=== PATIENT | male | born 1950 | race Caucasian/White ===

== ENCOUNTER 2016-04-29 15:52 | Inpatient (IN) | payer BC, OTHER ==
[~2016-04-29] VITALS: Ht 165.1 cm; Wt 96.1 kg
[~2016-04-29 15:52] MED LIST: /PANT40TA; /WARF2TA; ALDA25TA2; ALLO100T; ALLO100T PO; ASPI81CH PO; ASPI81TA83; Aspirin; BABY81CH; BREO1INH INH; CALC500C8 PO; COLA100C PO; COUM1TAB19 PO; COUM6TAB PO; CRES40TA PO; DARV100T; FARX1TAB2 PO; FERR325T PO; FISH5CAP PO; FURO40TA2 PO; GLUC500T; INSULANT SC; KLOR10TA; LASI40TA; LISI2.5T3 PO; MECL25CH PO; METF1000 PO; NITR0.4S; OMEGA-3 FISH OIL; PANT40TA2 PO; POTA20TA PO; PRIN5TAB; PROA1AER INH; SIMVPOW2; SPIR25TA2 PO; SPIR50TA2; TENO25TA; TRIC145T19; VITMTA PO; ZYLO100T
[2016-04-29 16:58] LABS: BASO % 0.5 % (0.0-1.0); EOS # 0.1 K/mm3 (0.0-0.50); EOS % 0.7 % (0.0-3.0); LARGE UNSTAINED CELL # 0.2 K/mm3 (0.0-0.4); LARGE UNSTAINED CELL % 1.8 % (0.0-4.0); LYMPH # 1.6 K/mm3 (1.5-4.5); LYMPH % 16.2 % (24.0-44.0); MEAN CORPUSCULAR HEMOGLOBIN 27.6 pg (27.0-33.0); MEAN CORPUSCULAR HGB CONC 34.3 g/dl (32.0-36.5); MEAN CORPUSCULAR VOLUME 80.6 fl (80.0-96.0); MONO # 0.6 K/mm3 (0.0-0.8); MONO % 6.1 % (0.0-5.0); NEUTROPHILS # 7.3 K/mm3 (1.8-7.7); NEUTROPHILS % 74.8 % (36.0-66.0); PLATELET COUNT, AUTOMATED 298 k/mm3 (150-450); RED CELL DISTRIBUTION WIDTH 14.7 % (11.5-14.5); WHITE BLOOD COUNT 9.8 K/mm3 (4.0-10.0)
[2016-04-29 17:15] LABS: INR 2.75
[2016-04-29 17:32] LABS: CALCIUM LEVEL 8.6 MG/DL (8.8-10.2); CREATININE FOR GFR 1.67 MG/DL (0.70-1.30); FREE T4 1.02 NG/DL (0.76-1.46); GLOMERULAR FILTRATION RATE 44.5 (>49); MAGNESIUM LEVEL 2.3 MG/DL (1.8-2.4); POTASSIUM SERUM 2.7 MEQ/L (3.5-5.1)
[2016-04-29] MEDS ORDERED: POTASSIUM CHLORIDE 10 MEQ SR TABLET As Ordered ONE (18:21)
[2016-04-29] MEDS ORDERED: KCL 10MEQ IN STERILE WATER 100ML As Ordered ONE (18:21)
[2016-04-29] MEDS ORDERED: DEXTROSE 50% 50 ML SYRINGE IV PRN (18:45)
[2016-04-29] MEDS ORDERED: ACETAMINOPHEN TAB 650MG DOSE (2X325MG) PO PRN (18:45)
[2016-04-29] MEDS ORDERED: GLUCOSE 4 GM CHEW TABLET PO PRN (18:45)
[2016-04-29] MEDS ORDERED: GLUCAGON FOR INJ 1 MG VIAL (J1610) SC PRN (18:45)
[2016-04-29] MEDS ORDERED: IPRATROPIUM 0.5MG/ALBUTEROL 2.5MG INH SOL UD 3ML (DUONEB)(J7620) NEB PRN (18:45)
--- NOTE | 2016-04-29 18:52 | REP ---
AP PORTABLE CHEST: 04/29/2016 at 06:21 P.M.: Comparison: 02/14/2016, 03/31/2011. Clinical history: Hypotension. Findings: A somewhat lordotic projection limits evaluation of the posterior lower lung zones. Epicardial fat pad adjacent to left heart border again seen. There is no gross cardiomegaly, edema or gross effusion. No dense consolidation. Some fibrotic changes are seen in the mid and lower lung zones. Evidence for COPD. Bones demineralized. No other findings. Signed by Naldo Del Rio MD 04/29/2016 07:57 P
[2016-04-29] MEDS ORDERED: LASI20TA PO ×2 (19:09)
[2016-04-29] MEDS ORDERED: FISH1000 PO (19:09)
[2016-04-29] MEDS ORDERED: SPIR25TA2 PO (19:16)
[2016-04-29] MEDS ORDERED: POTA20TA PO (19:16)
[2016-04-29] MEDS ORDERED: LISI2.5T3 PO (19:16)
[2016-04-29 20:00] VITALS: BP 124/74
[2016-04-29] MEDS ORDERED: NS 500 ML IV SCH (20:00)
[2016-04-29] MEDS ORDERED: ALBUTEROL 90 MCG/ACT 8GM HFA INHALER INH PRN (20:15)
--- NOTE | 2016-04-29 20:24 | HPEPDOC ---
General Date of Admission Apr 29, 2016 at 18:42 Chief Complaint The patient is a 65-year-old male Presented to the ER from Nephrology because of dizziness and abnormal lab values. 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 Patient was admitted to the hospital 02/13 to 02/15 for orthostatic hypotension and received IV fluid hydration that caused him to go into fluid overload. From that point his Lasix medications were adjusted to 40 AM and 20 PM daily. During that hospital course he had several electrolyte abnormalities that were corrected. He followed up with Nephrology in February and had no problems. His electrolytes and volume status were adequate. Since that point he has continued the same regimen. 2 weeks ago patient began to experience dizziness with walking and standing. He denies falling or losing consciousness. He did not seek any medication attention at that time and waited for his appointment with nephrology. Upon evaluation by nephrology, they had noted that he had hypokalemia, hyponatremia and had had a 13 lbs weight loss over 2 months. Patient was advised to go to the ER where they found he had positive orthostatic vital signs. Hospitalist team was called for evaluation. Currently he denies any chest pain, shortness of breath, cough, fever, chills, nausea, vomiting, abdominal pain, constipation or diarrhea. He denies any dysuria. Home Medications Scheduled (Aspirin) 81 Mg Chw 81 MG PO DAILY (Reported) Allopurinol (Allopurinol) 100 Mg Tab 100 MG PO DAILY (Reported) Calcium Carbonate (Calcium) 500 Mg Chw 500 MG PO BID (Reported) Docusate Sodium (Colace) 100 Mg Cap 100 MG PO BID (Reported) Ferrous Sulfate (Ferrous Sulfate) 325 Mg Tab 325 MG PO BID (Reported) Fish Oil (Fish Oil) 1,000 Mg Cap 1,000 MG PO BID (Reported) Fluticasone/Vilanterol (Breo Ellipta 100-25 Mcg/INH) 1 Inh Inh 1 PUFF INH DAILY (Reported) Furosemide (Lasix) 20 Mg Tab 40 MG PO QAM (Reported) Furosemide (Lasix) 20 Mg Tab 20 MG PO DAILY (Reported) TAKES IN THE AFTERNOON Insulin Glargine (Lantus) 1 Units/0.01 Ml Susp 20 UNITS SC QAM (Reported) Lisinopril (Lisinopril) 2.5 Mg Tab 2.5 MG PO DAILY (Reported) Metformin Hydrochloride (Metformin HCl) 1,000 Mg Tab 1,000 MG PO BID (Reported ) Multivitamins *[facility] STOCK[facility]* (Thera M Plus *[facility]OCK[facility]*) 1 Tab Tab 1 TAB PO DAILY (Reported) Pantoprazole Sodium (Pantoprazole Sodium) 40 Mg Tab 40 MG PO DAILY (Reported) Potassium Chloride (Klor-Con M20) 20 Meq Tabcr 20 MEQ PO BID (Reported) Rosuvastatin Calcium (Crestor) 40 Mg Tab 40 MG PO DAILY (Reported) Spironolactone (Spironolactone) 25 Mg Tab 25 MG PO BID (Reported) Warfarin Sod (Coumadin) 6 Mg Tab 6 MG PO 3XW (Reported) QPM: Mon, Wed, Fri - ON HOLD UNTIL 05/01/16 Warfarin Sod (Coumadin) 3 Mg Tab 9 MG PO 4XWK (Reported) QPM: Tue, Th, Sat, Sun - ON HOLD UNTIL 05/01/16 Scheduled PRN Albuterol Sulfate (Proair Hfa) 108 Mcg/Act Aer 2 PUFF INH QID PRN PRN SHORTNESS OF BREATH (Reported) Allergies Coded Allergies: No Known Allergies (Verified Allergy, Mild, 09/07/05) Past Medical History Medical History COPD, HTN, DLP, IDDM2, MORTEZA on CPAP, Hx of fluid overload (ECHO 01/2016: No systolic or diastolic dysfunction), 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 Review of Symptoms Other systems Constitutional: Positive weight loss, no change in appetite, or recent trauma Eyes: No visual changes or eye pain Ears, Nose, Throat: Denies nose bleeds, or difficulty swallowing Cardiovascular: Denies chest pain, sweating, or orthopnea Respiratory: Denies cough, wheezing, or shortness of breath GI: Rich nausea, vomiting, abdominal pain, diarrhea or constipation : Denies pain with urination or frequency Musculoskeletal: Denies joint pain or swelling Neuro / Psych: Denies muscle weakness or sensory loss, Positive dizziness Skin: No skin rashes noted All other review of systems negative; otherwise stated in history of present illness Vital Signs - Vitals: BP 119/72, HR 84, RR 18, Sat 96%RA, Temp 98.6 - General: Lying in bed, No acute distress, Speaking in full sentences, AAOx3 - HEENT: NC, AT, PERRLA, EOMI - CVS: RRR, +S1S2, - Lungs: Fair air entry bilaterally, Clear to auscultation, No wheezing / rales / rhonchi - Abdomen: Soft, Non-distended, Non-tender, + Bowel sounds x 4 - Extremities: + PPx4, No lower extremity edema, No calf tenderness - Neuro: No focal motor or sensory deficit - Skin: No visible rashes Laboratory Data Labs 24H Laboratory Tests 2 04/29/16 16:45: Urine Random Creatinine 13.1, Urine Random Osmolality 277L, Urine Random Sodium 64 04/29/16 16:49: Anion Gap 15, White Blood Count 9.8, Red Blood Count 5.08, Hemoglobin 14.0, Hematocrit 40.9L, Mean Corpuscular Volume 80.6, Mean Corpuscular Hemoglobin 27.6 , Mean Corpuscular Hemoglobin Concent 34.3, Red Cell Distribution Width 14.7H, Platelet Count 298, Neutrophils (%) (Auto) 74.8H, Lymphocytes (%) (Auto) 16.2L, Monocytes (%) (Auto) 6.1H, Eosinophils (%) (Auto) 0.7, Basophils (%) (Auto) 0.5 , Neutrophils # (Auto) 7.3, Lymphocytes # (Auto) 1.6, Monocytes # (Auto) 0.6, Eosinophils # (Auto) 0.1, Basophils # (Auto) 0.0, Blood Urea Nitrogen 30H, Creatinine 1.67H, Sodium Level 134L, Potassium Level 2.7*L, Chloride Level 93L, Carbon Dioxide Level 26, Calcium Level 8.6L, Free Thyroxine 1.02, Glomerular Filtration Rate 44.5L, Large Unclassified Cells # 0.2, Large Unclassified Cells % 1.8, Magnesium Level 2.3, Osmolality 299, Prothromb Time International Ratio 2.75, Prothrombin Time 29.1H, Thyroid Stimulating Hormone (TSH) 1.680 04/29/16 20:07: Bedside Glucose (Misc Panel) 385H CBC/BMP Laboratory Tests 04/29/16 16:49 Calcium Level 8.6 L, Red Blood Count 5.08, Mean Corpuscular Volume 80.6, Mean Corpuscular Hemoglobin 27.6, Mean Corpuscular Hemoglobin Concent 34.3, Red Cell Distribution Width 14.7 H, Neutrophils (%) (Auto) 74.8 H, Lymphocytes (%) (Auto ) 16.2 L, Monocytes (%) (Auto) 6.1 H, Eosinophils (%) (Auto) 0.7, Basophils (%) (Auto) 0.5, Neutrophils # (Auto) 7.3, Lymphocytes # (Auto) 1.6, Monocytes # ( Auto) 0.6, Eosinophils # (Auto) 0.1, Basophils # (Auto) 0.0 Plan / VTE VTE Prophylaxis Ordered?: Yes Plan Plan Positive orthostatic vital signs likely 2/2 over diuresis - Reports dizziness upon standing and walking, no LOC or head trauma - Physical reveals positive orthostatic in ER - Has been given 500 cc NS bolus in ER - Will hold Furosemide and Spirinolactone at this - Will complete 500cc of additional Normal saline (total of 1 Liter) - History of fluid overload in past because of excessive hydration - Case discussed with Nephrology (Dr. Chaudhary) on consult, appreciate their input Hypokalemia - Potassium of 2.7 - In ER has received KCl 10 mEq IV and 40 meEq PO - Magnesium level adequate - Will keep on telemetry - Will repeat Potassium level in AM BASSAM - likely pre-renal 2/2 hypovolemia and orthostatic positive - Cr baseline of 0.8, currently at 1.64 - Will hold Lasix and Diuretics - Will give IV fluid hydration (maximum of 1 liter) - Dr. Chaudhary (Nephrology) following Hyponatremia likely 2/2 hypovolemia - Will c/w Normal saline for a total of 1 liter only COPD - no evidence of exacerbation at this time - c/w Albuterol PRN HTN - Will hold lisinopril, spironolactone and Lasix given orthostatic hypotension DLP - c/w rosuvastatin IDDM2 - c/w Lantus 20 units per day - will start Insulin sliding scale MORTEZA on CPAP - allow home CPAP use Hx of fluid overload - ECHO 01/2016: No systolic or diastolic dysfunction DVT/PE - 10 years prior - INR of 2.75 - Currently on Coumadin, Take 9mg for 4 days, then 6mg for next 3 days - Will start at 7.5 mg daily for now Gout - will hold allopurinol Iron deficiency - c/w ferrous sulfate GERD - c/w protonix DVT prophylaxis - On full anticoagulation with Warfarin Will be signed out to AKASH Sin MD Apr 29, 2016 20:24
[2016-04-29] MEDS ORDERED: HEPARIN SOD (PORCINE) 5000 UNITS/ML VIAL As Ordered ONE (20:29)
[2016-04-29] MEDS ORDERED: HumuLIN R (REGULAR) INSULIN (NovoLIN R) **100U/ML** PER UNIT As Ordered ONE ×2 (20:30→20:34)
[2016-04-29] MEDS ORDERED: DOCUSATE SODIUM 100 MG CAP As Ordered ONE ×2 (20:34→20:48)
[2016-04-29] MEDS: FERROUS SULFATE 325MG TAB PO SCH (20:37)
[2016-04-29] MEDS: HEPARIN SOD (PORCINE) 5000 UNITS/ML VIAL SC SCH (20:38)
[2016-04-29] MEDS: DOCUSATE SODIUM 100 MG CAP PO SCH (20:38)
[2016-04-29] MEDS ORDERED: HumaLOG INSULIN (NovoLOG) PER UNIT As Ordered ONE (20:45)
[2016-04-29] MEDS: HumaLOG INSULIN (NovoLOG) PER UNIT SC SCH (20:50)
[2016-04-29] MEDS ORDERED: KCL 40MEQ IN 0.9%NACL 1000ML As Ordered ONE (21:43)
[2016-04-29] MEDS ORDERED: KCL 40MEQ in NS 1000ML 1,000 ML IV SCH (21:45)
[2016-04-30] VITALS (8 sets, daily range): BP systolic 102–130; BP diastolic 56–81
[2016-04-30] MEDS ORDERED: UNRESOLVED CLARIFICATION ENTRY XX SCH (00:01)
[2016-04-30] MEDS ORDERED: IPRATROPIUM 0.5MG/ALBUTEROL 2.5MG INH SOL UD 3ML (DUONEB)(J7620) NEB SCH (02:00)
[2016-04-30] MEDS ORDERED: HEPARIN SOD (PORCINE) 5000 UNITS/ML VIAL As Ordered ONE (05:07)
[2016-04-30] MEDS: HEPARIN SOD (PORCINE) 5000 UNITS/ML VIAL SC SCH ×3 (05:11→21:48)
[2016-04-30 06:55] LABS: BASO % 0.5 % (0.0-1.0); EOS # 0.1 K/mm3 (0.0-0.50); EOS % 1.7 % (0.0-3.0); LARGE UNSTAINED CELL # 0.1 K/mm3 (0.0-0.4); LARGE UNSTAINED CELL % 2.3 % (0.0-4.0); LYMPH # 1.7 K/mm3 (1.5-4.5); LYMPH % 28.8 % (24.0-44.0); MEAN CORPUSCULAR HEMOGLOBIN 28.2 pg (27.0-33.0); MEAN CORPUSCULAR HGB CONC 34.5 g/dl (32.0-36.5); MEAN CORPUSCULAR VOLUME 81.7 fl (80.0-96.0); MONO # 0.4 K/mm3 (0.0-0.8); MONO % 7.6 % (0.0-5.0); NEUTROPHILS # 3.4 K/mm3 (1.8-7.7); NEUTROPHILS % 59.1 % (36.0-66.0); PLATELET COUNT, AUTOMATED 245 k/mm3 (150-450); RED CELL DISTRIBUTION WIDTH 14.9 % (11.5-14.5); WHITE BLOOD COUNT 5.8 K/mm3 (4.0-10.0)
[2016-04-30 07:02] LABS: INR 2.37
[2016-04-30 07:19] LABS: ALBUMIN 3.2 GM/DL (3.2-5.2); ALBUMIN/GLOBULIN RATIO 1.1 (1.00-1.93); BILIRUBIN,TOTAL 0.3 MG/DL (0.2-1.0); CALCIUM LEVEL 8.4 MG/DL (8.8-10.2); CREATININE FOR GFR 1.38 MG/DL (0.70-1.30); GLOMERULAR FILTRATION RATE 55.4 (>49); MAGNESIUM LEVEL 2.3 MG/DL (1.8-2.4); TOTAL PROTEIN 6.1 GM/DL (6.4-8.2)
[2016-04-30] MEDS ORDERED: LEVEMIR (INSULIN DETEMIR) 1 UNITS/0.01ML As Ordered ONE (08:18)
[2016-04-30] MEDS ORDERED: HumaLOG INSULIN (NovoLOG) PER UNIT As Ordered ONE (08:19)
[2016-04-30] MEDS: FERROUS SULFATE 325MG TAB PO SCH ×2 (08:38→21:48)
[2016-04-30] MEDS: MULTIVITAMINS/MINERALS THERAP 1 TAB PO SCH (08:38)
[2016-04-30] MEDS: DOCUSATE SODIUM 100 MG CAP PO SCH ×2 (08:38→21:48)
[2016-04-30] MEDS: ASPIRIN 81 MG CHEW TABLET PO SCH (08:38)
[2016-04-30] MEDS: LEVEMIR (INSULIN DETEMIR) 1 UNITS/0.01ML SC SCH (08:38)
[2016-04-30] MEDS: HumaLOG INSULIN (NovoLOG) PER UNIT SC SCH ×4 (08:38→21:47)
[2016-04-30] MEDS: ROSUVASTATIN 10 MG TAB (CRESTOR) PO SCH (08:38)
[2016-04-30] MEDS: PANTOPRAZOLE 40MG TAB (PROTONIX) PO SCH (08:38)
[2016-04-30] MEDS ORDERED: KCL 40MEQ IN 0.9%NACL 1000ML As Ordered ONE (10:13)
--- NOTE | 2016-04-30 10:49 | ECGEPIP ---
Stationary ECG Study [facility] - ED Test Date: 2016-04-29 Pat Name: DREA TORIBIO Department: Room: - Gender: M Sole Seamer: lion : 1950 Requested By: Maverick Alston Order Number: [id number] Reading MD: Marybel Loya Measurements Intervals [place] Rate: 87 P: 32 [place]: 166 QRS: 58 QRSD: 120 T: 54 QT: 419 QTc: 506 Interpretive Statements SINUS RHYTHM MODERATE INTRAVENTRICULAR CONDUCTION DELAY PROLONGED QT INTERVAL CLINICAL CORRELATION Electronically Signed On 04-30-2016 10:49:25 EST by Marybel Loya
[2016-04-30] MEDS ORDERED: POTASSIUM CHLORIDE 10 MEQ SR TABLET PO ONE ×3 (11:30→20:00)
[2016-04-30] MEDS ORDERED: POTASSIUM CHLORIDE 10 MEQ SR TABLET As Ordered ONE (11:46)
[2016-04-30] MEDS ORDERED: KCL 40MEQ in NS 1000ML 1,000 ML IV SCH (12:00)
--- NOTE | 2016-04-30 12:47 | EDDOCDS ---
Physician Documentation [facility] Name: Lg Espinal Age: 65 yrs Sex: Male : 1950 Arrival Date: 04/29/2016 Time: 15:52 Bed Admit Hold Private MD: John Mccormack Disposition: 04/29 18:01 Critical Care:. pc Disposition: 04/29/16 18:20 Hospitalization ordered by Selene Maldonado for Inpatient Admission. Preliminary diagnosis are Orthostatic hypotension, Hypokalemia, Type 2 diabetes mellitus with hyperglycemia - A1C over 9 for past 2 years, Hyperlipidemia, unspecified, Polydipsia, Chronic kidney disease, stage 3 (moderate). - Bed requested for PCU. - Status is Inpatient Admission. hs1 - Condition is Stable. - Problem is new. - Symptoms have improved. HPI: 16:50 This 65 yrs old Male presents to ER via Walkin/Carried/Asstd with complaints pc of Abnormal Lab Results. 16:50 The history is obtained from the patient, Dr. Hodge. He was referred to Nephrology pc due to ongoing hyponatremia and his labs today showed significant hypokalemia and hyponatremia. The patient complains only of occasional dizziness. He admits to drinking at least 8 x 20 ounce bottles of water daily. He does not have any underlying renal disease. He has type 2 DM with poor control, with and A1C of 8.9 to 9.6 since 2014. At their worst, the symptoms were mild. In the emergency department, the symptoms are unchanged. The patient has been recently seen by their primary care provider. Historical: - Allergies: no known allergies; - Home Meds: 1. calcium carbonate 500 mg calcium (1,250 mg) Oral cap twice a day 2. allopurinol 100 mg Oral tab 1 tab once daily 3. aspirin 81 mg Oral chew 1 tab once daily 4. Breo INH daily 5. cpap nightly 6. Doc-Q-Lace 100 mg oral cap 1 cap 2 times per day 7. ferrous sulfate 325 mg (65 mg iron) Oral tab twice a day 8. Fish Oil Pills 1200 mg Twice Daily 9. Lantus 100 unit/mL Sub-Q crtg 20 units daily 10. Lasix 40 mg oral tab in Am and 20mg in pm 11. lisinopril 2.5 mg Oral tab 1 tab once daily 12. metformin 1,000 mg Oral tab 1 tab 2 times per day 13. potassium 20meq oral chew twice a day 14. pantoprazole 40 mg oral TbEC 1 tab once daily 15. Pro Air INH as needed 16. rosuvastatin 40 mg once daily oral 17. warfarin 6 mg oral tab 1 tab once daily Due to restart 05/01/16. On hold at this time for INR 7.7 18. spironolactone 25 mg Oral tab 1 tab 2 times per day 19. One A Day MVI daily - PMHx: Asthma; COPD; Diabetes - IDDM: uncontrolled; GERD; Gout; High Cholesterol; Hypertension; Sleep Apnea w/ CPAP; renal disease; - PSHx: Carpal Tunnel Repair- Bilateral; Arthroscopy, Knee- Right; eye surgery; Rotator Cuff Repair- Left; - The history from nurses notes was reviewed: and I agree with what is documented. - Social history: Smoking status: Patient states former smoker of tobacco. No barriers to communication noted, The patient speaks fluent Ivorian, Speaks appropriately for age. - Family history: Not pertinent. - : The pt / caregiver states he / she is on anticoagulants: coumadin. Home medication list is obtained from the patient. - Hospitalizations: : No recent hospitalization is reported. - Exposure Risk Screening:: None identified. - Immunization history:: All immunizations up-to-date. - Social history:: the patient is a non-smoker, the patient does not drink alcohol. ROS: 16:50 All systems are negative except as listed. pc 16:56 "I'm always thirsty". pc Exam: 16:50 General Appearance: no acute distress, alert. pc 16:50 EENT: normal eye inspection, ears, nose and throat normal, pharynx normal, mucous membranes moist 16:50 Neck: The exam reveals no acute abnormalities. ROM is normal and painless. No nuchal rigidity is noted.. 16:50 Respiratory: no respiratory distress, normal breath sounds. 16:50 CVS: regular pulse rate, regular rhythm, normal S1 and S2, no murmurs, strong peripheral pulses. 16:50 Abdomen: soft, non-tender, no organomegaly, normal bowel sounds. 16:50 Back: normal inspection. 16:50 Skin: skin color is normal, warm, dry. 16:50 Extremities: The extremities have a grossly normal appearance, are non-tender, without acute ROM abnormalities. 16:50 Neuro: oriented x 3, cranial nerves normal as tested, no motor deficits, no sensory deficits. 16:50 Psych: normal mood. Vital Signs: 15:55 BP 112 / 76; Pulse 95; Resp 18; Temp 98.6; Pulse Ox 96% ; Weight 93.44 kg / 206 lbs; elp Height 5 ft. 5 in. (165.10 cm); Pain 0/10; 16:17 BP 117 / 68 (auto/); ms18 16:19 Pulse 88 MON; Pulse Ox 96% ; ms18 16:29 BP 111 / 64 (auto/); ms18 16:29 Pulse 88 MON; Pulse Ox 96% ; ms18 16:44 BP 126 / 67 (auto/); mv5 16:49 Pulse 88 MON; Resp 18; Pulse Ox 96% ; mv5 17:14 BP 115 / 72 (auto/); ms18 17:14 Pulse 84 MON; Pulse Ox 95% ; ms18 17:44 BP 119 / 72 (auto/); ms18 17:44 Pulse 82 MON; Pulse Ox 95% ; ms18 17:58 BP 110 / 61 (auto/); ms18 17:58 Pulse 88 MON; Pulse Ox 96% ; ms18 17:58 BP 119 / 72 (auto/); ms18 17:59 BP 99 / 59 (auto/); ms18 17:59 Pulse 84 MON; Pulse Ox 96% ; ms18 18:00 BP 119 / 72 Supine; Pulse 84; ld5 18:01 BP 110 / 61 Sitting; Pulse 92; ld5 18:02 BP 99 / 59 Standing; Pulse 96; ld5 18:14 BP 96 / 51 (auto/); ms18 18:14 Pulse 92 MON; Pulse Ox 96% ; ms18 19:09 BP 101 / 58 (auto/); kas2 19:09 Pulse 86 MON; Pulse Ox 95% ; kas2 19:16 Resp 20; Temp 98.1(O); Pain 0/10; kas2 19:25 BP 105 / 82; Pulse 81; Resp 18; Pain 00/10; kas2 15:55 Body Mass Index 34.28 (93.44 kg, 165.10 cm) elp MDM: 16:27 IV Saline Lock ordered. pc 16:27 Turbine Attendant/Pulse Ox/q 30 min VS ordered. pc 16:28 CBC with Diff Ordered. EDMS 16:28 MED Profile Ordered. EDMS 16:28 Osmolality, Serum Ordered. EDMS 16:28 Osmolality,Urine Ordered. EDMS 16:28 TSH with Free T4 Ordered. EDMS 16:28 Urine Random,Creatinine Ordered. EDMS 16:28 Urine Random,Sodium Ordered. EDMS 16:28 Magnesium Level Ordered. EDMS 16:28 INR Ordered. EDMS 16:28 ECG WITH READING ER PHYS+CARDIAG ordered. EDMS 16:57 Differential Diagnosis: mildly symptomatic hyponatremia/hypochloridemia/hypokalemia, pc suspected to be due to water intoxication; poorly controlled DM. Plan: labs, fluid restriction, EKG. Test interpretation: EKG. 17:02 CBC with Diff Reviewed. pc 17:05 Financial registration complete. zo 17:09 [facility] Payment Agreement was scanned into [email or web address] and attached to record. zo 17:45 MED Profile Reviewed. pc 17:45 Osmolality,Urine Reviewed. pc 17:45 INR Reviewed. pc 17:45 Osmolality, Serum Reviewed. pc 17:45 TSH with Free T4 Reviewed. pc 17:45 Urine Random,Creatinine Reviewed. pc 17:45 Urine Random,Sodium Reviewed. pc 17:45 Magnesium Level Reviewed. pc 17:54 Orthostatic VS ordered. pc 18:01 Data reviewed: old medical records, vital signs, nurses notes, EKG(s), lab test pc results. Test interpretation: LAB - all labs as ordered have been reviewed, interpreted and considered in the overall management of the clinical presentation;. The patient has been re-examined and re-evaluated. The patient's symptoms have mildly improved after treatment, but he is orthostatic and requires admission. Physician consultation: Dr. Sg Chaudhary MD regarding patient's condition, and he advises that with the improved labs, he does not require admission if he is not orthostatic and advises oral K+ replacement. If he is orthostatic, he advises IV K+ and admission. Physician consultation: Dr. Selene Maldonado regarding admission. Disposition: The historical points, examination findings, and any diagnostic results supporting the provided diagnosis, were discussed with the patient or legal guardian. The need for further work-up and/or treatment in the hospital was explained. 18:12 NS 0.9% 500 ml IV at bolus once ordered. pc 18:12 Potassium Chloride Extended Release Tablet 40 mEq PO once ordered. pc 18:12 Potassium Chloride in 100cc sterile water 10 mEq IV at 100 mL/hr once over 1 hrs pc ordered. 18:15 Chest, 1 View Ordered. EDMS 18:15 BED REQUEST+ADM ordered. EDMS 18:50 Admission / Observation Status ordered. EDMS 18:50 2 GRAM SODIUM DIET ordered. EDMS 19:33 CBC WITH DIFFERENTIAL Ordered. EDMS 19:33 COMPLETE COMPHRENSIVE METABOLI Ordered. EDMS 19:33 MAGNESIUM LEVEL Ordered. EDMS 20:25 PROTHROMBIN TIME PROFILE\\E\\INR Ordered. EDMS 0203 11:14 BASIC METABOLIC PROFILE Ordered. EDMS EC/02 16:57 Rate is 87 beats/min. Rhythm is regular, Normal Sinus Rhythm. QRS [place] is Normal. [place] pc interval is normal. QRS interval is prolonged at 120 msec. QT interval is normal. No Q waves. T waves are Normal. No ST changes noted. Clinical impression: Normal Sinus Rhythm, Incomplete LBBB, and LAE. Administered Medications: 18:29 Drug: NS 0.9% 500 ml [sodium chloride 0.9 % intravenous solution] Route: IV; Rate: ms18 bolus; Site: right antecubital; 18:29 Drug: Potassium Chloride 40 mEq [potassium chloride ER 10 mEq tablet,extended release ms18 (4 tabs)] Route: PO; 18:29 Drug: Potassium Chloride in 100cc sterile water 10 mEq [potassium chloride 10 mEq/100 ms18 mL intravenous piggyback] {Co-Signature: mv5 (Nolvia Sun RN).} Route: IV; Rate: 100 mL/hr; Infused Over: 1 hrs; Site: right antecubital; Critical Care Time: 18:01 Critical care time: Bedside Care: 20 minutes, Consultation: 20 minutes, Family pc Intervention: 10 minutes. Total time: 50 minutes Signatures: Dispatcher [employer] EDCT Maevrick Moon MD MD pc [place], JenniferRN RN [id number] Sherwin Alfaro Hannah RN RN hs1 Danielle Ya RN RN sls2 Nolvia Sun RN RN mv5 Nathalie Clark RN [id number] Nolvia Sun RN mv5 The chart was reviewed and I authenticate all verbal orders and agree with the evaluation and treatment provided.Attachments: 17:09 [facility] Payment Agreement zo [email or web address]
--- NOTE | 2016-04-30 12:47 | EDDOCDS ---
Nurse's Notes [facility] Name: Drea Toribio Age: 65 yrs Sex: Male : 1950 Arrival Date: 04/29/2016 Time: 15:52 Bed Admit Hold Private MD: John Mccormack Diagnosis: Hypokalemia;Type 2 diabetes mellitus with hyperglycemia-A1C over 9 for past 2 years;Hyperlipidemia, unspecified;Orthostatic hypotension;Polydipsia;Chronic kidney disease, stage 3 (moderate) Presentation: 04/29 15:55 Presenting complaint: Patient states: Was at nephrology and they sent pt here to be jo3 admitted for low potassium. Adult Sepsis Screening: The patient does not have new or worsening altered mentation. Patient's respiratory rate is less than 22. Systolic blood pressure is greater than 100. Patient has a qSOFA score of 0- Negative Sepsis Screen. Suicide/Homicide risk assessment- the patient denies having any suicidal and/or homicidal ideations and does not present with any other emotional, behavioral or mental health complaints. Status: Patient is not a service desk technician or dependent. Transition of care: patient was not received from another setting of care. 15:55 Acuity: ULISES Level 3 jo3 15:55 Method Of Arrival: Walkin/Carried/Asstd jo3 Triage Assessment: 16:02 General: Appears in no apparent distress, comfortable, Behavior is appropriate for age, jo3 cooperative. Pain: Denies pain. HIV screening NA for this visit Offered previously. The patient is triaged at the bedside. See Assessment in Nurses Notes section of ED record. Neurological: Level of Consciousness is awake, alert, Oriented to person, place, time. Respiratory: Airway is patent Respiratory effort is even, unlabored. Historical: - Allergies: no known allergies; - Home Meds: 1. calcium carbonate 500 mg calcium (1,250 mg) Oral cap twice a day 2. allopurinol 100 mg Oral tab 1 tab once daily 3. aspirin 81 mg Oral chew 1 tab once daily 4. Breo INH daily 5. cpap nightly 6. Doc-Q-Lace 100 mg oral cap 1 cap 2 times per day 7. ferrous sulfate 325 mg (65 mg iron) Oral tab twice a day 8. Fish Oil Pills 1200 mg Twice Daily 9. Lantus 100 unit/mL Sub-Q crtg 20 units daily 10. Lasix 40 mg oral tab in Am and 20mg in pm 11. lisinopril 2.5 mg Oral tab 1 tab once daily 12. metformin 1,000 mg Oral tab 1 tab 2 times per day 13. potassium 20meq oral chew twice a day 14. pantoprazole 40 mg oral TbEC 1 tab once daily 15. Pro Air INH as needed 16. rosuvastatin 40 mg once daily oral 17. warfarin 6 mg oral tab 1 tab once daily Due to restart 05/01/16. On hold at this time for INR 7.7 18. spironolactone 25 mg Oral tab 1 tab 2 times per day 19. One A Day MVI daily - PMHx: Asthma; COPD; Diabetes - IDDM: uncontrolled; GERD; Gout; High Cholesterol; Hypertension; Sleep Apnea w/ CPAP; renal disease; - PSHx: Carpal Tunnel Repair- Bilateral; Arthroscopy, Knee- Right; eye surgery; Rotator Cuff Repair- Left; - The history from nurses notes was reviewed: and I agree with what is documented. - Social history: Smoking status: Patient states former smoker of tobacco. No barriers to communication noted, The patient speaks fluent Palestinian, Speaks appropriately for age. - Family history: Not pertinent. - : The pt / caregiver states he / she is on anticoagulants: coumadin. Home medication list is obtained from the patient. - Hospitalizations: : No recent hospitalization is reported. - Exposure Risk Screening:: None identified. - Immunization history:: All immunizations up-to-date. - Social history:: the patient is a non-smoker, the patient does not drink alcohol. Screenin:55 Screening information is obtained from the patient. Fall risk: At risk due to Pt mv5 reports occasional dizziness. Assistance ADL's: requires no assistance with activities of daily living. Abuse/DV Screen: The patient / caregiver reports he/she is: not in a situation that causes fear, pain or injury. Nutritional screening: No deficits noted. home support is adequate. Assessment: 16:52 General: Appears in no apparent distress, comfortable, well nourished. Pain: Denies mv5 pain. Neurological: Level of Consciousness is awake, alert, obeys commands, Oriented to person, place, time. Cardiovascular: Respiratory: Airway is patent Respiratory effort is even, unlabored. GI: Abdomen is distended, obese. : Urine is clear. Derm: Skin is pink, warm & dry. normal. 17:30 General: Pt in no acute distress. VSS. Will continue to monitor pt. ms18 18:30 General: Appears in no apparent distress, comfortable, Behavior is appropriate for age, ms18 cooperative, PT speaking with the hospitalist at this time. . Neurological: Level of Consciousness is awake, alert, obeys commands, Oriented to person, place, time. Respiratory: Airway is patent Respiratory effort is even, unlabored. Derm: Skin is pink, warm & dry. 19:01 General: Verbal report given by Nathalie Metzger RN. Assumed care of patient at this time.. kas2 19:14 General: Appears in no apparent distress, comfortable, well nourished, well groomed, kas2 Behavior is appropriate for age, cooperative. Pain: Denies pain. Neurological: Level of Consciousness is awake, alert, Oriented to person, place, time. Cardiovascular: Capillary refill < 3 seconds Heart tones S1 S2 present Rhythm is sinus rhythm No ectopy. Respiratory: Airway is patent Respiratory effort is even, unlabored, Respiratory pattern is regular, symmetrical. GI: Abdomen is distended, obese, Bowel sounds present X 4 quads. : No deficits noted. Derm: Skin is intact, Skin is dry, Skin is pink, warm & dry. Skin temperature is warm. 19:44 General: Patient was given supper at bedside.. kas2 Vital Signs: 15:55 BP 112 / 76; Pulse 95; Resp 18; Temp 98.6; Pulse Ox 96% ; Weight 93.44 kg; Height 5 ft. elp 5 in. (165.10 cm); Pain 0/10; 16:17 BP 117 / 68 (auto/); ms18 16:19 Pulse 88 MON; Pulse Ox 96% ; ms18 16:29 BP 111 / 64 (auto/); ms18 16:29 Pulse 88 MON; Pulse Ox 96% ; ms18 16:44 BP 126 / 67 (auto/); mv5 16:49 Pulse 88 MON; Resp 18; Pulse Ox 96% ; mv5 17:14 BP 115 / 72 (auto/); ms18 17:14 Pulse 84 MON; Pulse Ox 95% ; ms18 17:44 BP 119 / 72 (auto/); ms18 17:44 Pulse 82 MON; Pulse Ox 95% ; ms18 17:58 BP 110 / 61 (auto/); ms18 17:58 Pulse 88 MON; Pulse Ox 96% ; ms18 17:58 BP 119 / 72 (auto/); ms18 17:59 BP 99 / 59 (auto/); ms18 17:59 Pulse 84 MON; Pulse Ox 96% ; ms18 18:00 BP 119 / 72 Supine; Pulse 84; ld5 18:01 BP 110 / 61 Sitting; Pulse 92; ld5 18:02 BP 99 / 59 Standing; Pulse 96; ld5 18:14 BP 96 / 51 (auto/); ms18 18:14 Pulse 92 MON; Pulse Ox 96% ; ms18 19:09 BP 101 / 58 (auto/); kas2 19:09 Pulse 86 MON; Pulse Ox 95% ; kas2 19:16 Resp 20; Temp 98.1(O); Pain 0/10; kas2 19:25 BP 105 / 82; Pulse 81; Resp 18; Pain 00/10; kas2 15:55 Body Mass Index 34.28 (93.44 kg, 165.10 cm) [facility] Vitals: 15:55 Log In Time: April 29, 2016 at 15:51. [facility] ED Course: 15:54 Patient visited by Sherlyn Haddad PCA. elp 15:54 John Mccormack DO is Private Physician. elp 15:54 Patient moved to Waiting elp 15:54 Patient moved to Pre RCE elp 15:55 Patient visited by Sherlyn Haddad PCA. elp 15:56 Triage Initiated jo3 16:03 Patient visited by Gilda Lew RN. jo3 16:06 Nathalie Clark,RN is Primary Nurse. jo3 16:06 Patient moved to 17 jo3 16:08 Maverick Moon MD is Attending Physician. pc 16:39 Patient visited by Maverick Moon MD. pc 16:44 Patient visited by Nathalie Clark,LUIZ. ms18 16:44 Osmolality, Serum Sent. ms18 16:44 Osmolality,Urine Sent. ms18 16:44 Urine Random,Creatinine Sent. ms18 16:44 Urine Random,Sodium Sent. ms18 16:50 INR Sent. ms18 16:50 Magnesium Level Sent. ms18 16:50 TSH with Free T4 Sent. ms18 16:50 MED Profile Sent. ms18 16:50 CBC with Diff Sent. ms18 16:51 Inserted saline lock: 18 gauge in right antecubital area and blood collected. The mv5 patient tolerated the procedure well. 16:52 Patient visited by Rick Landry PCA. jrd 16:52 EKG done. (by ED staff). Reviewed by Maverick Moon MD. jrd 16:55 The patient / caregiver is instructed regarding the plan of care and ED course. Patient kenny5 has correct armband on for positive identification. Placed in gown. Bed in low position. Call light in reach. Side rails up X2. nurse monitoring on. Pulse ox on. NIBP on. 17:09 FOR[facility]LY [facility] Payment Agreement was scanned into [employer] and attached to record. zo 17:59 Patient visited by Nathalie Clark RN. ms18 18:20 Selene Maldonado is Hospitalizing Provider. pc 18:29 Patient visited by Nathalie Clark RN. ms18 18:59 Noelle Clark RN is Primary Nurse. kas2 19:02 Patient visited by Noelle Clark RN. kas2 19:16 Patient visited by Noelle Clark RN. kas2 19:19 Chest, 1 View Returned. EDMS 19:36 Patient moved to Admit Hold sls1 19:49 Patient visited by Noelle Clark RN. kas2 19:55 Patient moved to 21 rs6 19:55 Patient moved to Admit Hold rs6 02/03 11:11 EKG-ADULT Returned. EDMS Administered Medications: 04/29 18:29 Drug: NS 0.9% 500 ml [sodium chloride 0.9 % intravenous solution] Route: IV; Rate: ms18 bolus; Site: right antecubital; 18:29 Drug: Potassium Chloride 40 mEq [potassium chloride ER 10 mEq tablet,extended release ms18 (4 tabs)] Route: PO; 18:29 Drug: Potassium Chloride in 100cc sterile water 10 mEq [potassium chloride 10 mEq/100 ms18 mL intravenous piggyback] {Co-Signature: mv5 (Nolvia Sun RN).} Route: IV; Rate: 100 mL/hr; Infused Over: 1 hrs; Site: right antecubital; Order Results: Lab Order: CBC with Diff; SPEC'M 04/29/16 16:49 Test: WHITE BLOOD COUNT; Value: 9.8; Range: 4.0-10.0; Units: K/mm3; Status: F Test: RED BLOOD COUNT; Value: 5.08; Range: 4.30-6.10; Units: M/mm3; Status: F Test: HEMOGLOBIN; Value: 14.0; Range: 14.0-18.0; Units: g/dl; Status: F Test: HEMATOCRIT; Value: 40.9; Range: 42.0-52.0; Abnormal: Below low normal; Units: %; Status: F Test: MEAN CORPUSCULAR VOLUME; Value: 80.6; Range: 80.0-96.0; Units: fl; Status: F Test: MEAN CORPUSCULAR HEMOGLOBIN; Value: 27.6; Range: 27.0-33.0; Units: pg; Status: F Test: MEAN CORPUSCULAR HGB CONC; Value: 34.3; Range: 32.0-36.5; Units: g/dl; Status: F Test: RED CELL DISTRIBUTION WIDTH; Value: 14.7; Range: 11.5-14.5; Abnormal: Above high normal; Units: %; Status: F Test: PLATELET COUNT, AUTOMATED; Value: 298; Range: 150-450; Units: k/mm3; Status: F Test: NEUTROPHILS %; Value: 74.8; Range: 36.0-66.0; Abnormal: Above high normal; Units: %; Status: F Test: LYMPH %; Value: 16.2; Range: 24.0-44.0; Abnormal: Below low normal; Units: %; Status: F Test: MONO %; Value: 6.1; Range: 0.0-5.0; Abnormal: Above high normal; Units: %; Status: F Test: EOS %; Value: 0.7; Range: 0.0-3.0; Units: %; Status: F Test: BASO %; Value: 0.5; Range: 0.0-1.0; Units: %; Status: F Test: LARGE UNSTAINED CELL %; Value: 1.8; Range: 0.0-4.0; Units: %; Status: F Test: NEUTROPHILS #; Value: 7.3; Range: 1.8-7.7; Units: K/mm3; Status: F Test: LYMPH #; Value: 1.6; Range: 1.5-4.5; Units: K/mm3; Status: F Test: MONO #; Value: 0.6; Range: 0.0-0.8; Units: K/mm3; Status: F Test: EOS #; Value: 0.1; Range: 0.0-0.50; Units: K/mm3; Status: F Test: BASO #; Value: 0.0; Range: 0.0-0.2; Units: K/mm3; Status: F Test: LARGE UNSTAINED CELL #; Value: 0.2; Range: 0.0-0.4; Units: K/mm3; Status: F Lab Order: MED Profile; [facility] 04/29/16 16:49 Test: GLUCOSE, FASTING; Value: 318; Range: 80-110; Abnormal: Above high normal; Units: MG/DL; Status: F Test: BLOOD UREA NITROGEN; Value: 30; Range: 7-18; Abnormal: Above high normal; Units: MG/DL; Status: F Test: CREATININE FOR GFR; Value: 1.67; Range: 0.70-1.30; Abnormal: Above high normal; Units: MG/DL; Status: F Test: SODIUM LEVEL; Range: 136-145; Units: MEQ/L; Status: I Test: POTASSIUM SERUM; Range: 3.5-5.1; Units: MEQ/L; Status: I Test: CHLORIDE LEVEL; Range: 98-107; Units: MEQ/L; Status: I Test: CARBON DIOXIDE LEVEL; Range: 21-32; Units: MEQ/L; Status: I Test: ANION GAP; Range: 8-16; Units: MEQ/L; Status: I Test: CALCIUM LEVEL; Range: 8.8-10.2; Units: MG/DL; Status: I Test: GLOMERULAR FILTRATION RATE; Value: 44.5; Range: >49; Abnormal: Below low normal; Status: F Test: SODIUM LEVEL; Value: 134; Range: 136-145; Abnormal: Below low normal; Units: MEQ/L; Status: F Test: POTASSIUM SERUM; Value: 2.7; Range: 3.5-5.1; Abnormal: Critical Low; Units: MEQ/L; Status: F Test: CHLORIDE LEVEL; Value: 93; Range: 98-107; Abnormal: Below low normal; Units: MEQ/L; Status: F Test: CARBON DIOXIDE LEVEL; Value: 26; Range: 21-32; Units: MEQ/L; Status: F Test: ANION GAP; Value: 15; Range: 8-16; Units: MEQ/L; Status: F Test: CALCIUM LEVEL; Value: 8.6; Range: 8.8-10.2; Abnormal: Below low normal; Units: MG/DL; Status: F Test Note: ; Units are mL/min/1.73 m2 Chronic Kidney Disease Staging per NKF: Stage I & II GFR >=60 Normal to Mildly Decreased Stage III GFR 30-59 Moderately Decreased Stage IV GFR 15-29 Severely Decreased Stage V GFR <15 Very Little GFR Left ESRD GFR <15 on WET MACHINE CUTTER Lab Order: Osmolality, Serum; 04/29/16 16:49 Test: OSMOLALITY SERUM; Value: 299; Range: 280-301; Units: MOSM/KG; Status: F Lab Order: Osmolality,Urine; 04/29/16 16:45 Test: OSMOLALITY URINE; Value: 277; Range: 500-800; Abnormal: Below low normal; Units: MOSM/KG; Status: F Lab Order: TSH with Free T4; 04/29/16 16:49 Test: THYROID STIMULATING HORMONE; Value: 1.680; Range: 0.358-3.740; Units: uIU/ML; Status: F Test: FREE T4; Value: 1.02; Range: 0.76-1.46; Units: NG/DL; Status: F Lab Order: Urine Random,Creatinine; 04/29/16 16:45 Test: CREATININE,RANDOM URINE; Value: 13.1; Units: MG/DL; Status: F Lab Order: Urine Random,Sodium; 04/29/16 16:45 Test: SODIUM,RANDOM URINE; Value: 64; Units: MEQ/L; Status: F Lab Order: Magnesium Level; 04/29/16 16:49 Test: MAGNESIUM LEVEL; Value: 2.3; Range: 1.8-2.4; Units: MG/DL; Status: F Lab Order: INR; 04/29/16 16:49 Test: PROTHROMBIN TIME; Value: 29.1; Range: 12.3-14.5; Abnormal: Above high normal; Units: SECONDS; Status: F Test: INR; Value: 2.75; Status: F Test Note: ; THERAPUTIC HUMAN INR VALUES INDICATIONS NORMAL RANGES PROPHYLAXIS/TREATMENT OF: VENOUS THROMBOSIS 2.0-3.0 PULMONARY EMBOLISM 2.0-3.0 PREVENTION OF SYSTEMIC EMBOLISM FROM: TISSUE HEART VALVES 2.0-3.0 ACUTE MYOCARDIAL INFARCTION 2.0-3.0 VALVULAR HEART DISEASE 2.0-3.0 ATRIAL FIBRILLATION 2.0-3.0 MECHANICAL VALVES(HIGH RISK) 2.5-3.5 RECURRENT MYOCARDIAL INFARCTION 2.5-3.5 Lab Order: CBC WITH DIFFERENTIAL; SPEC'M 04/30/16 06:33 Test: WHITE BLOOD COUNT; Value: 5.8; Range: 4.0-10.0; Units: K/mm3; Status: F Test: RED BLOOD COUNT; Value: 4.40; Range: 4.30-6.10; Units: M/mm3; Status: F Test: HEMOGLOBIN; Value: 12.4; Range: 14.0-18.0; Abnormal: Below low normal; Units: g/dl; Status: F Test: HEMATOCRIT; Value: 35.9; Range: 42.0-52.0; Abnormal: Below low normal; Units: %; Status: F Test: MEAN CORPUSCULAR VOLUME; Value: 81.7; Range: 80.0-96.0; Units: fl; Status: F Test: MEAN CORPUSCULAR HEMOGLOBIN; Value: 28.2; Range: 27.0-33.0; Units: pg; Status: F Test: MEAN CORPUSCULAR HGB CONC; Value: 34.5; Range: 32.0-36.5; Units: g/dl; Status: F Test: RED CELL DISTRIBUTION WIDTH; Value: 14.9; Range: 11.5-14.5; Abnormal: Above high normal; Units: %; Status: F Test: PLATELET COUNT, AUTOMATED; Value: 245; Range: 150-450; Units: k/mm3; Status: F Test: NEUTROPHILS %; Value: 59.1; Range: 36.0-66.0; Units: %; Status: F Test: LYMPH %; Value: 28.8; Range: 24.0-44.0; Units: %; Status: F Test: MONO %; Value: 7.6; Range: 0.0-5.0; Abnormal: Above high normal; Units: %; Status: F Test: EOS %; Value: 1.7; Range: 0.0-3.0; Units: %; Status: F Test: BASO %; Value: 0.5; Range: 0.0-1.0; Units: %; Status: F Test: LARGE UNSTAINED CELL %; Value: 2.3; Range: 0.0-4.0; Units: %; Status: F Test: NEUTROPHILS #; Value: 3.4; Range: 1.8-7.7; Units: K/mm3; Status: F Test: LYMPH #; Value: 1.7; Range: 1.5-4.5; Units: K/mm3; Status: F Test: MONO #; Value: 0.4; Range: 0.0-0.8; Units: K/mm3; Status: F Test: EOS #; Value: 0.1; Range: 0.0-0.50; Units: K/mm3; Status: F Test: BASO #; Value: 0.0; Range: 0.0-0.2; Units: K/mm3; Status: F Test: LARGE UNSTAINED CELL #; Value: 0.1; Range: 0.0-0.4; Units: K/mm3; Status: F Lab Order: COMPLETE COMPHRENSIVE METABOLI; SPEC'M 04/30/16 06:33 Test: GLUCOSE, FASTING; Value: 260; Range: 80-110; Abnormal: Above high normal; Units: MG/DL; Status: F Test: BLOOD UREA NITROGEN; Value: 23; Range: 7-18; Abnormal: Above high normal; Units: MG/DL; Status: F Test: CREATININE FOR GFR; Value: 1.38; Range: 0.70-1.30; Abnormal: Above high normal; Units: MG/DL; Status: F Test: GLOMERULAR FILTRATION RATE; Value: 55.4; Range: >49; Status: F Test: SODIUM LEVEL; Value: 138; Range: 136-145; Units: MEQ/L; Status: F Test: POTASSIUM SERUM; Value: 3.0; Range: 3.5-5.1; Abnormal: Below low normal; Units: MEQ/L; Status: F Test: CHLORIDE LEVEL; Value: 99; Range: 98-107; Units: MEQ/L; Status: F Test: CARBON DIOXIDE LEVEL; Value: 29; Range: 21-32; Units: MEQ/L; Status: F Test: ANION GAP; Value: 10; Range: 8-16; Units: MEQ/L; Status: F Test: CALCIUM LEVEL; Value: 8.4; Range: 8.8-10.2; Abnormal: Below low normal; Units: MG/DL; Status: F Test: AST/SGOT; Value: 23; Range: 15-37; Units: U/L; Status: F Test: ALT/SGPT; Value: 39; Range: 12-78; Units: U/L; Status: F Test: ALKALINE PHOSPHATASE; Value: 51; Range: 45-117; Units: U/L; Status: F Test: BILIRUBIN,TOTAL; Value: 0.3; Range: 0.2-1.0; Units: MG/DL; Status: F Test: TOTAL PROTEIN; Value: 6.1; Range: 6.4-8.2; Abnormal: Below low normal; Units: GM/DL; Status: F Test: ALBUMIN; Value: 3.2; Range: 3.2-5.2; Units: GM/DL; Status: F Test: ALBUMIN/GLOBULIN RATIO; Value: 1.10; Range: 1.00-1.93; Status: F Test Note: ; Units are mL/min/1.73 m2 Chronic Kidney Disease Staging per NKF: Stage I & II GFR >=60 Normal to Mildly Decreased Stage III GFR 30-59 Moderately Decreased Stage IV GFR 15-29 Severely Decreased Stage V GFR <15 Very Little GFR Left ESRD GFR <15 on WET MACHINE CUTTER Lab Order: MAGNESIUM LEVEL; 04/30/16 06:33 Test: MAGNESIUM LEVEL; Value: 2.3; Range: 1.8-2.4; Units: MG/DL; Status: F Lab Order: Fingerstick Blood Sugar; 04/29/16 20:07 Test: BEDSIDE GLUCOSE; Value: 385; Range: 80-115; Abnormal: Above high normal; Units: MG/DL; Status: F Lab Order: PROTHROMBIN TIME PROFILE\E\INR; 04/30/16 06:33 Test: PROTHROMBIN TIME; Value: 26.0; Range: 12.3-14.5; Abnormal: Above high normal; Units: SECONDS; Status: F Test: INR; Value: 2.37; Status: F Test Note: ; THERAPUTIC HUMAN INR VALUES INDICATIONS NORMAL RANGES PROPHYLAXIS/TREATMENT OF: VENOUS THROMBOSIS 2.0-3.0 PULMONARY EMBOLISM 2.0-3.0 PREVENTION OF SYSTEMIC EMBOLISM FROM: TISSUE HEART VALVES 2.0-3.0 ACUTE MYOCARDIAL INFARCTION 2.0-3.0 VALVULAR HEART DISEASE 2.0-3.0 ATRIAL FIBRILLATION 2.0-3.0 MECHANICAL VALVES(HIGH RISK) 2.5-3.5 RECURRENT MYOCARDIAL INFARCTION 2.5-3.5 Lab Order: Fingerstick Blood Sugar; SPEC'M 04/30/16 11:35 Test: BEDSIDE GLUCOSE; Value: 216; Range: 80-115; Abnormal: Above high normal; Units: MG/DL; Status: F Radiology Order: EKG-ADULT Test: EKG-ADULT REASON FOR EXAMINATION: hyponatremia; Stationary ECG Study; [facility] - ED; ; Test Date: 2016-04-29; Pat Name: DREA TORIBIO Department:; Room: -; 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; : 1950 Requested By: Maverick Alston; Order Number: [id number] Reading MD: Marybel Loya; Measurements; Intervals [place]; Rate: 87 P: 32; [place]: 166 QRS: 58; QRSD: 120 T: 54; QT: 419; QTc: 506; Interpretive Statements; SINUS RHYTHM; MODERATE INTRAVENTRICULAR CONDUCTION DELAY; PROLONGED QT INTERVAL; CLINICAL CORRELATION; Electronically Signed On 04-30-2016 10:49:25 EST by Marybel Loya; Radiology Order: Chest, 1 View Test: Chest, 1 View REASON FOR EXAMINATION: hypotension; AP PORTABLE CHEST: 04/29/2016 at 06:21 P.M.:; ; Comparison: 02/14/2016, 03/31/2011.; ; Clinical history: Hypotension.; ; Findings: A somewhat lordotic projection limits evaluation of the posterior; lower lung zones. Epicardial fat pad adjacent to left heart border again seen.; There is no gross cardiomegaly, edema or gross effusion. No dense consolidation.; Some fibrotic changes are seen in the mid and lower lung zones. Evidence for; COPD. Bones demineralized. No other findings.; ; ; Signed by; Naldo Del Rio MD 04/29/2016 07:57 P; Outcome: 18:20 Decision to Hospitalize by Provider. 04/30 12:46 Patient left the ED. hs1 Signatures: Dispatcher [employer] EDMS Maverick Moon MD MD Gilda LewRN RN jo3 Sherwin Alfaro LauraRN RN ld5 Aisha June RN RN hs1 Alisia Farley RN RN sls1 Sherlyn Haddad, RETORT OR CONDENSER PRESS OPERATOR RETORT OR CONDENSER PRESS OPERATOR Nathalie GarciaRN RN ms18 Rick Landry, RETORT OR CONDENSER PRESS OPERATOR RETORT OR CONDENSER PRESS OPERATOR Elli Howard, RETORT OR CONDENSER PRESS OPERATOR RETORT OR CONDENSER PRESS OPERATOR rs6 Noelle Clark RN RN kas2 Nolvia Sun RN RN mv5 Nolvia Sun RN mv5 Corrections: (The following items were deleted from the chart) 04/29 18:03 18:01 BP 119 / 72 Supine; Pulse 84bpm; ld5 ld5 18:03 18:01 BP 99 / 59 Standing; Pulse 96bpm; ld5 ld5 MTDD
--- NOTE | 2016-04-30 13:33 | CR ---
DATE OF CONSULTATION: 04/30/2016 REQUESTING PHYSICIAN: Dr. Selene Maldonado CONSULTING PHYSICIAN: Dr. Chaudhary. REASON FOR CONSULTATION: Management of acute kidney injury and electrolyte abnormalities. CHIEF COMPLAINT: The patient was sent from nephrology office yesterday because of dizziness, orthostatic hypotension and electrolyte abnormalities. HISTORY OF PRESENT ILLNESS: Mr. Lg Espinal is a 65-year-old male with a past medical history of hypertension, insulin-dependent diabetes mellitus, history of gout, chronic kidney disease stage II with a baseline creatinine of about 1.0 to 1.1. The patient was on diuretics because of significant lower extremity edema and he had lost about 13 pounds of weight over the last two months. When the patient presented to the clinic yesterday, he was found to have dizziness, lightheadedness. He had a positive orthostatic hypotension with a systolic blood pressure of around 63 on standing. He was hyponatremic and hypokalemic. The patient's diuretics were held. He was sent to the emergency room for further evaluation and possible intravenous hydration and potassium repletion. The patient was admitted from the emergency room yesterday overnight under the hospitalist team service. He was given intravenous normal saline bolus and potassium is being repleted intravenously and orally. Nephrology service was called for further management of acute kidney injury and electrolyte abnormalities. The patient was already discussed with the wheel and pinion inspector hospitalist overnight and the recommendations were given. PAST MEDICAL HISTORY: 1. Insulin-dependent diabetes. 2. Obesity. 3. Chronic obstructive pulmonary disease (COPD). 4. Hypertension. 5. Obstructive sleep apnea on continuous positive airway pressure (CPAP). 6. History of fluid overload and lower extremity edema. 7. Deep vein thrombosis (DVT) and pulmonary embolism, currently on Coumadin. 8. Gout. 9. Iron deficiency. PAST SURGICAL HISTORY: 1. Bilateral carpal tunnel surgery. 2. Right meniscal tear surgery. 3. Rotator cuff surgery. 4. Bilateral cataract surgeries. ALLERGIES: No known drug allergies. HOME MEDICATIONS: The patient takes: - albuterol as needed - allopurinol 100 mg by mouth daily - aspirin 81 mg by mouth daily - calcium 500 mg twice a day - Colace 100 mg twice a day - ferrous sulfate 325 mg twice a day - fish oil 1000 mg twice a day - Breo Ellipta one puff inhalation daily - Lasix and spironolactone were just held yesterday - Lantus insulin 20 units in the morning - metformin 1000 mg twice a day - multivitamin - potassium chloride 20 mEq by mouth twice a day - rosuvastatin 40 mg by mouth daily - spironolactone 25 mg by mouth twice a day, which was held yesterday - warfarin 9 mg four times a week and 6 mg three times a week Current inpatient medications, the patient's inpatient medications at this time include: - normal saline plus 40 mEq of KCL at 100 mL an hour, which was started this morning - Tylenol as needed The rest of the medications are the same as outpatient medications. FAMILY HISTORY: No significant family history of end stage renal disease requiring hemodialysis. SOCIAL HISTORY: The patient denies any history of alcohol abuse or illicit drug abuse. He quit smoking about 15 years ago. He lives with his . He is retired at this time. REVIEW OF SYSTEMS: CONSTITUTIONAL: The patient reported dizziness and lightheadedness yesterday, which is getting better today. EYES: The patient denies any blurry vision or any change in the vision. ENT: He denies any dysphagia or odynophagia, nasal discharge, ear pain, or ear discharge. CARDIOVASCULAR: He denies any chest pain or palpitations, but he did have orthostatic hypotension. RESPIRATORY: He denies any cough, wheezing, or shortness of breath. GASTROINTESTINAL: He denies any nausea, vomiting, abdominal pain, or diarrhea. GENITOURINARY: He denies any dysuria or hematuria, dark urine or cloudy urine. MUSCULOSKELETAL: He denies any muscles aches or pains. CENTRAL NERVOUS SYSTEM (INFANT AND TODDLER TEACHER): He denies any history of seizures or strokes, but he did report dizziness. SKIN: He denies any rashes or ulcers. All other review of systems negative. PHYSICAL EXAMINATION: GENERAL: The patient is awake, alert, oriented to times three. Sitting in bed at this time. CURRENT VITAL SIGNS: Temperature is 97.1 degrees Fahrenheit. Blood pressure is 130/81. Pulse is 60. Respiratory rate of 18. Saturating 97% on nasal cannula. Intake and output: Total urine output recorded since midnight is 2.1 liters. HEAD AND NECK EXAM: Extraocular muscles intact. Pupils are equal, round and reactive to light. NECK: Supple. There is no jugular venous distention (JVD). Mucous membranes are moist. CARDIOVASCULAR: S1, S2. Regular rate. No murmur, rub or gallop. RESPIRATORY: Chest is clear to auscultation bilaterally. Bilateral equal air entry. ABDOMEN: Soft. Positive bowel sounds. Nontender. No ascites. No organomegaly. EXTREMITIES: No clubbing or cyanosis. There is trace edema of the bilateral lower extremities and he is wearing stockings at this time. CENTRAL NERVOUS SYSTEM (INFANT AND TODDLER TEACHER): No focal neurological deficits. Power is 5/5 in all extremities. SKIN: No rashes or ulcers. PSYCHIATRIC: Normal mood and affect. LABORATORY REVIEW: CBC showed a WBC of 5.8, hemoglobin 12.4, platelets are 45. INR is 2.3. BMP showed a sodium of 138, potassium 3.0, chloride 99, bicarbonate 29, BUN is 23, creatinine is 1.38, it was 1.67 yesterday. Calcium is 8.4. Albumin is 3.2. IMAGING: Chest x-ray done yesterday showed no acute pathology. ASSESSMENT: 65-year-old male with a past medical history of chronic kidney disease stage II, insulin-dependent diabetes, obesity, chronic obstructive pulmonary disease (COPD), gout, and fluid overload, admitted at this time because of orthostatic hypotension, volume depletion and electrolyte abnormalities. PLAN: 1. Volume depletion and orthostatic hypotension. Continue to hold diuretics, including Lasix and spironolactone. The patient was already given intravenous fluid 1 liter with potassium chloride overnight. I will give him another 500 mL of normal saline with 40 mEq of KCL. The patient's orthostatic hypotension is improving at this time. 2. Acute kidney injury. Acute kidney injury is most likely secondary to dehydration and volume depletion. Diuretics have been held. Intravenous fluid hydration was started. His creatinine is already improving from 1.6 to 1.3 today. Repeat another BMP in the afternoon today. 3. Hypokalemia. Hypokalemia is secondary to aggressive diuresis, although the patient was on spironolactone and potassium at home, but he still became severe hypokalemic. His potassium is improving, potassium is 3 today. He is getting intravenous potassium in the intravenous fluids and he was also given 40 mEq of potassium orally as well. 4. Hyponatremia. Hyponatremia was secondary to hypovolemia. Sodium level improved after intravenous hydration. 5. Hypertension. The patient actually has orthostatic hypotension at this time. I will recommend holding all the antihypertensive medications at this time. 6. Insulin-dependent diabetes mellitus. Continue home dose of insulin Levemir. Continue insulin sliding scale. The rest of the insulin and diabetes management is as per primary team. 7. Gout. The patient's allopurinol is on hold because of acute renal failure. He can resume the home dose of allopurinol after renal function improves. Thank you for involving us in the care of this patient. Plan of care was discussed with the hospitalist, Dr. Roberto Colin, today.
[2016-04-30] MEDS ORDERED: CALCIUM GLUCONATE 1,000 MG in D5W MINI-BAG PLUS 100 ML IV ONE (14:00)
[2016-04-30 14:23] LABS: CALCIUM LEVEL 8.3 MG/DL (8.8-10.2); CREATININE FOR GFR 1.29 MG/DL (0.70-1.30); GLOMERULAR FILTRATION RATE 59.9 (>49); POTASSIUM SERUM 2.9 MEQ/L (3.5-5.1)
--- NOTE | 2016-04-30 14:48 | IPN ---
DATE: 04/30/2016 A 65-year-old gentleman seen at bedside resting comfortably. He initially had been orthostatic when he was admitted last night and given some IV fluids and that seems to be improving. Last set of orthostatics were unremarkable. OBJECTIVE: Temperature is 97.6, pulse 67, respiratory rate 18, blood pressure 128/69, SPO2 is 99% on room air. General: The patient appears to be in no acute distress. He is alert and oriented. He was standing, talking to his , was able to walk across the room without having any symptomatology of orthostatics or dizziness. No vertiginous symptoms. HEENT: Unremarkable. Lungs: Clear. Heart: Regular rate and rhythm. Abdomen: Soft. Extremities: No edema, no calf tenderness. LABORATORY DATA: White count is 5.8, hemoglobin 12.4, platelets are 245,000, sodium 138, potassium 3.0, chloride 99, bicarb 29, anion gap 10, BUN is 23, creatinine 1.38, glucose 260, magnesium 2.3, AST 23, ALT 39, alkaline phosphatase 51, albumin 1.10. INR 2.37. Urine studies were pending at this time. ASSESSMENT/PLAN: 1. Orthostatic hypotension, most likely from over diuresis. He was given some IV fluids. Will continue to follow him. Held his ferosemide, spironolactone and he has been given some IV fluids. Will continue to monitor Intake and output (I and O). Appreciate Dr. Chaudhary's input since he follows at the Nephrology outpatient clinic. 2. Hypokalemia. We will replete and continue to follow electrolytes. 3. Acute kidney injury, likely prerenal. Will continue to follow his creatinine back to baseline. IV fluids, Lasix/diuretics are on hold. 4. Hyponatremia, likely from hypokalemia and the patient has been given normal saline; does appear to be normalizing 5. Chronic obstructive pulmonary disease (COPD), stable. 6. Hypertension. Will hold lisinopril, spirolactone, Lasix for the time being since he has been orthostatic and likely resume tomorrow. 7. Dyslipidemia. Resume his statin. 8. Diabetes. Continue Lantus sliding scale insulin. Consistent carbohydrate diet. 9. Obstructive sleep apnea on C-PAP. 10. Deep venous thrombosis (DVT)/pulmonary embolism (PE) by history. INR is therapeutic. Continue on Coumadin with current home dose. 11. Gout. Continue to follow. Allopurinol will be resumed on discharge. 12. Iron-deficiency anemia. Continue with ferrous sulfate. 13. Gastroesophageal reflux disease (GERD). Continue with Protonix. 14. DVT prophylaxis, on anticoagulation therapy. DISPOSITION: The patient does appear to be improving. Will likely discharge home tomorrow.
[2016-04-30] MEDS: WARFARIN SOD 7.5 MG TAB PO SCH (17:40)
[2016-05-01] VITALS (8 sets, daily range): BP systolic 97–143; BP diastolic 55–75
[2016-05-01 05:12] LABS: BASO % 0.6 % (0.0-1.0); EOS # 0.3 K/mm3 (0.0-0.50); EOS % 5.3 % (0.0-3.0); LARGE UNSTAINED CELL # 0.1 K/mm3 (0.0-0.4); LARGE UNSTAINED CELL % 2.4 % (0.0-4.0); LYMPH # 1.7 K/mm3 (1.5-4.5); LYMPH % 35.6 % (24.0-44.0); MEAN CORPUSCULAR HGB CONC 33.4 g/dl (32.0-36.5); MEAN CORPUSCULAR VOLUME 83.9 fl (80.0-96.0); MONO # 0.3 K/mm3 (0.0-0.8); MONO % 6.6 % (0.0-5.0); NEUTROPHILS # 2.4 K/mm3 (1.8-7.7); NEUTROPHILS % 49.5 % (36.0-66.0); PLATELET COUNT, AUTOMATED 226 k/mm3 (150-450); RED CELL DISTRIBUTION WIDTH 14.7 % (11.5-14.5); WHITE BLOOD COUNT 4.9 K/mm3 (4.0-10.0)
[2016-05-01 05:14] LABS: INR 2.05
[2016-05-01 05:33] LABS: ALBUMIN/GLOBULIN RATIO 1.07 (1.00-1.93); ALKALINE PHOSPHATASE 50 U/L (45-117); ALT/SGPT 46 U/L (12-78); ANION GAP 8 MEQ/L (8-16); AST/SGOT 33 U/L (15-37); BILIRUBIN,TOTAL 0.2 MG/DL (0.2-1.0); BLOOD UREA NITROGEN 15 MG/DL (7-18); CALCIUM LEVEL 8.2 MG/DL (8.8-10.2); CARBON DIOXIDE LEVEL 31 MEQ/L (21-32); CHLORIDE LEVEL 104 MEQ/L (98-107); CREATININE FOR GFR 1.14 MG/DL (0.70-1.30); GLOMERULAR FILTRATION RATE > 60.0 (>49); GLUCOSE, FASTING 167 MG/DL (80-110); MAGNESIUM LEVEL 2.5 MG/DL (1.8-2.4); POTASSIUM SERUM 3.1 MEQ/L (3.5-5.1); SODIUM LEVEL 143 MEQ/L (136-145); TOTAL PROTEIN 5.8 GM/DL (6.4-8.2)
[2016-05-01] MEDS: HEPARIN SOD (PORCINE) 5000 UNITS/ML VIAL SC SCH ×3 (06:30→21:18)
[2016-05-01] MEDS ORDERED: POTASSIUM CHLORIDE 10 MEQ SR TABLET PO ONE (08:00)
[2016-05-01] MEDS: LEVEMIR (INSULIN DETEMIR) 1 UNITS/0.01ML SC SCH (09:00)
[2016-05-01] MEDS: MULTIVITAMINS/MINERALS THERAP 1 TAB PO SCH (09:07)
[2016-05-01] MEDS: ASPIRIN 81 MG CHEW TABLET PO SCH (09:08)
[2016-05-01] MEDS: DOCUSATE SODIUM 100 MG CAP PO SCH ×2 (09:08→21:19)
[2016-05-01] MEDS: PANTOPRAZOLE 40MG TAB (PROTONIX) PO SCH (09:08)
[2016-05-01] MEDS: ROSUVASTATIN 10 MG TAB (CRESTOR) PO SCH (09:08)
[2016-05-01] MEDS: FERROUS SULFATE 325MG TAB PO SCH ×2 (09:09→21:19)
[2016-05-01] MEDS: HumaLOG INSULIN (NovoLOG) PER UNIT SC SCH ×4 (09:09→21:00)
[2016-05-01] MEDS: SPIRONOLACTONE 25 MG TAB PO SCH ×2 (12:35→21:19)
[2016-05-01 12:38] LABS: ALBUMIN 3.2 GM/DL (3.2-5.2); ANION GAP 9 MEQ/L (8-16); BLOOD UREA NITROGEN 15 MG/DL (7-18); CALCIUM LEVEL 8.1 MG/DL (8.8-10.2); CARBON DIOXIDE LEVEL 28 MEQ/L (21-32); CHLORIDE LEVEL 102 MEQ/L (98-107); CREATININE FOR GFR 1.21 MG/DL (0.70-1.30); GLOMERULAR FILTRATION RATE > 60.0 (>49); GLUCOSE, FASTING 238 MG/DL (80-110); PHOSPHORUS LEVEL 1.4 MG/DL (2.5-4.9); POTASSIUM SERUM 3.6 MEQ/L (3.5-5.1); SODIUM LEVEL 139 MEQ/L (136-145)
--- NOTE | 2016-05-01 12:52 | IPNPDOC ---
Date Seen The patient was seen on 05/01/16. Progress Note DATE OF ENCOUNTER: 05/01/2016 SUBJECTIVE: Mr. Espinal was seen this morning at bedside. No acute overnight issues. He reports the dizziness has improved. Potassium still continues to be low. He denies any chest pain, chest pressure or shortness of breath. No nausea , vomiting, diarrhea, abdominal pain, headache, fever or chills. He reports that prior to coming into the hospital he was not using his compression stockings but it was stressed once again today that he should use this daily. He was also stressed that he should be on a 1500 mL fluid restriction daily. OBJECTIVE: Vital Signs Date Time Temp Pulse Resp B/P Pulse Ox O2 Delivery O2 Flow Rate FiO2 05/01/16 12:00 97.1 64 20 129/63 97 Room Air I&O- Last 24 Hours up to 6 AM 05/01/16 06:00 Intake Total 2050 ml Output Total 2425 ml Balance -375 ml GENERAL: Alert and oriented x3. In no acute distress. HEENT: Normocephalic, atraumatic. Extraocular muscles intact. Moist mucosa NECK: Supple. He has mild jugular venous distention. No thyromegaly. HEART: Normal S1, S2. Regular rate and rhythm. LUNGS: Clear to auscultation bilaterally. ABDOMEN: Soft. Nontender, nondistended. Positive bowel sounds. EXTREMITIES: +1 lower extremity edema. No cyanosis. He is wearing compression stockings. Positive pedal pulses bilaterally. SKIN: Warm and dry. Good skin turgor. No rashes or ulcers. NEUROLOGIC: No focal deficit. Motor and sensation intact. LABORATORY DATA: 05/01/16 04:49 IMAGING: Chest x-ray done on 04/29 revealed some fibrotic changes with evidence of COPD, no acute process. ASSESSMENT/PLAN: Mr. Espinal is a 65-year-old male with a past medical history of chronic kidney disease stage II, insulin-dependent diabetes, obesity, chronic obstructive pulmonary disease (COPD), gout, and fluid overload, admitted due to orthostatic hypotension, volume depletion and electrolyte abnormalities. 1. Orthostatic hypotension. Patient was treated with normal saline. He does not appear to be dry and Spironolactone has been reinitiated. Patient was advised once again today that he should always wear his compression stockings. His blood pressure when standing has been stable. 2. Acute on chronic kidney disease, resolved. His renal function is back down to baseline. He is on a 1500 mL fluid restriction which he should continue. 3. Hypokalemia. Patient was on spironolactone as well as potassium at home but still developed low potassium. This morning his potassium was 3.1 and oral supplementation was given. He has been re-initiated on Spironolactone as well as potassium BID. We will continue to monitor electrolytes. Renal profile to be rechecked at noon. 4. Hyponatremia, resolved after IV fluids. 5. Hypertension. Blood pressure is stable. 6. Gout. With improvement in renal function, he may resume his home dose of allopurinol. GME ATTESTATION GME ATTESTATION My preceptor for this patient encounter was physically present in the building during the encounter and was fully available. As needed, all aspects of the patient interview, examination, medical decision making process, and medical care plan development were reviewed and approved by the preceptor. Preceptor is aware and concurs with the plan as stated in the body of this note and will attest to such by his/her cosignature. ISIDRA RICHARDSON DO May 01, 2016 12:52
[2016-05-01] MEDS: WARFARIN SOD 7.5 MG TAB PO SCH (17:11)
[2016-05-01] MEDS: POTASSIUM CHLORIDE 10 MEQ SR TABLET PO SCH (21:19)
[2016-05-02] MEDS: HEPARIN SOD (PORCINE) 5000 UNITS/ML VIAL SC SCH (05:40)
[2016-05-02 06:00] VITALS: BP 116/68
[2016-05-02 06:19] LABS: BASO % 0.7 % (0.0-1.0); EOS # 0.3 K/mm3 (0.0-0.50); EOS % 5.3 % (0.0-3.0); LARGE UNSTAINED CELL # 0.1 K/mm3 (0.0-0.4); LARGE UNSTAINED CELL % 1.2 % (0.0-4.0); LYMPH # 1.7 K/mm3 (1.5-4.5); LYMPH % 31.8 % (24.0-44.0); MEAN CORPUSCULAR HEMOGLOBIN 29.2 pg (27.0-33.0); MEAN CORPUSCULAR HGB CONC 34.7 g/dl (32.0-36.5); MEAN CORPUSCULAR VOLUME 84.1 fl (80.0-96.0); MONO # 0.4 K/mm3 (0.0-0.8); MONO % 7.7 % (0.0-5.0); NEUTROPHILS # 2.8 K/mm3 (1.8-7.7); NEUTROPHILS % 53.3 % (36.0-66.0); PLATELET COUNT, AUTOMATED 244 k/mm3 (150-450); RED CELL DISTRIBUTION WIDTH 15.2 % (11.5-14.5); WHITE BLOOD COUNT 5.3 K/mm3 (4.0-10.0)
[2016-05-02 06:24] LABS: INR 2.04
[2016-05-02 06:41] LABS: ALBUMIN 3.1 GM/DL (3.2-5.2); ALBUMIN/GLOBULIN RATIO 1.03 (1.00-1.93); ALKALINE PHOSPHATASE 50 U/L (45-117); ALT/SGPT 50 U/L (12-78); ANION GAP 8 MEQ/L (8-16); AST/SGOT 38 U/L (15-37); BILIRUBIN,TOTAL 0.2 MG/DL (0.2-1.0); BLOOD UREA NITROGEN 14 MG/DL (7-18); CALCIUM LEVEL 8.5 MG/DL (8.8-10.2); CARBON DIOXIDE LEVEL 28 MEQ/L (21-32); CHLORIDE LEVEL 104 MEQ/L (98-107); CREATININE FOR GFR 1.06 MG/DL (0.70-1.30); GLOMERULAR FILTRATION RATE > 60.0 (>49); GLUCOSE, FASTING 149 MG/DL (80-110); MAGNESIUM LEVEL 2.5 MG/DL (1.8-2.4); POTASSIUM SERUM 3.4 MEQ/L (3.5-5.1); SODIUM LEVEL 140 MEQ/L (136-145); TOTAL PROTEIN 6.1 GM/DL (6.4-8.2)
[2016-05-02] MEDS: FERROUS SULFATE 325MG TAB PO SCH (08:37)
[2016-05-02] MEDS: ASPIRIN 81 MG CHEW TABLET PO SCH (08:37)
[2016-05-02] MEDS: ROSUVASTATIN 10 MG TAB (CRESTOR) PO SCH (08:37)
[2016-05-02] MEDS: SPIRONOLACTONE 25 MG TAB PO SCH (08:37)
[2016-05-02] MEDS: MULTIVITAMINS/MINERALS THERAP 1 TAB PO SCH (08:37)
[2016-05-02] MEDS: DOCUSATE SODIUM 100 MG CAP PO SCH (08:37)
[2016-05-02] MEDS: POTASSIUM CHLORIDE 10 MEQ SR TABLET PO SCH (08:38)
[2016-05-02] MEDS: PANTOPRAZOLE 40MG TAB (PROTONIX) PO SCH (08:38)
[2016-05-02] MEDS: LEVEMIR (INSULIN DETEMIR) 1 UNITS/0.01ML SC SCH (08:39)
[2016-05-02] MEDS: HumaLOG INSULIN (NovoLOG) PER UNIT SC SCH ×2 (08:40→13:44)
[2016-05-02 09:00] VITALS: BP_SYST 108; BP_SYST 120; BP_SYST 126; BP_DIAS 59; BP_DIAS 61; BP_DIAS 63
--- NOTE | 2016-05-02 12:37 | IPN ---
DATE: 05/02/2016 Mr. Espinal is seen this morning on his bedside. He is feeling well and has been ambulating without difficulty. He denies any dyspnea, chest pain, dizziness or lightheadedness. He has no nausea or vomiting. He was admitted with severe hypokalemia and orthostatic hypotension. All his symptoms and electrolytes have improved. On physical examination, temperature 96.6 degrees Fahrenheit, heart rate 80 per minute and respiratory rate 18 per minute. Blood pressure 116/68 mmHg and oxygen saturation 96% on room air. Head is atraumatic. Ears, nose and throat are unremarkable. Neck is supple and without thyroid enlargement. Neck veins are mildly distended. Heart sounds are regular and lungs clear to auscultation. Abdomen is obese. Extremities have chronic leg edema and he is currently wearing his compression stockings. Neurologically, he is awake and alert. No focal deficit. He is oriented times three at present. Today's labs show WBC count 5.3, hemoglobin 12.1 and hematocrit 35.0. Sodium 140 and potassium 3.4. BUN 14 and creatinine 1.06. Calcium level 8.5. PROBLEMS: 1. Orthostatic hypotension. It was related to aggressive diuresis which has now improved after his diuretics have been held and he was treated with IV fluid. His volume status has been now well compensated. He has been resumed on spironolactone 25 mg twice a day and currently he will stay off furosemide. 2. Hypokalemia. The patient has required a significant amount of potassium supplement and his potassium level has improved. We will continue with 25 mg of spironolactone twice a day and 20 mEq of potassium chloride twice a day. His Lasix is currently on hold. The patient is being advised to come to the office next week and get his electrolytes rechecked and also follow up with Dr. Chaudhary. 3. Acute renal failure superimposed on chronic kidney disease. His underlying chronic kidney disease is only mild and acute renal failure was related to over diuresis and dehydration which has improved. At present, no intervention is indicated. 4. Disposition. From a renal standpoint, the patient can be discharged to home today and follow up in our office next week. He will see Dr. Chaudhary.
--- NOTE | 2016-05-02 13:47 | EDDOCDS ---
Nurse's Notes [facility] Name: Lg Espinal Age: 65 yrs Sex: Male : 1950 Arrival Date: 04/29/2016 Time: 15:52 Bed Admit Hold Private MD: John Mccormack Diagnosis: Hypokalemia;Type 2 diabetes mellitus with hyperglycemia-A1C over 9 for past 2 years;Hyperlipidemia, unspecified;Orthostatic hypotension;Polydipsia;Chronic kidney disease, stage 3 (moderate) Presentation: 04/29 15:55 Presenting complaint: Patient states: Was at nephrology and they sent pt here to be jo3 admitted for low potassium. Adult Sepsis Screening: The patient does not have new or worsening altered mentation. Patient's respiratory rate is less than 22. Systolic blood pressure is greater than 100. Patient has a qSOFA score of 0- Negative Sepsis Screen. Suicide/Homicide risk assessment- the patient denies having any suicidal and/or homicidal ideations and does not present with any other emotional, behavioral or mental health complaints. Status: Patient is not a consumer services advisor or dependent. Transition of care: patient was not received from another setting of care. 15:55 Acuity: ULISES Level 3 jo3 15:55 Method Of Arrival: Walkin/Carried/Asstd jo3 Triage Assessment: 16:02 General: Appears in no apparent distress, comfortable, Behavior is appropriate for age, jo3 cooperative. Pain: Denies pain. HIV screening NA for this visit Offered previously. The patient is triaged at the bedside. See Assessment in Nurses Notes section of ED record. Neurological: Level of Consciousness is awake, alert, Oriented to person, place, time. Respiratory: Airway is patent Respiratory effort is even, unlabored. Historical: - Allergies: no known allergies; - Home Meds: 1. calcium carbonate 500 mg calcium (1,250 mg) Oral cap twice a day 2. allopurinol 100 mg Oral tab 1 tab once daily 3. aspirin 81 mg Oral chew 1 tab once daily 4. Breo INH daily 5. cpap nightly 6. Doc-Q-Lace 100 mg oral cap 1 cap 2 times per day 7. ferrous sulfate 325 mg (65 mg iron) Oral tab twice a day 8. Fish Oil Pills 1200 mg Twice Daily 9. Lantus 100 unit/mL Sub-Q crtg 20 units daily 10. Lasix 40 mg oral tab in Am and 20mg in pm 11. lisinopril 2.5 mg Oral tab 1 tab once daily 12. metformin 1,000 mg Oral tab 1 tab 2 times per day 13. potassium 20meq oral chew twice a day 14. pantoprazole 40 mg oral TbEC 1 tab once daily 15. Pro Air INH as needed 16. rosuvastatin 40 mg once daily oral 17. warfarin 6 mg oral tab 1 tab once daily Due to restart 05/01/16. On hold at this time for INR 7.7 18. spironolactone 25 mg Oral tab 1 tab 2 times per day 19. One A Day MVI daily - PMHx: Asthma; COPD; Diabetes - IDDM: uncontrolled; GERD; Gout; High Cholesterol; Hypertension; Sleep Apnea w/ CPAP; renal disease; - PSHx: Carpal Tunnel Repair- Bilateral; Arthroscopy, Knee- Right; eye surgery; Rotator Cuff Repair- Left; - The history from nurses notes was reviewed: and I agree with what is documented. - Social history: Smoking status: Patient states former smoker of tobacco. No barriers to communication noted, The patient speaks fluent [place], Speaks appropriately for age. - Family history: Not pertinent. - : The pt / caregiver states he / she is on anticoagulants: coumadin. Home medication list is obtained from the patient. - Hospitalizations: : No recent hospitalization is reported. - Exposure Risk Screening:: None identified. - Immunization history:: All immunizations up-to-date. - Social history:: the patient is a non-smoker, the patient does not drink alcohol. Screenin:55 Screening information is obtained from the patient. Fall risk: At risk due to Pt mv5 reports occasional dizziness. Assistance ADL's: requires no assistance with activities of daily living. Abuse/DV Screen: The patient / caregiver reports he/she is: not in a situation that causes fear, pain or injury. Nutritional screening: No deficits noted. home support is adequate. Assessment: 16:52 General: Appears in no apparent distress, comfortable, well nourished. Pain: Denies mv5 pain. Neurological: Level of Consciousness is awake, alert, obeys commands, Oriented to person, place, time. Cardiovascular: Respiratory: Airway is patent Respiratory effort is even, unlabored. GI: Abdomen is distended, obese. : Urine is clear. Derm: Skin is pink, warm & dry. normal. 17:30 General: Pt in no acute distress. VSS. Will continue to monitor pt. ms18 18:30 General: Appears in no apparent distress, comfortable, Behavior is appropriate for age, ms18 cooperative, PT speaking with the hospitalist at this time. . Neurological: Level of Consciousness is awake, alert, obeys commands, Oriented to person, place, time. Respiratory: Airway is patent Respiratory effort is even, unlabored. Derm: Skin is pink, warm & dry. 19:01 General: Verbal report given by Nathalie Metzger RN. Assumed care of patient at this time.. kas2 19:14 General: Appears in no apparent distress, comfortable, well nourished, well groomed, kas2 Behavior is appropriate for age, cooperative. Pain: Denies pain. Neurological: Level of Consciousness is awake, alert, Oriented to person, place, time. Cardiovascular: Capillary refill < 3 seconds Heart tones S1 S2 present Rhythm is sinus rhythm No ectopy. Respiratory: Airway is patent Respiratory effort is even, unlabored, Respiratory pattern is regular, symmetrical. GI: Abdomen is distended, obese, Bowel sounds present X 4 quads. : No deficits noted. Derm: Skin is intact, Skin is dry, Skin is pink, warm & dry. Skin temperature is warm. 19:44 General: Patient was given supper at bedside.. kas2 Vital Signs: 15:55 BP 112 / 76; Pulse 95; Resp 18; Temp 98.6; Pulse Ox 96% ; Weight 93.44 kg; Height 5 ft. elp 5 in. (165.10 cm); Pain 0/10; 16:17 BP 117 / 68 (auto/); ms18 16:19 Pulse 88 MON; Pulse Ox 96% ; ms18 16:29 BP 111 / 64 (auto/); ms18 16:29 Pulse 88 MON; Pulse Ox 96% ; ms18 16:44 BP 126 / 67 (auto/); mv5 16:49 Pulse 88 MON; Resp 18; Pulse Ox 96% ; mv5 17:14 BP 115 / 72 (auto/); ms18 17:14 Pulse 84 MON; Pulse Ox 95% ; ms18 17:44 BP 119 / 72 (auto/); ms18 17:44 Pulse 82 MON; Pulse Ox 95% ; ms18 17:58 BP 110 / 61 (auto/); ms18 17:58 Pulse 88 MON; Pulse Ox 96% ; ms18 17:58 BP 119 / 72 (auto/); ms18 17:59 BP 99 / 59 (auto/); ms18 17:59 Pulse 84 MON; Pulse Ox 96% ; ms18 18:00 BP 119 / 72 Supine; Pulse 84; ld5 18:01 BP 110 / 61 Sitting; Pulse 92; ld5 18:02 BP 99 / 59 Standing; Pulse 96; ld5 18:14 BP 96 / 51 (auto/); ms18 18:14 Pulse 92 MON; Pulse Ox 96% ; ms18 19:09 BP 101 / 58 (auto/); kas2 19:09 Pulse 86 MON; Pulse Ox 95% ; kas2 19:16 Resp 20; Temp 98.1(O); Pain 0/10; kas2 19:25 BP 105 / 82; Pulse 81; Resp 18; Pain 00/10; kas2 15:55 Body Mass Index 34.28 (93.44 kg, 165.10 cm) [facility] Vitals: 15:55 Log In Time: April 29, 2016 at 15:51. [facility] ED Course: 15:54 Patient visited by Sherlyn Haddad PCA. elp 15:54 John Mccormack DO is Private Physician. elp 15:54 Patient moved to Waiting elp 15:54 Patient moved to Pre RCE elp 15:55 Patient visited by Sherlyn Haddad PCA. elp 15:56 Triage Initiated jo3 16:03 Patient visited by Gilda Lew RN. jo3 16:06 Nathalie Clark,RN is Primary Nurse. jo3 16:06 Patient moved to 17 jo3 16:08 Maverick Moon MD is Attending Physician. pc 16:39 Patient visited by Maverick Moon MD. pc 16:44 Patient visited by Nathalie Clark,LUIZ. ms18 16:44 Osmolality, Serum Sent. ms18 16:44 Osmolality,Urine Sent. ms18 16:44 Urine Random,Creatinine Sent. ms18 16:44 Urine Random,Sodium Sent. ms18 16:50 INR Sent. ms18 16:50 Magnesium Level Sent. ms18 16:50 TSH with Free T4 Sent. ms18 16:50 MED Profile Sent. ms18 16:50 CBC with Diff Sent. ms18 16:51 Inserted saline lock: 18 gauge in right antecubital area and blood collected. The mv5 patient tolerated the procedure well. 16:52 Patient visited by Rick Landry PCA. jrd 16:52 EKG done. (by ED staff). Reviewed by Maverick Moon MD. jrd 16:55 The patient / caregiver is instructed regarding the plan of care and ED course. Patient mv5 has correct armband on for positive identification. Placed in gown. Bed in low position. Call light in reach. Side rails up X2. plant operations worker on. Pulse ox on. NIBP on. 17:09 [facility] Payment Agreement was scanned into [facility] and attached to record. zo 17:59 Patient visited by Nathalie Clark RN. ms18 18:20 Selene Maldonado is Hospitalizing Provider. pc 18:29 Patient visited by Nathalie Clark RN. ms18 18:59 Noelle Clark RN is Primary Nurse. kas2 19:02 Patient visited by Noelle Clark RN. kas2 19:16 Patient visited by Noelle Clark RN. kas2 19:19 Chest, 1 View Returned. EDMS 19:36 Patient moved to Admit Hold sls1 19:49 Patient visited by Noelle Clark RN. kas2 19:55 Patient moved to 21 rs6 19:55 Patient moved to Admit Hold rs6 02/03 11:11 EKG-ADULT Returned. EDMS 14:54 ECG/EKG was scanned into [facility] and attached to record. gb Administered Medications: 04/29 18:29 Drug: NS 0.9% 500 ml [sodium chloride 0.9 % intravenous solution] Route: IV; Rate: ms18 bolus; Site: right antecubital; 18:29 Drug: Potassium Chloride 40 mEq [potassium chloride ER 10 mEq tablet,extended release ms18 (4 tabs)] Route: PO; 18:29 Drug: Potassium Chloride in 100cc sterile water 10 mEq [potassium chloride 10 mEq/100 ms18 mL intravenous piggyback] {Co-Signature: mv5 (Nolvia Sun RN).} Route: IV; Rate: 100 mL/hr; Infused Over: 1 hrs; Site: right antecubital; Order Results: Lab Order: CBC with Diff; SPEC'M 04/29/16 16:49 Test: WHITE BLOOD COUNT; Value: 9.8; Range: 4.0-10.0; Units: K/mm3; Status: F Test: RED BLOOD COUNT; Value: 5.08; Range: 4.30-6.10; Units: M/mm3; Status: F Test: HEMOGLOBIN; Value: 14.0; Range: 14.0-18.0; Units: g/dl; Status: F Test: HEMATOCRIT; Value: 40.9; Range: 42.0-52.0; Abnormal: Below low normal; Units: %; Status: F Test: MEAN CORPUSCULAR VOLUME; Value: 80.6; Range: 80.0-96.0; Units: fl; Status: F Test: MEAN CORPUSCULAR HEMOGLOBIN; Value: 27.6; Range: 27.0-33.0; Units: pg; Status: F Test: MEAN CORPUSCULAR HGB CONC; Value: 34.3; Range: 32.0-36.5; Units: g/dl; Status: F Test: RED CELL DISTRIBUTION WIDTH; Value: 14.7; Range: 11.5-14.5; Abnormal: Above high normal; Units: %; Status: F Test: PLATELET COUNT, AUTOMATED; Value: 298; Range: 150-450; Units: k/mm3; Status: F Test: NEUTROPHILS %; Value: 74.8; Range: 36.0-66.0; Abnormal: Above high normal; Units: %; Status: F Test: LYMPH %; Value: 16.2; Range: 24.0-44.0; Abnormal: Below low normal; Units: %; Status: F Test: MONO %; Value: 6.1; Range: 0.0-5.0; Abnormal: Above high normal; Units: %; Status: F Test: EOS %; Value: 0.7; Range: 0.0-3.0; Units: %; Status: F Test: BASO %; Value: 0.5; Range: 0.0-1.0; Units: %; Status: F Test: LARGE UNSTAINED CELL %; Value: 1.8; Range: 0.0-4.0; Units: %; Status: F Test: NEUTROPHILS #; Value: 7.3; Range: 1.8-7.7; Units: K/mm3; Status: F Test: LYMPH #; Value: 1.6; Range: 1.5-4.5; Units: K/mm3; Status: F Test: MONO #; Value: 0.6; Range: 0.0-0.8; Units: K/mm3; Status: F Test: EOS #; Value: 0.1; Range: 0.0-0.50; Units: K/mm3; Status: F Test: BASO #; Value: 0.0; Range: 0.0-0.2; Units: K/mm3; Status: F Test: LARGE UNSTAINED CELL #; Value: 0.2; Range: 0.0-0.4; Units: K/mm3; Status: F Lab Order: MED Profile; SPEC'M 04/29/16 16:49 Test: GLUCOSE, FASTING; Value: 318; Range: 80-110; Abnormal: Above high normal; Units: MG/DL; Status: F Test: BLOOD UREA NITROGEN; Value: 30; Range: 7-18; Abnormal: Above high normal; Units: MG/DL; Status: F Test: CREATININE FOR GFR; Value: 1.67; Range: 0.70-1.30; Abnormal: Above high normal; Units: MG/DL; Status: F Test: SODIUM LEVEL; Range: 136-145; Units: MEQ/L; Status: I Test: POTASSIUM SERUM; Range: 3.5-5.1; Units: MEQ/L; Status: I Test: CHLORIDE LEVEL; Range: 98-107; Units: MEQ/L; Status: I Test: CARBON DIOXIDE LEVEL; Range: 21-32; Units: MEQ/L; Status: I Test: ANION GAP; Range: 8-16; Units: MEQ/L; Status: I Test: CALCIUM LEVEL; Range: 8.8-10.2; Units: MG/DL; Status: I Test: GLOMERULAR FILTRATION RATE; Value: 44.5; Range: >49; Abnormal: Below low normal; Status: F Test: SODIUM LEVEL; Value: 134; Range: 136-145; Abnormal: Below low normal; Units: MEQ/L; Status: F Test: POTASSIUM SERUM; Value: 2.7; Range: 3.5-5.1; Abnormal: Critical Low; Units: MEQ/L; Status: F Test: CHLORIDE LEVEL; Value: 93; Range: 98-107; Abnormal: Below low normal; Units: MEQ/L; Status: F Test: CARBON DIOXIDE LEVEL; Value: 26; Range: 21-32; Units: MEQ/L; Status: F Test: ANION GAP; Value: 15; Range: 8-16; Units: MEQ/L; Status: F Test: CALCIUM LEVEL; Value: 8.6; Range: 8.8-10.2; Abnormal: Below low normal; Units: MG/DL; Status: F Test Note: ; Units are mL/min/1.73 m2 Chronic Kidney Disease Staging per NKF: Stage I & II GFR >=60 Normal to Mildly Decreased Stage III GFR 30-59 Moderately Decreased Stage IV GFR 15-29 Severely Decreased Stage V GFR <15 Very Little GFR Left ESRD GFR <15 on EXPLOSION WELDER Lab Order: Osmolality, Serum; 04/29/16 16:49 Test: OSMOLALITY SERUM; Value: 299; Range: 280-301; Units: MOSM/KG; Status: F Lab Order: Osmolality,Urine; 04/29/16 16:45 Test: OSMOLALITY URINE; Value: 277; Range: 500-800; Abnormal: Below low normal; Units: MOSM/KG; Status: F Lab Order: TSH with Free T4; 04/29/16 16:49 Test: THYROID STIMULATING HORMONE; Value: 1.680; Range: 0.358-3.740; Units: uIU/ML; Status: F Test: FREE T4; Value: 1.02; Range: 0.76-1.46; Units: NG/DL; Status: F Lab Order: Urine Random,Creatinine; 04/29/16 16:45 Test: CREATININE,RANDOM URINE; Value: 13.1; Units: MG/DL; Status: F Lab Order: Urine Random,Sodium; 04/29/16 16:45 Test: SODIUM,RANDOM URINE; Value: 64; Units: MEQ/L; Status: F Lab Order: Magnesium Level; 04/29/16 16:49 Test: MAGNESIUM LEVEL; Value: 2.3; Range: 1.8-2.4; Units: MG/DL; Status: F Lab Order: INR; 04/29/16 16:49 Test: PROTHROMBIN TIME; Value: 29.1; Range: 12.3-14.5; Abnormal: Above high normal; Units: SECONDS; Status: F Test: INR; Value: 2.75; Status: F Test Note: ; THERAPUTIC HUMAN INR VALUES INDICATIONS NORMAL RANGES PROPHYLAXIS/TREATMENT OF: VENOUS THROMBOSIS 2.0-3.0 PULMONARY EMBOLISM 2.0-3.0 PREVENTION OF SYSTEMIC EMBOLISM FROM: TISSUE HEART VALVES 2.0-3.0 ACUTE MYOCARDIAL INFARCTION 2.0-3.0 VALVULAR HEART DISEASE 2.0-3.0 ATRIAL FIBRILLATION 2.0-3.0 MECHANICAL VALVES(HIGH RISK) 2.5-3.5 RECURRENT MYOCARDIAL INFARCTION 2.5-3.5 Lab Order: CBC WITH DIFFERENTIAL; SPECM 04/30/16 06:33 Test: WHITE BLOOD COUNT; Value: 5.8; Range: 4.0-10.0; Units: K/mm3; Status: F Test: RED BLOOD COUNT; Value: 4.40; Range: 4.30-6.10; Units: M/mm3; Status: F Test: HEMOGLOBIN; Value: 12.4; Range: 14.0-18.0; Abnormal: Below low normal; Units: g/dl; Status: F Test: HEMATOCRIT; Value: 35.9; Range: 42.0-52.0; Abnormal: Below low normal; Units: %; Status: F Test: MEAN CORPUSCULAR VOLUME; Value: 81.7; Range: 80.0-96.0; Units: fl; Status: F Test: MEAN CORPUSCULAR HEMOGLOBIN; Value: 28.2; Range: 27.0-33.0; Units: pg; Status: F Test: MEAN CORPUSCULAR HGB CONC; Value: 34.5; Range: 32.0-36.5; Units: g/dl; Status: F Test: RED CELL DISTRIBUTION WIDTH; Value: 14.9; Range: 11.5-14.5; Abnormal: Above high normal; Units: %; Status: F Test: PLATELET COUNT, AUTOMATED; Value: 245; Range: 150-450; Units: k/mm3; Status: F Test: NEUTROPHILS %; Value: 59.1; Range: 36.0-66.0; Units: %; Status: F Test: LYMPH %; Value: 28.8; Range: 24.0-44.0; Units: %; Status: F Test: MONO %; Value: 7.6; Range: 0.0-5.0; Abnormal: Above high normal; Units: %; Status: F Test: EOS %; Value: 1.7; Range: 0.0-3.0; Units: %; Status: F Test: BASO %; Value: 0.5; Range: 0.0-1.0; Units: %; Status: F Test: LARGE UNSTAINED CELL %; Value: 2.3; Range: 0.0-4.0; Units: %; Status: F Test: NEUTROPHILS #; Value: 3.4; Range: 1.8-7.7; Units: K/mm3; Status: F Test: LYMPH #; Value: 1.7; Range: 1.5-4.5; Units: K/mm3; Status: F Test: MONO #; Value: 0.4; Range: 0.0-0.8; Units: K/mm3; Status: F Test: EOS #; Value: 0.1; Range: 0.0-0.50; Units: K/mm3; Status: F Test: BASO #; Value: 0.0; Range: 0.0-0.2; Units: K/mm3; Status: F Test: LARGE UNSTAINED CELL #; Value: 0.1; Range: 0.0-0.4; Units: K/mm3; Status: F Lab Order: COMPLETE COMPHRENSIVE METABOLI; SPEC'M 04/30/16 06:33 Test: GLUCOSE, FASTING; Value: 260; Range: 80-110; Abnormal: Above high normal; Units: MG/DL; Status: F Test: BLOOD UREA NITROGEN; Value: 23; Range: 7-18; Abnormal: Above high normal; Units: MG/DL; Status: F Test: CREATININE FOR GFR; Value: 1.38; Range: 0.70-1.30; Abnormal: Above high normal; Units: MG/DL; Status: F Test: GLOMERULAR FILTRATION RATE; Value: 55.4; Range: >49; Status: F Test: SODIUM LEVEL; Value: 138; Range: 136-145; Units: MEQ/L; Status: F Test: POTASSIUM SERUM; Value: 3.0; Range: 3.5-5.1; Abnormal: Below low normal; Units: MEQ/L; Status: F Test: CHLORIDE LEVEL; Value: 99; Range: 98-107; Units: MEQ/L; Status: F Test: CARBON DIOXIDE LEVEL; Value: 29; Range: 21-32; Units: MEQ/L; Status: F Test: ANION GAP; Value: 10; Range: 8-16; Units: MEQ/L; Status: F Test: CALCIUM LEVEL; Value: 8.4; Range: 8.8-10.2; Abnormal: Below low normal; Units: MG/DL; Status: F Test: AST/SGOT; Value: 23; Range: 15-37; Units: U/L; Status: F Test: ALT/SGPT; Value: 39; Range: 12-78; Units: U/L; Status: F Test: ALKALINE PHOSPHATASE; Value: 51; Range: 45-117; Units: U/L; Status: F Test: BILIRUBIN,TOTAL; Value: 0.3; Range: 0.2-1.0; Units: MG/DL; Status: F Test: TOTAL PROTEIN; Value: 6.1; Range: 6.4-8.2; Abnormal: Below low normal; Units: GM/DL; Status: F Test: ALBUMIN; Value: 3.2; Range: 3.2-5.2; Units: GM/DL; Status: F Test: ALBUMIN/GLOBULIN RATIO; Value: 1.10; Range: 1.00-1.93; Status: F Test Note: ; Units are mL/min/1.73 m2 Chronic Kidney Disease Staging per NKF: Stage I & II GFR >=60 Normal to Mildly Decreased Stage III GFR 30-59 Moderately Decreased Stage IV GFR 15-29 Severely Decreased Stage V GFR <15 Very Little GFR Left ESRD GFR <15 on EXPLOSION WELDER Lab Order: MAGNESIUM LEVEL; SPEC'04/30/16 06:33 Test: MAGNESIUM LEVEL; Value: 2.3; Range: 1.8-2.4; Units: MG/DL; Status: F Lab Order: Fingerstick Blood Sugar; SPEC'04/29/16 20:07 Test: BEDSIDE GLUCOSE; Value: 385; Range: 80-115; Abnormal: Above high normal; Units: MG/DL; Status: F Lab Order: PROTHROMBIN TIME PROFILE\E\INR; SPEC'M 04/30/16 06:33 Test: PROTHROMBIN TIME; Value: 26.0; Range: 12.3-14.5; Abnormal: Above high normal; Units: SECONDS; Status: F Test: INR; Value: 2.37; Status: F Test Note: ; THERAPUTIC HUMAN INR VALUES INDICATIONS NORMAL RANGES PROPHYLAXIS/TREATMENT OF: VENOUS THROMBOSIS 2.0-3.0 PULMONARY EMBOLISM 2.0-3.0 PREVENTION OF SYSTEMIC EMBOLISM FROM: TISSUE HEART VALVES 2.0-3.0 ACUTE MYOCARDIAL INFARCTION 2.0-3.0 VALVULAR HEART DISEASE 2.0-3.0 ATRIAL FIBRILLATION 2.0-3.0 MECHANICAL VALVES(HIGH RISK) 2.5-3.5 RECURRENT MYOCARDIAL INFARCTION 2.5-3.5 Lab Order: Fingerstick Blood Sugar; SPEC'M 04/30/16 11:35 Test: BEDSIDE GLUCOSE; Value: 216; Range: 80-115; Abnormal: Above high normal; Units: MG/DL; Status: F Radiology Order: EKG-ADULT Test: EKG-ADULT REASON FOR EXAMINATION: hyponatremia; Stationary ECG Study; [facility] - ED; ; Test Date: 2016-04-29; Pat Name: [facility] Department:; Room: -; Gender: M Supervisor Of 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: lion; : 1950 Requested By: Maverick Alston; Order Number: [id number] Reading MD: Marybel Loya; Measurements; Intervals [place]; Rate: 87 P: 32; WY: 166 QRS: 58; QRSD: 120 T: 54; QT: 419; QTc: 506; Interpretive Statements; SINUS RHYTHM; MODERATE INTRAVENTRICULAR CONDUCTION DELAY; PROLONGED QT INTERVAL; CLINICAL CORRELATION; Electronically Signed On 04-30-2016 10:49:25 EST by Marybel Loya; Radiology Order: Chest, 1 View Test: Chest, 1 View REASON FOR EXAMINATION: hypotension; AP PORTABLE CHEST: 04/29/2016 at 06:21 P.M.:; ; Comparison: 02/14/2016, 03/31/2011.; ; Clinical history: Hypotension.; ; Findings: A somewhat lordotic projection limits evaluation of the posterior; lower lung zones. Epicardial fat pad adjacent to left heart border again seen.; There is no gross cardiomegaly, edema or gross effusion. No dense consolidation.; Some fibrotic changes are seen in the mid and lower lung zones. Evidence for; COPD. Bones demineralized. No other findings.; ; ; Signed by; Naldo Del Rio MD 04/29/2016 07:57 P; Outcome: 18:20 Decision to Hospitalize by Provider. 04/30 12:46 Patient left the ED. hs1 Signatures: Dispatcher [employer] EDMS Maverick Moon MD MD Jacqueline Ferris, Reg Reg gb Gilda Lew,RN RN jo3 Sherwin Alfaro Laura,RN RN ld5 Aisha June RN LUIZ hs1 Alisia Farley RN RN sls1 Sherlyn Haddad, RESOURCING CONSULTANT RESOURCING CONSULTANT elp Nathalie Clark,RN RN ms18 Rick Landry, RESOURCING CONSULTANT RESOURCING CONSULTANT d Elli Paerdes, RESOURCING CONSULTANT RESOURCING CONSULTANT rs6 Noelle ClarkRN RN kas2 Nolvia Sun,RN RN mv5 Nolvia Sun RN mv5 Corrections: (The following items were deleted from the chart) 04/29 18:03 18:01 BP 119 / 72 Supine; Pulse 84bpm; ld5 ld5 18:03 18:01 BP 99 / 59 Standing; Pulse 96bpm; ld5 ld5 Chart Complete MTDD
--- NOTE | 2016-05-02 13:47 | EDDOCDS ---
Physician Documentation [facility] Name: Lg Espinal Age: 65 yrs Sex: Male : 1950 Arrival Date: 04/29/2016 Time: 15:52 Bed Admit Hold Private MD: John Mccormack Disposition: 04/29 18:01 Critical Care:. pc Disposition: 04/29/16 18:20 Hospitalization ordered by Selene Maldonado for Inpatient Admission. Preliminary diagnosis are Orthostatic hypotension, Hypokalemia, Type 2 diabetes mellitus with hyperglycemia - A1C over 9 for past 2 years, Hyperlipidemia, unspecified, Polydipsia, Chronic kidney disease, stage 3 (moderate). - Bed requested for PCU. - Status is Inpatient Admission. hs1 - Condition is Stable. - Problem is new. - Symptoms have improved. HPI: 16:50 This 65 yrs old Male presents to ER via Walkin/Carried/Asstd with complaints pc of Abnormal Lab Results. 16:50 The history is obtained from the patient, Dr. Hodge. He was referred to Nephrology pc due to ongoing hyponatremia and his labs today showed significant hypokalemia and hyponatremia. The patient complains only of occasional dizziness. He admits to drinking at least 8 x 20 ounce bottles of water daily. He does not have any underlying renal disease. He has type 2 DM with poor control, with and A1C of 8.9 to 9.6 since 2014. At their worst, the symptoms were mild. In the emergency department, the symptoms are unchanged. The patient has been recently seen by their primary care provider. Historical: - Allergies: no known allergies; - Home Meds: 1. calcium carbonate 500 mg calcium (1,250 mg) Oral cap twice a day 2. allopurinol 100 mg Oral tab 1 tab once daily 3. aspirin 81 mg Oral chew 1 tab once daily 4. Breo INH daily 5. cpap nightly 6. Doc-Q-Lace 100 mg oral cap 1 cap 2 times per day 7. ferrous sulfate 325 mg (65 mg iron) Oral tab twice a day 8. Fish Oil Pills 1200 mg Twice Daily 9. Lantus 100 unit/mL Sub-Q crtg 20 units daily 10. Lasix 40 mg oral tab in Am and 20mg in pm 11. lisinopril 2.5 mg Oral tab 1 tab once daily 12. metformin 1,000 mg Oral tab 1 tab 2 times per day 13. potassium 20meq oral chew twice a day 14. pantoprazole 40 mg oral TbEC 1 tab once daily 15. Pro Air INH as needed 16. rosuvastatin 40 mg once daily oral 17. warfarin 6 mg oral tab 1 tab once daily Due to restart 05/01/16. On hold at this time for INR 7.7 18. spironolactone 25 mg Oral tab 1 tab 2 times per day 19. One A Day MVI daily - PMHx: Asthma; COPD; Diabetes - IDDM: uncontrolled; GERD; Gout; High Cholesterol; Hypertension; Sleep Apnea w/ CPAP; renal disease; - PSHx: Carpal Tunnel Repair- Bilateral; Arthroscopy, Knee- Right; eye surgery; Rotator Cuff Repair- Left; - The history from nurses notes was reviewed: and I agree with what is documented. - Social history: Smoking status: Patient states former smoker of tobacco. No barriers to communication noted, The patient speaks fluent Serbian, Speaks appropriately for age. - Family history: Not pertinent. - : The pt / caregiver states he / she is on anticoagulants: coumadin. Home medication list is obtained from the patient. - Hospitalizations: : No recent hospitalization is reported. - Exposure Risk Screening:: None identified. - Immunization history:: All immunizations up-to-date. - Social history:: the patient is a non-smoker, the patient does not drink alcohol. ROS: 16:50 All systems are negative except as listed. pc 16:56 "I'm always thirsty". pc Exam: 16:50 General Appearance: no acute distress, alert. pc 16:50 EENT: normal eye inspection, ears, nose and throat normal, pharynx normal, mucous membranes moist 16:50 Neck: The exam reveals no acute abnormalities. ROM is normal and painless. No nuchal rigidity is noted.. 16:50 Respiratory: no respiratory distress, normal breath sounds. 16:50 CVS: regular pulse rate, regular rhythm, normal S1 and S2, no murmurs, strong peripheral pulses. 16:50 Abdomen: soft, non-tender, no organomegaly, normal bowel sounds. 16:50 Back: normal inspection. 16:50 Skin: skin color is normal, warm, dry. 16:50 Extremities: The extremities have a grossly normal appearance, are non-tender, without acute ROM abnormalities. 16:50 Neuro: oriented x 3, cranial nerves normal as tested, no motor deficits, no sensory deficits. 16:50 Psych: normal mood. Vital Signs: 15:55 BP 112 / 76; Pulse 95; Resp 18; Temp 98.6; Pulse Ox 96% ; Weight 93.44 kg / 206 lbs; elp Height 5 ft. 5 in. (165.10 cm); Pain 0/10; 16:17 BP 117 / 68 (auto/); ms18 16:19 Pulse 88 MON; Pulse Ox 96% ; ms18 16:29 BP 111 / 64 (auto/); ms18 16:29 Pulse 88 MON; Pulse Ox 96% ; ms18 16:44 BP 126 / 67 (auto/); mv5 16:49 Pulse 88 MON; Resp 18; Pulse Ox 96% ; mv5 17:14 BP 115 / 72 (auto/); ms18 17:14 Pulse 84 MON; Pulse Ox 95% ; ms18 17:44 BP 119 / 72 (auto/); ms18 17:44 Pulse 82 MON; Pulse Ox 95% ; ms18 17:58 BP 110 / 61 (auto/); ms18 17:58 Pulse 88 MON; Pulse Ox 96% ; ms18 17:58 BP 119 / 72 (auto/); ms18 17:59 BP 99 / 59 (auto/); ms18 17:59 Pulse 84 MON; Pulse Ox 96% ; ms18 18:00 BP 119 / 72 Supine; Pulse 84; ld5 18:01 BP 110 / 61 Sitting; Pulse 92; ld5 18:02 BP 99 / 59 Standing; Pulse 96; ld5 18:14 BP 96 / 51 (auto/); ms18 18:14 Pulse 92 MON; Pulse Ox 96% ; ms18 19:09 BP 101 / 58 (auto/); kas2 19:09 Pulse 86 MON; Pulse Ox 95% ; kas2 19:16 Resp 20; Temp 98.1(O); Pain 0/10; kas2 19:25 BP 105 / 82; Pulse 81; Resp 18; Pain 00/10; kas2 15:55 Body Mass Index 34.28 (93.44 kg, 165.10 cm) elp MDM: 16:27 IV Saline Lock ordered. pc 16:27 Stitch Cleaner/Pulse Ox/q 30 min VS ordered. pc 16:28 CBC with Diff Ordered. EDMS 16:28 MED Profile Ordered. EDMS 16:28 Osmolality, Serum Ordered. EDMS 16:28 Osmolality,Urine Ordered. EDMS 16:28 TSH with Free T4 Ordered. EDMS 16:28 Urine Random,Creatinine Ordered. EDMS 16:28 Urine Random,Sodium Ordered. EDMS 16:28 Magnesium Level Ordered. EDMS 16:28 INR Ordered. EDMS 16:28 ECG WITH READING ER PHYS+CARDIAG ordered. EDMS 16:57 Differential Diagnosis: mildly symptomatic hyponatremia/hypochloridemia/hypokalemia, pc suspected to be due to water intoxication; poorly controlled DM. Plan: labs, fluid restriction, EKG. Test interpretation: EKG. 17:02 CBC with Diff Reviewed. pc 17:05 Financial registration complete. zo 17:09 [facility] Payment Agreement was scanned into [employer] and attached to record. zo 17:45 MED Profile Reviewed. pc 17:45 Osmolality,Urine Reviewed. pc 17:45 INR Reviewed. pc 17:45 Osmolality, Serum Reviewed. pc 17:45 TSH with Free T4 Reviewed. pc 17:45 Urine Random,Creatinine Reviewed. pc 17:45 Urine Random,Sodium Reviewed. pc 17:45 Magnesium Level Reviewed. pc 17:54 Orthostatic VS ordered. pc 18:01 Data reviewed: old medical records, vital signs, nurses notes, EKG(s), lab test pc results. Test interpretation: LAB - all labs as ordered have been reviewed, interpreted and considered in the overall management of the clinical presentation;. The patient has been re-examined and re-evaluated. The patient's symptoms have mildly improved after treatment, but he is orthostatic and requires admission. Physician consultation: Dr. Sg Chaudhary MD regarding patient's condition, and he advises that with the improved labs, he does not require admission if he is not orthostatic and advises oral K+ replacement. If he is orthostatic, he advises IV K+ and admission. Physician consultation: Dr. Selene Maldonado regarding admission. Disposition: The historical points, examination findings, and any diagnostic results supporting the provided diagnosis, were discussed with the patient or legal guardian. The need for further work-up and/or treatment in the hospital was explained. 18:12 NS 0.9% 500 ml IV at bolus once ordered. pc 18:12 Potassium Chloride Extended Release Tablet 40 mEq PO once ordered. pc 18:12 Potassium Chloride in 100cc sterile water 10 mEq IV at 100 mL/hr once over 1 hrs pc ordered. 18:15 Chest, 1 View Ordered. EDMS 18:15 BED REQUEST+ADM ordered. EDMS 18:50 Admission / Observation Status ordered. EDMS 18:50 2 GRAM SODIUM DIET ordered. EDMS 19:33 CBC WITH DIFFERENTIAL Ordered. EDMS 19:33 COMPLETE COMPHRENSIVE METABOLI Ordered. EDMS 19:33 MAGNESIUM LEVEL Ordered. EDMS 20:25 PROTHROMBIN TIME PROFILE\\E\\INR Ordered. EDMS 0203 11:14 BASIC METABOLIC PROFILE Ordered. EDMS 14:54 ECG/EKG was scanned into [employer] and attached to record. EC 16:57 Rate is 87 beats/min. Rhythm is regular, Normal Sinus Rhythm. QRS [place] is Normal. [place] pc interval is normal. QRS interval is prolonged at 120 msec. QT interval is normal. No Q waves. T waves are Normal. No ST changes noted. Clinical impression: Normal Sinus Rhythm, Incomplete LBBB, and LAE. Administered Medications: 18:29 Drug: NS 0.9% 500 ml [sodium chloride 0.9 % intravenous solution] Route: IV; Rate: ms18 bolus; Site: right antecubital; 18:29 Drug: Potassium Chloride 40 mEq [potassium chloride ER 10 mEq tablet,extended release ms18 (4 tabs)] Route: PO; 18:29 Drug: Potassium Chloride in 100cc sterile water 10 mEq [potassium chloride 10 mEq/100 ms18 mL intravenous piggyback] {Co-Signature: mv5 (Nolvia Sun RN).} Route: IV; Rate: 100 mL/hr; Infused Over: 1 hrs; Site: right antecubital; Critical Care Time: 18:01 Critical care time: Bedside Care: 20 minutes, Consultation: 20 minutes, Family pc Intervention: 10 minutes. Total time: 50 minutes Signatures: Dispatcher [employer] [facility] Maverick Moon MD MD pc Barnhardt, Gloria, Reg Reg Gilda LewRN RN jo3 Sherwin Alfaro Hannah, RN RN hs1 Danielle Ya RN RN [facility] Nolvia Sun RN RN mv5 Nathalie Clark RN ms18 Nolvia Sun RN mv5 The chart was reviewed and I authenticate all verbal orders and agree with the evaluation and treatment provided.Attachments: 17:09 [facility] [place] Agreement zo 04/30 14:54 ECG/EKG gb Chart Complete MTDD
--- NOTE | 2016-05-02 13:47 | EDDOCDS ---
Physician Documentation [facility] Name: Lg Espinal Age: 65 yrs Sex: Male : 1950 Arrival Date: 04/29/2016 Time: 15:52 Bed Admit Hold Private MD: John Mccormack Disposition: 04/29 18:01 Critical Care:. pc Disposition: 04/29/16 18:20 Hospitalization ordered by Selene Maldonado for Inpatient Admission. Preliminary diagnosis are Orthostatic hypotension, Hypokalemia, Type 2 diabetes mellitus with hyperglycemia - A1C over 9 for past 2 years, Hyperlipidemia, unspecified, Polydipsia, Chronic kidney disease, stage 3 (moderate). - Bed requested for PCU. - Status is Inpatient Admission. hs1 - Condition is Stable. - Problem is new. - Symptoms have improved. HPI: 16:50 This 65 yrs old Male presents to ER via Walkin/Carried/Asstd with complaints pc of Abnormal Lab Results. 16:50 The history is obtained from the patient, Dr. Hodge. He was referred to Nephrology pc due to ongoing hyponatremia and his labs today showed significant hypokalemia and hyponatremia. The patient complains only of occasional dizziness. He admits to drinking at least 8 x 20 ounce bottles of water daily. He does not have any underlying renal disease. He has type 2 DM with poor control, with and A1C of 8.9 to 9.6 since 2014. At their worst, the symptoms were mild. In the emergency department, the symptoms are unchanged. The patient has been recently seen by their primary care provider. Historical: - Allergies: no known allergies; - Home Meds: 1. calcium carbonate 500 mg calcium (1,250 mg) Oral cap twice a day 2. allopurinol 100 mg Oral tab 1 tab once daily 3. aspirin 81 mg Oral chew 1 tab once daily 4. Breo INH daily 5. cpap nightly 6. Doc-Q-Lace 100 mg oral cap 1 cap 2 times per day 7. ferrous sulfate 325 mg (65 mg iron) Oral tab twice a day 8. Fish Oil Pills 1200 mg Twice Daily 9. Lantus 100 unit/mL Sub-Q crtg 20 units daily 10. Lasix 40 mg oral tab in Am and 20mg in pm 11. lisinopril 2.5 mg Oral tab 1 tab once daily 12. metformin 1,000 mg Oral tab 1 tab 2 times per day 13. potassium 20meq oral chew twice a day 14. pantoprazole 40 mg oral TbEC 1 tab once daily 15. Pro Air INH as needed 16. rosuvastatin 40 mg once daily oral 17. warfarin 6 mg oral tab 1 tab once daily Due to restart 05/01/16. On hold at this time for INR 7.7 18. spironolactone 25 mg Oral tab 1 tab 2 times per day 19. One A Day MVI daily - PMHx: Asthma; COPD; Diabetes - IDDM: uncontrolled; GERD; Gout; High Cholesterol; Hypertension; Sleep Apnea w/ CPAP; renal disease; - PSHx: Carpal Tunnel Repair- Bilateral; Arthroscopy, Knee- Right; eye surgery; Rotator Cuff Repair- Left; - The history from nurses notes was reviewed: and I agree with what is documented. - Social history: Smoking status: Patient states former smoker of tobacco. No barriers to communication noted, The patient speaks fluent [place]agu[place], Speaks appropriately for age. - Family history: Not pertinent. - : The pt / caregiver states he / she is on anticoagulants: coumadin. Home medication list is obtained from the patient. - Hospitalizations: : No recent hospitalization is reported. - Exposure Risk Screening:: None identified. - Immunization history:: All immunizations up-to-date. - Social history:: the patient is a non-smoker, the patient does not drink alcohol. ROS: 16:50 All systems are negative except as listed. pc 16:56 "I'm always thirsty". pc Exam: 16:50 General Appearance: no acute distress, alert. pc 16:50 EENT: normal eye inspection, ears, nose and throat normal, pharynx normal, mucous membranes moist 16:50 Neck: The exam reveals no acute abnormalities. ROM is normal and painless. No nuchal rigidity is noted.. 16:50 Respiratory: no respiratory distress, normal breath sounds. 16:50 CVS: regular pulse rate, regular rhythm, normal S1 and S2, no murmurs, strong peripheral pulses. 16:50 Abdomen: soft, non-tender, no organomegaly, normal bowel sounds. 16:50 Back: normal inspection. 16:50 Skin: skin color is normal, warm, dry. 16:50 Extremities: The extremities have a grossly normal appearance, are non-tender, without acute ROM abnormalities. 16:50 Neuro: oriented x 3, cranial nerves normal as tested, no motor deficits, no sensory deficits. 16:50 Psych: normal mood. Vital Signs: 15:55 BP 112 / 76; Pulse 95; Resp 18; Temp 98.6; Pulse Ox 96% ; Weight 93.44 kg / 206 lbs; elp Height 5 ft. 5 in. (165.10 cm); Pain 0/10; 16:17 BP 117 / 68 (auto/); ms18 16:19 Pulse 88 MON; Pulse Ox 96% ; ms18 16:29 BP 111 / 64 (auto/); ms18 16:29 Pulse 88 MON; Pulse Ox 96% ; ms18 16:44 BP 126 / 67 (auto/); mv5 16:49 Pulse 88 MON; Resp 18; Pulse Ox 96% ; mv5 17:14 BP 115 / 72 (auto/); ms18 17:14 Pulse 84 MON; Pulse Ox 95% ; ms18 17:44 BP 119 / 72 (auto/); ms18 17:44 Pulse 82 MON; Pulse Ox 95% ; ms18 17:58 BP 110 / 61 (auto/); ms18 17:58 Pulse 88 MON; Pulse Ox 96% ; ms18 17:58 BP 119 / 72 (auto/); ms18 17:59 BP 99 / 59 (auto/); ms18 17:59 Pulse 84 MON; Pulse Ox 96% ; ms18 18:00 BP 119 / 72 Supine; Pulse 84; ld5 18:01 BP 110 / 61 Sitting; Pulse 92; ld5 18:02 BP 99 / 59 Standing; Pulse 96; ld5 18:14 BP 96 / 51 (auto/); ms18 18:14 Pulse 92 MON; Pulse Ox 96% ; ms18 19:09 BP 101 / 58 (auto/); kas2 19:09 Pulse 86 MON; Pulse Ox 95% ; kas2 19:16 Resp 20; Temp 98.1(O); Pain 0/10; kas2 19:25 BP 105 / 82; Pulse 81; Resp 18; Pain 00/10; kas2 15:55 Body Mass Index 34.28 (93.44 kg, 165.10 cm) elp MDM: 16:27 IV Saline Lock ordered. pc 16:27 Volunteer Services Supervisor/Pulse Ox/q 30 min VS ordered. pc 16:28 CBC with Diff Ordered. EDMS 16:28 MED Profile Ordered. EDMS 16:28 Osmolality, Serum Ordered. EDMS 16:28 Osmolality,Urine Ordered. EDMS 16:28 TSH with Free T4 Ordered. EDMS 16:28 Urine Random,Creatinine Ordered. EDMS 16:28 Urine Random,Sodium Ordered. EDMS 16:28 Magnesium Level Ordered. EDMS 16:28 INR Ordered. EDMS 16:28 ECG WITH READING ER PHYS+CARDIAG ordered. EDMS 16:57 Differential Diagnosis: mildly symptomatic hyponatremia/hypochloridemia/hypokalemia, pc suspected to be due to water intoxication; poorly controlled DM. Plan: labs, fluid restriction, EKG. Test interpretation: EKG. 17:02 CBC with Diff Reviewed. pc 17:05 Financial registration complete. zo 17:09 [facility] Payment Agreement was scanned into [employer] and attached to record. zo 17:45 MED Profile Reviewed. pc 17:45 Osmolality,Urine Reviewed. pc 17:45 INR Reviewed. pc 17:45 Osmolality, Serum Reviewed. pc 17:45 TSH with Free T4 Reviewed. pc 17:45 Urine Random,Creatinine Reviewed. pc 17:45 Urine Random,Sodium Reviewed. pc 17:45 Magnesium Level Reviewed. pc 17:54 Orthostatic VS ordered. pc 18:01 Data reviewed: old medical records, vital signs, nurses notes, EKG(s), lab test pc results. Test interpretation: LAB - all labs as ordered have been reviewed, interpreted and considered in the overall management of the clinical presentation;. The patient has been re-examined and re-evaluated. The patient's symptoms have mildly improved after treatment, but he is orthostatic and requires admission. Physician consultation: Dr. Sg Chaudhary MD regarding patient's condition, and he advises that with the improved labs, he does not require admission if he is not orthostatic and advises oral K+ replacement. If he is orthostatic, he advises IV K+ and admission. Physician consultation: Dr. Selene Maldonado regarding admission. Disposition: The historical points, examination findings, and any diagnostic results supporting the provided diagnosis, were discussed with the patient or legal guardian. The need for further work-up and/or treatment in the hospital was explained. 18:12 NS 0.9% 500 ml IV at bolus once ordered. pc 18:12 Potassium Chloride Extended Release Tablet 40 mEq PO once ordered. pc 18:12 Potassium Chloride in 100cc sterile water 10 mEq IV at 100 mL/hr once over 1 hrs pc ordered. 18:15 Chest, 1 View Ordered. EDMS 18:15 BED REQUEST+ADM ordered. EDMS 18:50 Admission / Observation Status ordered. EDMS 18:50 2 GRAM SODIUM DIET ordered. EDMS 19:33 CBC WITH DIFFERENTIAL Ordered. EDMS 19:33 COMPLETE COMPHRENSIVE METABOLI Ordered. EDMS 19:33 MAGNESIUM LEVEL Ordered. EDMS 20:25 PROTHROMBIN TIME PROFILE\\E\\INR Ordered. EDMS 0203 11:14 BASIC METABOLIC PROFILE Ordered. EDMS 14:54 ECG/EKG was scanned into [employer] and attached to record. EC 16:57 Rate is 87 beats/min. Rhythm is regular, Normal Sinus Rhythm. QRS [place] is Normal. [place] pc interval is normal. QRS interval is prolonged at 120 msec. QT interval is normal. No Q waves. T waves are Normal. No ST changes noted. Clinical impression: Normal Sinus Rhythm, Incomplete LBBB, and LAE. Administered Medications: 18:29 Drug: NS 0.9% 500 ml [sodium chloride 0.9 % intravenous solution] Route: IV; Rate: ms18 bolus; Site: right antecubital; 18:29 Drug: Potassium Chloride 40 mEq [potassium chloride ER 10 mEq tablet,extended release ms18 (4 tabs)] Route: PO; 18:29 Drug: Potassium Chloride in 100cc sterile water 10 mEq [potassium chloride 10 mEq/100 ms18 mL intravenous piggyback] {Co-Signature: mv5 (Nolvia Sun RN).} Route: IV; Rate: 100 mL/hr; Infused Over: 1 hrs; Site: right antecubital; Critical Care Time: 18:01 Critical care time: Bedside Care: 20 minutes, Consultation: 20 minutes, Family pc Intervention: 10 minutes. Total time: 50 minutes Signatures: Dispatcher [employer] [facility] Maverick Moon MD MD pc Barnhardt, Gloria, Reg Reg Gilda LewRN RN jo3 Sherwin Alfaro Hannah, RN RN hs1 Danielle Ya RN RN [facility]2 Nolvia Sun RN RN mv5 Nathalie Clark RN ms18 Nolvia Sun RN mv5 The chart was reviewed and I authenticate all verbal orders and agree with the evaluation and treatment provided.Attachments: 17:09 [facility] [place] Payment Agreement zo 04/30 14:54 ECG/EKG gb Chart Complete MTDD
--- NOTE | 2016-05-02 14:03 | DS.PDOC ---
Discharge Summary General Date of Admission Apr 29, 2016 at 18:42 Date of Discharge 05/02/2016 Discharge Summary DATE OF ADMISSION: 04/29/2016 DATE OF DISCHARGE: 05/02/2016 PRIMARY CARE PHYSICIAN: Dr. Chaudhary DISCHARGE DIAGNOS(E)S: Hypotension Acute on chronic kidney disease Hypokalemia HPI & HOSPITAL COURSE: 65-year-old male with COPD, hypertension, hyperlipidemia, diabetes mellitus type 2, MORTEZA on CPAP, history of prior DVT/PE, GERD, gout, iron deficiency anemia , chronic kidney disease stage II who presented to the emergency department after being seen by his business continuity global director and being noted to be hypokalemic and hypotensive. It appears that the patient was over diuresed. His hypotension and AoCKD resolved with some IV fluids. Nephrology has been following, and they have replaced his potassium as well as started him on twice a day potassium replacement. They also want him to continue on spironolactone twice a day and stop his Lasix. They also have instructed him to follow a 1500 mL per day fluid restriction diet, as well as a 2 g sodium diet. He will be following up with Dr. Chaudhary at this week to get his electrolytes rechecked. He was otherwise continued on his chronic home medications. PHYSICAL EXAMINATION ON DISCHARGE: VITAL SIGNS: Vital Sign - Last 24 Hours 05/01/16 05/01/16 05/01/16 05/01/16 16:00 17:45 17:56 21:00 Temp 96.3 97.3 Pulse 67 65 Resp 20 18 B/P 97/56 143/75 Pulse Ox 98 98 O2 Delivery Room Air Room Air BIPAP/CPAP BIPAP/CPAP 05/01/16 05/02/16 05/02/16 05/02/16 22:00 02:00 06:00 08:55 Temp 96.6 96.9 96.6 Pulse 69 69 62 Resp 17 17 17 B/P 121/62 116/68 Pulse Ox 98 91 96 O2 Delivery Room Air Room Air Room Air Room Air 05/02/16 05/02/16 05/02/16 05/02/16 09:00 09:00 09:00 10:00 Temp 97.5 Pulse 79 72 B/P 120/63 126/61 108/59 Pulse Ox 96 99 O2 Delivery Room Air Room Air GENERAL: Alert, awake, no acute distress CARDIOVASCULAR EXAMINATION: Regular rate and rhythm, with no rubs, gallops, or murmur. RESPIRATORY EXAMINATION: Clear to auscultation bilaterally with no wheezes, rales, or rhonchi. ABDOMINAL EXAMINATION: Soft, nontender, nondistended. Bowel sounds present. EXTREMITIES: No clubbing or edema noted. 2+ pulses in the radial bilaterally. NEURO: Alert and oriented 3, normal speech PSYCH: Normal mood and affect DISPOSITION: Home DISCHARGE INSTRUCTIONS: Adhere to 1500 mL per day fluid restriction, and 2 g of sodium diet. Follow-up with Dr. Chaudhary within 1 week. If symptoms return, or if you experience worsening of your symptoms, please call your doctor or return to the emergency department. ITEMS THAT NEED OUTPATIENT FOLLOWUP: Repeat BMP with Dr. Chaudhary this coming week Patient was seen and examined by me on the day of discharge, and I spent a total time of greater than 30 minutes on this discharge. Vital Signs/I&Os Vital Signs Date Time Temp Pulse Resp B/P Pulse Ox O2 Delivery O2 Flow Rate FiO2 05/02/16 10:00 97.5 05/02/16 09:00 108/59 05/02/16 09:00 72 99 Room Air 05/02/16 06:00 17 04/30/16 07:45 I&O- Last 24 Hours up to 6 AM 05/02/16 05:59 Intake Total 1380 ml Output Total 1800 ml Balance -420 ml Laboratory Data Labs 24H Laboratory Tests 2 05/01/16 16:31: Bedside Glucose (Misc Panel) 222H 05/01/16 20:40: Bedside Glucose (Misc Panel) 171H 05/02/16 05:34: Blood Urea Nitrogen 14, Creatinine 1.06, Sodium Level 140, Potassium Level 3.4L , Chloride Level 104, Carbon Dioxide Level 28, Calcium Level 8.5L, Aspartate Amino Transf (AST/SGOT) 38H, Alanine Aminotransferase (ALT/SGPT) 50, Alkaline Phosphatase 50, Total Bilirubin 0.2, Total Protein 6.1L, Albumin 3.1L, Albumin/ Globulin Ratio 1.03, Anion Gap 8, White Blood Count 5.3, Red Blood Count 4.16L, Hemoglobin 12.1L, Hematocrit 35.0L, Mean Corpuscular Volume 84.1, Mean Corpuscular Hemoglobin 29.2, Mean Corpuscular Hemoglobin Concent 34.7, Red Cell Distribution Width 15.2H, Platelet Count 244, Neutrophils (%) (Auto) 53.3, Lymphocytes (%) (Auto) 31.8, Monocytes (%) (Auto) 7.7H, Eosinophils (%) (Auto) 5.3H, Basophils (%) (Auto) 0.7, Neutrophils # (Auto) 2.8, Lymphocytes # (Auto) 1.7, Monocytes # (Auto) 0.4, Eosinophils # (Auto) 0.3, Basophils # (Auto) 0.0, Glomerular Filtration Rate > 60.0, Large Unclassified Cells # 0.1, Large Unclassified Cells % 1.2, Magnesium Level 2.5H, Prothromb Time International Ratio 2.04, Prothrombin Time 23.1H 05/02/16 11:53: Bedside Glucose (Misc Panel) 257H CBC/BMP Laboratory Tests 05/02/16 05:34 Calcium Level 8.5 L, Aspartate Amino Transf (AST/SGOT) 38 H, Alanine Aminotransferase (ALT/SGPT) 50, Alkaline Phosphatase 50, Total Bilirubin 0.2, Total Protein 6.1 L, Albumin 3.1 L, Red Blood Count 4.16 L, Mean Corpuscular Volume 84.1, Mean Corpuscular Hemoglobin 29.2, Mean Corpuscular Hemoglobin Concent 34.7, Red Cell Distribution Width 15.2 H, Neutrophils (%) (Auto) 53.3, Lymphocytes (%) (Auto) 31.8, Monocytes (%) (Auto) 7.7 H, Eosinophils (%) (Auto) 5.3 H, Basophils (%) (Auto) 0.7, Neutrophils # (Auto) 2.8, Lymphocytes # (Auto) 1.7, Monocytes # (Auto) 0.4, Eosinophils # (Auto) 0.3, Basophils # (Auto) 0.0 FSBS Laboratory Tests Test 05/01/16 16:31 05/01/16 20:40 05/02/16 11:53 Range/Units Bedside Glucose (Misc Panel) 222 171 257 80-115 MG/DL Medications Scheduled (Aspirin) 81 Mg Chw 81 MG PO DAILY Allopurinol (Allopurinol) 100 Mg Tab 100 MG PO DAILY Calcium Carbonate (Calcium) 500 Mg Chw 500 MG PO BID Docusate Sodium (Colace) 100 Mg Cap 100 MG PO BID Ferrous Sulfate (Ferrous Sulfate) 325 Mg Tab 325 MG PO BID Fish Oil (Fish Oil) 1,000 Mg Cap 1,000 MG PO BID Fluticasone/Vilanterol (Breo Ellipta 100-25 Mcg/INH) 1 Inh Inh 1 PUFF INH DAILY Insulin Glargine (Lantus) 1 Units/0.01 Ml Susp 20 UNITS SC QAM Lisinopril (Lisinopril) 2.5 Mg Tab 2.5 MG PO DAILY Metformin Hydrochloride (Metformin HCl) 1,000 Mg Tab 1,000 MG PO BID Multivitamins *[facility] STOCKED* (Thera M Plus *[facility] STOCKED*) 1 Tab Tab 1 TAB PO DAILY Pantoprazole Sodium (Pantoprazole Sodium) 40 Mg Tab 40 MG PO DAILY Potassium Chloride (Klor-Con M20) 20 Meq Tabcr 20 MEQ PO BID Rosuvastatin Calcium (Crestor) 40 Mg Tab 40 MG PO DAILY Spironolactone (Spironolactone) 25 Mg Tab 25 MG PO BID Warfarin Sod (Coumadin) 6 Mg Tab 6 MG PO 3XW QPM: Tue, Tue, Fri - ON HOLD UNTIL 05/01/16 Warfarin Sod (Coumadin) 3 Mg Tab 9 MG PO 4XWK QPM: Tue, , Tue, Sun - ON HOLD UNTIL 05/01/16 Scheduled PRN Albuterol Sulfate (Proair Hfa) 108 Mcg/Act Aer 2 PUFF INH QID PRN PRN SHORTNESS OF BREATH Allergies Coded Allergies: No Known Allergies (Verified Allergy, Mild, 09/07/05) ALPHONSO GROSS May 02, 2016 14:03
== END 2016-05-02 14:00 | disposition home or self-care (01) | DRG 460 ==
LOC: M ED 15:52 → M ED INP 18:42 → M PCU 04-30 12:15 → M MSPAV 05-01 17:34
PROVIDERS: ADMIT Internal Medicine; ATTEND Hospitalist
DX: N17.9 Acute kidney failure, unspecified (principal); E87.1 Hypo-osmolality and hyponatremia; I10 Essential (primary) hypertension; E61.1 Iron deficiency; J44.9 Chronic obstructive pulmonary disease, unspecified; E78.5 Hyperlipidemia, unspecified; E11.9 Type 2 diabetes mellitus without complications; G47.33 Obstructive sleep apnea (adult) (pediatric); M10.9 Gout, unspecified; E87.6 Hypokalemia; R63.4 Abnormal weight loss; K21.9 Gastro-esophageal reflux disease without esophagitis; I12.9 Hypertensive chronic kidney disease with stage 1 through stage 4 chronic kidney disease, or unspecified chronic kidney disease; N18.2 Chronic kidney disease, stage 2 (mild); T50.2X5A Adverse effect of carbonic-anhydrase inhibitors, benzothiadiazides and other diuretics, initial encounter; E66.9 Obesity, unspecified; Z86.711 Personal history of pulmonary embolism; Z86.718 Personal history of other venous thrombosis and embolism; I95.1 Orthostatic hypotension; Z79.4 Long term (current) use of insulin; E86.0 Dehydration; Z87.891 Personal history of nicotine dependence; Z79.01 Long term (current) use of anticoagulants; Z79.84 Long term (current) use of oral hypoglycemic drugs; Z79.82 Long term (current) use of aspirin; Z68.34 Body mass index [BMI] 34.0-34.9, adult; Z79.899 Other long term (current) drug therapy

== ENCOUNTER → 2016-05-04 | Outpatient (REF) | payer BC ==
[~2016-05-04] MED LIST changes: +FISH1000 PO; +LASI20TA PO
[2016-05-04 20:17] LABS: BACTERIA, URINE SMALL AMOUNT; HYALINE CAST, URINE NONE SEEN /lpf (0-1); MICROSCOPIC EXAM PERFORMED; RBC, URINE 0-1 /hpf (0-3); SQUAMOUS EPITHELIAL CELL URINE SMALL AMOUNT /hpf (SMALL AMT)
== END ==
LOC: M LAB REF 17:03
PROVIDERS: ATTEND Internal Medicine Nephrology
DX: N18.2 Chronic kidney disease, stage 2 (mild) (principal); R31.9 Hematuria, unspecified

== ENCOUNTER → 2016-05-07 | Outpatient (CLI) | payer BC | LOC: M SMT 08:12 | PROVIDERS: ATTEND Neuromusculoskeletal Medicine & OMM | DX: E11.9 Type 2 diabetes mellitus without complications (principal) ==

== ENCOUNTER → 2016-09-24 | Outpatient (CLI) | payer BC ==
[~2016-09-24] MED LIST changes: -COLA100C PO; +COLA100C5 PO; -FARX1TAB2 PO; +FARX1TAB3 PO; +FERR1TAB8 PO; -FERR325T PO; +HYDR-3713 PO; +MECL1CHW2 PO; -MECL25CH PO; -METF1000 PO; +METF10004 PO; -PROA1AER INH; +PROAAER10 INH; +TRUL10IN SC
== END ==
LOC: M SMT 13:50
PROVIDERS: ATTEND Urology
DX: Z12.5 Encounter for screening for malignant neoplasm of prostate (principal)
CPT/HCPCS: 36415; 81001; 87086; G0103

== ENCOUNTER → 2016-10-22 | Outpatient (CLI) | payer BC | LOC: M SMT 08:15 | PROVIDERS: ATTEND Urology | DX: R31.29 Other microscopic hematuria (principal) ==

== ENCOUNTER → 2016-10-22 | Outpatient (CLI) | payer BC | LOC: M SMT 08:18 | PROVIDERS: ATTEND Neuromusculoskeletal Medicine & OMM | DX: E11.9 Type 2 diabetes mellitus without complications (principal) ==

== ENCOUNTER 2016-10-29 19:41 | Emergency (ER) | payer BC ==
[~2016-10-29] VITALS: Ht 162.6 cm; Wt 100.0 kg
[~2016-10-29 19:41] MED LIST changes: -HYDR-3713 PO; -TRUL10IN SC
[2016-10-29 19:42] VITALS: BP 129/76
[2016-10-29] MEDS ORDERED: TRUL10IN SC (19:59)
[2016-10-29] MEDS ORDERED: NORCO 5/325MG TABLET (BULK FOR ED) PO ONE (21:30)
[2016-10-29] MEDS ORDERED: HYDR-3713 PO (21:30)
--- NOTE | 2016-10-29 21:30 | REPUSA ---
CLINICAL HISTORY: Edema. COMMENTS: Real time sonography with duplex doppler of the right lower extremity was performed with attention to the major deep venous structures. Evaluation reveals the right common femoral, superficial femoral and popliteal veins to be completely compressible without intraluminal thrombus. There is normal spontaneous phasic flow and augmentation . The greater saphenous/common femoral vein junction is patent. IMPRESSION: No evidence of DVT in right lower extremity. Thank you for your kind referral of this patient.
--- NOTE | 2016-10-30 09:38 | REP ---
RIGHT KNEE, COMPLETE: 10/29/2016. Comparison: AP and lateral 11/25/2015. Clinical history: Knee pain. Findings: Five views show tricompartment osteoarthritic changes with marginal osteophytes greatest at the medial joint line. There is no suprapatellar effusion. I see no patellar subluxation or dislocation on the sunrise view. I see no loose body, osteochondral defect or focal lesion. There are vascular calcifications and popliteal artery and branches. A fabella is noted. No destructive lesion. Impression: 1. Tricompartment osteoarthritic changes without joint space narrowing, fracture, loose body, osteochondral defect or definite effusion. Signed by Naldo Del Rio MD 10/30/2016 07:49 P
== END 2016-10-29 21:58 | disposition home or self-care (01) ==
LOC: M ED 19:41
DX: M25.561 Pain in right knee (principal); Z87.891 Personal history of nicotine dependence; Z79.01 Long term (current) use of anticoagulants

== ENCOUNTER → 2016-11-05 | Outpatient (CLI) | payer BC ==
[~2016-11-05] MED LIST changes: +HYDR-3713 PO; +TRUL10IN SC
== END ==
LOC: M SMT 09:25
PROVIDERS: ATTEND Neuromusculoskeletal Medicine & OMM
DX: Z11.59 Encounter for screening for other viral diseases (principal)

== ENCOUNTER → 2017-03-03 | Outpatient (REF) | payer BC ==
[~2017-03-03] MED LIST changes: +AMIL5TA PO; +GLIP5TAB8 PO; +NOVO70VL SC; +TRAM50TA2 PO
== END ==
LOC: M SFHCPLAZ 14:58
DX: E11.9 Type 2 diabetes mellitus without complications (principal)

== ENCOUNTER 2017-03-11 07:07 | Day surgery (SDC) | payer BC ==
[2017-03-11] VITALS (8 sets, daily range): BP systolic 116–150; BP diastolic 55–81
[~2017-03-11] VITALS: Ht 162.6 cm; Wt 100.6 kg
[2017-03-11 07:45] LABS: INR 0.92
[2017-03-11] MEDS ORDERED: LR 1,000 ML IV ONE (07:45)
[2017-03-11 07:50] LABS: ANION GAP 5 MEQ/L (8-16); BLOOD UREA NITROGEN 19 MG/DL (7-18); CALCIUM LEVEL 8.9 MG/DL (8.8-10.2); CARBON DIOXIDE LEVEL 28 MEQ/L (21-32); CHLORIDE LEVEL 106 MEQ/L (98-107); CREATININE FOR GFR 1.05 MG/DL (0.70-1.30); GLOMERULAR FILTRATION RATE > 60.0 (>49); GLUCOSE, FASTING 181 MG/DL (80-110); POTASSIUM SERUM 4.7 MEQ/L (3.5-5.1); SODIUM LEVEL 139 MEQ/L (136-145)
[2017-03-11] MEDS ORDERED: LISINOPRIL *2.5 MG* TAB PO SCH (09:00)
[2017-03-11] MEDS ORDERED: ROPIvacaine 0.5% 30 ML INJECTION (J2795 PER 1MG) As Ordered ONE (10:01)
[2017-03-11] MEDS ORDERED: LIDOCAINE 2% INJ 100 MG/5 ML SDV (FOR ANES.) As Ordered ONE (10:35)
[2017-03-11] MEDS ORDERED: PROPOFOL 200 MG/20 ML VIAL As Ordered ONE (10:35)
[2017-03-11] MEDS ORDERED: fentaNYL 100 MCG/2 ML INJECTION (J3010) As Ordered ONE ×2 (10:35→11:24)
[2017-03-11] MEDS ORDERED: MIDAZOLAM INJ 2 MG/2 ML VIAL (J2250) As Ordered ONE (10:35)
[2017-03-11] MEDS ORDERED: TRIAMCINOLONE ACETONIDE SUSP 40 MG/ML VIAL (J3301) As Ordered ONE (10:49)
[2017-03-11] MEDS ORDERED: KETOROLAC 60 MG/2 ML VIAL (J1885) As Ordered ONE (10:59)
[2017-03-11] MEDS ORDERED: ONDANSETRON 4MG/2ML VIAL (J2405) As Ordered ONE (10:59)
[2017-03-11] MEDS: fentaNYL 100 MCG/2 ML INJECTION (J3010) IV PRN ×3 (11:27→11:37)
[2017-03-11] MEDS ORDERED: LR 1,000 ML IV SCH ×2 (11:45)
[2017-03-11] MEDS ORDERED: NORCO, ANEXSIA 5/325MG TABLET (HYDROcodone/ACETAMINOPHEN) PO PRN (11:45)
[2017-03-11] MEDS ORDERED: ONDANSETRON 4MG/2ML VIAL (J2405) IV PRN (11:45)
[2017-03-11] MEDS ORDERED: GLUCOSE 4 GM CHEW TABLET PO PRN (13:15)
[2017-03-11] MEDS ORDERED: GLUCAGON FOR INJ 1 MG VIAL (J1610) SC PRN (13:15)
[2017-03-11] MEDS ORDERED: DEXTROSE 50% 50 ML SYRINGE IV PRN (13:15)
[2017-03-11] MEDS ORDERED: NOVOINJ3 SC (13:28)
[2017-03-11] MEDS ORDERED: FARX1TAB3 PO (13:28)
[2017-03-11] MEDS ORDERED: FERR324T2 PO (13:28)
[2017-03-11] MEDS ORDERED: MIRA3350 PO (13:28)
[2017-03-11] MEDS ORDERED: SPIR25TA2 PO (13:28)
[2017-03-11] MEDS ORDERED: FURO40TA2 PO (13:28)
[2017-03-11 13:32] LABS: MEAN CORPUSCULAR HEMOGLOBIN 28.7 pg (27.0-33.0); MEAN CORPUSCULAR HGB CONC 32.6 g/dl (32.0-36.5); MEAN CORPUSCULAR VOLUME 88.3 fl (80.0-96.0); PLATELET COUNT, AUTOMATED 272 10^3/uL (150-450); RED CELL DISTRIBUTION WIDTH 14.5 % (11.5-14.5); WHITE BLOOD COUNT 5.7 10^3/uL (4.0-10.0)
[2017-03-11] MEDS ORDERED: ENOX100I3 SC (13:35)
[2017-03-11] MEDS ORDERED: CALC500T49 PO (13:36)
[2017-03-11] MEDS ORDERED: ALBUTEROL 90 MCG/ACT 8GM HFA INHALER INH PRN (13:45)
[2017-03-11] MEDS ORDERED: MIRALAX *UNIT DOSE* 17GM PACKET PO PRN (13:45)
[2017-03-11] MEDS ORDERED: LOVE0.8I SC (14:22)
[2017-03-11] MEDS: ENOXAPARIN 100MG/1ML SYRINGE (J1650) SC SCH (14:47)
[2017-03-11] MEDS ORDERED: WARFARIN SOD 3 MG TAB PO SCH (17:00)
[2017-03-11] MEDS: HumaLOG INSULIN (NovoLOG) PER UNIT SC SCH (17:44)
[2017-03-11] MEDS: NORCO, ANEXSIA 5/325MG TABLET (HYDROcodone/ACETAMINOPHEN) PO PRN (17:46)
[2017-03-11] MEDS: OMEGA-3 1050MG CAPSULE PO SCH (20:15)
[2017-03-11] MEDS: OYSTER SHELL CALCIUM 500 MG TAB PO SCH (20:15)
[2017-03-11] MEDS: SENOKOT S TAB PO SCH (20:16)
[2017-03-11] MEDS: aMILoride 5 MG TAB PO SCH (20:16)
[2017-03-11] MEDS ORDERED: HumaLOG INSULIN (NovoLOG) PER UNIT SC SCH (21:00)
--- NOTE | 2017-03-11 21:23 | CR ---
DATE OF CONSULTATION: 03/11/2017 CONSULTATION FOR: Dr. aVrun Vyas REASON FOR CONSULTATION: Medical greater than. PRIMARY CARE PROVIDER: Dr. John Mccormack CARDIOLOGY: Dr. 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 Varun Vyas, admitted overnight for same-day surgery. Given history of severe DVT/PE patient has been bridged with Lovenox as outpatient. Hospitalist consulted for medical management. Patient denies any fevers, chills, chest pain, pressure, or discomfort. Denies any shortness of breath or cough. Currently comfortable in no acute distress. ALLERGIES: No known drug allergies. PAST MEDICAL HISTORY: 1. COPD. 2. GERD. 3. Gout. 4. Hypertension. 5. DVT/PE with anticardiolipin antibody positive. 6. Anemia. 7. Type 2 diabetes, insulin dependent. 8. Diverticulosis. 9. Diaphragmatic hernia. 10. BPH. 11. UTI. 12. Obstructive sleep apnea. PAST SURGICAL HISTORY: 1. AAA repair. 2. Rotator cuff tear and repair. 3. Carpal tunnel repair bilateral. 4. Lens implant bilateral. 5. Cardiac catheterization September 2008. 6. Cyst removed from back in 2003. 7. Varicose veins, bilateral legs, March 2015. 8. Esophagogastroduodenoscopy, colonoscopy by Dr. Cadena. FAMILY HISTORY: Father with pancreatic cancer. Mother with diabetes. SOCIAL HISTORY: Patient lives at home. Former smoker. Quit smoking 15 years ago. Occasional alcohol use. REVIEW OF SYSTEMS: Negative except for those mentioned in history of present illness (HPI). Reported right knee pain. HOME MEDICATIONS: - ProAir inhalation four times a day as needed - allopurinol 100 mg by mouth daily - amiloride 5 mg by mouth twice a day - aspirin 81 mg by mouth daily - calcium 500 mg by mouth twice a day - Farxiga 10 mg by mouth daily - Colace 100 mg by mouth twice a day - Lovenox 100 mg subcutaneous twice a day - fish oil 2000 mg by mouth twice a day - Breo inhalation daily - Lasix 40 mg by mouth daily - glipizide 5 mg by mouth twice a day - NovoLog insulin before meals subcutaneous - Lantus 70 units subcutaneous every morning - lisinopril 2.5 mg by mouth daily - metformin 1000 mg by mouth twice a day - multivitamin one tablet by mouth daily - Protonix 40 mg by mouth daily - MiraLax 17 g by mouth daily as needed - potassium chloride 20 mEq by mouth daily - Crestor 40 mg by mouth daily - Trulicity 0.5 mg subcutaneous weekly - Coumadin 6 mg by mouth every evening PHYSICAL EXAMINATION: GENERAL: Patient obese in no acute distress, alert and oriented times three. HEENT: Normocephalic, atraumatic. PULMONARY: Bilaterally clear to auscultation. CARDIAC: Regular S1, S2. ABDOMEN: Soft, obese, nontender. Positive bowel sounds. EXTREMITIES: Right lower extremity wraps intact. Peripheral pulses intact. Varicose veins, bilateral lower extremities. No edema. 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 Patient presented initially for elective right knee arthroscopy by orthopedics. Medicine requested for consultation. Patient will be under the care of Dr. Alejandro Allen tomorrow. 1. Right knee osteoarthritis, status post arthroscopy by Dr. Vyas. Activity status, weightbearing, wound management, pain management as per orthopedics. Bowel regimen as prescribed. 2. DVT/PE with anticardiolipin positive. Lovenox bridging to Coumadin as per orthopedics. Follow with primary care provider for further recommendations and INRs. Followup hemoglobin and hematocrit. 3. COPD. Continue home medication. 4. Hypertension. Restarting blood pressure medication tomorrow. Monitor blood pressure. 5. Gout. Continue home medication. 6. GERD. Continue home medication. 7. Insulin-dependent type 2 diabetes mellitus. Levemir at reduced dose. Pre-meal insulin according to protocol. Adjust as needed. 8. Anemia. Monitor hemoglobin and hematocrit. 9. Diverticulosis. Outpatient followup. 10. BPH. Continue current medication. 11. Dyslipidemia. Continue statin. 12. Obesity, complicating care. 13. History of UTI. Will monitor closely. 14. Hypertension. Will restart amiloride, Lasix, and lisinopril. 15. DVT prophylaxis. Patient on therapeutic Lovenox and will be giving the patient Coumadin. Followup INR. DISPOSITION: As per orthopedic team.
[2017-03-12 01:00] VITALS: BP 117/60
[2017-03-12] MEDS: ENOXAPARIN 100MG/1ML SYRINGE (J1650) SC SCH (01:11)
[2017-03-12] MEDS: NORCO, ANEXSIA 5/325MG TABLET (HYDROcodone/ACETAMINOPHEN) PO PRN ×2 (01:11→09:48)
[2017-03-12 03:33] VITALS: BP 105/56
[2017-03-12 06:00] LABS: MEAN CORPUSCULAR HEMOGLOBIN 28.7 pg (27.0-33.0); MEAN CORPUSCULAR HGB CONC 32.3 g/dl (32.0-36.5); PLATELET COUNT, AUTOMATED 286 10^3/uL (150-450); RED CELL DISTRIBUTION WIDTH 14.5 % (11.5-14.5); WHITE BLOOD COUNT 7.5 10^3/uL (4.0-10.0)
[2017-03-12] MEDS ORDERED: SPIRONOLACTONE 25 MG TAB PO SCH (06:00)
[2017-03-12 06:12] LABS: INR 1.04
[2017-03-12 06:25] LABS: ANION GAP 4 MEQ/L (8-16); BLOOD UREA NITROGEN 17 MG/DL (7-18); CALCIUM LEVEL 9.2 MG/DL (8.8-10.2); CARBON DIOXIDE LEVEL 29 MEQ/L (21-32); CHLORIDE LEVEL 108 MEQ/L (98-107); GLOMERULAR FILTRATION RATE > 60.0 (>49); GLUCOSE, FASTING 154 MG/DL (80-110); MAGNESIUM LEVEL 2.5 MG/DL (1.8-2.4); POTASSIUM SERUM 4.6 MEQ/L (3.5-5.1); SODIUM LEVEL 141 MEQ/L (136-145)
[2017-03-12 08:00] VITALS: BP 134/69
[2017-03-12] MEDS: HumaLOG INSULIN (NovoLOG) PER UNIT SC SCH ×2 (08:17→12:31)
[2017-03-12] MEDS ORDERED: MULTIVITAMINS/MINERALS THERAP 1 TAB PO SCH (09:00)
[2017-03-12] MEDS ORDERED: ROSUVASTATIN 10 MG TAB (CRESTOR) PO SCH (09:00)
[2017-03-12] MEDS ORDERED: ALLOPURINOL 100 MG TAB PO SCH (09:00)
[2017-03-12] MEDS ORDERED: FUROSEMIDE 40 MG TAB PO SCH ×2 (09:00)
[2017-03-12] MEDS ORDERED: LEVEMIR (INSULIN DETEMIR) 1 UNITS/0.01ML SC SCH ×3 (09:00)
[2017-03-12] MEDS: SENOKOT S TAB PO SCH (09:36)
[2017-03-12] MEDS: OYSTER SHELL CALCIUM 500 MG TAB PO SCH (09:37)
[2017-03-12] MEDS: aMILoride 5 MG TAB PO SCH (09:38)
[2017-03-12] MEDS: OMEGA-3 1050MG CAPSULE PO SCH (09:48)
[2017-03-12 10:18] VITALS: BP 134/69
--- NOTE | 2017-03-14 08:19 | RO ---
DATE OF PROCEDURE: 03/11/2017 PREOPERATIVE DIAGNOSIS: Right knee arthritis with medial and lateral meniscus tears. POSTOPERATIVE DIAGNOSIS: Right knee arthritis with medial and lateral meniscus tears. PROCEDURE: Right knee operative arthroscopy, partial medial and lateral meniscectomy and joint debridement. SURGEON: Dr. Varun Vyas SPINNING FRAME CLEANER: Millie Jones ANESTHESIA: General. ESTIMATED BLOOD LOSS: Minimal COMPLICATIONS: None. INDICATION: 66-year-old gentleman with multiple medical issues who has had persistent knee pain. MRI scan was consistent with possible meniscus tears and he had underlying arthritis as well. He wished to go ahead with surgical treatment and he understood the nature of this and the risks of bleeding, infection, damage to nerves, vessels, persistent pain, blood clots, medical problems, among others. The family has expressed some interest in having him spend the night here because of his history of medical problems and deep vein thromboses (DVTs). PROCEDURE: The patient was taken to the operating room and placed supine position after general anesthesia was induced. The right lower extremity was prepped and draped in the usual sterile fashion. I then inflated the tourniquet. A time out was performed. I created inferomedial and inferolateral portals per routine. Identified patellofemoral joint. He had extensive arthritis grade 3 to 4 changes around the patellofemoral joint. I proceeded down both gutters. Identified the medial compartment. There was a complex posterior horn and mid body medial meniscus tear that was debrided with A combination of basket punch and a 4.2 shaver. I then identified the notch. There was actually some synovitis in the attachment of the anterior cruciate ligament (ACL) which may have been impinging in extension, so this debrided. The lateral compartment was identified and a large complex lateral meniscus tear was resected with a combination of basket punch and 4.2 shaver back to a stable rim. I reprobed the menisci, reexamined the entire joint, removed the instrumentation, closed the portals using #4-0 nylon suture, and injected 30 mL of Naropin and 20 mg of Kenalog. Sterile dressing was applied. The tourniquet was deflated. He was taken to recovery room in stable condition. There were no known complications. The plan will be routine postoperative.
== END 2017-03-12 14:00 | disposition home or self-care (01) ==
LOC: M SDC 07:07 → M PED 12:45 → M SDC 03-12 14:00
PROVIDERS: ATTEND Orthopaedic Surgery
DX: M17.11 Unilateral primary osteoarthritis, right knee (principal); M23.300 Other meniscus derangements, unspecified lateral meniscus, right knee; M23.321 Other meniscus derangements, posterior horn of medial meniscus, right knee; J44.9 Chronic obstructive pulmonary disease, unspecified; K21.9 Gastro-esophageal reflux disease without esophagitis; M10.9 Gout, unspecified; I10 Essential (primary) hypertension; Z86.718 Personal history of other venous thrombosis and embolism; Z86.711 Personal history of pulmonary embolism; K64.9 Unspecified hemorrhoids; E11.9 Type 2 diabetes mellitus without complications; K57.90 Diverticulosis of intestine, part unspecified, without perforation or abscess without bleeding; K44.9 Diaphragmatic hernia without obstruction or gangrene; N40.0 Benign prostatic hyperplasia without lower urinary tract symptoms; Z87.442 Personal history of urinary calculi; R76.0 Raised antibody titer; G47.33 Obstructive sleep apnea (adult) (pediatric); E66.9 Obesity, unspecified; Z87.891 Personal history of nicotine dependence; Z79.899 Other long term (current) drug therapy; Z79.4 Long term (current) use of insulin; Z79.51 Long term (current) use of inhaled steroids; Z79.82 Long term (current) use of aspirin; Z79.01 Long term (current) use of anticoagulants
CPT/HCPCS: 29880; 36415; 80048; 83735; 85027; 85610; 96372; 97161; J0690; J1650; J1885; J2250; J2405; J2795; J3010; J3301

== ENCOUNTER → 2017-06-30 | Outpatient (CLI) | payer BC ==
[2017-06-30 14:35] LABS: ESTIMATED AVERAGE GLUCOSE 128 MG/DL (60-110); HEMOGLOBIN A1c 6.1 %
== END ==
LOC: M SMT 08:00
DX: E11.9 Type 2 diabetes mellitus without complications (principal)
CPT/HCPCS: 83036

== ENCOUNTER → 2017-08-18 | Outpatient (CLI) | payer BC ==
[2017-08-18 13:57] LABS: ESTIMATED AVERAGE GLUCOSE 143 MG/DL (60-110); HEMOGLOBIN A1c 6.6 %
[2017-08-18 13:59] LABS: CHOLESTEROL LEVEL 112 MG/DL (<200); CHOLESTEROL RISK RATIO 3.294 (<5); HDL CHOLESTEROL 34 MG/DL (>40); LDL CHOLESTEROL 33.6 MG/DL (<100); NON-HDL-C 78 MG/DL; TRIGLYCERIDES LEVEL 222 MG/DL (<150)
== END ==
LOC: M SMT 08:46
DX: H02.66 Xanthelasma of left eye, unspecified eyelid (principal); H02.63 Xanthelasma of right eye, unspecified eyelid; E11.9 Type 2 diabetes mellitus without complications
CPT/HCPCS: 83036

== ENCOUNTER 2017-08-26 22:09 | Emergency (ER) | payer BC ==
[2017-08-26] MEDS: ADACEL/BOOSTRIX VACCINE (DIPHTH/PERTUSS/ACELL/TETANUS)0.5ML SYR (90715) IM (23:42)
== END 2017-08-27 00:22 | disposition home or self-care (01) ==
LOC: M ED 22:09
DX: S51.802A Unspecified open wound of left forearm, initial encounter (principal); L76.22 Postprocedural hemorrhage of skin and subcutaneous tissue following other procedure; X58.XXXA Exposure to other specified factors, initial encounter; Y84.8 Other medical procedures as the cause of abnormal reaction of the patient, or of later complication, without mention of misadventure at the time of the procedure; Y92.099 Unspecified place in other non-institutional residence as the place of occurrence of the external cause; Y99.9 Unspecified external cause status; Z79.82 Long term (current) use of aspirin; Z79.01 Long term (current) use of anticoagulants; Z79.899 Other long term (current) drug therapy; Z79.4 Long term (current) use of insulin
CPT/HCPCS: 90715

== ENCOUNTER → 2017-08-26 | Outpatient (REF) | payer BC | LOC: M LAB REF 15:00 | DX: L57.0 Actinic keratosis (principal) | CPT/HCPCS: 88305 ==

== ENCOUNTER → 2017-12-02 | Outpatient (REF) | payer BC ==
[2017-12-02 16:31] LABS: RETICULOCYTE # 69.5 10^9/L (17-77); RETICULOCYTE % 1.4 % (0.5-1.5)
[2017-12-02 17:12] LABS: C REACTIVE PROTEIN QUANTITATIV < 0.30 MG/DL (0.00-0.30); TOTAL PROTEIN 7.6 GM/DL (6.4-8.2)
[2017-12-02 17:12] LABS: NT-PRO BNP 65 PG/ML (<125)
[2017-12-02 17:45] LABS: HEMATOCRIT 40.8 % (42.0-52.0)
[2017-12-02 20:43] LABS: ERYTHROCYTE SEDIMENTATION RATE 8 mm/hr (0-20)
[2017-12-05 09:59] LABS: VITAMIN B12 LEVEL 495 PG/ML (247-911)
[2017-12-06 16:30] LABS: PRETREATED FOLATE FOR RBCFOL 16.8 NG/ML; RBC FOLATE 864.7 NG/ML (280-791)
[2017-12-07 10:12] LABS: CARDIOLIPIN IGA ANTIBODY <9 APL U/mL (0-11); CARDIOLIPIN IGG ANTIBODY <9 GPL U/mL (0-14); CARDIOLIPIN IGM ANTIBODY 18 MPL U/mL (0-12); D001-IgE D pteronyssinus <0.10 kU/L (Class 0); E001-IgE Cat Epith/Dander < 0.10 kU/L (Class 0); E005-IgE Dog Dander < 0.10 kU/L (Class 0); G002-IgE Bermuda Grass < 0.10 kU/L (Class 0); G008-IgE Kentucky Bluegrass < 0.10 kU/L (Class 0); M001-IgE Penicillium chrysogen < 0.10 kU/L (Class 0); M002 IgE Cladosporium herbaru < 0.10 kU/L (Class 0); M003 IgE Aspergillus fumigatu < 0.10 kU/L (Class 0); M006-IgE Alternaria alternata < 0.10 kU/L (Class 0); T001-IgE Maple/Box Elder < 0.10 kU/L (Class 0); T003-IgE Common Silver Birch < 0.10 kU/L (Class 0); T006-IgE Cedar, Mountain < 0.10 kU/L (Class 0); T007-IgE Oak, White < 0.10 kU/L (Class 0); T008-IgE Elm, American < 0.10 kU/L (Class 0); T015-IgE Ash, White < 0.10 kU/L (Class 0); T041-IgE Hickory, White < 0.10 kU/L (Class 0); T070-IgE White Mulberry < 0.10 kU/L (Class 0); W001-IgE Ragweed, Short < 0.10 kU/L (Class 0); W009-IgE Plantain, English < 0.10 kU/L (Class 0); W014-IgE Pigweed, Rough < 0.10 kU/L (Class 0); W018-IgE Sheep Sorrel < 0.10 kU/L (Class 0)
[2017-12-07 16:10] LABS: ALBUMIN 4.39 GM/DL (3.29-5.55); ALBUMIN % 57.7 % (55.8-66.1); ALPHA-1-GLOBULIN % 3.9 % (2.9-4.9); ALPHA-2-GLOBULINS 0.97 GM/DL (0.42-0.99); ALPHA-2-GLOBULINS % 12.8 % (7.1-11.8); BETA-1-GLOBULINS 0.55 GM/DL (0.28-0.60); BETA-1-GLOBULINS % 7.2 % (4.7-7.2); BETA-2-GLOBULINS 0.44 GM/DL (0.19-0.55); BETA-2-GLOBULINS % 5.8 % (3.2-6.5); GAMMA GLOBULIN % 12.6 % (11.1-18.8); GAMMA GLOBULINS 0.96 GM/DL (0.65-1.58)
== END ==
LOC: M SFHCPLAZ 13:17
DX: I10 Essential (primary) hypertension (principal); Z86.711 Personal history of pulmonary embolism; D63.8 Anemia in other chronic diseases classified elsewhere; R51 Headache
CPT/HCPCS: 84165

== ENCOUNTER → 2017-12-14 | Outpatient (CLI) | payer BC ==
[2017-12-14 14:48] LABS: ALBUMIN 4.1 GM/DL (3.2-5.2); ALBUMIN/GLOBULIN RATIO 1.21 (1.00-1.93); ALKALINE PHOSPHATASE 62 U/L (45-117); ALT/SGPT 41 U/L (12-78); ANION GAP 11 MEQ/L (8-16); AST/SGOT 22 U/L (7-37); BILIRUBIN,TOTAL 0.2 MG/DL (0.2-1.0); BLOOD UREA NITROGEN 20 MG/DL (7-18); CALCIUM LEVEL 9.6 MG/DL (8.8-10.2); CARBON DIOXIDE LEVEL 27 MEQ/L (21-32); CHLORIDE LEVEL 104 MEQ/L (98-107); CREATININE FOR GFR 0.82 MG/DL (0.70-1.30); GLOMERULAR FILTRATION RATE > 60.0 (>49); GLUCOSE, FASTING 87 MG/DL (70-100); POTASSIUM SERUM 3.7 MEQ/L (3.5-5.1); SODIUM LEVEL 142 MEQ/L (136-145); TOTAL PROTEIN 7.5 GM/DL (6.4-8.2)
== END ==
LOC: M SMT 09:57
DX: R51 Headache (principal)
CPT/HCPCS: 80053

== ENCOUNTER → 2017-12-16 | Outpatient (CLI) | payer BC | LOC: M RAD 15:32 | DX: R51 Headache (principal); I67.82 Cerebral ischemia | CPT/HCPCS: 70551 ==

== ENCOUNTER → 2018-01-06 | Outpatient (REF) | payer BC ==
[2018-01-06 16:23] LABS: BASO # 0.1 10^3/uL (0.0-0.2); BASO % 0.5 % (0.0-1.0); EOS # 0.2 10^3/uL (0.0-0.50); EOS % 1.8 % (0.0-3.0); HEMATOCRIT 41.5 % (42.0-52.0); HEMOGLOBIN 13.1 g/dl (13.5-17.5); IMMATURE GRANULOCYTE % 0.9 % (0-3.0); LYMPH # 1.7 10^3/uL (1.5-4.5); LYMPH % 17.6 % (24.0-44.0); MEAN CORPUSCULAR HEMOGLOBIN 24.5 pg (27.0-33.0); MEAN CORPUSCULAR HGB CONC 31.6 g/dl (32.0-36.5); MEAN CORPUSCULAR VOLUME 77.6 fl (80.0-96.0); MONO # 0.9 10^3/uL (0.0-0.8); MONO % 9.5 % (0.0-5.0); NEUTROPHILS # 6.9 10^3/uL (1.8-7.7); NEUTROPHILS % 69.7 % (36.0-66.0); PLATELET COUNT, AUTOMATED 332 10^3/uL (150-450); RED BLOOD COUNT 5.35 10^6/uL (4.30-6.10); RED CELL DISTRIBUTION WIDTH 17.2 % (11.5-14.5); WHITE BLOOD COUNT 9.9 10^3/uL (4.0-10.0)
[2018-01-06 16:55] LABS: FERRITIN 22 NG/ML (26-388); FREE T4 1.01 NG/DL (0.76-1.46); IRON (FE) 34 UG/DL (65-175); PERCENT SATURATION 7.2 % (19.7-50.0); TOTAL IRON BINDING CAPACITY 471 UG/DL (250-450)
[2018-01-06 16:57] LABS: THYROID PEROXIDASE ANTIBODY < 28.0 U/ML (<60.0)
[2018-01-10 10:00] LABS: ANA (HEP2) Negative (.)
[2018-01-10 10:00] LABS: BETA 2 MICROGLOBULIN 1.7 mg/L (0.6-2.4)
[2018-01-10 10:29] LABS: DRVV SCREEN 112.1 SEC
[2018-01-10 10:33] LABS: PTT LUPUS TYPE ANTICOAG SCREEN 2.6 (0-1.2)
[2018-01-10 10:42] LABS: DRVV CONFIRM 64.5 SEC; LUPUS CONFIRM RATIO 1.7
[2018-01-10 10:43] LABS: NORMALIZED RATIO 1.53 (0.00-1.20)
[2018-01-14 08:06] LABS: HEXAGONAL PHASE PHOSPHOLIPID 3 sec (0-11)
== END ==
LOC: M SFHCPLAZ 14:45
DX: D50.9 Iron deficiency anemia, unspecified (principal); Z86.711 Personal history of pulmonary embolism; E78.5 Hyperlipidemia, unspecified
CPT/HCPCS: 83550

== ENCOUNTER → 2018-01-26 | Outpatient (REF) | payer BC ==
[2018-01-26 19:58] LABS: COMPLEMENT C3 166 MG/DL (90-180)
[2018-01-27 13:25] LABS: TOTAL PROTEIN 7.6 GM/DL (6.4-8.2)
[2018-01-31 13:40] LABS: ALBUMIN 4.14 GM/DL (3.29-5.55); ALBUMIN % 54.5 % (55.8-66.1); ALPHA-2-GLOBULINS % 14.2 % (7.1-11.8); BETA-1-GLOBULINS % 7.5 % (4.7-7.2); BETA-2-GLOBULINS % 6.4 % (3.2-6.5); GAMMA GLOBULIN % 13.4 % (11.1-18.8)
[2018-01-31 13:41] LABS: ALPHA-2-GLOBULINS 1.08 GM/DL (0.42-0.99); BETA-1-GLOBULINS 0.57 GM/DL (0.28-0.60); BETA-2-GLOBULINS 0.49 GM/DL (0.19-0.55); GAMMA GLOBULINS 1.02 GM/DL (0.65-1.58)
[2018-02-01 00:07] LABS: ANCA-ATYPICAL <1:20 titer (Neg:<1:20); ANTI DOUBLE STRAND-DNA AB <1 IU/mL (0-9); ANTI-GLOMERULAR BASEMENT MEMB 3 units (0-20); ANTINUCLEAR ANTIBODIES DIRECT Negative (Negative); CYTOPLASMIC NEUTROP AB ANCA-C <1:20 titer (Neg:<1:20); PERINUCLEAR AB ANCA-P <1:20 titer (Neg:<1:20)
== END ==
LOC: M LAB REF 17:11
DX: R80.9 Proteinuria, unspecified (principal)
CPT/HCPCS: 84165

== ENCOUNTER → 2018-01-30 | Outpatient (REF) | payer BC ==
[2018-01-30 11:19] LABS: URINE VOLUME 1975 ML
[2018-01-30 11:20] LABS: CREATININE, SERUM 1.1 MG/DL (0.6-1.3); TOTAL VOLUME, URINE 1975 ML
[2018-01-30 11:27] LABS: URINE TOTAL PROTEIN 65.8 MG/DL (0-12)
[2018-01-30 12:16] LABS: CREATININE, URINE 49.7 MG/DL; TOTAL PROTEIN 24 HOUR URINE 1327.2 MG/24HR (50-150); URINE TOTAL PROTEIN 67.2 MG/DL (0-12)
[2018-02-02 00:07] LABS: KAPPA/LAMBDA RATIO URINE 9.85 (2.04-10.37)
[2018-02-02 14:35] LABS: UPEP INTERPRETATION NO M-SPIKE NOTED
== END ==
LOC: M LAB REF 10:14
DX: R80.9 Proteinuria, unspecified (principal)

== ENCOUNTER 2018-02-02 11:12 | Emergency (ER) | payer BC ==
[2018-02-02 12:02] LABS: BASO # 0.1 10^3/uL (0.0-0.2); BASO % 0.6 % (0.0-1.0); EOS # 0.1 10^3/uL (0.0-0.50); EOS % 1.3 % (0.0-3.0); HEMATOCRIT 40.7 % (42.0-52.0); HEMOGLOBIN 13.2 g/dl (13.5-17.5); IMMATURE GRANULOCYTE % 0.2 % (0-3.0); LYMPH # 1.7 10^3/uL (1.5-4.5); LYMPH % 18.8 % (24.0-44.0); MEAN CORPUSCULAR HGB CONC 32.4 g/dl (32.0-36.5); MEAN CORPUSCULAR VOLUME 76.9 fl (80.0-96.0); MONO # 0.8 10^3/uL (0.0-0.8); MONO % 9.2 % (0.0-5.0); NEUTROPHILS # 6.2 10^3/uL (1.8-7.7); NEUTROPHILS % 69.9 % (36.0-66.0); PLATELET COUNT, AUTOMATED 324 10^3/uL (150-450); RED BLOOD COUNT 5.29 10^6/uL (4.30-6.10); RED CELL DISTRIBUTION WIDTH 17.2 % (11.5-14.5); WHITE BLOOD COUNT 8.9 10^3/uL (4.0-10.0)
[2018-02-02 12:23] LABS: INR 2.83; PROTHROMBIN TIME 30.4 SECONDS (12.1-14.4)
[2018-02-02 12:24] LABS: PARTIAL THROMBOPLASTIN TIME 42.2 SECONDS (25.4-37.6)
== END 2018-02-02 14:07 | disposition home or self-care (01) ==
LOC: M ED 11:12
DX: S91.112A Laceration without foreign body of left great toe without damage to nail, initial encounter (principal); W26.8XXA Contact with other sharp object(s), not elsewhere classified, initial encounter; Y92.098 Other place in other non-institutional residence as the place of occurrence of the external cause; Z79.01 Long term (current) use of anticoagulants; I11.0 Hypertensive heart disease with heart failure; I50.9 Heart failure, unspecified; E78.5 Hyperlipidemia, unspecified; E11.9 Type 2 diabetes mellitus without complications; J44.9 Chronic obstructive pulmonary disease, unspecified; G47.33 Obstructive sleep apnea (adult) (pediatric); N18.9 Chronic kidney disease, unspecified; M54.9 Dorsalgia, unspecified; Z87.891 Personal history of nicotine dependence
CPT/HCPCS: 85610

== ENCOUNTER → 2018-03-31 | Outpatient (CLI) | payer BC ==
[~2018-03-31] MED LIST changes: -AMIL5TA PO; +AMIL5TAB4 PO; +CALC500T49 PO; +ENOX100I3 SC; +FERR324T2 PO; +FISH7.5C PO; +KEFL500C17 PO; +KLOR20TA42 PO; -LASI20TA PO; +LASI20TA3 PO; -LISI2.5T3 PO; +LISI2.5T5 PO; +LOVE0.8I SC; +METF500T13 PO; +MIRA3350 PO; +NOVOINJ3 SC; -PANT40TA2 PO; +PANT40TA3 PO; -POTA20TA PO; +SPIR-10 PO; -SPIR25TA2 PO
--- NOTE | 2018-03-31 09:58 | REP ---
MR CERVICAL SPINE WITHOUT CONTRAST: HISTORY: Radiculopathy. COMPARISON: 05/12/2015. A disc bulge is present at the C3-4 level. There is minimal effacement of the thecal sac without spinal cord compression. Uncinate process hypertrophy is present on the left. This produces minimal narrowing of the left C3 neural foramen. The right C3 neural foramen is patent. A disc bulge with associated osteophyte formation is present at the C4-5 level. There is mild effacement of the thecal sac without spinal cord compression. Bilateral uncinate process hypertrophy is present. This produces mild and moderate narrowing of the right and left C4 neural foramina respectively. A disc bulge with associated osteophyte formation is present at the C5-6 level. There is moderate effacement of the thecal sac without spinal cord compression. Bilateral uncinate process hypertrophy is present. This produces moderate narrowing of the C5 neural foramina. A disc bulge with associated osteophyte formation is present at the C6-7 level. There is mild effacement of the thecal sac without spinal cord compression. Bilateral uncinate process hypertrophy is present. This produces minimal and mild narrowing of the right and left C6 neural foramina respectively. There is no other disc bulge or herniation. The remaining neural foramina are patent. The spinal cord is normal in signal intensity. The C4-5 and C5-6 intervertebral discs are decreased in height consistent with disc degeneration. A hemangioma is present in the T1 vertebral body. Normal signal intensity is present in the cervical vertebral bodies. IMPRESSION: There is cervical spondylosis at the C3-4 through C6-7 levels without spinal cord compression. There has been progression of the foraminal narrowing at the C5-6 level. Electronically Signed by Kasi Davalos MD 03/31/2018 10:27 A
== END ==
LOC: M PLARAD 08:05
PROVIDERS: ATTEND Nurse Practitioner Family
DX: M47.22 Other spondylosis with radiculopathy, cervical region (principal)

== ENCOUNTER → 2018-06-09 | Outpatient (REF) | payer BC ==
[~2018-06-09] MED LIST changes: +TIZA4CAP PO
[2018-06-09 16:26] LABS: BASO # 0.1 10^3/uL (0.0-0.2); BASO % 0.6 % (0.0-1.0); EOS # 0.2 10^3/uL (0.0-0.50); EOS % 1.9 % (0.0-3.0); HEMATOCRIT 45.9 % (42.0-52.0); HEMOGLOBIN 15.1 g/dl (13.5-17.5); LYMPH # 2.4 10^3/uL (1.5-4.5); LYMPH % 26.1 % (24.0-44.0); MEAN CORPUSCULAR HEMOGLOBIN 27.7 pg (27.0-33.0); MEAN CORPUSCULAR HGB CONC 32.9 g/dl (32.0-36.5); MEAN CORPUSCULAR VOLUME 84.1 fl (80.0-96.0); MONO # 0.9 10^3/uL (0.0-0.8); MONO % 10.2 % (0.0-5.0); NEUTROPHILS # 5.5 10^3/uL (1.8-7.7); PLATELET COUNT, AUTOMATED 270 10^3/uL (150-450); RED BLOOD COUNT 5.46 10^6/uL (4.30-6.10)
[2018-06-09 16:29] LABS: ALBUMIN 4.1 GM/DL (3.2-5.2); ALT/SGPT 76 U/L (12-78); BILIRUBIN,TOTAL 0.3 MG/DL (0.2-1.0); BLOOD UREA NITROGEN 20 MG/DL (7-18); CALCIUM LEVEL 8.5 MG/DL (8.8-10.2); CARBON DIOXIDE LEVEL 29 MEQ/L (21-32); CHLORIDE LEVEL 98 MEQ/L (98-107); CREATININE FOR GFR 1.11 MG/DL (0.70-1.30); GLOMERULAR FILTRATION RATE > 60.0 (>49); GLUCOSE, FASTING 159 MG/DL (70-100); POTASSIUM SERUM 3.8 MEQ/L (3.5-5.1); SODIUM LEVEL 136 MEQ/L (136-145); TOTAL PROTEIN 7.5 GM/DL (6.4-8.2)
[2018-06-09 16:33] LABS: PTH INTACT 113.6 PG/ML (18.5-88.0); TOTAL 25(OH) VITAMIN D 20.2 NG/ML (30.0-100.0)
== END ==
LOC: M SFHCPLAZ 15:16
PROVIDERS: ATTEND Family Medicine
DX: D50.9 Iron deficiency anemia, unspecified (principal); J44.9 Chronic obstructive pulmonary disease, unspecified; E11.8 Type 2 diabetes mellitus with unspecified complications; Z12.5 Encounter for screening for malignant neoplasm of prostate
CPT/HCPCS: 36415; 80053; 82306; 83036; 83970; 85025; 85046; G0103

== ENCOUNTER 2018-09-01 17:55 | Emergency (ER) | payer BC ==
[~2018-09-01] VITALS: Ht 162.6 cm; Wt 101.6 kg
[~2018-09-01 17:55] MED LIST changes: -/PANT40TA; -/WARF2TA; -ASPI81CH PO; +ASPI81CH49 PO; +COUM1TAB16; +LISI-1046 PO; -LISI2.5T5 PO; +MECL1CHW PO; -MECL1CHW2 PO; +PROT1TAB2
[2018-09-01] MEDS ORDERED: ALBUTEROL SULFATE 2.5 MG/0.5 ML INH NEB SOLN NEB ONE (20:15)
[2018-09-01] MEDS ORDERED: NS 1,000 ML IV ONE (20:15)
[2018-09-01 20:54] LABS: BASO % 0.5 % (0.0-1.0); EOS # 0.5 10^3/uL (0.0-0.50); EOS % 7.6 % (0.0-3.0); HEMATOCRIT 45.1 % (42.0-52.0); HEMOGLOBIN 15.5 g/dl (13.5-17.5); LYMPH # 1.6 10^3/uL (1.5-4.5); LYMPH % 25.1 % (24.0-44.0); MEAN CORPUSCULAR HEMOGLOBIN 29.2 pg (27.0-33.0); MEAN CORPUSCULAR HGB CONC 34.4 g/dl (32.0-36.5); MEAN CORPUSCULAR VOLUME 85.1 fl (80.0-96.0); MONO # 0.9 10^3/uL (0.0-0.8); MONO % 14.9 % (0.0-5.0); NEUTROPHILS # 3.2 10^3/uL (1.8-7.7); NEUTROPHILS % 51.6 % (36.0-66.0); PLATELET COUNT, AUTOMATED 247 10^3/uL (150-450); WHITE BLOOD COUNT 6.2 10^3/uL (4.0-10.0)
[2018-09-01 21:17] LABS: ALBUMIN 3.6 GM/DL (3.2-5.2); BILIRUBIN,DIRECT 0.1 MG/DL (0.0-0.2); BILIRUBIN,TOTAL 0.4 MG/DL (0.2-1.0); CALCIUM LEVEL 9.1 MG/DL (8.8-10.2); CREATININE FOR GFR 1.41 MG/DL (0.70-1.30); GLOMERULAR FILTRATION RATE 53.5 (>49); POTASSIUM SERUM 3.8 MEQ/L (3.5-5.1); TOTAL PROTEIN 7.6 GM/DL (6.4-8.2)
--- NOTE | 2018-09-01 21:21 | REP ---
Chest two views HISTORY: Abdominal pain Comparison: 04/29/2016 The lungs are clear. The heart is normal in size. The pulmonary vasculature is normal in appearance. The bony structure is intact. IMPRESSION: No acute disease. Electronically Signed by Kasi Davalos MD 09/01/2018 09:13 P
--- NOTE | 2018-09-01 21:23 | REP ---
KUB one-view History: Abdominal pain A small amount of air is present in the intestine. There are no dilated loops of intestine. An air-fluid level is present. There is no pneumoperitoneum. Impression: Nonspecific bowel gas pattern. Electronically Signed by Kasi Davalos MD 09/01/2018 09:15 P
[2018-09-01 22:32] LABS: CREATININE FOR GFR 1.35 MG/DL (0.70-1.30); GLOMERULAR FILTRATION RATE 56.3 (>49)
[2018-09-01] MEDS ORDERED: LEVA1TAB2 PO (23:10)
[2018-09-01] MEDS ORDERED: LevoFLOXacin 500 MG TABLET PO ONE (23:30)
[2018-09-02 00:10] VITALS: BP 123/74
== END 2018-09-02 00:10 | disposition home or self-care (01) ==
LOC: M ED 17:55
DX: J44.1 Chronic obstructive pulmonary disease with (acute) exacerbation (principal); K59.00 Constipation, unspecified; N30.90 Cystitis, unspecified without hematuria; N18.9 Chronic kidney disease, unspecified; R79.89 Other specified abnormal findings of blood chemistry; I50.9 Heart failure, unspecified; E11.9 Type 2 diabetes mellitus without complications; I11.0 Hypertensive heart disease with heart failure; R78.5 Finding of other psychotropic drug in blood; K21.9 Gastro-esophageal reflux disease without esophagitis; Z86.718 Personal history of other venous thrombosis and embolism; Z87.19 Personal history of other diseases of the digestive system; Z79.899 Other long term (current) drug therapy; Z79.82 Long term (current) use of aspirin; Z79.4 Long term (current) use of insulin; Z79.01 Long term (current) use of anticoagulants; Z87.891 Personal history of nicotine dependence

== ENCOUNTER → 2018-09-15 | Outpatient (REF) | payer BC ==
[~2018-09-15] MED LIST changes: +LEVA1TAB2 PO
[2018-09-15 14:15] LABS: ALBUMIN 3.8 GM/DL (3.2-5.2); BLOOD UREA NITROGEN 14 MG/DL (7-18); CALCIUM LEVEL 9.1 MG/DL (8.8-10.2); CARBON DIOXIDE LEVEL 27 MEQ/L (21-32); CHLORIDE LEVEL 101 MEQ/L (98-107); CREATININE FOR GFR 1.12 MG/DL (0.70-1.30); GLOMERULAR FILTRATION RATE > 60.0 (>49); GLUCOSE, FASTING 193 MG/DL (70-100); POTASSIUM SERUM 3.7 MEQ/L (3.5-5.1); SODIUM LEVEL 138 MEQ/L (136-145)
[2018-09-15 14:20] LABS: AMORPHOUS SEDIMENT SMALL (NEGATIVE); APPEARANCE, URINE CLEAR (CLEAR); BACTERIA, URINE AUTO NEGATIVE (NEGATIVE); BILIRUBIN, URINE AUTO NEGATIVE (NEGATIVE); BLOOD, URINE BLOOD 2+ (NEGATIVE); COLOR, URINE YELLOW (YELLOW); GLUCOSE, URINE (UA) AUTO 3+ mg/dL (NEGATIVE); GRANULAR CAST, URINE AUTO 5 /LPF; KETONE, URINE AUTO NEGATIVE (NEGATIVE); LEUKOCYTE ESTERASE, URINE AUTO NEGATIVE (NEGATIVE); NITRITE, URINE AUTO NEGATIVE (NEGATIVE); PROTEIN, URINE AUTO 1+ mg/dL (NEGATIVE); RBC, URINE AUTO 1 /HPF (0-3); SPECIFIC GRAVITY URINE AUTO 1.006 (1.002-1.035); SQUAMOUS EPITHELIAL CELL UR AU 1 /HPF (0-6); UROBILINOGEN, URINE AUTO 0.2 mg/dL (0.0-2.0); WBC, URINE AUTO 1 /HPF (0-3)
== END ==
LOC: M SFHCPLAZ 11:36
PROVIDERS: ATTEND Family Medicine
DX: N39.0 Urinary tract infection, site not specified (principal)
CPT/HCPCS: 36415; 80069; 81001; 87086; G0103

== ENCOUNTER → 2018-09-22 | Outpatient (CLI) | payer BC ==
--- NOTE | 2018-09-22 11:27 | REP ---
Clinical: Recurrent urinary tract infections. Technique: Real time judd scale ultrasound examination using curved array transducer. Findings: The bladder is normal in appearance without wall thickening or mass lesion. Prevoid bladder measures 14.2 x 15.1 x 4.0 cm (560 ml). Postvoid bladder measures 11.7 x 12.1 x 4.7 cm (434 ml). Postvoid residual equals 78%. Prostate gland is grossly normal in appearance and measures 2.4 x 2.3 x 3.6 cm (10 ml). Impression: Abnormal increased postvoid residual volume noted. Electronically Signed by Jimmy Hernandez MD 09/22/2018 11:19 A
== END ==
LOC: M RAD 10:09
PROVIDERS: ATTEND Family Medicine
DX: N39.0 Urinary tract infection, site not specified (principal)

== ENCOUNTER → 2018-10-21 | Outpatient (CLI) | payer BC ==
[2018-10-21 07:48] LABS: BASO # 0.1 10^3/uL (0.0-0.2); BASO % 1.3 % (0.0-1.0); EOS # 0.4 10^3/uL (0.0-0.50); HEMOGLOBIN 13.5 g/dl (13.5-17.5); LYMPH # 1.9 10^3/uL (1.5-4.5); LYMPH % 26.5 % (24.0-44.0); MEAN CORPUSCULAR HEMOGLOBIN 28.6 pg (27.0-33.0); MEAN CORPUSCULAR HGB CONC 32.9 g/dl (32.0-36.5); MEAN CORPUSCULAR VOLUME 86.9 fl (80.0-96.0); MONO # 0.6 10^3/uL (0.0-0.8); MONO % 8.4 % (0.0-5.0); NEUTROPHILS # 4.1 10^3/uL (1.8-7.7); NEUTROPHILS % 58.7 % (36.0-66.0); PLATELET COUNT, AUTOMATED 253 10^3/uL (150-450); RED BLOOD COUNT 4.72 10^6/uL (4.30-6.10)
[2018-10-21 08:41] LABS: ALBUMIN 3.4 GM/DL (3.2-5.2); ALT/SGPT 41 U/L (12-78); BILIRUBIN,TOTAL 0.4 MG/DL (0.2-1.0); BLOOD UREA NITROGEN 16 MG/DL (7-18); CALCIUM LEVEL 8.8 MG/DL (8.8-10.2); CARBON DIOXIDE LEVEL 27 MEQ/L (21-32); CHLORIDE LEVEL 105 MEQ/L (98-107); CHOLESTEROL LEVEL 152 MG/DL (<200); CREATININE FOR GFR 0.98 MG/DL (0.70-1.30); FREE T4 0.91 NG/DL (0.76-1.46); GLOMERULAR FILTRATION RATE > 60.0 (>49); GLUCOSE, FASTING 226 MG/DL (70-100); HDL CHOLESTEROL 32 MG/DL (>40); NON-HDL-C 120 MG/DL; NT-PRO BNP 33 PG/ML (<125); POTASSIUM SERUM 3.7 MEQ/L (3.5-5.1); SODIUM LEVEL 141 MEQ/L (136-145); TOTAL PROTEIN 6.8 GM/DL (6.4-8.2); TRIGLYCERIDES LEVEL 852 MG/DL (<150)
[2018-10-21 10:13] LABS: HEMOGLOBIN A1c 11.4 %
== END ==
LOC: M LAB 07:26
PROVIDERS: ATTEND Family Medicine
DX: E11.8 Type 2 diabetes mellitus with unspecified complications (principal); D50.9 Iron deficiency anemia, unspecified

== ENCOUNTER → 2019-05-12 | Outpatient (CLI) | payer BC ==
[2019-05-12 09:04] LABS: BASO # 0.1 10^3/uL (0.0-0.2); BASO % 0.9 % (0.0-1.0); EOS # 0.3 10^3/uL (0.0-0.5); HEMATOCRIT 43.9 % (42.0-52.0); LYMPH # 1.9 10^3/uL (1.5-5.0); LYMPH % 27.8 % (24.0-44.0); MEAN CORPUSCULAR HEMOGLOBIN 27.6 pg (27.0-33.0); MEAN CORPUSCULAR HGB CONC 31.9 g/dl (32.0-36.5); MEAN CORPUSCULAR VOLUME 86.4 fl (80.0-96.0); MONO # 0.8 10^3/uL (0.0-0.8); MONO % 11.6 % (0.0-5.0); NEUTROPHILS # 3.9 10^3/uL (1.5-8.5); NEUTROPHILS % 55.3 % (36.0-66.0); PLATELET COUNT, AUTOMATED 246 10^3/uL (150-450); RED BLOOD COUNT 5.08 10^6/uL (4.30-6.10)
[2019-05-12 09:34] LABS: ALBUMIN 3.8 GM/DL (3.2-5.2); ALT/SGPT 46 U/L (12-78); BILIRUBIN,TOTAL 0.5 MG/DL (0.2-1.0); BLOOD UREA NITROGEN 14 MG/DL (7-18); CALCIUM LEVEL 9.1 MG/DL (8.8-10.2); CARBON DIOXIDE LEVEL 31 MEQ/L (21-32); CHLORIDE LEVEL 104 MEQ/L (98-107); CHOLESTEROL LEVEL 115 MG/DL (<200); CHOLESTEROL RISK RATIO 3.285 (<5); CREATININE FOR GFR 1.02 MG/DL (0.70-1.30); FREE T4 1.09 NG/DL (0.76-1.46); GLOMERULAR FILTRATION RATE > 60.0 (>49); GLUCOSE, FASTING 164 MG/DL (70-100); HDL CHOLESTEROL 35 MG/DL (>40); HEMOGLOBIN A1c 8.7 %; LDL CHOLESTEROL 16 MG/DL (<100); MAGNESIUM LEVEL 2.3 MG/DL (1.8-2.4); NON-HDL-C 80 MG/DL; NT-PRO BNP 13 PG/ML (<125); POTASSIUM SERUM 4.3 MEQ/L (3.5-5.1); PROSTATIC SPECIFIC AG MONITOR 0.67 NG/ML (< 4.00); SODIUM LEVEL 141 MEQ/L (136-145); TOTAL PROTEIN 6.9 GM/DL (6.4-8.2); TRIGLYCERIDES LEVEL 320 MG/DL (<150); URIC ACID 3.6 MG/DL (3.5-7.2)
[2019-05-14 10:28] LABS: PTH INTACT 47.3 PG/ML (18.5-88.0); TOTAL 25(OH) VITAMIN D 85.3 NG/ML (30.0-100.0)
== END ==
LOC: M LAB 08:18
PROVIDERS: ATTEND Family Medicine
DX: E11.8 Type 2 diabetes mellitus with unspecified complications (principal); D50.9 Iron deficiency anemia, unspecified; E55.9 Vitamin D deficiency, unspecified; M10.9 Gout, unspecified; Z12.5 Encounter for screening for malignant neoplasm of prostate

== ENCOUNTER → 2019-05-25 | Outpatient (CLI) | payer BC ==
--- NOTE | 2019-05-25 12:51 | REPPI ---
Lumbar spine seven views including flexion and extension views: Comparison is 04/06/2009. Vertebral body heights are normal. Alignment is normal except for grade 1 anterolisthesis of L5-1 S1. This is unchanged. There is no spondylolysis, therefore the listhesis is likely degenerative secondary to facet osteoarthritis. There is mild interspace narrowing at every lumbar level compatible with multilevel mild degenerative disc disease. There is facet osteoarthritis, particularly at L4-5 and L5 S1. This has progressed from the prior study. There is no change in the lung L5 S1 listhesis on flexion or extension. Impression: Degenerative grade 1 L5 S1 spondylolisthesis that does not change on flexion or extension. There is no spondylolysis. There is facet osteoarthritis, vertically at the L5 S1. There is multilevel mild degenerative disc disease. Electronically Signed by John Kwon MD 05/25/2019 12:42 P
== END ==
LOC: M PLAIMG 12:09
PROVIDERS: ATTEND Family Medicine
DX: M51.36 Other intervertebral disc degeneration, lumbar region (principal); M51.37 Other intervertebral disc degeneration, lumbosacral region; M47.816 Spondylosis without myelopathy or radiculopathy, lumbar region

== ENCOUNTER → 2019-06-26 | Outpatient (RCR) | payer BC | LOC: M PT 06-01 09:04 | PROVIDERS: ATTEND Family Medicine | DX: Z51.89 Encounter for other specified aftercare (principal); M47.816 Spondylosis without myelopathy or radiculopathy, lumbar region ==

== ENCOUNTER 2019-06-28 07:58 | Outpatient (RCR) | payer BC | END 2019-07-26 | LOC: M PT 07:58 | PROVIDERS: ATTEND Family Medicine | DX: M47.816 Spondylosis without myelopathy or radiculopathy, lumbar region (principal) ==

== ENCOUNTER → 2019-08-22 | Outpatient (REF) | payer BC ==
[~2019-08-22] MED LIST changes: -LISI-1046 PO; +LISI2.5T2 PO
[2019-08-22 10:38] LABS: BASO # 0.1 10^3/uL (0.0-0.2); BASO % 0.9 % (0.0-1.0); EOS # 0.3 10^3/uL (0.0-0.5); EOS % 4.2 % (0.0-3.0); HEMATOCRIT 42.1 % (42.0-52.0); HEMOGLOBIN 13.5 g/dl (13.5-17.5); LYMPH # 2.3 10^3/uL (1.5-5.0); LYMPH % 31.3 % (24.0-44.0); MEAN CORPUSCULAR HEMOGLOBIN 27.4 pg (27.0-33.0); MEAN CORPUSCULAR HGB CONC 32.1 g/dl (32.0-36.5); MEAN CORPUSCULAR VOLUME 85.6 fl (80.0-96.0); MONO # 0.9 10^3/uL (0.0-0.8); MONO % 11.7 % (0.0-5.0); NEUTROPHILS # 3.9 10^3/uL (1.5-8.5); NEUTROPHILS % 51.8 % (36.0-66.0); PLATELET COUNT, AUTOMATED 269 10^3/uL (150-450); RED BLOOD COUNT 4.92 10^6/uL (4.30-6.10); WHITE BLOOD COUNT 7.5 10^3/uL (4.0-10.0)
[2019-08-22 10:44] LABS: ALBUMIN 3.8 GM/DL (3.2-5.2); ALT/SGPT 42 U/L (12-78); BILIRUBIN,TOTAL 0.3 MG/DL (0.2-1.0); BLOOD UREA NITROGEN 19 MG/DL (7-18); CARBON DIOXIDE LEVEL 26 MEQ/L (21-32); CHLORIDE LEVEL 105 MEQ/L (98-107); CREATININE FOR GFR 0.97 MG/DL (0.70-1.30); GLOMERULAR FILTRATION RATE > 60.0 (>49); GLUCOSE, FASTING 166 MG/DL (70-100); POTASSIUM SERUM 4.4 MEQ/L (3.5-5.1); SODIUM LEVEL 139 MEQ/L (136-145); TOTAL PROTEIN 7.2 GM/DL (6.4-8.2)
[2019-08-22 10:52] LABS: VITAMIN B12 LEVEL 1988 PG/ML (247-911)
[2019-08-22 10:55] LABS: INR 2.16; PROTHROMBIN TIME 23.9 SECONDS (11.8-14.0)
[2019-08-22 10:56] LABS: PARTIAL THROMBOPLASTIN TIME 36.5 SECONDS (25.0-38.4)
[2019-08-22 11:08] LABS: HEMOGLOBIN A1c 8.5 %
== END ==
LOC: M PLALAB 07:59
PROVIDERS: ATTEND Family Medicine
DX: D50.9 Iron deficiency anemia, unspecified (principal); E11.8 Type 2 diabetes mellitus with unspecified complications

== ENCOUNTER → 2019-09-06 | Outpatient (CLI) | payer BC ==
[~2019-09-06] MED LIST changes: -COUM6TAB PO; +COUM6TAB10 PO
--- NOTE | 2019-09-06 10:52 | REP ---
MRI lumbar spine: 09/06/2019. Indication: Low back pain. Technique: Multiplanar short and long TR sequences of the lumbar spine were performed without IV Gadolinium. Comparison: 09/01/2012. Findings: Grade 1 anterolisthesis of L4 on L5 and L5 on S1 is noted secondary to facet arthropathy. No worrisome marrow signal is present. Disc dessication is present throughout. The visualized cord is normal. No significant paraspinal soft tissue abnormalities are present. L1/L2: Mild disc and spur complex is present most pronounced anteriorly on the left without significant spinal canal or neural foraminal narrowing. L2/L3: Diffuse disc and spur complex is present, again more pronounced anteriorly on the left. There is a small superimposed far right lateral disc protrusion. There is no evidence of nerve root impingement. There is mild spinal canal and neural foraminal narrowing. L3/L4: There is an asymmetric disc bulge more pronounced on the left with mild bilateral facet arthropathy. There is ligamental laxity at this level. Moderate bilateral recess narrowing is present. Mild bilateral neural foraminal narrowing is present. L4/L5: Diffuse disc uncovering/bulging and significant bilateral facet arthropathy are present with ligamental laxity. There is severe right and moderate left recess narrowing. Mild bilateral neural foraminal narrowing is present. L5/S1: Diffuse disc uncovering/bulge and bilateral facet arthropathy are present with severe left and mild right recess narrowing. Moderate left and mild right neural foraminal narrowing is present. Impression: Degenerative grade 1 anterolisthesis of L4 on L5 as well as L5 on S1. Multilevel degenerative sequelae as described most pronounced on the right at L4/L5 and on the left at L5/S1. Electronically Signed by Ganesh Dobson DO 09/06/2019 10:42 A
== END ==
LOC: M RAD 06:40
PROVIDERS: ATTEND Family Medicine
DX: M47.816 Spondylosis without myelopathy or radiculopathy, lumbar region (principal); M51.26 Other intervertebral disc displacement, lumbar region

== ENCOUNTER → 2019-11-01 | Outpatient (REF) | payer BC ==
[~2019-11-01] MED LIST changes: +PANT40TA29 PO; -PANT40TA3 PO
== END ==
LOC: M SFHCPLAZ 13:01
PROVIDERS: ATTEND Family Medicine
DX: Z20.828 Contact with and (suspected) exposure to other viral communicable diseases (principal)

== ENCOUNTER → 2019-11-02 | Outpatient (REF) | payer BC | LOC: M SFHCPLAZ 10-31 11:57 | PROVIDERS: ATTEND Family Medicine | DX: Z11.59 Encounter for screening for other viral diseases (principal) ==

== ENCOUNTER → 2019-12-27 | Outpatient (REF) | payer BC | LOC: M SFHCPLAZ 13:09 | PROVIDERS: ATTEND Family Medicine | DX: Z11.59 Encounter for screening for other viral diseases (principal) ==

== ENCOUNTER → 2020-01-26 | Outpatient (CLI) | payer BC ==
[2020-01-26 09:20] LABS: APPEARANCE, URINE HAZY (CLEAR); BACTERIA, URINE AUTO NEGATIVE (NEGATIVE); BILIRUBIN, URINE AUTO NEGATIVE (NEGATIVE); BLOOD, URINE BLOOD NEGATIVE (NEGATIVE); COLOR, URINE YELLOW (YELLOW); GLUCOSE, URINE (UA) AUTO 3+ mg/dL (NEGATIVE); KETONE, URINE AUTO NEGATIVE (NEGATIVE); LEUKOCYTE ESTERASE, URINE AUTO NEGATIVE (NEGATIVE); MUCUS, URINE SMALL (NEGATIVE); NITRITE, URINE AUTO NEGATIVE (NEGATIVE); PROTEIN, URINE AUTO 2+ mg/dL (NEGATIVE); RBC, URINE AUTO 3 /HPF (0-3); SPECIFIC GRAVITY URINE AUTO 1.016 (1.002-1.035); SQUAMOUS EPITHELIAL CELL UR AU 1 /HPF (0-6); UROBILINOGEN, URINE AUTO 0.2 mg/dL (0.0-2.0); WBC, URINE AUTO 0 /HPF (0-3)
[2020-01-26 09:30] LABS: ALBUMIN 3.7 GM/DL (3.2-5.2); ALT/SGPT 39 U/L (12-78); BILIRUBIN,TOTAL 0.4 MG/DL (0.2-1.0); BLOOD UREA NITROGEN 18 MG/DL (7-18); CALCIUM LEVEL 8.5 MG/DL (8.8-10.2); CARBON DIOXIDE LEVEL 28 MEQ/L (21-32); CHLORIDE LEVEL 102 MEQ/L (98-107); CHOLESTEROL LEVEL 125 MG/DL (<200); CHOLESTEROL RISK RATIO 3.289 (<5); CREATININE FOR GFR 0.98 MG/DL (0.70-1.30); GLOMERULAR FILTRATION RATE > 60.0 (>49); GLUCOSE, FASTING 169 MG/DL (70-100); HDL CHOLESTEROL 38 MG/DL (>40); LDL CHOLESTEROL 22 MG/DL (<100); NON-HDL-C 87 MG/DL; POTASSIUM SERUM 4.1 MEQ/L (3.5-5.1); SODIUM LEVEL 137 MEQ/L (136-145); TOTAL PROTEIN 6.9 GM/DL (6.4-8.2); TRIGLYCERIDES LEVEL 324 MG/DL (<150); URIC ACID 3.7 MG/DL (3.5-7.2)
[2020-01-26 09:39] LABS: MAU/CREAT RATIO 152.2 MCG/MG (0.0-30.0)
[2020-01-26 09:39] LABS: HEMOGLOBIN A1c 8.3 %
== END ==
LOC: M LAB 08:18
PROVIDERS: ATTEND Family Medicine
DX: E11.8 Type 2 diabetes mellitus with unspecified complications (principal); E55.9 Vitamin D deficiency, unspecified; M10.9 Gout, unspecified

== ENCOUNTER → 2020-02-07 | Outpatient (CLI) | payer BC ==
--- NOTE | 2020-02-08 03:20 | REPPI ---
INDICATION: CONTUSION RIGHT KNEE COMPARISON: 10/29/2016 TECHNIQUE: AP, lateral, bilateral oblique and sunrise views. FINDINGS: Relatively stable moderate tricompartmental osteoarthritic degenerative changes are again noted including osteophytosis primarily involving the medial compartment. Associated joint space narrowing is noted. [place] view demonstrates increased sclerosis to the patellar contour. No definite effusion. Incidental fabella and extensive atherosclerotic vascular calcifications noted. IMPRESSION: Moderate relatively stable tricompartmental osteoarthritic changes. No evidence for acute injury. <Electronically signed by Jimmy Hernandez > 02/08/20 [id number]
== END ==
LOC: M PLAIMG 13:03
PROVIDERS: ATTEND Family Medicine
DX: M17.11 Unilateral primary osteoarthritis, right knee (principal); S80.01XA Contusion of right knee, initial encounter; X58.XXXA Exposure to other specified factors, initial encounter; Y92.9 Unspecified place or not applicable

== ENCOUNTER → 2020-03-24 | Outpatient (CLI) | payer BC ==
--- NOTE | 2020-03-24 11:19 | REPPI ---
INDICATION: LEFT HAND INJURY COMPARISON: None. TECHNIQUE: AP, lateral, bilateral oblique views left hand. FINDINGS: Age-related degenerative changes are appreciated. No obvious acute fracture or dislocation. No obvious healed injury. Evidence for peripheral vascular disease noted. No subcutaneous emphysema or foreign body. IMPRESSION: . No acute fracture or dislocation. <Electronically signed by Jimmy Hernandez > 03/24/20 [id number]
== END ==
LOC: M PLAIMG 10:52
PROVIDERS: ATTEND Family Medicine
DX: S69.92XA Unspecified injury of left wrist, hand and finger(s), initial encounter (principal); X58.XXXA Exposure to other specified factors, initial encounter; Y92.89 Other specified places as the place of occurrence of the external cause; Y93.89 Activity, other specified; Y99.8 Other external cause status

== ENCOUNTER → 2020-05-10 | Outpatient (CLI) | payer BC ==
[2020-05-10 09:47] LABS: BASO # 0.1 10^3/uL (0.0-0.2); BASO % 1.1 % (0.0-1.0); EOS # 0.3 10^3/uL (0.0-0.5); EOS % 4.1 % (0.0-3.0); HEMOGLOBIN 13.6 g/dl (13.5-17.5); LYMPH # 2.4 10^3/uL (1.5-5.0); LYMPH % 31.9 % (24.0-44.0); MEAN CORPUSCULAR HEMOGLOBIN 26.4 pg (27.0-33.0); MEAN CORPUSCULAR HGB CONC 31.6 g/dl (32.0-36.5); MEAN CORPUSCULAR VOLUME 83.3 fl (80.0-96.0); MONO # 0.9 10^3/uL (0.0-0.8); MONO % 11.4 % (2.0-8.0); NEUTROPHILS # 3.9 10^3/uL (1.5-8.5); NEUTROPHILS % 51.2 % (36.0-66.0); PLATELET COUNT, AUTOMATED 240 10^3/uL (150-450); RED BLOOD COUNT 5.16 10^6/uL (4.30-6.10); WHITE BLOOD COUNT 7.6 10^3/uL (4.0-10.0)
[2020-05-10 10:25] LABS: ALBUMIN 3.6 GM/DL (3.2-5.2); ALT/SGPT 41 U/L (12-78); BILIRUBIN,TOTAL 0.3 MG/DL (0.2-1.0); BLOOD UREA NITROGEN 16 MG/DL (7-18); CALCIUM LEVEL 8.5 MG/DL (8.8-10.2); CARBON DIOXIDE LEVEL 29 MEQ/L (21-32); CHLORIDE LEVEL 106 MEQ/L (98-107); GLOMERULAR FILTRATION RATE > 60.0 (>49); GLUCOSE, FASTING 142 MG/DL (70-100); POTASSIUM SERUM 4.4 MEQ/L (3.5-5.1); SODIUM LEVEL 143 MEQ/L (136-145); TOTAL PROTEIN 6.9 GM/DL (6.4-8.2)
[2020-05-10 10:30] LABS: HEMOGLOBIN A1c 7.5 %
[2020-05-12 11:53] LABS: TOTAL 25(OH) VITAMIN D 70.8 NG/ML (30.0-100.0)
== END ==
LOC: M LAB 09:13
PROVIDERS: ATTEND Family Medicine
DX: E11.8 Type 2 diabetes mellitus with unspecified complications (principal); D50.9 Iron deficiency anemia, unspecified; E55.9 Vitamin D deficiency, unspecified

== ENCOUNTER → 2020-06-06 | Outpatient (CLI) | payer BC ==
--- NOTE | 2020-06-09 10:05 | REP ---
INDICATION: OA OF NASRIN KNEE. COMPARISON: Comparison right knee radiographs are from a February 07, 2020.. TECHNIQUE: Axial, coronal, and sagittal imaging planes utilized. T1, proton density and T2 weighted scans are included with without fat saturation. FINDINGS: There is a small amount of joint effusion if fusion. No Martinez's cyst is appreciated. Cortical and medullary bone signal intensity are normal. The patellar and quadriceps tendons have an intact appearance. There is no evidence of medial or lateral collateral ligament disruption. The anterior cruciate ligament shows increased signal intensity and some thickening. There is extensive thickening and increased signal intensity in the posterior cruciate ligament consistent with mucoid degeneration and/or old partial tear. No for definite tear is seen in either cruciate. Medial and lateral patellar retinacular structures appear intact. There is moderate osteoarthritic spurring in the patellofemoral, medial, and lateral compartments of the knee. There is partial thickness articular cartilage loss and some fluid in the medial compartment. No focal full-thickness articular cartilage lesion is seen. Moderate chondromalacia is seen in the lateral compartment particularly on the surface of the tibial plateau laterally where there is full-thickness articular cartilage loss. There is moderate to advanced chondromalacia patella with multifocal partial-thickness articular cartilage loss. There is a focal low T1 low T2 signal intensity area along the anterior aspect of the femoral trochlear articular cartilage adjacent to the mid patella. I cannot exclude a small loose body here. This measures 5 mm in greatest dimension. No other evidence of loose body is seen. There is ill-defined increased signal intensity in the posterior horn and posterior body of the medial meniscus on sagittal images. Its inner free margin appears somewhat blunted on coronal scans consistent with complex nondisplaced meniscal tear. There is increased signal intensity in the lateral meniscus involving its posterior horn and to a lesser extent, the anterior horn. Increased signal intensity extends to the inferior articular margin of the posterior horn of the lateral meniscus consistent with a degenerative tear. No displaced meniscal material is seen. 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 Mucoid degeneration is seen in the cruciate ligaments as above. Degenerative medial and lateral meniscal tears suspected. <Electronically signed by Scooby Sousa > 06/09/20 1001
== END ==
LOC: M RAD 17:28
PROVIDERS: ATTEND Family Medicine
DX: M17.0 Bilateral primary osteoarthritis of knee (principal)

== ENCOUNTER → 2020-06-25 | Outpatient (CLI) | payer BC ==
--- NOTE | 2020-06-25 20:07 | REP ---
INDICATION: BILATERAL KNEE PAIN. COMPARISON: None. TECHNIQUE: Single AP view of the right and left knees with the patient standing. FINDINGS: Right knee: There is significant narrowing of the lateral compartment and mild narrowing of the medial compartment. There is osteophytic growth along the medial joint line. There is a ligamentous calcification at the superomedial cortex of the medial femoral condyle, Beba-Stieda calcification, suggestive of old medial collateral ligament trauma. There is a calcification at the lateral joint line, nonspecific, capsular calcification versus meniscal calcification. Mineralization is normal. Left knee: The medial and lateral joint compartments are maintained. No narrowing is identified. There are no ligamentous calcifications. Mineralization is normal. No osteophytic growth. IMPRESSION: There are findings compatible with osteoarthritis of the right knee in the medial and lateral compartments and with medial collateral ligament old injury. The left knee is unremarkable <Electronically signed by John Kwon > 06/25/202003
== END ==
LOC: M SOG 14:56
PROVIDERS: ATTEND Family Medicine
DX: M17.11 Unilateral primary osteoarthritis, right knee (principal)

== ENCOUNTER → 2020-08-19 | Outpatient (REF) | payer BC ==
[2020-08-19 16:01] LABS: ALBUMIN 3.9 GM/DL (3.2-5.2); ALT/SGPT 45 U/L (12-78); BILIRUBIN,TOTAL 0.3 MG/DL (0.2-1.0); BLOOD UREA NITROGEN 15 MG/DL (7-18); CALCIUM LEVEL 9.2 MG/DL (8.8-10.2); CARBON DIOXIDE LEVEL 26 MEQ/L (21-32); CHLORIDE LEVEL 103 MEQ/L (98-107); CHOLESTEROL LEVEL 140 MG/DL (<200); CHOLESTEROL RISK RATIO 3.783 (<5); CREATININE FOR GFR 0.94 MG/DL (0.70-1.30); GLOMERULAR FILTRATION RATE > 60.0 (>49); GLUCOSE, FASTING 159 MG/DL (70-100); HDL CHOLESTEROL 37 MG/DL (>40); NON-HDL-C 103 MG/DL; POTASSIUM SERUM 3.9 MEQ/L (3.5-5.1); SODIUM LEVEL 137 MEQ/L (136-145); TOTAL PROTEIN 7.5 GM/DL (6.4-8.2); TRIGLYCERIDES LEVEL 451 MG/DL (<150)
[2020-08-19 16:14] LABS: CREATININE, URINE 37.4 MG/DL; MAU/CREAT RATIO 403.7 MCG/MG (0.0-30.0)
[2020-08-19 16:34] LABS: HEMOGLOBIN A1c 8.1 %
== END ==
LOC: M PLALAB 13:14
PROVIDERS: ATTEND Family Medicine
DX: E78.5 Hyperlipidemia, unspecified (principal); E11.8 Type 2 diabetes mellitus with unspecified complications; Z12.5 Encounter for screening for malignant neoplasm of prostate; M10.9 Gout, unspecified
CPT/HCPCS: 36415; 80053; 80061; 82043; 83036; 84550; G0103

== ENCOUNTER → 2020-09-19 | Outpatient (CLI) | payer BC ==
[~2020-09-19] MED LIST changes: +CYAN500T14 PO; +DICL1GEL3 TOP; +ERGO500029 PO; +FLOM0.4C39 PO; +GABA-1171 PO; +GOOD8.6T2 PO; +INSUHUMDS SC; +LINZ290C PO; +OCUS0.02 EX; +OYST1TAB PO; +POTA50TAB PO; +SYST1SOL4 OU; +TRES100I SC; +WARF-58 PO
== END ==
LOC: M LABSMTC 10:51
PROVIDERS: ATTEND Anesthesiology
DX: Z01.812 Encounter for preprocedural laboratory examination (principal); Z20.822 Contact with and (suspected) exposure to COVID-19

== ENCOUNTER 2020-09-24 06:45 | Day surgery (SDC) | payer BC ==
[~2020-09-24] VITALS: Ht 165.1 cm; Wt 102.1 kg
[~2020-09-24 06:45] MED LIST changes: +NS 1,000 ML IV ONE
[2020-09-24] MEDS ORDERED: propofoL 200 MG/20 ML VIAL As Ordered ONE ×2 (06:47→07:31)
[2020-09-24] MEDS ORDERED: LIDOCAINE 2% 100MG/5ML SDV (FOR ANES.) As Ordered ONE (06:47)
[2020-09-24 08:05] VITALS: BP 123/58
--- NOTE | 2020-09-24 08:05 | ROOR ---
Patient Name: Lg Espinal Procedure Date: 09/24/2020 7:24 AM Date of : 1950 Age: 70 Room: [facility] Gender: Male Note Status: Finalized Procedure: Colonoscopy Indications: Screening in patient at increased risk: Family history of 1st-degree relative with colorectal cancer Providers: Harley Tanner MD Referring MD: Alexander Kim MD Requesting Provider: Medicines: Monitored Anesthesia Care Complications: No immediate complications. Procedure: Pre-Anesthesia Assessment: - Prior to the procedure, a History and Physical was performed, and patient medications and allergies were reviewed. The patient is competent. The risks and benefits of the procedure and the sedation options and risks were discussed with the patient. All questions were answered and informed consent was obtained. Patient identification and proposed procedure were verified by the physician, the nurse and the anesthesiologist in the procedure room. Mental Status Examination: alert and oriented. Airway Examination: normal oropharyngeal airway and neck mobility. Respiratory Examination: clear to auscultation. CV Examination: normal. Prophylactic Antibiotics: The patient does not require prophylactic antibiotics. Prior Anticoagulants: The patient has taken Coumadin (warfarin), last dose was 5 days prior to procedure. ASA Grade Assessment: III - A patient with severe systemic disease. After reviewing the risks and benefits, the patient was deemed in satisfactory condition to undergo the procedure. The anesthesia plan was to use monitored anesthesia care (MAC). Immediately prior to administration of medications, the patient was re-assessed for adequacy to receive sedatives. The heart rate, respiratory rate, oxygen saturations, blood pressure, adequacy of pulmonary ventilation, and response to care were monitored throughout the procedure. The physical status of the patient was re-assessed after the procedure. The Colonoscope was introduced through the anus and advanced to the cecum, identified by the ileocecal valve. The colonoscopy was performed without difficulty. The patient tolerated the procedure well. The quality of the bowel preparation was poor except the transverse colon was fair. The ileocecal valve was photographed. Scope insertion time was 2 minutes. Scope withdrawal time was 8 minutes. The total duration of the procedure was 12 minutes. Findings: The perianal and digital rectal examinations were normal. The terminal ileum appeared normal. Two sessile polyps were found in the transverse colon. The polyps were 4 to 8 mm in size. These polyps were removed with a cold snare. Resection and retrieval were complete. Verification of patient identification for the specimen was done by the physician and nurse using the patient's name, date and medical record number. A large amount of stool was found from sigmoid to cecum, precluding visualization. Lavage of the area was performed using a large amount of sterile water, resulting in incomplete clearance with continued poor visualization. Impression: - The examined portion of the ileum was normal. - Two 4 to 8 mm polyps in the transverse colon, removed with a cold snare. Resected and retrieved. - Stool from sigmoid to cecum. Recommendation: - Patient has a contact number available for emergencies. The signs and symptoms of potential delayed complications were discussed with the patient. Return to normal activities tomorrow. Written discharge instructions were provided to the patient. - High fiber diet. - Continue present medications. - Resume Coumadin (warfarin) at prior dose today. Refer to primary physician for further adjustment of therapy. - Await pathology results. - Repeat colonoscopy in 3 months because the bowel preparation was poor and for surveillance based on pathology results. - Telephone GI clinic to schedule appointment 1 - 2 weeks. Please call GI clinic @ [phone] for apppointment date and time. - Return to primary care physician. Procedure Code(s): --- Professional --- 01668, Colonoscopy, flexible; with removal of tumor(s), polyp(s), or other lesion(s) by snare technique Diagnosis Code(s): --- Professional --- Z80.0, Family history of malignant neoplasm of digestive organs K63.5, Polyp of colon CPT copyright 2019 [employer] [place] [employer]. All rights reserved. The codes documented in this report are preliminary and upon dope heater review may be revised to meet current compliance requirements. Harley Tanner MD Harley Tanner MD 09/24/2020 8:04:48 AM Electronically signed by Harley Tanner MD Number of Addenda: 0 Note Initiated On: 09/24/2020 7:24 AM Estimated Blood Loss: Estimated blood loss was minimal.
== END 2020-09-24 08:23 | disposition home or self-care (01) ==
LOC: M OPP 06:45
PROVIDERS: ATTEND Internal Medicine Gastroenterology
DX: Z12.11 Encounter for screening for malignant neoplasm of colon (principal); Z86.010 Personal history of colon polyps; Z80.0 Family history of malignant neoplasm of digestive organs; D12.6 Benign neoplasm of colon, unspecified; Z79.4 Long term (current) use of insulin; Z79.82 Long term (current) use of aspirin; Z79.899 Other long term (current) drug therapy; Z87.891 Personal history of nicotine dependence

== ENCOUNTER → 2020-12-15 | Outpatient (CLI) | payer BC ==
[~2020-12-15] MED LIST changes: -KLOR20TA42 PO; -LISI2.5T2 PO; +LISI2.5T9 PO; -NS 1,000 ML IV ONE; +POTA-141 PO
== END ==
LOC: M LABSMTC 10:11
PROVIDERS: ATTEND Anesthesiology
DX: Z01.812 Encounter for preprocedural laboratory examination (principal)

== ENCOUNTER 2020-12-19 07:46 | Day surgery (SDC) | payer BC ==
[~2020-12-19] VITALS: Ht 165.1 cm; Wt 101.2 kg
[~2020-12-19 07:46] MED LIST changes: +NS 1,000 ML IV ONE
[2020-12-19] MEDS ORDERED: LIDOCAINE 2% 100MG/5ML SDV (FOR ANES.) As Ordered ONE (07:57)
[2020-12-19] MEDS ORDERED: propofoL 200 MG/20 ML VIAL As Ordered ONE ×2 (07:57→09:06)
--- NOTE | 2020-12-19 09:40 | ROOR ---
Patient Name: Lg Espinal Procedure Date: 12/19/2020 8:30 AM Date of : 1950 Age: 70 Room: [facility] Gender: Male Note Status: Finalized Procedure: Colonoscopy Indications: High risk colon cancer surveillance: Personal history of colonic polyps Providers: Harley Tanner MD Referring MD: Alexander Kim MD Requesting Provider: Medicines: Monitored Anesthesia Care Complications: No immediate complications. Procedure: Pre-Anesthesia Assessment: - Prior to the procedure, a History and Physical was performed, and patient medications and allergies were reviewed. The patient is competent. The risks and benefits of the procedure and the sedation options and risks were discussed with the patient. All questions were answered and informed consent was obtained. Patient identification and proposed procedure were verified by the physician, the nurse and the anesthesiologist in the procedure room. Mental Status Examination: alert and oriented. Airway Examination: normal oropharyngeal airway and neck mobility. Respiratory Examination: clear to auscultation. CV Examination: normal. Prophylactic Antibiotics: The patient does not require prophylactic antibiotics. Prior Anticoagulants: The patient has taken Coumadin (warfarin), last dose was 5 days prior to procedure. ASA Grade Assessment: III - A patient with severe systemic disease. After reviewing the risks and benefits, the patient was deemed in satisfactory condition to undergo the procedure. The anesthesia plan was to use monitored anesthesia care (MAC). Immediately prior to administration of medications, the patient was re-assessed for adequacy to receive sedatives. The heart rate, respiratory rate, oxygen saturations, blood pressure, adequacy of pulmonary ventilation, and response to care were monitored throughout the procedure. The physical status of the patient was re-assessed after the procedure. The Colonoscope was introduced through the anus and advanced to the terminal ileum, with identification of the appendiceal orifice and IC valve. The colonoscopy was performed without difficulty. The patient tolerated the procedure well. The quality of the bowel preparation was fair. The terminal ileum, ileocecal valve, appendiceal orifice, and rectum were photographed. Scope insertion time was 2 minutes. Scope withdrawal time was 8 minutes. The total duration of the procedure was 10 minutes. Findings: The perianal and digital rectal examinations were normal. The terminal ileum appeared normal. Copious quantities of semi-liquid semi-solid stool was found from sigmoid to ascending colon, interfering with visualization. Lavage of the area was performed using a large amount of sterile water, resulting in clearance with good visualization. A 15 mm polyp was found in the cecum. The polyp was multi-lobulated and sessile. The polyp was removed with a hot snare. Resection and retrieval were complete. To close a defect after polypectomy, two hemostatic clips were successfully placed. There was no bleeding at the end of the procedure. Verification of patient identification for the specimen was done by the physician and nurse using the patient's name, date and medical record number. Estimated blood loss was minimal. Six sessile polyps were found from the ascending colon to the rectum. The polyps were 6 to 12 mm in size. These polyps were removed with a hot snare. Resection and retrieval were complete. These polyps were removed with a hot biopsy forceps. Resection and retrieval were complete. For hemostasis, one hemostatic clip was successfully placed. There was no bleeding at the end of the procedure. Non-bleeding external and internal hemorrhoids were found during retroflexion. The hemorrhoids were medium-sized. Impression: - Preparation of the colon was fair. - The examined portion of the ileum was normal. - Stool from sigmoid to ascending colon. - One 15 mm polyp in the cecum, removed with a hot snare. Resected and retrieved. Clips were placed. - Six 6 to 12 mm polyps from ascending colon to rectum, removed with a hot snare and removed with a hot biopsy forceps. Resected and retrieved. Clip was placed. - Non-bleeding external and internal hemorrhoids. Recommendation: - Patient has a contact number available for emergencies. The signs and symptoms of potential delayed complications were discussed with the patient. Return to normal activities tomorrow. Written discharge instructions were provided to the patient. - High fiber diet. - Continue present medications. - Resume Coumadin (warfarin) at prior dose tomorrow. Refer to primary physician for further adjustment of therapy. - Await pathology results. - Repeat colonoscopy in 1 year for surveillance of multiple polyps and due to family history of colon cancer. - Telephone GI clinic for pathology results in 2 weeks. - Return to primary care physician. Procedure Code(s): --- Professional --- 80799, Colonoscopy, flexible; with removal of tumor(s), polyp(s), or other lesion(s) by snare technique Diagnosis Code(s): --- Professional --- Z86.010, Personal history of colonic polyps K64.8, Other hemorrhoids K63.5, Polyp of colon CPT copyright 2019 [employer]. All rights reserved. The codes documented in this report are preliminary and upon register clerk review may be revised to meet current compliance requirements. Harley Tanner MD Harley Tanner MD 12/19/2020 9:40:39 AM Electronically signed by Harley Tanner MD Number of Addenda: 0 Note Initiated On: 12/19/2020 8:30 AM Estimated Blood Loss: Estimated blood loss was minimal.
[2020-12-19 09:53] VITALS: BP 129/63
== END 2020-12-19 09:56 | disposition home or self-care (01) ==
LOC: M OPP 07:46
PROVIDERS: ATTEND Internal Medicine Gastroenterology
DX: Z12.11 Encounter for screening for malignant neoplasm of colon (principal); Z86.010 Personal history of colon polyps; Z80.0 Family history of malignant neoplasm of digestive organs; D12.0 Benign neoplasm of cecum; D12.6 Benign neoplasm of colon, unspecified; K64.8 Other hemorrhoids; E11.9 Type 2 diabetes mellitus without complications; G47.30 Sleep apnea, unspecified; Z79.4 Long term (current) use of insulin; Z79.82 Long term (current) use of aspirin; Z79.899 Other long term (current) drug therapy

== ENCOUNTER → 2021-01-07 | Outpatient (CLI) | payer BC ==
[~2021-01-07] MED LIST changes: -NS 1,000 ML IV ONE
[2021-01-07 15:24] LABS: BASO # 0.1 10^3/uL (0.0-0.2); EOS # 0.2 10^3/uL (0.0-0.5); EOS % 2.3 % (0.0-3.0); HEMATOCRIT 43.2 % (42.0-52.0); HEMOGLOBIN 13.6 g/dl (13.5-17.5); LYMPH % 23.6 % (24.0-44.0); MEAN CORPUSCULAR HEMOGLOBIN 25.6 pg (27.0-33.0); MEAN CORPUSCULAR HGB CONC 31.5 g/dl (32.0-36.5); MEAN CORPUSCULAR VOLUME 81.2 fl (80.0-96.0); MONO # 0.9 10^3/uL (0.0-0.8); MONO % 10.8 % (2.0-8.0); NEUTROPHILS # 5.2 10^3/uL (1.5-8.5); NEUTROPHILS % 62.1 % (36.0-66.0); PLATELET COUNT, AUTOMATED 287 10^3/uL (150-450); RED BLOOD COUNT 5.32 10^6/uL (4.30-6.10); WHITE BLOOD COUNT 8.4 10^3/uL (4.0-10.0)
[2021-01-07 15:43] LABS: HEMOGLOBIN A1c 9.6 %
[2021-01-07 16:03] LABS: ALBUMIN 3.6 GM/DL (3.2-5.2); ALT/SGPT 46 U/L (12-78); BILIRUBIN,TOTAL 0.3 MG/DL (0.2-1.0); BLOOD UREA NITROGEN 19 MG/DL (7-18); CARBON DIOXIDE LEVEL 26 MEQ/L (21-32); CHLORIDE LEVEL 103 MEQ/L (98-107); CREATININE FOR GFR 1.15 MG/DL (0.70-1.30); FERRITIN 33 NG/ML (26-388); FREE T4 0.97 NG/DL (0.76-1.46); GLOMERULAR FILTRATION RATE > 60.0 (>49); GLUCOSE, FASTING 203 MG/DL (70-100); MAGNESIUM LEVEL 2.3 MG/DL (1.8-2.4); NT-PRO BNP 24 PG/ML (<125); POTASSIUM SERUM 3.7 MEQ/L (3.5-5.1); SODIUM LEVEL 135 MEQ/L (136-145); TOTAL PROTEIN 7.2 GM/DL (6.4-8.2)
[2021-01-08 11:36] LABS: VITAMIN B12 LEVEL 1429 PG/ML (247-911)
== END ==
LOC: M PLALAB 12:17
PROVIDERS: ATTEND Family Medicine
DX: E78.5 Hyperlipidemia, unspecified (principal); D50.9 Iron deficiency anemia, unspecified; E11.8 Type 2 diabetes mellitus with unspecified complications; I10 Essential (primary) hypertension

== ENCOUNTER → 2021-03-23 | Outpatient (REF) | payer BC | LOC: M LAB REF 12:47 | PROVIDERS: ATTEND Nurse Practitioner Family | DX: N18.2 Chronic kidney disease, stage 2 (mild) (principal) ==

== ENCOUNTER → 2021-04-20 | Outpatient (CLI) | payer BC ==
[2021-04-20 14:53] LABS: HEMOGLOBIN A1c 7.5 %
== END ==
LOC: M PLALAB 10:01
PROVIDERS: ATTEND Orthopaedic Surgery Adult Reconstructive Orthopaedic Surgery
DX: M17.11 Unilateral primary osteoarthritis, right knee (principal)

== ENCOUNTER → 2021-05-01 | Outpatient (CLI) | payer BC ==
[2021-05-01 17:29] LABS: BASO # 0.1 10^3/uL (0.0-0.2); BASO % 0.7 % (0.0-1.0); EOS # 0.3 10^3/uL (0.0-0.5); EOS % 3.3 % (0.0-3.0); HEMATOCRIT 44.7 % (42.0-52.0); HEMOGLOBIN 14.2 g/dl (13.5-17.5); LYMPH # 2.1 10^3/uL (1.5-5.0); LYMPH % 25.3 % (24.0-44.0); MEAN CORPUSCULAR HEMOGLOBIN 27.4 pg (27.0-33.0); MEAN CORPUSCULAR HGB CONC 31.8 g/dl (32.0-36.5); MEAN CORPUSCULAR VOLUME 86.1 fl (80.0-96.0); MONO % 11.3 % (2.0-8.0); NEUTROPHILS % 59.2 % (36.0-66.0); PLATELET COUNT, AUTOMATED 315 10^3/uL (150-450); RED BLOOD COUNT 5.19 10^6/uL (4.30-6.10); WHITE BLOOD COUNT 8.4 10^3/uL (4.0-10.0)
[2021-05-01 17:42] LABS: HEMOGLOBIN A1c 7.3 %
[2021-05-01 17:57] LABS: ALBUMIN 3.8 GM/DL (3.2-5.2); ALT/SGPT 36 U/L (12-78); BILIRUBIN,TOTAL 0.2 MG/DL (0.2-1.0); BLOOD UREA NITROGEN 15 MG/DL (7-18); CALCIUM LEVEL 9.1 MG/DL (8.8-10.2); CARBON DIOXIDE LEVEL 32 MEQ/L (21-32); CHLORIDE LEVEL 102 MEQ/L (98-107); CHOLESTEROL LEVEL 125 MG/DL (<200); CHOLESTEROL RISK RATIO 3.289 (<5); CREATININE FOR GFR 0.98 MG/DL (0.70-1.30); FERRITIN 38 NG/ML (26-388); GLOMERULAR FILTRATION RATE > 60.0 (>49); GLUCOSE, FASTING 100 MG/DL (70-100); HDL CHOLESTEROL 38 MG/DL (>40); LDL CHOLESTEROL 27 MG/DL (<100); NON-HDL-C 87 MG/DL; POTASSIUM SERUM 3.6 MEQ/L (3.5-5.1); SODIUM LEVEL 139 MEQ/L (136-145); TOTAL PROTEIN 7.4 GM/DL (6.4-8.2); TRIGLYCERIDES LEVEL 300 MG/DL (<150)
[2021-05-01 18:03] LABS: PTH INTACT 86.8 PG/ML (18.5-88.0)
[2021-05-02 17:15] LABS: MAGNESIUM LEVEL 2.2 MG/DL (1.7-2.2)
== END ==
LOC: M PLALAB 15:09
PROVIDERS: ATTEND Family Medicine
DX: D50.9 Iron deficiency anemia, unspecified (principal); E55.9 Vitamin D deficiency, unspecified; E11.8 Type 2 diabetes mellitus with unspecified complications

== ENCOUNTER 2021-07-06 12:51 | Outpatient (RCR) | payer BC | END 2021-07-25 | LOC: M PT 12:51 | PROVIDERS: ATTEND Orthopaedic Surgery Adult Reconstructive Orthopaedic Surgery | DX: M17.11 Unilateral primary osteoarthritis, right knee (principal) ==

== ENCOUNTER → 2021-07-17 | Outpatient (CLI) | payer BC ==
[2021-07-17 10:55] LABS: BASO # 0.1 10^3/uL (0.0-0.2); BASO % 0.7 % (0.0-1.0); EOS # 0.3 10^3/uL (0.0-0.5); EOS % 4.8 % (0.0-3.0); HEMATOCRIT 41.9 % (42.0-52.0); HEMOGLOBIN 13.5 g/dl (13.5-17.5); LYMPH # 1.8 10^3/uL (1.5-5.0); MEAN CORPUSCULAR HEMOGLOBIN 27.4 pg (27.0-33.0); MEAN CORPUSCULAR HGB CONC 32.2 g/dl (32.0-36.5); MONO # 0.7 10^3/uL (0.0-0.8); MONO % 9.6 % (2.0-8.0); NEUTROPHILS # 4.1 10^3/uL (1.5-8.5); NEUTROPHILS % 58.6 % (36.0-66.0); PLATELET COUNT, AUTOMATED 249 10^3/uL (150-450); RED BLOOD COUNT 4.93 10^6/uL (4.30-6.10); WHITE BLOOD COUNT 6.9 10^3/uL (4.0-10.0)
[2021-07-17 11:21] LABS: ALBUMIN 3.6 GM/DL (3.2-5.2); ALT/SGPT 37 U/L (12-78); BILIRUBIN,TOTAL 0.4 MG/DL (0.2-1.0); BLOOD UREA NITROGEN 17 MG/DL (7-18); CALCIUM LEVEL 9.4 MG/DL (8.8-10.2); CARBON DIOXIDE LEVEL 31 MEQ/L (21-32); CHLORIDE LEVEL 101 MEQ/L (98-107); FERRITIN 36 NG/ML (26-388); GLOMERULAR FILTRATION RATE > 60.0 (>49); GLUCOSE, FASTING 305 MG/DL (70-100); MAGNESIUM LEVEL 2.1 MG/DL (1.8-2.4); NT-PRO BNP 13 PG/ML (<125); POTASSIUM SERUM 4.1 MEQ/L (3.5-5.1); SODIUM LEVEL 138 MEQ/L (136-145); TOTAL PROTEIN 6.6 GM/DL (6.4-8.2)
== END ==
LOC: M PLALAB 07:54
PROVIDERS: ATTEND Family Medicine
DX: Z01.818 Encounter for other preprocedural examination (principal); E11.8 Type 2 diabetes mellitus with unspecified complications; I10 Essential (primary) hypertension

== ENCOUNTER → 2021-07-28 | Outpatient (CLI) | payer BC | LOC: M RAD 13:34 | PROVIDERS: ATTEND Orthopaedic Surgery Adult Reconstructive Orthopaedic Surgery | DX: M19.90 Unspecified osteoarthritis, unspecified site (principal) ==

== ENCOUNTER → 2021-08-06 | Outpatient (CLI) | payer BC | LOC: M LABSMTC 09:00 | PROVIDERS: ATTEND Anesthesiology | DX: Z01.812 Encounter for preprocedural laboratory examination (principal); Z11.52 Encounter for screening for COVID-19 ==

== ENCOUNTER 2021-08-11 06:02 | Observation (INO) | payer BC ==
[2021-08-11] VITALS (7 sets, daily range): BP systolic 112–145; BP diastolic 64–77
[~2021-08-11] VITALS: Ht 165.1 cm; Wt 98.9 kg
[~2021-08-11 06:02] MED LIST changes: +ACETAMINOPHEN 500 MG TAB PO ONE; +NAPROXEN 250 MG TAB PO ONE; +NS 1,000 ML IV ONE; +PREGABALIN 25 MG CAP (LYRICA) PO ONE; +ceFAZolin SOD 2 GM in IV 1 EA IV ONE; +dexameTHASONE 4 MG/ML 1ML VIAL (J1100 PER 1MG) IV ONE
[2021-08-11] MEDS ORDERED: ENOX100I3 SQ (06:50)
[2021-08-11] MEDS ORDERED: ROPIVA 125MG/EPINEPH 0.25MG/CLONID 40MCG/KETOR 15MG IN NS 50ML SYRINGE PA ONE (07:00)
[2021-08-11 07:08] LABS: INR 0.85
[2021-08-11] MEDS ORDERED: TRANEXAMIC ACID 100 MG/ML 10ML VIAL As Ordered ONE (07:15)
[2021-08-11] MEDS ORDERED: fentaNYL 100 MCG/2 ML INJECTION As Ordered ONE (07:20)
[2021-08-11] MEDS ORDERED: MIDAZOLAM INJ 2MG/2ML VIAL (J2250 PER 1MG) As Ordered ONE (07:20)
[2021-08-11] MEDS ORDERED: propofoL 500 MG/50 ML VIAL As Ordered ONE ×2 (07:21→08:35)
[2021-08-11] MEDS ORDERED: dexameTHASONE 4 MG/ML 1ML VIAL (J1100 PER 1MG) As Ordered ONE (08:22)
[2021-08-11] MEDS ORDERED: KETOROLAC 60MG 2ML VIAL As Ordered ONE (09:27)
[2021-08-11] MEDS ORDERED: ONDANSETRON 4MG/2ML VIAL As Ordered ONE (09:27)
[2021-08-11] MEDS ORDERED: ACETAMINOPHEN 1000MG 100ML IV BTL (OFIRMEV) (J0131 PER 10MG) As Ordered ONE (09:27)
[2021-08-11] MEDS ORDERED: propofoL 200 MG/20 ML VIAL As Ordered ONE (10:01)
[2021-08-11] MEDS ORDERED: oxyCODONE 5MG TAB PO PRN ×2 (10:20→10:25)
[2021-08-11] MEDS ORDERED: LR 1,000 ML IV SCH ×2 (10:20→10:25)
[2021-08-11] MEDS ORDERED: fentaNYL 100 MCG/2 ML INJECTION IV PRN (10:20)
[2021-08-11] MEDS ORDERED: ONDANSETRON 4MG/2ML VIAL IV PRN ×2 (10:20→10:25)
[2021-08-11] MEDS ORDERED: SENNA 8.6 MG TAB (SENOKOT) PO PRN (10:25)
[2021-08-11] MEDS ORDERED: traMADol 50 MG TAB PO PRN (10:25)
[2021-08-11] MEDS ORDERED: GLUCAGON INJ 1MG VIAL SC PRN (11:10)
[2021-08-11] MEDS ORDERED: ALBUTEROL 90 MCG/ACT 8GM HFA INHALER INH PRN (11:10)
[2021-08-11] MEDS ORDERED: DEXTROSE 50% 50 ML SYRINGE IV PRN (11:10)
[2021-08-11] MEDS ORDERED: GLUCOSE 4GM CHEW TABLET PO PRN (11:10)
[2021-08-11] MEDS ORDERED: MOM 30ML SUSPENSION UDC PO PRN (11:10)
[2021-08-11] MEDS ORDERED: MAALOX 30 ML SUSP *UDC PO PRN (11:10)
[2021-08-11] MEDS: NAPROXEN 250 MG TAB PO SCH ×2 (12:27→20:41)
[2021-08-11] MEDS: ACETAMINOPHEN TAB 650MG DOSE (2X325MG) PO SCH ×2 (12:27→17:47)
[2021-08-11] MEDS: INSULIN LISPRO (NovoLOG) PER UNIT SC SCH ×3 (12:28→20:39)
[2021-08-11] MEDS: GABAPENTIN 100 MG CAP PO SCH ×2 (16:19→20:40)
[2021-08-11] MEDS: ceFAZolin SOD 2 GM in IV 1 EA IV SCH (16:19)
[2021-08-11] MEDS: oxyCODONE 5MG TAB PO PRN ×2 (16:20→20:39)
[2021-08-11] MEDS: LEVEMIR (INSULIN DETEMIR) 1 UNITS/0.01ML SC SCH (20:38)
[2021-08-11] MEDS: DOCUSATE SODIUM 100MG CAPSULE PO SCH (20:40)
[2021-08-11] MEDS: aMILoride 5 MG TAB PO SCH (20:40)
[2021-08-11] MEDS ORDERED: DOCUSATE SODIUM 100MG CAPSULE PO SCH (21:00)
[2021-08-12] MEDS: ceFAZolin SOD 2 GM in IV 1 EA IV SCH (00:30)
[2021-08-12] MEDS: ACETAMINOPHEN TAB 650MG DOSE (2X325MG) PO SCH ×5 (00:30→23:03)
[2021-08-12 06:00] VITALS: BP 143/85
[2021-08-12 07:03] LABS: BASO % 0.2 % (0.0-1.0); EOS % 0.4 % (0.0-3.0); HEMATOCRIT 38.8 % (42.0-52.0); HEMOGLOBIN 12.4 g/dl (13.5-17.5); LYMPH # 1.2 10^3/uL (1.5-5.0); LYMPH % 12.1 % (24.0-44.0); MEAN CORPUSCULAR HEMOGLOBIN 27.4 pg (27.0-33.0); MEAN CORPUSCULAR VOLUME 85.8 fl (80.0-96.0); MONO # 1.1 10^3/uL (0.0-0.8); MONO % 10.9 % (2.0-8.0); NEUTROPHILS # 7.7 10^3/uL (1.5-8.5); NEUTROPHILS % 76.1 % (36.0-66.0); PLATELET COUNT, AUTOMATED 207 10^3/uL (150-450); RED BLOOD COUNT 4.52 10^6/uL (4.30-6.10); WHITE BLOOD COUNT 10.1 10^3/uL (4.0-10.0)
[2021-08-12 07:17] LABS: INR 0.96; PROTHROMBIN TIME 13.2 SECONDS (12.7-14.5)
[2021-08-12 07:25] LABS: BLOOD UREA NITROGEN 20 MG/DL (7-18); CALCIUM LEVEL 8.9 MG/DL (8.8-10.2); CARBON DIOXIDE LEVEL 28 MEQ/L (21-32); CHLORIDE LEVEL 108 MEQ/L (98-107); CREATININE FOR GFR 1.05 MG/DL (0.70-1.30); GLOMERULAR FILTRATION RATE > 60.0 (>49); GLUCOSE, FASTING 256 MG/DL (70-100); MAGNESIUM LEVEL 2.4 MG/DL (1.8-2.4); POTASSIUM SERUM 3.9 MEQ/L (3.5-5.1); SODIUM LEVEL 141 MEQ/L (136-145)
[2021-08-12] MEDS: ADVAIR HFA 45/21MCG INHALER INH SCH ×2 (07:31→20:28)
[2021-08-12] MEDS: INSULIN LISPRO (NovoLOG) PER UNIT SC SCH ×4 (08:32→21:00)
[2021-08-12] MEDS: TAMSULOSIN 0.4 MG CAP PO SCH (08:33)
[2021-08-12] MEDS: POLYVINYL ALCOHOL OPHTH SOLN 15 ML(LIQUITEARS) OU SCH (08:33)
[2021-08-12] MEDS: ASCORBIC ACID 500 MG TAB PO SCH (08:33)
[2021-08-12] MEDS: MULTIVITAMINS/MINERALS THERAP 1 TAB PO SCH (08:33)
[2021-08-12] MEDS: DOCUSATE SODIUM 100MG CAPSULE PO SCH ×2 (08:33→22:07)
[2021-08-12] MEDS: ROSUVASTATIN 10 MG TAB (CRESTOR) PO SCH (08:33)
[2021-08-12] MEDS: LEVEMIR (INSULIN DETEMIR) 1 UNITS/0.01ML SC SCH ×2 (08:33→22:07)
[2021-08-12] MEDS: allopurinoL 100 MG TAB PO SCH (08:34)
[2021-08-12] MEDS: PANTOPRAZOLE 20 MG TAB PO SCH (08:34)
[2021-08-12] MEDS: FUROSEMIDE 40 MG TAB PO SCH (08:34)
[2021-08-12] MEDS: ASPIRIN 81 MG CHEW TABLET PO SCH (08:34)
[2021-08-12] MEDS: GABAPENTIN 100 MG CAP PO SCH ×3 (08:34→22:08)
[2021-08-12] MEDS: CYANOCOBALAMIN 500 MCG TAB PO SCH (08:34)
[2021-08-12] MEDS: FERROUS SULFATE 325MG TAB PO SCH (08:34)
[2021-08-12] MEDS: SENOKOT S TAB PO SCH (08:34)
[2021-08-12] MEDS: OMEGA-3 1000MG CAPSULE PO SCH (08:34)
[2021-08-12] MEDS: aMILoride 5 MG TAB PO SCH ×2 (08:34→22:07)
[2021-08-12] MEDS: OYSTER SHELL CALCIUM 500 MG TAB PO SCH (08:37)
[2021-08-12 10:00] VITALS: BP 121/56
[2021-08-12] MEDS: NAPROXEN 250 MG TAB PO SCH ×2 (12:26→22:08)
[2021-08-12] MEDS: ENOXAPARIN 100MG/1ML SYRINGE (J1650 PER 10MG) SC SCH ×2 (13:19→22:07)
[2021-08-12 14:00] VITALS: BP 118/55
[2021-08-12] MEDS ORDERED: WARFARIN SOD 3MG TAB PO SCH (17:00)
[2021-08-12 20:00] VITALS: BP 138/85
[2021-08-12] MEDS: oxyCODONE 5MG TAB PO PRN (22:08)
[2021-08-13] MEDS: ACETAMINOPHEN TAB 650MG DOSE (2X325MG) PO SCH ×2 (05:31→12:21)
[2021-08-13 06:00] VITALS: BP 133/80
[2021-08-13 07:19] LABS: BASO # 0.1 10^3/uL (0.0-0.2); BASO % 0.8 % (0.0-1.0); EOS # 0.2 10^3/uL (0.0-0.5); HEMOGLOBIN 12.5 g/dl (13.5-17.5); LYMPH # 1.6 10^3/uL (1.5-5.0); LYMPH % 20.1 % (24.0-44.0); MEAN CORPUSCULAR HEMOGLOBIN 27.7 pg (27.0-33.0); MEAN CORPUSCULAR HGB CONC 32.1 g/dl (32.0-36.5); MEAN CORPUSCULAR VOLUME 86.3 fl (80.0-96.0); MONO % 12.4 % (2.0-8.0); NEUTROPHILS # 5.1 10^3/uL (1.5-8.5); NEUTROPHILS % 63.4 % (36.0-66.0); PLATELET COUNT, AUTOMATED 194 10^3/uL (150-450); RED BLOOD COUNT 4.52 10^6/uL (4.30-6.10)
[2021-08-13 07:23] LABS: INR 1.01; PROTHROMBIN TIME 13.7 SECONDS (12.7-14.5)
[2021-08-13] MEDS: ADVAIR HFA 45/21MCG INHALER INH SCH (07:32)
[2021-08-13 07:38] LABS: BLOOD UREA NITROGEN 17 MG/DL (7-18); CALCIUM LEVEL 8.7 MG/DL (8.8-10.2); CARBON DIOXIDE LEVEL 29 MEQ/L (21-32); CHLORIDE LEVEL 108 MEQ/L (98-107); CREATININE FOR GFR 0.91 MG/DL (0.70-1.30); GLOMERULAR FILTRATION RATE > 60.0 (>49); GLUCOSE, FASTING 116 MG/DL (70-100); MAGNESIUM LEVEL 2.5 MG/DL (1.8-2.4); SODIUM LEVEL 144 MEQ/L (136-145)
[2021-08-13] MEDS: INSULIN LISPRO (NovoLOG) PER UNIT SC SCH ×2 (08:25→12:21)
[2021-08-13] MEDS: LEVEMIR (INSULIN DETEMIR) 1 UNITS/0.01ML SC SCH (08:25)
[2021-08-13] MEDS: ROSUVASTATIN 10 MG TAB (CRESTOR) PO SCH (08:26)
[2021-08-13] MEDS: SENOKOT S TAB PO SCH (08:27)
[2021-08-13] MEDS: PANTOPRAZOLE 20 MG TAB PO SCH (08:27)
[2021-08-13] MEDS: GABAPENTIN 100 MG CAP PO SCH (08:28)
[2021-08-13] MEDS: POLYVINYL ALCOHOL OPHTH SOLN 15 ML(LIQUITEARS) OU SCH (08:29)
[2021-08-13] MEDS: FERROUS SULFATE 325MG TAB PO SCH (08:30)
[2021-08-13] MEDS: aMILoride 5 MG TAB PO SCH (08:30)
[2021-08-13] MEDS: ASPIRIN 81 MG CHEW TABLET PO SCH (08:31)
[2021-08-13] MEDS: OYSTER SHELL CALCIUM 500 MG TAB PO SCH (08:31)
[2021-08-13] MEDS: DOCUSATE SODIUM 100MG CAPSULE PO SCH (08:31)
[2021-08-13] MEDS: CYANOCOBALAMIN 500 MCG TAB PO SCH (08:31)
[2021-08-13] MEDS: allopurinoL 100 MG TAB PO SCH (08:32)
[2021-08-13] MEDS: ASCORBIC ACID 500 MG TAB PO SCH (08:32)
[2021-08-13] MEDS: MULTIVITAMINS/MINERALS THERAP 1 TAB PO SCH (08:32)
[2021-08-13] MEDS: OMEGA-3 1000MG CAPSULE PO SCH (08:32)
[2021-08-13] MEDS: FUROSEMIDE 40 MG TAB PO SCH (08:33)
[2021-08-13] MEDS: TAMSULOSIN 0.4 MG CAP PO SCH (08:33)
[2021-08-13] MEDS: NAPROXEN 250 MG TAB PO SCH (10:48)
[2021-08-13] MEDS: ENOXAPARIN 100MG/1ML SYRINGE (J1650 PER 10MG) SC SCH (10:49)
[2021-08-13] MEDS ORDERED: ASCO50TA PO (11:43)
[2021-08-13] MEDS ORDERED: ENOX100I3 SQ (11:43)
[2021-08-13] MEDS ORDERED: OXYC-517 PO (11:43)
[2021-08-13] MEDS ORDERED: FERR1TAB8 PO (11:43)
== END 2021-08-13 13:55 | disposition home health service (06) ==
LOC: M SDC 06:02 → M MS5PR 06:03
PROVIDERS: ADMIT Internal Medicine; ATTEND Internal Medicine
DX: M17.11 Unilateral primary osteoarthritis, right knee (principal); I10 Essential (primary) hypertension; E11.9 Type 2 diabetes mellitus without complications; J44.9 Chronic obstructive pulmonary disease, unspecified; Z86.711 Personal history of pulmonary embolism; Z86.718 Personal history of other venous thrombosis and embolism; G47.33 Obstructive sleep apnea (adult) (pediatric); E78.5 Hyperlipidemia, unspecified; D64.9 Anemia, unspecified; M10.9 Gout, unspecified; E66.9 Obesity, unspecified; Z68.36 Body mass index [BMI] 36.0-36.9, adult; M54.9 Dorsalgia, unspecified; G89.29 Other chronic pain; N40.0 Benign prostatic hyperplasia without lower urinary tract symptoms; K21.9 Gastro-esophageal reflux disease without esophagitis; Z87.891 Personal history of nicotine dependence; Z79.899 Other long term (current) drug therapy; Z79.82 Long term (current) use of aspirin; Z79.84 Long term (current) use of oral hypoglycemic drugs; Z79.01 Long term (current) use of anticoagulants; Z79.4 Long term (current) use of insulin; Z79.51 Long term (current) use of inhaled steroids
CPT/HCPCS: 27447; 36415; 64454; 73560; 80048; 83735; 85025; 85610; 88304; 88311; 94640; 96372; 96374; 96376; 97110; 97116; 97161; 97165; 97530; 97535; C1776; J0690; J1100; J1650; J1815; J1885; J2250; J2405; J3010; S2900

== ENCOUNTER → 2021-08-14 | Outpatient (REF) | payer BC ==
[~2021-08-14] MED LIST changes: -ACETAMINOPHEN 500 MG TAB PO ONE; +ASCO50TA PO; +ENOX100I3 SQ; -NAPROXEN 250 MG TAB PO ONE; -NS 1,000 ML IV ONE; +OXYC-517 PO; -PREGABALIN 25 MG CAP (LYRICA) PO ONE; -ceFAZolin SOD 2 GM in IV 1 EA IV ONE; -dexameTHASONE 4 MG/ML 1ML VIAL (J1100 PER 1MG) IV ONE
[2021-08-14 13:44] LABS: HEMATOCRIT 37.9 % (42.0-52.0); HEMOGLOBIN 12.4 g/dl (13.5-17.5); MEAN CORPUSCULAR HEMOGLOBIN 27.7 pg (27.0-33.0); MEAN CORPUSCULAR HGB CONC 32.7 g/dl (32.0-36.5); MEAN CORPUSCULAR VOLUME 84.8 fl (80.0-96.0); PLATELET COUNT, AUTOMATED 220 10^3/uL (150-450); RED BLOOD COUNT 4.47 10^6/uL (4.30-6.10); WHITE BLOOD COUNT 7.9 10^3/uL (4.0-10.0)
[2021-08-14 14:03] LABS: INR 0.97; PROTHROMBIN TIME 13.3 SECONDS (12.7-14.5)
[2021-08-14 14:07] LABS: BLOOD UREA NITROGEN 16 MG/DL (7-18); CALCIUM LEVEL 8.3 MG/DL (8.8-10.2); CARBON DIOXIDE LEVEL 30 MEQ/L (21-32); CHLORIDE LEVEL 103 MEQ/L (98-107); CREATININE FOR GFR 0.89 MG/DL (0.70-1.30); GLOMERULAR FILTRATION RATE > 60.0 (>49); GLUCOSE, FASTING 219 MG/DL (70-100); MAGNESIUM LEVEL 2.4 MG/DL (1.8-2.4); POTASSIUM SERUM 4.2 MEQ/L (3.5-5.1); SODIUM LEVEL 138 MEQ/L (136-145)
== END ==
LOC: M SHH 13:15
PROVIDERS: ATTEND Internal Medicine
DX: Z01.818 Encounter for other preprocedural examination (principal); M17.11 Unilateral primary osteoarthritis, right knee

== ENCOUNTER → 2021-08-26 | Outpatient (CLI) | payer BC | LOC: M SOG 10:52 | PROVIDERS: ATTEND Orthopaedic Surgery Adult Reconstructive Orthopaedic Surgery | DX: M17.11 Unilateral primary osteoarthritis, right knee (principal) ==

== ENCOUNTER 2021-09-23 07:00 | Outpatient (RCR) | payer BC | END 2021-09-24 | LOC: M PT 07:00 | PROVIDERS: ATTEND Orthopaedic Surgery Adult Reconstructive Orthopaedic Surgery | DX: Z96.651 Presence of right artificial knee joint (principal) ==

== ENCOUNTER → 2021-09-24 | Outpatient (CLI) | payer BC | LOC: M WHC 13:04 | PROVIDERS: ATTEND Nurse Practitioner Family | DX: N18.2 Chronic kidney disease, stage 2 (mild) (principal); R33.9 Retention of urine, unspecified; N28.1 Cyst of kidney, acquired ==

== ENCOUNTER → 2021-10-02 | Outpatient (REF) | payer BC | LOC: M SFHCPLAZ 12:55 | PROVIDERS: ATTEND Physician Assistant | DX: N41.0 Acute prostatitis (principal) ==

== ENCOUNTER 2021-10-21 07:00 | Outpatient (RCR) | payer BC | END 2021-10-25 | LOC: M PT 07:00 | PROVIDERS: ATTEND Orthopaedic Surgery Adult Reconstructive Orthopaedic Surgery | DX: Z96.651 Presence of right artificial knee joint (principal) ==

== ENCOUNTER 2021-11-10 09:03 | Outpatient (RCR) | payer BC ==
[~2021-11-10 09:03] MED LIST changes: +FISH10005 PO; -FISH7.5C PO
== END 2021-11-25 ==
LOC: M PT 09:03
PROVIDERS: ATTEND Orthopaedic Surgery Adult Reconstructive Orthopaedic Surgery
DX: Z47.89 Encounter for other orthopedic aftercare (principal); Z96.651 Presence of right artificial knee joint

== ENCOUNTER → 2021-11-23 | Outpatient (CLI) | payer BC ==
[2021-11-23 11:07] LABS: HEMATOCRIT 45.1 % (42.0-52.0); HEMOGLOBIN 14.5 g/dl (13.5-17.5); MEAN CORPUSCULAR HEMOGLOBIN 27.9 pg (27.0-33.0); MEAN CORPUSCULAR HGB CONC 32.2 g/dl (32.0-36.5); MEAN CORPUSCULAR VOLUME 86.7 fl (80.0-96.0); PLATELET COUNT, AUTOMATED 240 10^3/uL (150-450); WHITE BLOOD COUNT 7.7 10^3/uL (4.0-10.0)
[2021-11-23 11:19] LABS: INR 2.41; PROTHROMBIN TIME 26.6 SECONDS (12.7-14.5)
[2021-11-23 11:20] LABS: PARTIAL THROMBOPLASTIN TIME 41.9 SECONDS (25.9-37.0)
[2021-11-23 12:02] LABS: BLOOD UREA NITROGEN 15 MG/DL (7-18); CALCIUM LEVEL 9.6 MG/DL (8.8-10.2); CARBON DIOXIDE LEVEL 26 MEQ/L (21-32); CHLORIDE LEVEL 103 MEQ/L (98-107); CREATININE FOR GFR 0.88 MG/DL (0.70-1.30); GLOMERULAR FILTRATION RATE > 60.0 (>49); GLUCOSE, FASTING 264 MG/DL (70-100); SODIUM LEVEL 135 MEQ/L (136-145)
== END ==
LOC: M PLAIMG 08:18 → M PLALAB 08:18
PROVIDERS: ATTEND Urology
DX: Z01.818 Encounter for other preprocedural examination (principal); N40.1 Benign prostatic hyperplasia with lower urinary tract symptoms; N39.0 Urinary tract infection, site not specified

== ENCOUNTER → 2021-12-03 | Outpatient (CLI) | payer BC ==
[~2021-12-03] MED LIST changes: +CARB1TAB PO; +DOCU100C16 PO; +DULA4.5P SC; +DULO1CAP5 PO; +PANT20TA6 PO; +POLY17PO10 PO; +TRES1INJ SC; +VITA500045 PO
== END ==
LOC: M PLAIMG 10:48
PROVIDERS: ATTEND Family Medicine
DX: G25.2 Other specified forms of tremor (principal)

== ENCOUNTER → 2021-12-13 | Outpatient (CLI) | payer BC | LOC: M LABSMTC 11:53 | PROVIDERS: ATTEND Anesthesiology | DX: Z01.812 Encounter for preprocedural laboratory examination (principal); Z11.52 Encounter for screening for COVID-19 ==

== ENCOUNTER 2021-12-16 10:01 | Day surgery (SDC) | payer BC ==
[~2021-12-16] VITALS: Ht 162.6 cm; Wt 100.2 kg
[~2021-12-16 10:01] MED LIST changes: +ACETAMINOPHEN 1000MG 100ML IV BTL (OFIRMEV) (J0131 PER 10MG) As Ordered ONE; +LIDOCAINE 2% 100MG/5ML SDV (FOR ANES.) As Ordered ONE; +MIDAZOLAM INJ 2MG/2ML VIAL (J2250 PER 1MG) As Ordered ONE; +ONDANSETRON 4MG 2ML VIAL As Ordered ONE; +ceFAZolin SOD 2 GM in IV 1 EA IV ONE; +dexameTHASONE 4 MG/ML 1ML VIAL (J1100 PER 1MG) As Ordered ONE; +fentaNYL 100 MCG/2 ML INJECTION As Ordered ONE; +propofoL 200 MG/20 ML VIAL As Ordered ONE
[2021-12-16 10:42] LABS: INR 0.94
[2021-12-16] MEDS ORDERED: LR 1,000 ML IV SCH ×2 (10:45→15:00)
[2021-12-16] MEDS ORDERED: BACL5TAB2 PO (10:56)
[2021-12-16] MEDS ORDERED: FUROSEMIDE 100MG/10ML VIAL (J1940) As Ordered ONE (14:21)
[2021-12-16] MEDS ORDERED: HYDROmorphone HCL 2MG/ML 1ML VIAL As Ordered ONE (14:22)
[2021-12-16] MEDS ORDERED: CIPR-249 PO (14:58)
[2021-12-16] MEDS ORDERED: HYDROMORPHONE HCL 0.5 MG/ 0.5 ML SYRINGE (J1170 PER 1) IV PRN (15:00)
[2021-12-16] MEDS ORDERED: fentaNYL 100 MCG/2 ML INJECTION IV PRN (15:00)
[2021-12-16] MEDS ORDERED: oxyCODONE 5MG TAB PO PRN (15:00)
[2021-12-16] MEDS ORDERED: ONDANSETRON 4MG 2ML VIAL IV PRN (15:00)
[2021-12-16] MEDS ORDERED: ACETAMINOPHEN TAB 650MG DOSE (2X325MG) PO PRN (15:15)
[2021-12-16 17:00] VITALS: BP 154/74
== END 2021-12-16 17:10 | disposition home or self-care (01) ==
LOC: M SDC 10:01
PROVIDERS: ATTEND Urology
DX: N40.0 Benign prostatic hyperplasia without lower urinary tract symptoms (principal); I10 Essential (primary) hypertension; G47.33 Obstructive sleep apnea (adult) (pediatric); J44.9 Chronic obstructive pulmonary disease, unspecified; Z86.711 Personal history of pulmonary embolism; E78.5 Hyperlipidemia, unspecified; E11.9 Type 2 diabetes mellitus without complications; M10.9 Gout, unspecified; E66.9 Obesity, unspecified; K21.9 Gastro-esophageal reflux disease without esophagitis; D50.9 Iron deficiency anemia, unspecified; G25.2 Other specified forms of tremor; K76.0 Fatty (change of) liver, not elsewhere classified; K59.09 Other constipation; Z86.010 Personal history of colon polyps; Z79.899 Other long term (current) drug therapy; Z79.51 Long term (current) use of inhaled steroids; Z79.84 Long term (current) use of oral hypoglycemic drugs; Z79.4 Long term (current) use of insulin; Z79.82 Long term (current) use of aspirin; Z79.01 Long term (current) use of anticoagulants
CPT/HCPCS: 36415; 52601; 85610; C1769; J0131; J1100; J1170; J1940; J2250; J2405; J3010

== ENCOUNTER → 2022-01-08 | Outpatient (CLI) | payer BC ==
[~2022-01-08] MED LIST changes: -ACETAMINOPHEN 1000MG 100ML IV BTL (OFIRMEV) (J0131 PER 10MG) As Ordered ONE; +BACL5TAB2 PO; +CIPR-249 PO; -LIDOCAINE 2% 100MG/5ML SDV (FOR ANES.) As Ordered ONE; -MIDAZOLAM INJ 2MG/2ML VIAL (J2250 PER 1MG) As Ordered ONE; -ONDANSETRON 4MG 2ML VIAL As Ordered ONE; -ceFAZolin SOD 2 GM in IV 1 EA IV ONE; -dexameTHASONE 4 MG/ML 1ML VIAL (J1100 PER 1MG) As Ordered ONE; -fentaNYL 100 MCG/2 ML INJECTION As Ordered ONE; -propofoL 200 MG/20 ML VIAL As Ordered ONE
== END ==
LOC: M PLARAD 13:19
PROVIDERS: ATTEND Family Medicine
DX: M47.812 Spondylosis without myelopathy or radiculopathy, cervical region (principal); G81.14 Spastic hemiplegia affecting left nondominant side; M99.71 Connective tissue and disc stenosis of intervertebral foramina of cervical region

== ENCOUNTER → 2022-04-13 | Outpatient (REF) | payer BC ==
[2022-04-13 18:16] LABS: MAU/CREAT RATIO 248.9 MCG/MG (0.0-30.0)
[2022-04-14 09:49] LABS: CREATININE, URINE 48.6 MG/DL
== END ==
LOC: M LAB REF 16:55
PROVIDERS: ATTEND Nurse Practitioner Family
DX: N39.0 Urinary tract infection, site not specified (principal); E11.22 Type 2 diabetes mellitus with diabetic chronic kidney disease

== ENCOUNTER → 2022-04-27 | Outpatient (CLI) | payer BC ==
[~2022-04-27] MED LIST changes: +ALBU90AE IH
== END ==
LOC: M LABSMTC 09:22
PROVIDERS: ATTEND Anesthesiology
DX: Z01.812 Encounter for preprocedural laboratory examination (principal); Z11.52 Encounter for screening for COVID-19

== ENCOUNTER → 2022-04-29 | Outpatient (CLI) | payer BC ==
[2022-04-29 14:07] LABS: INR 0.99; PROTHROMBIN TIME 13.3 SECONDS (12.5-14.5)
== END ==
LOC: M PLALAB 09:38
PROVIDERS: ATTEND Nurse Practitioner Family
DX: Z79.01 Long term (current) use of anticoagulants (principal)

== ENCOUNTER 2022-04-30 06:51 | Day surgery (SDC) | payer BC ==
[~2022-04-30] VITALS: Ht 162.6 cm; Wt 77.1 kg
[~2022-04-30 06:51] MED LIST changes: +NS 1,000 ML IV ONE
[2022-04-30] MEDS ORDERED: propofoL 200 MG/20 ML VIAL As Ordered ONE (07:19)
[2022-04-30] MEDS ORDERED: LIDOCAINE 2% 100MG/5ML SDV (FOR ANES.) As Ordered ONE (07:19)
[2022-04-30 09:10] VITALS: BP 154/72
== END 2022-04-30 09:19 | disposition home or self-care (01) ==
LOC: M OPP 06:51
PROVIDERS: ATTEND Internal Medicine Gastroenterology
DX: Z12.11 Encounter for screening for malignant neoplasm of colon (principal); Z86.010 Personal history of colon polyps; Z80.0 Family history of malignant neoplasm of digestive organs; D12.6 Benign neoplasm of colon, unspecified; K64.4 Residual hemorrhoidal skin tags; K64.8 Other hemorrhoids; Z79.2 Long term (current) use of antibiotics; Z79.4 Long term (current) use of insulin; Z79.51 Long term (current) use of inhaled steroids; Z79.82 Long term (current) use of aspirin; Z79.891 Long term (current) use of opiate analgesic; Z79.899 Other long term (current) drug therapy; Z99.89 Dependence on other enabling machines and devices; G47.33 Obstructive sleep apnea (adult) (pediatric); I10 Essential (primary) hypertension; E78.00 Pure hypercholesterolemia, unspecified; Z87.891 Personal history of nicotine dependence; Z80.42 Family history of malignant neoplasm of prostate; Z80.8 Family history of malignant neoplasm of other organs or systems

== ENCOUNTER → 2022-05-06 | Outpatient (REF) | payer BC ==
[~2022-05-06] MED LIST changes: -NS 1,000 ML IV ONE
[2022-05-06 13:46] LABS: APPEARANCE, URINE MANUAL CLEAR (CLEAR); BILIRUBIN, URINE MANUAL NEGATIVE (NEGATIVE); BLOOD URINE MANUAL NEGATIVE (NEGATIVE); COLOR, URINE MANUAL YELLOW (YELLOW); GLUCOSE, URINE (UA) MANUAL 2+(250 MG/DL) mg/dL (NEGATIVE); KETONE, URINE MANUAL NEGATIVE (NEGATIVE); LEUKOCYTE ESTERASE, URINE MAN NEGATIVE (NEGATIVE); NITRITE, URINE MANUAL NEGATIVE (NEGATIVE); PROTEIN, URINE MANUAL NEGATIVE (NEGATIVE); UROBILINOGEN, URINE MANUAL NORMAL (NORMAL)
== END ==
LOC: M LAB REF 12:55
PROVIDERS: ATTEND Nurse Practitioner Family
DX: N39.0 Urinary tract infection, site not specified (principal)

== ENCOUNTER → 2022-05-06 | Outpatient (CLI) | payer BC ==
[2022-05-06 14:27] LABS: FOLATE > 24.00 NG/ML (>5.4)
[2022-05-06 14:35] LABS: VITAMIN B12 LEVEL > 2000 PG/ML (211-911)
== END ==
LOC: M PLALAB 09:07
PROVIDERS: ATTEND Psychiatry & Neurology Neurology
DX: R25.1 Tremor, unspecified (principal)

== ENCOUNTER → 2022-05-11 | Outpatient (REF) | payer BC ==
[2022-05-11 14:26] LABS: APPEARANCE, URINE CLEAR (CLEAR); BILIRUBIN, URINE AUTO NEGATIVE (NEGATIVE); BLOOD, URINE BLOOD 1+ (NEGATIVE); COLOR, URINE STRAW (YELLOW); GLUCOSE, URINE (UA) AUTO 2+ mg/dL (NEGATIVE); KETONE, URINE AUTO NEGATIVE (NEGATIVE); LEUKOCYTE ESTERASE, URINE AUTO NEGATIVE (NEGATIVE); NITRITE, URINE AUTO NEGATIVE (NEGATIVE); PROTEIN, URINE AUTO NEGATIVE (NEGATIVE); SPECIFIC GRAVITY URINE AUTO 1.009 (1.002-1.035); UROBILINOGEN, URINE AUTO 0.2 mg/dL (0.0-2.0)
[2022-05-11 14:27] LABS: BACTERIA, URINE AUTO NEGATIVE (NEGATIVE); RBC, URINE AUTO 0 /HPF (0-3); SQUAMOUS EPITHELIAL CELL UR AU 0 /HPF (0-6); WBC, URINE AUTO 0 /HPF (0-3)
== END ==
LOC: M SMT 13:01
PROVIDERS: ATTEND Urology
DX: N39.0 Urinary tract infection, site not specified (principal)

== ENCOUNTER → 2022-05-24 | Outpatient (REF) | payer BC | LOC: M SMT 17:15 | PROVIDERS: ATTEND Urology | DX: R30.0 Dysuria (principal) ==

== ENCOUNTER → 2022-05-29 | Outpatient (CLI) | payer BC ==
[2022-05-29 11:28] LABS: APPEARANCE, URINE HAZY (CLEAR); BACTERIA, URINE AUTO NEGATIVE (NEGATIVE); BILIRUBIN, URINE AUTO NEGATIVE (NEGATIVE); BLOOD, URINE BLOOD NEGATIVE (NEGATIVE); COLOR, URINE YELLOW (YELLOW); GLUCOSE, URINE (UA) AUTO 2+ mg/dL (NEGATIVE); KETONE, URINE AUTO TRACE mg/dL (NEGATIVE); LEUKOCYTE ESTERASE, URINE AUTO NEGATIVE (NEGATIVE); NITRITE, URINE AUTO NEGATIVE (NEGATIVE); PROTEIN, URINE AUTO 2+ mg/dL (NEGATIVE); RBC, URINE AUTO 3 /HPF (0-3); SPECIFIC GRAVITY URINE AUTO 1.016 (1.002-1.035); SQUAMOUS EPITHELIAL CELL UR AU 1 /HPF (0-6); UROBILINOGEN, URINE AUTO 0.2 mg/dL (0.0-2.0); WBC, URINE AUTO 1 /HPF (0-3)
== END ==
LOC: M LAB 10:00
PROVIDERS: ATTEND Urology
DX: R30.0 Dysuria (principal)

== ENCOUNTER → 2022-05-29 | Outpatient (CLI) | payer BC ==
[2022-05-29 11:55] LABS: URIC ACID 3.6 MG/DL (3.7-9.2)
[2022-05-29 11:58] LABS: CHOLESTEROL RISK RATIO 3.45 (<5); LDL CHOLESTEROL 21.2 MG/DL (<100)
== END ==
LOC: M LAB 09:57
PROVIDERS: ATTEND Family Medicine
DX: Z12.5 Encounter for screening for malignant neoplasm of prostate (principal); M10.9 Gout, unspecified; E11.8 Type 2 diabetes mellitus with unspecified complications
CPT/HCPCS: 36415; 80061; 84550; G0103

== ENCOUNTER → 2022-06-08 | Outpatient (REF) | payer BC | LOC: M SMT 17:12 | PROVIDERS: ATTEND Urology | DX: R30.0 Dysuria (principal) ==

== ENCOUNTER → 2022-07-02 | Outpatient (CLI) | payer BC | LOC: M SOG 07:51 | PROVIDERS: ATTEND Orthopaedic Surgery | DX: M17.12 Unilateral primary osteoarthritis, left knee (principal); M25.462 Effusion, left knee ==

== ENCOUNTER → 2022-10-01 | Outpatient (CLI) | payer BC | LOC: M SOG 09:17 | PROVIDERS: ATTEND Orthopaedic Surgery | DX: M17.12 Unilateral primary osteoarthritis, left knee (principal) ==

== ENCOUNTER → 2022-10-22 | Outpatient (REF) | payer BC ==
[~2022-10-22] MED LIST changes: +ACET-683 PO; +ALBU8.5H; +BENZ1TAB5 PO; +CARB25TA9 PO; +HUMA100I5 SC; +MIRA3350
[2022-10-22 13:58] LABS: APPEARANCE, URINE HAZY (CLEAR); BACTERIA, URINE AUTO NEGATIVE (NEGATIVE); BILIRUBIN, URINE AUTO NEGATIVE (NEGATIVE); BLOOD, URINE BLOOD 1+ (NEGATIVE); COLOR, URINE YELLOW (YELLOW); GLUCOSE, URINE (UA) AUTO 3+ mg/dL (NEGATIVE); KETONE, URINE AUTO TRACE mg/dL (NEGATIVE); LEUKOCYTE ESTERASE, URINE AUTO NEGATIVE (NEGATIVE); MUCUS, URINE SMALL (NEGATIVE); NITRITE, URINE AUTO NEGATIVE (NEGATIVE); PROTEIN, URINE AUTO 2+ mg/dL (NEGATIVE); RBC, URINE AUTO 0 /HPF (0-3); SPECIFIC GRAVITY URINE AUTO 1.013 (1.002-1.035); SQUAMOUS EPITHELIAL CELL UR AU 1 /HPF (0-6); UROBILINOGEN, URINE AUTO 0.2 mg/dL (0.0-2.0); WBC, URINE AUTO 0 /HPF (0-3)
== END ==
LOC: M SMT 13:05
PROVIDERS: ATTEND Physician Assistant
DX: R30.0 Dysuria (principal)

== ENCOUNTER → 2022-11-01 | Outpatient (CLI) | payer BC ==
[~2022-11-01] MED LIST changes: +DICL100G10 TOP; -DICL1GEL3 TOP
[2022-11-01 11:10] LABS: BASO # 0.1 10^3/uL (0.0-0.2); BASO % 1.1 % (0.0-1.0); EOS # 0.3 10^3/uL (0.0-0.5); EOS % 4.8 % (0.0-3.0); HEMATOCRIT 39.8 % (42.0-52.0); HEMOGLOBIN 12.6 g/dl (13.5-17.5); LYMPH # 1.7 10^3/uL (1.5-5.0); LYMPH % 26.4 % (24.0-44.0); MEAN CORPUSCULAR HEMOGLOBIN 26.6 pg (27.0-33.0); MEAN CORPUSCULAR HGB CONC 31.7 g/dl (32.0-36.5); MEAN CORPUSCULAR VOLUME 84.1 fl (80.0-96.0); MONO # 0.8 10^3/uL (0.0-0.8); MONO % 11.5 % (2.0-8.0); NEUTROPHILS # 3.6 10^3/uL (1.5-8.5); NEUTROPHILS % 55.9 % (36.0-66.0); PLATELET COUNT, AUTOMATED 256 10^3/uL (150-450); RED BLOOD COUNT 4.73 10^6/uL (4.30-6.10); WHITE BLOOD COUNT 6.5 10^3/uL (4.0-10.0)
[2022-11-01 11:32] LABS: HEMOGLOBIN A1c 9.3 % (4.0-6.0)
[2022-11-01 11:44] LABS: CREATININE, URINE 50.5 MG/DL; MAU/CREAT RATIO 168.3 MCG/MG (0.0-30.0)
[2022-11-01 11:45] LABS: ALBUMIN 3.4 G/DL (3.2-5.2); ALKALINE PHOSPHATASE 84 U/L (46-116); ALT/SGPT 34 U/L (7.0-40); AST/SGOT 18 U/L (<34); BILIRUBIN,TOTAL 0.3 MG/DL (0.3-1.2); BLOOD UREA NITROGEN 11 MG/DL (9-23); CARBON DIOXIDE LEVEL 29 MMOL/L (20-31); CHLORIDE LEVEL 105 MMOL/L (98-107); CREATININE FOR GFR 0.74 MG/DL (0.70-1.30); GLOMERULAR FILTRATION RATE > 60.0 (>42); GLUCOSE, FASTING 200 MG/DL (74-106); MAGNESIUM LEVEL 2.3 MG/DL (1.8-2.4); POTASSIUM SERUM 4.1 MMOL/L (3.5-5.1); SODIUM LEVEL 141 MMOL/L (136-145); TOTAL PROTEIN 6.3 G/DL (5.7-8.2)
[2022-11-01 11:47] LABS: FERRITIN 27.6 NG/ML (10.5-307.3)
== END ==
LOC: M PLALAB 07:37
PROVIDERS: ATTEND Family Medicine
DX: I10 Essential (primary) hypertension (principal); D50.9 Iron deficiency anemia, unspecified; E11.8 Type 2 diabetes mellitus with unspecified complications; K76.0 Fatty (change of) liver, not elsewhere classified

== ENCOUNTER 2022-11-23 15:00 | Outpatient (CLI) | payer BC ==
[2022-11-23 15:00] VITALS: BP 131/62; O2SAT 100
[~2022-11-23 15:00] MED LIST changes: +ALBUTEROL SULFATE 2.5MG/0.5ML INH NEB SOLN INH PRN; +EPINEPHrine INJ 1 MG/ML 1ML AMP IM PRN; +diphenhydrAMINE 50MG/ML VIAL IV PRN; +methylPREDNISolone 125MG 2ML VIAL IV PRN
[2022-11-23] MEDS ORDERED: NS 1,000 ML IV SCH (15:15)
[2022-11-23] MEDS ORDERED: FERRIC CARBOXYMALTOSE INJ 750 MG in NS 250 ML (>50kg) IV ONE ×3 (15:15)
[2022-11-23 16:31] VITALS: BP 116/69; O2SAT 97
== END 2022-11-23 16:30 | disposition home or self-care (01) ==
LOC: M INFU 15:00
PROVIDERS: ATTEND Family Medicine
DX: D50.9 Iron deficiency anemia, unspecified (principal)
CPT/HCPCS: 96365; J1439

== ENCOUNTER 2022-11-24 08:18 | Outpatient (RCR) | payer BC ==
[~2022-11-24 08:18] MED LIST changes: -ALBU8.5H; +ALBU8.5H INH; -ALBUTEROL SULFATE 2.5MG/0.5ML INH NEB SOLN INH PRN; -EPINEPHrine INJ 1 MG/ML 1ML AMP IM PRN; -diphenhydrAMINE 50MG/ML VIAL IV PRN; -methylPREDNISolone 125MG 2ML VIAL IV PRN
[2022-11-30] MEDS ORDERED: DICL100G10 TOP (09:18)
[2022-11-30] MEDS ORDERED: MAALSUS19 PO (09:18)
== END 2022-11-25 ==
LOC: M PT 08:18
PROVIDERS: ATTEND Orthopaedic Surgery
DX: M17.12 Unilateral primary osteoarthritis, left knee (principal)

== ENCOUNTER → 2022-11-30 | Outpatient (CLI) | payer BC ==
[~2022-11-30] MED LIST changes: +MAALSUS19 PO
[2022-11-30 10:21] LABS: BASO # 0.1 10^3/uL (0.0-0.2); BASO % 0.9 % (0.0-1.0); EOS # 0.4 10^3/uL (0.0-0.5); EOS % 4.8 % (0.0-3.0); HEMATOCRIT 40.4 % (42.0-52.0); HEMOGLOBIN 12.6 g/dl (13.5-17.5); LYMPH # 1.8 10^3/uL (1.5-5.0); LYMPH % 23.4 % (24.0-44.0); MEAN CORPUSCULAR HEMOGLOBIN 26.6 pg (27.0-33.0); MEAN CORPUSCULAR HGB CONC 31.2 g/dl (32.0-36.5); MEAN CORPUSCULAR VOLUME 85.2 fl (80.0-96.0); MONO # 0.8 10^3/uL (0.0-0.8); NEUTROPHILS # 4.6 10^3/uL (1.5-8.5); NEUTROPHILS % 60.6 % (36.0-66.0); PLATELET COUNT, AUTOMATED 270 10^3/uL (150-450); RED BLOOD COUNT 4.74 10^6/uL (4.30-6.10); WHITE BLOOD COUNT 7.5 10^3/uL (4.0-10.0)
[2022-11-30 10:32] LABS: INR 2.29; PROTHROMBIN TIME 24.6 SECONDS (12.5-14.5)
[2022-11-30 11:00] LABS: C REACTIVE PROTEIN QUANTITATIV < 0.40 MG/DL (<1.0)
[2022-11-30 11:02] LABS: ALBUMIN 3.5 G/DL (3.2-5.2); ALKALINE PHOSPHATASE 69 U/L (46-116); ALT/SGPT 27 U/L (7.0-40); AST/SGOT 19 U/L (<34); BILIRUBIN,TOTAL 0.3 MG/DL (0.3-1.2); BLOOD UREA NITROGEN 13 MG/DL (9-23); CALCIUM LEVEL 8.7 MG/DL (8.3-10.6); CARBON DIOXIDE LEVEL 28 MMOL/L (20-31); CHLORIDE LEVEL 103 MMOL/L (98-107); CREATININE FOR GFR 0.77 MG/DL (0.70-1.30); FERRITIN 599.1 NG/ML (10.5-307.3); GLOMERULAR FILTRATION RATE > 60.0 (>42); GLUCOSE, FASTING 163 MG/DL (74-106); POTASSIUM SERUM 4.1 MMOL/L (3.5-5.1); SODIUM LEVEL 139 MMOL/L (136-145); TOTAL PROTEIN 6.6 G/DL (5.7-8.2)
== END ==
LOC: M PLALAB 08:18
PROVIDERS: ATTEND Family Medicine
DX: E11.8 Type 2 diabetes mellitus with unspecified complications (principal); D50.9 Iron deficiency anemia, unspecified

== ENCOUNTER → 2022-12-01 | Outpatient (CLI) | payer BC | LOC: M RAD 16:22 | PROVIDERS: ATTEND Orthopaedic Surgery | DX: M17.12 Unilateral primary osteoarthritis, left knee (principal); I87.2 Venous insufficiency (chronic) (peripheral) ==

== ENCOUNTER → 2022-12-09 | Outpatient (REF) | payer BC ==
[2022-12-09 18:34] LABS: APPEARANCE, URINE CLEAR (CLEAR); BACTERIA, URINE AUTO NEGATIVE (NEGATIVE); BILIRUBIN, URINE AUTO NEGATIVE (NEGATIVE); BLOOD, URINE BLOOD NEGATIVE (NEGATIVE); COLOR, URINE YELLOW (YELLOW); GLUCOSE, URINE (UA) AUTO 1+ mg/dL (NEGATIVE); KETONE, URINE AUTO TRACE mg/dL (NEGATIVE); LEUKOCYTE ESTERASE, URINE AUTO NEGATIVE (NEGATIVE); NITRITE, URINE AUTO NEGATIVE (NEGATIVE); PROTEIN, URINE AUTO NEGATIVE (NEGATIVE); RBC, URINE AUTO 0 /HPF (0-3); SPECIFIC GRAVITY URINE AUTO 1.012 (1.002-1.035); SQUAMOUS EPITHELIAL CELL UR AU 0 /HPF (0-6); UROBILINOGEN, URINE AUTO 0.2 mg/dL (0.0-2.0); WBC, URINE AUTO 0 /HPF (0-3)
== END ==
LOC: M SMT 17:34
PROVIDERS: ATTEND Urology
DX: R30.0 Dysuria (principal)

== ENCOUNTER 2022-12-23 01:15 | Inpatient (IN) | payer BC, MEDICARE ==
[~2022-12-23] VITALS: Ht 162.6 cm; Wt 107.0 kg
[2022-12-23] MEDS ORDERED: NS 1,000 ML IV ONE (01:30)
[2022-12-23] MEDS ORDERED: BENZ0.5T2 PO (01:57)
[2022-12-23 02:36] LABS: BASO # 0.1 10^3/uL (0.0-0.2); BASO % 0.3 % (0.0-1.0); EOS # 0.1 10^3/uL (0.0-0.5); EOS % 0.6 % (0.0-3.0); HEMATOCRIT 42.1 % (42.0-52.0); HEMOGLOBIN 13.6 g/dl (13.5-17.5); LYMPH # 1.1 10^3/uL (1.5-5.0); LYMPH % 6.3 % (24.0-44.0); MEAN CORPUSCULAR HEMOGLOBIN 27.4 pg (27.0-33.0); MEAN CORPUSCULAR HGB CONC 32.3 g/dl (32.0-36.5); MEAN CORPUSCULAR VOLUME 84.7 fl (80.0-96.0); MONO % 10.2 % (2.0-8.0); NEUTROPHILS # 14.3 10^3/uL (1.5-8.5); NEUTROPHILS % 82.3 % (36.0-66.0); PLATELET COUNT, AUTOMATED 274 10^3/uL (150-450); RED BLOOD COUNT 4.97 10^6/uL (4.30-6.10); WHITE BLOOD COUNT 17.4 10^3/uL (4.0-10.0)
[2022-12-23 02:49] LABS: INR 1.29; LIPASE 33 U/L (12-53); PROTHROMBIN TIME 15.8 SECONDS (12.5-14.5)
[2022-12-23 02:50] LABS: PARTIAL THROMBOPLASTIN TIME 27.3 SECONDS (24.8-34.2)
[2022-12-23 02:51] LABS: ALBUMIN 3.5 G/DL (3.2-5.2); ALKALINE PHOSPHATASE 80 U/L (46-116); ALT/SGPT 17 U/L (7.0-40); AST/SGOT 21 U/L (<34); BILIRUBIN,DIRECT < 0.1 MG/DL (<0.4); BILIRUBIN,TOTAL 0.3 MG/DL (0.3-1.2); BLOOD UREA NITROGEN 17 MG/DL (9-23); CALCIUM LEVEL 9.1 MG/DL (8.3-10.6); CARBON DIOXIDE LEVEL 30 MMOL/L (20-31); CHLORIDE LEVEL 101 MMOL/L (98-107); CREATININE FOR GFR 0.86 MG/DL (0.70-1.30); GLOMERULAR FILTRATION RATE > 60.0 (>42); GLUCOSE, FASTING 245 MG/DL (74-106); SODIUM LEVEL 139 MMOL/L (136-145); TOTAL PROTEIN 6.6 G/DL (5.7-8.2)
[2022-12-23 03:18] LABS: MONO # 1.8 10^3/uL (0.0-0.8)
[2022-12-23] MEDS ORDERED: ACETAMINOPHEN TAB 650MG DOSE (2X325MG) PO ONE (04:15)
[2022-12-23] MEDS ORDERED: PIPERACILLIN/TAZOBACTAM SOD 4.5 GM in D5W MINI-BAG PLUS 50 ML IV ONE (05:15)
[2022-12-23] MEDS ORDERED: NS IV ONE (07:05)
[2022-12-23] MEDS ORDERED: MED REC IN PROGRESS XX SCH (07:45)
[2022-12-23] MEDS ORDERED: SENN-186 PO (08:11)
[2022-12-23] MEDS ORDERED: BENZ1TAB5 PO (08:11)
[2022-12-23] MEDS ORDERED: HOME MED LIST COMPLETE! XX SCH (08:15)
[2022-12-23] MEDS ORDERED: ACETAMINOPHEN TAB 650MG DOSE (2X325MG) PO PRN (08:20)
[2022-12-23] MEDS ORDERED: DEXTROSE 50% 50ML SYRINGE IV PRN (08:20)
[2022-12-23] MEDS ORDERED: ALBUTEROL 90 MCG/ACT 8GM HFA INHALER INH PRN (08:20)
[2022-12-23] MEDS ORDERED: MIRALAX *UNIT DOSE* 17GM PACKET PO PRN (08:20)
[2022-12-23] MEDS ORDERED: GLUCAGON INJ 1MG VIAL SC PRN (08:20)
[2022-12-23] MEDS ORDERED: GLUCOSE 4GM CHEW TABLET PO PRN (08:20)
[2022-12-23] MEDS ORDERED: PILL CUTTER 1 EACH XX PRN (08:35)
[2022-12-23] MEDS: ROSUVASTATIN 10 MG TAB (CRESTOR) PO SCH (09:07)
[2022-12-23] MEDS: SENNA 8.6 MG TAB (SENOKOT) PO SCH (09:08)
[2022-12-23] MEDS: DOCUSATE SODIUM 100MG CAPSULE PO SCH ×2 (09:08→20:58)
[2022-12-23] MEDS: OYSTER SHELL CALCIUM 500 MG TAB PO SCH ×2 (09:08→20:59)
[2022-12-23] MEDS: BENZTROPINE 0.5 MG TAB PO SCH ×2 (09:08→20:58)
[2022-12-23] MEDS: GABAPENTIN 100 MG CAP PO SCH ×4 (09:09→20:58)
[2022-12-23] MEDS: DULoxetine 30MG CAPSULE (CYMBALTA) PO SCH (09:09)
[2022-12-23] MEDS: LEVEMIR (INSULIN DETEMIR) 1 UNITS/0.01ML SC SCH ×2 (10:46→20:59)
[2022-12-23] MEDS: PANTOPRAZOLE 20 MG TAB PO SCH (12:17)
[2022-12-23] MEDS: SINEMET 25-100 MG TAB PO SCH ×4 (12:18→20:58)
[2022-12-23] MEDS: PIPERACILLIN/TAZOBACTAM SOD 3.375 GM in D5W MINI-BAG PLUS 50 ML IV SCH ×2 (13:10→18:28)
[2022-12-23] MEDS: POLYVINYL ALCOHOL OPHTH SOLN 15ML (LIQUITEARS) OU SCH (13:10)
[2022-12-23] MEDS: LACTOBACILLUS ACIDOPHILUS CAP (BACID) PO SCH ×2 (13:11→17:02)
[2022-12-23] MEDS: INSULIN LISPRO (NovoLOG) PER UNIT SC SCH ×3 (13:21→21:00)
[2022-12-23 16:33] VITALS: BP 139/65; TEMP 98.3; O2SAT 93
[2022-12-23 20:00] VITALS: BP 122/57; TEMP 98.9
[2022-12-23] MEDS: SYMBICORT 80/4.5MCG INHALER 6GM INH SCH (20:00)
[2022-12-23] MEDS: WARFARIN SOD 7.5MG TAB PO SCH (20:58)
[2022-12-24] VITALS (7 sets, daily range): BP systolic 121–145; BP diastolic 57–81; TEMP 96.7–99; O2SAT 92–98
[2022-12-24] MEDS: PIPERACILLIN/TAZOBACTAM SOD 3.375 GM in D5W MINI-BAG PLUS 50 ML IV SCH ×2 (01:46→06:50)
[2022-12-24] MEDS ORDERED: METOPROLOL SUCC *XL* 25MG TAB (TopROL *XL*) PO ONE (03:30)
[2022-12-24 05:09] LABS: BASO # 0.1 10^3/uL (0.0-0.2); BASO % 0.3 % (0.0-1.0); EOS # 0.1 10^3/uL (0.0-0.5); EOS % 0.8 % (0.0-3.0); HEMATOCRIT 36.1 % (42.0-52.0); HEMOGLOBIN 11.7 g/dl (13.5-17.5); LYMPH # 0.9 10^3/uL (1.5-5.0); LYMPH % 6.3 % (24.0-44.0); MEAN CORPUSCULAR HEMOGLOBIN 27.7 pg (27.0-33.0); MEAN CORPUSCULAR HGB CONC 32.4 g/dl (32.0-36.5); MEAN CORPUSCULAR VOLUME 85.3 fl (80.0-96.0); MONO # 1.1 10^3/uL (0.0-0.8); MONO % 7.8 % (2.0-8.0); NEUTROPHILS # 12.1 10^3/uL (1.5-8.5); NEUTROPHILS % 84.3 % (36.0-66.0); PLATELET COUNT, AUTOMATED 196 10^3/uL (150-450); RED BLOOD COUNT 4.23 10^6/uL (4.30-6.10); WHITE BLOOD COUNT 14.4 10^3/uL (4.0-10.0)
[2022-12-24 05:30] LABS: BLOOD UREA NITROGEN 11 MG/DL (9-23); CALCIUM LEVEL 8.6 MG/DL (8.3-10.6); CARBON DIOXIDE LEVEL 28 MMOL/L (20-31); CHLORIDE LEVEL 107 MMOL/L (98-107); CREATININE FOR GFR 0.72 MG/DL (0.70-1.30); GLOMERULAR FILTRATION RATE > 60.0 (>42); GLUCOSE, FASTING 166 MG/DL (74-106); MAGNESIUM LEVEL 1.8 MG/DL (1.8-2.4); POTASSIUM SERUM 3.3 MMOL/L (3.5-5.1); SODIUM LEVEL 141 MMOL/L (136-145)
[2022-12-24 06:05] LABS: INR 1.52; PROTHROMBIN TIME 17.9 SECONDS (12.5-14.5)
[2022-12-24] MEDS: SINEMET 25-100 MG TAB PO SCH ×5 (06:50→20:46)
[2022-12-24] MEDS ORDERED: POTASSIUM CHLORIDE 10MEQ SR TABLET PO ONE (07:00)
[2022-12-24 07:33] LABS: CK-MB VALUE MASS < 1.0 NG/ML (<3.6)
[2022-12-24 07:36] LABS: CPK CREATINE PHOSPHOKINASE 101 U/L (46-171); MB/CK RELATIVE INDEX 0.99 (< OR =4)
[2022-12-24 07:38] LABS: FREE T4 0.85 NG/DL (0.89-1.76); THYROID STIMULATING HORMONE 1.392 uIU/ML (0.55-4.78)
[2022-12-24] MEDS: INSULIN LISPRO (NovoLOG) PER UNIT SC SCH ×4 (08:50→20:49)
[2022-12-24] MEDS: LEVEMIR (INSULIN DETEMIR) 1 UNITS/0.01ML SC SCH ×2 (08:51→20:48)
[2022-12-24] MEDS: ROSUVASTATIN 10 MG TAB (CRESTOR) PO SCH (08:52)
[2022-12-24] MEDS: SENNA 8.6 MG TAB (SENOKOT) PO SCH (08:53)
[2022-12-24] MEDS: BENZTROPINE 0.5 MG TAB PO SCH ×2 (08:53→20:47)
[2022-12-24] MEDS: LACTOBACILLUS ACIDOPHILUS CAP (BACID) PO SCH ×3 (08:54→17:40)
[2022-12-24] MEDS: GABAPENTIN 100 MG CAP PO SCH ×4 (08:54→20:46)
[2022-12-24] MEDS: DOCUSATE SODIUM 100MG CAPSULE PO SCH ×2 (08:54→20:46)
[2022-12-24] MEDS: DULoxetine 30MG CAPSULE (CYMBALTA) PO SCH (08:54)
[2022-12-24] MEDS ORDERED: VITAMIN D 50,000 UNITS CAPSULE (ERGOCALCIFEROL 1.25MG) PO SCH (09:00)
[2022-12-24] MEDS: SYMBICORT 80/4.5MCG INHALER 6GM INH SCH ×2 (09:42→20:23)
[2022-12-24 10:28] LABS: CK-MB VALUE MASS < 1.0 NG/ML (<3.6); CPK CREATINE PHOSPHOKINASE 106 U/L (46-171); MB/CK RELATIVE INDEX 0.94 (< OR =4)
[2022-12-24] MEDS: OYSTER SHELL CALCIUM 500 MG TAB PO SCH ×2 (11:08→20:46)
[2022-12-24] MEDS: PANTOPRAZOLE 20 MG TAB PO SCH (11:08)
[2022-12-24] MEDS: POLYVINYL ALCOHOL OPHTH SOLN 15ML (LIQUITEARS) OU SCH (11:10)
[2022-12-24] MEDS ORDERED: CEFDINIR 300 MG CAP (OMNICEF) PO SCH (12:30)
[2022-12-24] MEDS: aMILoride 5 MG TAB PO SCH (12:58)
[2022-12-24] MEDS: FUROSEMIDE 40 MG TAB PO SCH (13:03)
[2022-12-24] MEDS: METOPROLOL TART 25 MG TABLET PO SCH (13:42)
[2022-12-24] MEDS ORDERED: FOSFOMYCIN TROMETHAMINE 3 GM POWDER PACKET (MONUROL) PO ONE (16:00)
[2022-12-24] MEDS: WARFARIN SOD 7.5MG TAB PO SCH (17:51)
[2022-12-25 04:36] VITALS: BP 141/66; TEMP 98; O2SAT 92
[2022-12-25] MEDS: SINEMET 25-100 MG TAB PO SCH ×5 (06:17→20:52)
[2022-12-25 06:59] LABS: BASO % 0.4 % (0.0-1.0); EOS # 0.3 10^3/uL (0.0-0.5); EOS % 3.5 % (0.0-3.0); HEMATOCRIT 37.2 % (42.0-52.0); HEMOGLOBIN 11.7 g/dl (13.5-17.5); LYMPH # 1.3 10^3/uL (1.5-5.0); MEAN CORPUSCULAR HEMOGLOBIN 27.2 pg (27.0-33.0); MEAN CORPUSCULAR HGB CONC 31.5 g/dl (32.0-36.5); MEAN CORPUSCULAR VOLUME 86.5 fl (80.0-96.0); MONO % 10.1 % (2.0-8.0); NEUTROPHILS % 72.6 % (36.0-66.0); PLATELET COUNT, AUTOMATED 220 10^3/uL (150-450); WHITE BLOOD COUNT 9.7 10^3/uL (4.0-10.0)
[2022-12-25 07:09] LABS: INR 1.88; PROTHROMBIN TIME 21.1 SECONDS (12.5-14.5)
[2022-12-25 07:18] LABS: BLOOD UREA NITROGEN 12 MG/DL (9-23); CALCIUM LEVEL 8.4 MG/DL (8.3-10.6); CARBON DIOXIDE LEVEL 31 MMOL/L (20-31); CHLORIDE LEVEL 103 MMOL/L (98-107); CREATININE FOR GFR 0.84 MG/DL (0.70-1.30); GLOMERULAR FILTRATION RATE > 60.0 (>42); GLUCOSE, FASTING 115 MG/DL (74-106); MAGNESIUM LEVEL 1.8 MG/DL (1.8-2.4); POTASSIUM SERUM 3.2 MMOL/L (3.5-5.1); SODIUM LEVEL 141 MMOL/L (136-145)
[2022-12-25 07:37] VITALS: BP 122/62; TEMP 96.8; O2SAT 98
[2022-12-25] MEDS ORDERED: POTASSIUM CHLORIDE 10MEQ SR TABLET PO ONE (08:15)
[2022-12-25] MEDS: LEVEMIR (INSULIN DETEMIR) 1 UNITS/0.01ML SC SCH ×2 (09:10→20:54)
[2022-12-25] MEDS: aMILoride 5 MG TAB PO SCH (09:11)
[2022-12-25] MEDS: INSULIN LISPRO (NovoLOG) PER UNIT SC SCH ×4 (09:11→20:53)
[2022-12-25] MEDS: LACTOBACILLUS ACIDOPHILUS CAP (BACID) PO SCH ×3 (09:11→18:08)
[2022-12-25] MEDS: ROSUVASTATIN 10 MG TAB (CRESTOR) PO SCH (09:12)
[2022-12-25] MEDS: SENNA 8.6 MG TAB (SENOKOT) PO SCH (09:12)
[2022-12-25] MEDS: FUROSEMIDE 40 MG TAB PO SCH (09:13)
[2022-12-25] MEDS: GABAPENTIN 100 MG CAP PO SCH ×4 (09:13→20:52)
[2022-12-25] MEDS: DULoxetine 30MG CAPSULE (CYMBALTA) PO SCH (09:13)
[2022-12-25] MEDS: BENZTROPINE 0.5 MG TAB PO SCH ×2 (09:13→20:53)
[2022-12-25] MEDS: METOPROLOL TART 25 MG TABLET PO SCH (09:14)
[2022-12-25] MEDS: DOCUSATE SODIUM 100MG CAPSULE PO SCH ×2 (09:14→20:53)
[2022-12-25] MEDS: OYSTER SHELL CALCIUM 500 MG TAB PO SCH ×2 (09:14→20:52)
[2022-12-25] MEDS: KCL 10MEQ/100ML SWI (KRUN) 100 ML IV SCH ×2 (09:24→11:01)
[2022-12-25] MEDS: POLYVINYL ALCOHOL OPHTH SOLN 15ML (LIQUITEARS) OU SCH (09:24)
[2022-12-25] MEDS: PANTOPRAZOLE 20 MG TAB PO SCH (09:31)
[2022-12-25] MEDS: SYMBICORT 80/4.5MCG INHALER 6GM INH SCH ×2 (10:32→19:12)
[2022-12-25 11:57] VITALS: BP 149/91; TEMP 97.5; O2SAT 97
[2022-12-25] MEDS: WARFARIN SOD 7.5MG TAB PO SCH (18:09)
[2022-12-25 20:20] VITALS: BP 146/74; TEMP 97.7; O2SAT 97
[2022-12-26] MEDS: SINEMET 25-100 MG TAB PO SCH ×5 (06:26→21:46)
[2022-12-26 06:59] LABS: BASO # 0.1 10^3/uL (0.0-0.2); BASO % 0.6 % (0.0-1.0); EOS # 0.5 10^3/uL (0.0-0.5); EOS % 5.4 % (0.0-3.0); HEMATOCRIT 37.4 % (42.0-52.0); HEMOGLOBIN 11.9 g/dl (13.5-17.5); LYMPH # 1.2 10^3/uL (1.5-5.0); LYMPH % 14.5 % (24.0-44.0); MEAN CORPUSCULAR HEMOGLOBIN 27.4 pg (27.0-33.0); MEAN CORPUSCULAR HGB CONC 31.8 g/dl (32.0-36.5); MEAN CORPUSCULAR VOLUME 86.2 fl (80.0-96.0); MONO # 0.9 10^3/uL (0.0-0.8); MONO % 10.6 % (2.0-8.0); NEUTROPHILS # 5.7 10^3/uL (1.5-8.5); NEUTROPHILS % 68.7 % (36.0-66.0); PLATELET COUNT, AUTOMATED 243 10^3/uL (150-450); RED BLOOD COUNT 4.34 10^6/uL (4.30-6.10); WHITE BLOOD COUNT 8.4 10^3/uL (4.0-10.0)
[2022-12-26 07:13] LABS: INR 2.12; PROTHROMBIN TIME 23.2 SECONDS (12.5-14.5)
[2022-12-26] MEDS: SYMBICORT 80/4.5MCG INHALER 6GM INH SCH ×2 (07:35→19:58)
[2022-12-26 07:39] LABS: BLOOD UREA NITROGEN 14 MG/DL (9-23); CALCIUM LEVEL 8.8 MG/DL (8.3-10.6); CARBON DIOXIDE LEVEL 32 MMOL/L (20-31); CHLORIDE LEVEL 104 MMOL/L (98-107); CREATININE FOR GFR 0.91 MG/DL (0.70-1.30); GLOMERULAR FILTRATION RATE > 60.0 (>42); GLUCOSE, FASTING 149 MG/DL (74-106); MAGNESIUM LEVEL 1.9 MG/DL (1.8-2.4); POTASSIUM SERUM 3.7 MMOL/L (3.5-5.1); SODIUM LEVEL 142 MMOL/L (136-145)
[2022-12-26 07:41] VITALS: BP 119/62; TEMP 97.6; O2SAT 96
[2022-12-26] MEDS: LEVEMIR (INSULIN DETEMIR) 1 UNITS/0.01ML SC SCH ×2 (08:57→21:46)
[2022-12-26] MEDS: LACTOBACILLUS ACIDOPHILUS CAP (BACID) PO SCH ×3 (08:58→18:17)
[2022-12-26] MEDS: INSULIN LISPRO (NovoLOG) PER UNIT SC SCH ×4 (08:58→21:00)
[2022-12-26] MEDS: ROSUVASTATIN 10 MG TAB (CRESTOR) PO SCH (08:58)
[2022-12-26] MEDS: FUROSEMIDE 40 MG TAB PO SCH (08:58)
[2022-12-26] MEDS: DULoxetine 30MG CAPSULE (CYMBALTA) PO SCH (08:58)
[2022-12-26] MEDS: DOCUSATE SODIUM 100MG CAPSULE PO SCH ×2 (08:59→21:47)
[2022-12-26] MEDS: SENNA 8.6 MG TAB (SENOKOT) PO SCH (08:59)
[2022-12-26] MEDS: OYSTER SHELL CALCIUM 500 MG TAB PO SCH ×2 (08:59→21:46)
[2022-12-26] MEDS: GABAPENTIN 100 MG CAP PO SCH ×4 (08:59→21:47)
[2022-12-26] MEDS: BENZTROPINE 0.5 MG TAB PO SCH ×2 (08:59→21:56)
[2022-12-26] MEDS: aMILoride 5 MG TAB PO SCH (09:05)
[2022-12-26] MEDS: METOPROLOL TART 25 MG TABLET PO SCH (09:06)
[2022-12-26] MEDS: PANTOPRAZOLE 20 MG TAB PO SCH (09:06)
[2022-12-26] MEDS: POLYVINYL ALCOHOL OPHTH SOLN 15ML (LIQUITEARS) OU SCH (09:12)
[2022-12-26 11:50] VITALS: BP 120/68; TEMP 98.5; O2SAT 96
[2022-12-26] MEDS ORDERED: METO1TAB87 PO (15:39)
[2022-12-26] MEDS ORDERED: RISATAB3 PO (15:39)
[2022-12-26] MEDS ORDERED: CIPR-249 PO (15:39)
[2022-12-26] MEDS: WARFARIN SOD 7.5MG TAB PO SCH (18:17)
[2022-12-26] MEDS: CIPROFLOXACIN 500MG TABLET PO SCH (18:18)
[2022-12-26 20:00] VITALS: BP 125/60; TEMP 98.1; O2SAT 96
[2022-12-27 05:20] LABS: BASO # 0.1 10^3/uL (0.0-0.2); BASO % 0.7 % (0.0-1.0); EOS # 0.4 10^3/uL (0.0-0.5); EOS % 3.6 % (0.0-3.0); HEMATOCRIT 39.8 % (42.0-52.0); HEMOGLOBIN 12.3 g/dl (13.5-17.5); LYMPH # 1.3 10^3/uL (1.5-5.0); LYMPH % 12.5 % (24.0-44.0); MEAN CORPUSCULAR HEMOGLOBIN 26.7 pg (27.0-33.0); MEAN CORPUSCULAR HGB CONC 30.9 g/dl (32.0-36.5); MEAN CORPUSCULAR VOLUME 86.3 fl (80.0-96.0); MONO # 1.1 10^3/uL (0.0-0.8); MONO % 10.7 % (2.0-8.0); NEUTROPHILS # 7.7 10^3/uL (1.5-8.5); NEUTROPHILS % 72.1 % (36.0-66.0); PLATELET COUNT, AUTOMATED 270 10^3/uL (150-450); RED BLOOD COUNT 4.61 10^6/uL (4.30-6.10); WHITE BLOOD COUNT 10.7 10^3/uL (4.0-10.0)
[2022-12-27 05:47] LABS: BLOOD UREA NITROGEN 17 MG/DL (9-23); CALCIUM LEVEL 8.5 MG/DL (8.3-10.6); CARBON DIOXIDE LEVEL 33 MMOL/L (20-31); CHLORIDE LEVEL 101 MMOL/L (98-107); CREATININE FOR GFR 1.03 MG/DL (0.70-1.30); GLOMERULAR FILTRATION RATE > 60.0 (>42); GLUCOSE, FASTING 177 MG/DL (74-106); MAGNESIUM LEVEL 1.8 MG/DL (1.8-2.4); POTASSIUM SERUM 3.5 MMOL/L (3.5-5.1); SODIUM LEVEL 140 MMOL/L (136-145)
[2022-12-27] MEDS: CIPROFLOXACIN 500MG TABLET PO SCH (06:02)
[2022-12-27] MEDS: SINEMET 25-100 MG TAB PO SCH ×3 (06:02→13:23)
[2022-12-27 06:11] LABS: INR 2.51; PROTHROMBIN TIME 26.5 SECONDS (12.5-14.5)
[2022-12-27 07:31] VITALS: BP 123/56; TEMP 98.1; O2SAT 91
[2022-12-27] MEDS: SYMBICORT 80/4.5MCG INHALER 6GM INH SCH (07:38)
[2022-12-27] MEDS: DULoxetine 30MG CAPSULE (CYMBALTA) PO SCH (08:40)
[2022-12-27] MEDS: GABAPENTIN 100 MG CAP PO SCH ×2 (08:40→13:23)
[2022-12-27] MEDS: DOCUSATE SODIUM 100MG CAPSULE PO SCH (08:40)
[2022-12-27] MEDS: FUROSEMIDE 40 MG TAB PO SCH (08:40)
[2022-12-27] MEDS: BENZTROPINE 0.5 MG TAB PO SCH (08:40)
[2022-12-27] MEDS: aMILoride 5 MG TAB PO SCH (08:40)
[2022-12-27 08:41] VITALS: BP 123/56
[2022-12-27] MEDS: LACTOBACILLUS ACIDOPHILUS CAP (BACID) PO SCH ×2 (08:41→13:23)
[2022-12-27] MEDS: METOPROLOL TART 25 MG TABLET PO SCH (08:41)
[2022-12-27] MEDS: ROSUVASTATIN 10 MG TAB (CRESTOR) PO SCH (08:41)
[2022-12-27] MEDS: PANTOPRAZOLE 20 MG TAB PO SCH (08:41)
[2022-12-27] MEDS: SENNA 8.6 MG TAB (SENOKOT) PO SCH (08:41)
[2022-12-27] MEDS: POLYVINYL ALCOHOL OPHTH SOLN 15ML (LIQUITEARS) OU SCH (08:42)
[2022-12-27] MEDS: INSULIN LISPRO (NovoLOG) PER UNIT SC SCH ×2 (08:42→13:22)
[2022-12-27] MEDS: LEVEMIR (INSULIN DETEMIR) 1 UNITS/0.01ML SC SCH (08:42)
[2022-12-27] MEDS ORDERED: allopurinoL 100 MG TAB PO SCH (09:00)
[2022-12-27] MEDS: OYSTER SHELL CALCIUM 500 MG TAB PO SCH (09:57)
[2022-12-27] MEDS ORDERED: CIPR-249 PO (12:02)
== END 2022-12-27 17:03 | disposition home health service (06) | DRG 466 ==
LOC: M ED 01:15 → M ED INP 07:55 → M PCU 16:37
PROVIDERS: ADMIT Internal Medicine; ATTEND Internal Medicine
PROC: B246ZZZ Ultrasonography of Right and Left Heart (ICD-10-PCS; principal; 2022-12-23)
DX: T83.511A Infection and inflammatory reaction due to indwelling urethral catheter, initial encounter (principal); A41.9 Sepsis, unspecified organism; E87.20 Acidosis, unspecified; I11.0 Hypertensive heart disease with heart failure; G20.C Parkinsonism, unspecified; Z68.41 Body mass index [BMI] 40.0-44.9, adult; E11.9 Type 2 diabetes mellitus without complications; B96.5 Pseudomonas (aeruginosa) (mallei) (pseudomallei) as the cause of diseases classified elsewhere; I50.32 Chronic diastolic (congestive) heart failure; J44.9 Chronic obstructive pulmonary disease, unspecified; I48.0 Paroxysmal atrial fibrillation; N30.90 Cystitis, unspecified without hematuria; N31.2 Flaccid neuropathic bladder, not elsewhere classified; D64.9 Anemia, unspecified; E55.9 Vitamin D deficiency, unspecified; N40.1 Benign prostatic hyperplasia with lower urinary tract symptoms; B34.8 Other viral infections of unspecified site; E78.5 Hyperlipidemia, unspecified; K21.9 Gastro-esophageal reflux disease without esophagitis; M10.9 Gout, unspecified; R33.9 Retention of urine, unspecified; G47.33 Obstructive sleep apnea (adult) (pediatric); R41.0 Disorientation, unspecified; Y84.6 Urinary catheterization as the cause of abnormal reaction of the patient, or of later complication, without mention of misadventure at the time of the procedure; G89.29 Other chronic pain; E66.9 Obesity, unspecified; M54.9 Dorsalgia, unspecified; F41.9 Anxiety disorder, unspecified; F32.A Depression, unspecified; Z86.711 Personal history of pulmonary embolism; Z86.718 Personal history of other venous thrombosis and embolism; Z79.01 Long term (current) use of anticoagulants; Z79.4 Long term (current) use of insulin; Z79.899 Other long term (current) drug therapy

== ENCOUNTER → 2022-12-31 | Outpatient (REF) | payer BC, MEDICARE ==
[~2022-12-31] MED LIST changes: +BENZ0.5T2 PO; +METO1TAB87 PO; +RISATAB3 PO; +SENN-186 PO
[2022-12-31 11:30] LABS: INR 2.08; PROTHROMBIN TIME 22.8 SECONDS (12.5-14.5)
== END ==
LOC: M SHH 10:57
PROVIDERS: ATTEND Internal Medicine
DX: Z79.01 Long term (current) use of anticoagulants (principal)

== ENCOUNTER 2023-01-08 22:45 | Inpatient (IN) | payer BC, MEDICARE ==
[~2023-01-08] VITALS: Ht 162.6 cm; Wt 104.5 kg
[~2023-01-08 22:45] MED LIST changes: +GLIP5TAB17 PO; -GLIP5TAB8 PO
[2023-01-08] MEDS ORDERED: NS 1,000 ML IV ONE (23:55)
[2023-01-09] VITALS (9 sets, daily range): BP systolic 113–150; BP diastolic 55–70; TEMP 97.3–103.8; O2SAT 91–97
[2023-01-09 00:18] LABS: BASO % 0.2 % (0.0-1.0); EOS % 0.1 % (0.0-3.0); HEMATOCRIT 36.5 % (42.0-52.0); HEMOGLOBIN 12.1 g/dl (13.5-17.5); LYMPH # 0.5 10^3/uL (1.5-5.0); LYMPH % 4.2 % (24.0-44.0); MEAN CORPUSCULAR HEMOGLOBIN 27.6 pg (27.0-33.0); MEAN CORPUSCULAR HGB CONC 33.2 g/dl (32.0-36.5); MEAN CORPUSCULAR VOLUME 83.1 fl (80.0-96.0); MONO # 0.8 10^3/uL (0.0-0.8); MONO % 6.9 % (2.0-8.0); NEUTROPHILS # 10.8 10^3/uL (1.5-8.5); NEUTROPHILS % 88.3 % (36.0-66.0); PLATELET COUNT, AUTOMATED 269 10^3/uL (150-450); RED BLOOD COUNT 4.39 10^6/uL (4.30-6.10); WHITE BLOOD COUNT 12.3 10^3/uL (4.0-10.0)
[2023-01-09 00:30] LABS: INR 3.15; PROTHROMBIN TIME 31.6 SECONDS (12.5-14.5)
[2023-01-09 00:32] LABS: PARTIAL THROMBOPLASTIN TIME 40.9 SECONDS (24.8-34.2)
[2023-01-09 00:37] LABS: LIPASE 31 U/L (12-53)
[2023-01-09 00:39] LABS: ALKALINE PHOSPHATASE 67 U/L (46-116); ALT/SGPT < 9 U/L (7.0-40); AST/SGOT 14 U/L (<34); BILIRUBIN,DIRECT 0.1 MG/DL (<0.4); BILIRUBIN,TOTAL 0.4 MG/DL (0.3-1.2); BLOOD UREA NITROGEN 17 MG/DL (9-23); CARBON DIOXIDE LEVEL 27 MMOL/L (20-31); CHLORIDE LEVEL 101 MMOL/L (98-107); CREATININE FOR GFR 0.86 MG/DL (0.70-1.30); GLOMERULAR FILTRATION RATE > 60.0 (>42); GLUCOSE, FASTING 359 MG/DL (74-106); POTASSIUM SERUM 3.6 MMOL/L (3.5-5.1); SODIUM LEVEL 137 MMOL/L (136-145); TOTAL PROTEIN 5.9 G/DL (5.7-8.2)
[2023-01-09] MEDS ORDERED: IBUPROFEN 800 MG TAB PO ONE (00:55)
[2023-01-09] MEDS ORDERED: PIPERACILLIN/TAZOBACTAM SOD 3.375 GM in D5W MINI-BAG PLUS 50 ML IV ONE (00:55)
[2023-01-09] MEDS ORDERED: ACETAMINOPHEN TAB 650MG DOSE (2X325MG) PO ONE (00:55)
[2023-01-09] MEDS ORDERED: WARF-58 PO (03:24)
[2023-01-09] MEDS ORDERED: THERTAB19 PO (03:25)
[2023-01-09] MEDS ORDERED: HOME MED LIST COMPLETE! XX SCH (03:30)
[2023-01-09] MEDS ORDERED: HumuLIN R (REGULAR) INSULIN (NovoLIN R) **100U/ML** PER UNIT IV STA (03:43)
[2023-01-09] MEDS ORDERED: GLUCOSE 4GM CHEW TABLET PO PRN (03:45)
[2023-01-09] MEDS ORDERED: ALBUTEROL SULFATE 2.5MG/0.5ML INH NEB SOLN NEB PRN (03:45)
[2023-01-09] MEDS ORDERED: GLUCAGON INJ 1MG VIAL SC PRN (03:45)
[2023-01-09] MEDS ORDERED: ACETAMINOPHEN 500 MG TAB PO PRN (03:45)
[2023-01-09] MEDS ORDERED: DEXTROSE 50% 50ML SYRINGE IV PRN (03:45)
[2023-01-09] MEDS: NS 1,000 ML IV SCH ×3 (04:22→16:24)
[2023-01-09] MEDS ORDERED: NS 1,000 ML IV ONE (05:10)
[2023-01-09] MEDS ORDERED: PILL CUTTER 1 EACH XX PRN (05:45)
[2023-01-09 06:14] LABS: INR 3.26; PROTHROMBIN TIME 32.4 SECONDS (12.5-14.5)
[2023-01-09] MEDS: PIPERACILLIN/TAZOBACTAM SOD 3.375 GM in D5W MINI-BAG PLUS 50 ML IV SCH ×3 (07:46→18:34)
[2023-01-09] MEDS: IPRATROPIUM 0.5MG/ALBUTEROL 2.5MG INH SOL UD 3ML (DUONEB) NEB SCH ×3 (07:54→19:17)
[2023-01-09] MEDS: ROSUVASTATIN 10 MG TAB (CRESTOR) PO SCH (08:43)
[2023-01-09] MEDS: aMILoride 5 MG TAB PO SCH (08:43)
[2023-01-09] MEDS: GABAPENTIN 100 MG CAP PO SCH ×4 (08:44→20:08)
[2023-01-09] MEDS: SINEMET 25-100 MG TAB PO SCH ×5 (08:44→20:08)
[2023-01-09] MEDS: allopurinoL 100 MG TAB PO SCH (08:44)
[2023-01-09] MEDS: DULoxetine 30MG CAPSULE (CYMBALTA) PO SCH (08:44)
[2023-01-09] MEDS: INSULIN LISPRO (NovoLOG) PER UNIT SC SCH ×4 (08:45→20:01)
[2023-01-09] MEDS ORDERED: LEVEMIR (INSULIN DETEMIR) 1 UNITS/0.01ML SC SCH (09:00)
[2023-01-09] MEDS ORDERED: METOPROLOL TART 25 MG TABLET PO SCH (09:00)
[2023-01-09] MEDS: PANTOPRAZOLE 20 MG TAB PO SCH (09:08)
[2023-01-09] MEDS ORDERED: ISOVUE-370 76% 100ML VIAL As Ordered ONE (09:43)
[2023-01-09] MEDS ORDERED: LEVEMIR (INSULIN DETEMIR) 1 UNITS/0.01ML SC ONE (11:00)
[2023-01-09] MEDS: SYMBICORT 80/4.5MCG INHALER 6GM INH SCH ×2 (15:12→19:17)
[2023-01-09] MEDS: ACETAMINOPHEN TAB 650MG DOSE (2X325MG) PO PRN (16:23)
[2023-01-09 17:19] LABS: BLOOD UREA NITROGEN 12 MG/DL (9-23); CALCIUM LEVEL 8.1 MG/DL (8.3-10.6); CARBON DIOXIDE LEVEL 29 MMOL/L (20-31); CHLORIDE LEVEL 103 MMOL/L (98-107); CREATININE FOR GFR 0.86 MG/DL (0.70-1.30); GLOMERULAR FILTRATION RATE > 60.0 (>42); GLUCOSE, FASTING 272 MG/DL (74-106); POTASSIUM SERUM 3.9 MMOL/L (3.5-5.1); SODIUM LEVEL 139 MMOL/L (136-145)
[2023-01-09] MEDS ORDERED: ACETAMINOPHEN *IV* 1,000 MG in IV 1 EA IV ONE (18:00)
[2023-01-09] MEDS: LEVEMIR (INSULIN DETEMIR) 1 UNITS/0.01ML SC SCH (20:08)
[2023-01-10] VITALS (11 sets, daily range): BP systolic 100–132; BP diastolic 52–87; TEMP 97–102.8; O2SAT 90–95
[2023-01-10] MEDS: ACETAMINOPHEN TAB 650MG DOSE (2X325MG) PO PRN ×2 (00:07→20:12)
[2023-01-10] MEDS: PIPERACILLIN/TAZOBACTAM SOD 3.375 GM in D5W MINI-BAG PLUS 50 ML IV SCH ×4 (00:35→18:12)
[2023-01-10] MEDS ORDERED: ACETAMINOPHEN TAB 650MG DOSE (2X325MG) PO ONE (01:05)
[2023-01-10] MEDS: IPRATROPIUM 0.5MG/ALBUTEROL 2.5MG INH SOL UD 3ML (DUONEB) NEB SCH ×4 (02:07→20:03)
[2023-01-10] MEDS: NS 1,000 ML IV SCH ×2 (05:55→23:17)
[2023-01-10 06:24] LABS: BASO % 0.7 % (0.0-1.0); EOS % 0.5 % (0.0-3.0); HEMATOCRIT 33.9 % (42.0-52.0); HEMOGLOBIN 11.3 g/dl (13.5-17.5); LYMPH # 0.5 10^3/uL (1.5-5.0); LYMPH % 9.2 % (24.0-44.0); MEAN CORPUSCULAR HEMOGLOBIN 27.9 pg (27.0-33.0); MEAN CORPUSCULAR HGB CONC 33.3 g/dl (32.0-36.5); MEAN CORPUSCULAR VOLUME 83.7 fl (80.0-96.0); MONO # 0.4 10^3/uL (0.0-0.8); MONO % 6.2 % (2.0-8.0); NEUTROPHILS # 4.8 10^3/uL (1.5-8.5); NEUTROPHILS % 83.2 % (36.0-66.0); PLATELET COUNT, AUTOMATED 208 10^3/uL (150-450); RED BLOOD COUNT 4.05 10^6/uL (4.30-6.10); WHITE BLOOD COUNT 5.8 10^3/uL (4.0-10.0)
[2023-01-10] MEDS: SINEMET 25-100 MG TAB PO SCH ×5 (06:30→20:12)
[2023-01-10 06:55] LABS: BLOOD UREA NITROGEN 11 MG/DL (9-23); CALCIUM LEVEL 7.6 MG/DL (8.3-10.6); CARBON DIOXIDE LEVEL 27 MMOL/L (20-31); CHLORIDE LEVEL 106 MMOL/L (98-107); CREATININE FOR GFR 0.82 MG/DL (0.70-1.30); GLOMERULAR FILTRATION RATE > 60.0 (>42); GLUCOSE, FASTING 150 MG/DL (74-106); POTASSIUM SERUM 3.4 MMOL/L (3.5-5.1); SODIUM LEVEL 139 MMOL/L (136-145)
[2023-01-10 06:56] LABS: INR 3.17; PROTHROMBIN TIME 31.8 SECONDS (12.5-14.5)
[2023-01-10] MEDS: SYMBICORT 80/4.5MCG INHALER 6GM INH SCH ×2 (08:03→20:04)
[2023-01-10] MEDS: INSULIN LISPRO (NovoLOG) PER UNIT SC SCH ×4 (08:14→20:12)
[2023-01-10] MEDS ORDERED: PREVNAR-20 VACCINE 0.5ML SYRINGE IM.IMMUN ONE (09:00)
[2023-01-10] MEDS: METOPROLOL TART 25 MG TABLET PO SCH (09:47)
[2023-01-10] MEDS: LEVEMIR (INSULIN DETEMIR) 1 UNITS/0.01ML SC SCH ×2 (09:47→20:11)
[2023-01-10] MEDS: ROSUVASTATIN 10 MG TAB (CRESTOR) PO SCH (09:48)
[2023-01-10] MEDS: GABAPENTIN 100 MG CAP PO SCH ×4 (09:48→20:11)
[2023-01-10] MEDS: aMILoride 5 MG TAB PO SCH (09:48)
[2023-01-10] MEDS: DULoxetine 30MG CAPSULE (CYMBALTA) PO SCH (09:48)
[2023-01-10] MEDS: allopurinoL 100 MG TAB PO SCH (09:48)
[2023-01-10] MEDS: PANTOPRAZOLE 20 MG TAB PO SCH (09:49)
[2023-01-10] MEDS ORDERED: POTASSIUM CHLORIDE 10MEQ SR TABLET PO ONE (10:30)
[2023-01-10 13:34] LABS: PROCALCITONIN 0.45 ng/ml
[2023-01-11] MEDS: PIPERACILLIN/TAZOBACTAM SOD 3.375 GM in D5W MINI-BAG PLUS 50 ML IV SCH ×4 (00:58→18:44)
[2023-01-11] MEDS: IPRATROPIUM 0.5MG/ALBUTEROL 2.5MG INH SOL UD 3ML (DUONEB) NEB SCH ×2 (01:57→06:58)
[2023-01-11 03:01] VITALS: BP 129/61; TEMP 97.5; O2SAT 95
[2023-01-11] MEDS: SINEMET 25-100 MG TAB PO SCH ×5 (06:33→20:50)
[2023-01-11 06:43] LABS: BASO % 0.9 % (0.0-1.0); EOS # 0.2 10^3/uL (0.0-0.5); EOS % 4.9 % (0.0-3.0); HEMATOCRIT 34.5 % (42.0-52.0); HEMOGLOBIN 11.2 g/dl (13.5-17.5); LYMPH # 0.8 10^3/uL (1.5-5.0); LYMPH % 18.1 % (24.0-44.0); MEAN CORPUSCULAR HEMOGLOBIN 27.5 pg (27.0-33.0); MEAN CORPUSCULAR HGB CONC 32.5 g/dl (32.0-36.5); MEAN CORPUSCULAR VOLUME 84.6 fl (80.0-96.0); MONO # 0.7 10^3/uL (0.0-0.8); NEUTROPHILS # 2.9 10^3/uL (1.5-8.5); NEUTROPHILS % 61.9 % (36.0-66.0); PLATELET COUNT, AUTOMATED 220 10^3/uL (150-450); RED BLOOD COUNT 4.08 10^6/uL (4.30-6.10); WHITE BLOOD COUNT 4.7 10^3/uL (4.0-10.0)
[2023-01-11 06:51] LABS: INR 2.51; PROTHROMBIN TIME 26.5 SECONDS (12.5-14.5)
[2023-01-11] MEDS: SYMBICORT 80/4.5MCG INHALER 6GM INH SCH ×2 (06:57→19:38)
[2023-01-11 07:05] LABS: BLOOD UREA NITROGEN 11 MG/DL (9-23); CALCIUM LEVEL 7.6 MG/DL (8.3-10.6); CARBON DIOXIDE LEVEL 29 MMOL/L (20-31); CHLORIDE LEVEL 106 MMOL/L (98-107); CREATININE FOR GFR 0.94 MG/DL (0.70-1.30); GLOMERULAR FILTRATION RATE > 60.0 (>42); GLUCOSE, FASTING 204 MG/DL (74-106); POTASSIUM SERUM 3.4 MMOL/L (3.5-5.1); SODIUM LEVEL 142 MMOL/L (136-145)
[2023-01-11] MEDS ORDERED: POTASSIUM CHLORIDE 10MEQ SR TABLET PO ONE (07:45)
[2023-01-11 07:49] VITALS: BP 112/53; TEMP 98.2; O2SAT 91
[2023-01-11] MEDS: INSULIN LISPRO (NovoLOG) PER UNIT SC SCH ×4 (08:38→20:51)
[2023-01-11] MEDS: ROSUVASTATIN 10 MG TAB (CRESTOR) PO SCH (08:38)
[2023-01-11] MEDS: aMILoride 5 MG TAB PO SCH (08:38)
[2023-01-11] MEDS: LEVEMIR (INSULIN DETEMIR) 1 UNITS/0.01ML SC SCH ×2 (08:38→20:51)
[2023-01-11] MEDS: METOPROLOL TART 25 MG TABLET PO SCH (08:39)
[2023-01-11] MEDS: GABAPENTIN 100 MG CAP PO SCH ×4 (08:39→20:50)
[2023-01-11] MEDS: allopurinoL 100 MG TAB PO SCH (08:39)
[2023-01-11] MEDS: DULoxetine 30MG CAPSULE (CYMBALTA) PO SCH (08:39)
[2023-01-11] MEDS: PANTOPRAZOLE 20 MG TAB PO SCH (08:41)
[2023-01-11] MEDS: NS 1,000 ML IV SCH (11:01)
[2023-01-11] MEDS ORDERED: WARFARIN SOD 3MG TAB PO SCH (11:45)
[2023-01-11 11:51] VITALS: BP 100/68; TEMP 96.8; O2SAT 95
[2023-01-11 12:41] LABS: INR 2.33
[2023-01-11 15:50] VITALS: BP 138/74; TEMP 97.2; O2SAT 95
[2023-01-11] MEDS ORDERED: WARFARIN SOD 2.5MG TAB PO SCH (17:00)
[2023-01-11] MEDS ORDERED: WARFARIN SOD 2MG TAB PO SCH (17:00)
[2023-01-11 19:42] VITALS: BP 127/57; TEMP 97.8; O2SAT 97
[2023-01-11] MEDS: SENOKOT S TAB PO SCH (21:00)
[2023-01-11] MEDS ORDERED: MOM 30ML SUSPENSION UDC PO PRN (22:40)
[2023-01-12 00:07] VITALS: BP 116/56; TEMP 97.7; O2SAT 92
[2023-01-12] MEDS: PIPERACILLIN/TAZOBACTAM SOD 3.375 GM in D5W MINI-BAG PLUS 50 ML IV SCH ×3 (00:07→13:00)
[2023-01-12 04:30] VITALS: BP 143/62; TEMP 98.1; O2SAT 92
[2023-01-12 05:23] LABS: BASO # 0.1 10^3/uL (0.0-0.2); BASO % 1.1 % (0.0-1.0); EOS # 0.5 10^3/uL (0.0-0.5); EOS % 8.2 % (0.0-3.0); HEMATOCRIT 37.1 % (42.0-52.0); HEMOGLOBIN 11.9 g/dl (13.5-17.5); LYMPH # 1.1 10^3/uL (1.5-5.0); LYMPH % 19.8 % (24.0-44.0); MEAN CORPUSCULAR HEMOGLOBIN 27.1 pg (27.0-33.0); MEAN CORPUSCULAR HGB CONC 32.1 g/dl (32.0-36.5); MEAN CORPUSCULAR VOLUME 84.5 fl (80.0-96.0); MONO # 0.9 10^3/uL (0.0-0.8); MONO % 15.1 % (2.0-8.0); NEUTROPHILS # 3.2 10^3/uL (1.5-8.5); NEUTROPHILS % 55.4 % (36.0-66.0); PLATELET COUNT, AUTOMATED 242 10^3/uL (150-450); RED BLOOD COUNT 4.39 10^6/uL (4.30-6.10); WHITE BLOOD COUNT 5.7 10^3/uL (4.0-10.0)
[2023-01-12 05:41] LABS: INR 2.12; PROTHROMBIN TIME 23.2 SECONDS (12.5-14.5)
[2023-01-12 05:47] LABS: BLOOD UREA NITROGEN 9 MG/DL (9-23); CALCIUM LEVEL 8.2 MG/DL (8.3-10.6); CARBON DIOXIDE LEVEL 31 MMOL/L (20-31); CHLORIDE LEVEL 108 MMOL/L (98-107); GLOMERULAR FILTRATION RATE > 60.0 (>42); GLUCOSE, FASTING 133 MG/DL (74-106); POTASSIUM SERUM 3.8 MMOL/L (3.5-5.1); SODIUM LEVEL 145 MMOL/L (136-145)
[2023-01-12] MEDS: SINEMET 25-100 MG TAB PO SCH ×3 (06:03→12:41)
[2023-01-12] MEDS: SYMBICORT 80/4.5MCG INHALER 6GM INH SCH (07:26)
[2023-01-12] MEDS: ROSUVASTATIN 10 MG TAB (CRESTOR) PO SCH (08:09)
[2023-01-12] MEDS: aMILoride 5 MG TAB PO SCH (08:09)
[2023-01-12] MEDS: DULoxetine 30MG CAPSULE (CYMBALTA) PO SCH (08:09)
[2023-01-12] MEDS: SENOKOT S TAB PO SCH (08:09)
[2023-01-12] MEDS: PANTOPRAZOLE 20 MG TAB PO SCH (08:09)
[2023-01-12] MEDS: GABAPENTIN 100 MG CAP PO SCH ×2 (08:09→12:41)
[2023-01-12] MEDS: allopurinoL 100 MG TAB PO SCH (08:10)
[2023-01-12] MEDS: LEVEMIR (INSULIN DETEMIR) 1 UNITS/0.01ML SC SCH (08:10)
[2023-01-12] MEDS: INSULIN LISPRO (NovoLOG) PER UNIT SC SCH ×2 (08:10→12:42)
[2023-01-12 08:11] VITALS: BP 103/74; TEMP 97.3; O2SAT 94
[2023-01-12 08:15] VITALS: BP 103/74
[2023-01-12] MEDS: METOPROLOL TART 25 MG TABLET PO SCH (08:15)
[2023-01-12] MEDS ORDERED: LEVO1TAB38 PO (12:00)
[2023-01-13] MEDS ORDERED: WARFARIN SOD 3MG TAB PO SCH (17:00)
== END 2023-01-12 14:30 | disposition home or self-care (01) | DRG 720 ==
LOC: M ED 22:45 → M ED INP 01-09 03:43 → M PCU 01-09 05:40
PROVIDERS: ADMIT Internal Medicine; ATTEND Internal Medicine
DX: A41.9 Sepsis, unspecified organism (principal); D68.61 Antiphospholipid syndrome; G20.A1 Parkinson's disease without dyskinesia, without mention of fluctuations; E11.42 Type 2 diabetes mellitus with diabetic polyneuropathy; I11.0 Hypertensive heart disease with heart failure; I50.32 Chronic diastolic (congestive) heart failure; J44.9 Chronic obstructive pulmonary disease, unspecified; T83.511A Infection and inflammatory reaction due to indwelling urethral catheter, initial encounter; N39.0 Urinary tract infection, site not specified; Z86.711 Personal history of pulmonary embolism; R33.9 Retention of urine, unspecified; N40.0 Benign prostatic hyperplasia without lower urinary tract symptoms; K59.09 Other constipation; M10.9 Gout, unspecified; K21.9 Gastro-esophageal reflux disease without esophagitis; E78.00 Pure hypercholesterolemia, unspecified; R19.7 Diarrhea, unspecified; Z79.01 Long term (current) use of anticoagulants; Z79.84 Long term (current) use of oral hypoglycemic drugs; Z79.899 Other long term (current) drug therapy; Z20.822 Contact with and (suspected) exposure to COVID-19

== ENCOUNTER → 2023-01-21 | Outpatient (REF) | payer BC, MEDICARE ==
[~2023-01-21] MED LIST changes: +LEVO1TAB38 PO; +THERTAB19 PO
[2023-01-21 13:24] LABS: INR 1.56; PROTHROMBIN TIME 18.3 SECONDS (12.5-14.5)
== END ==
LOC: M SHH 12:11
PROVIDERS: ATTEND Internal Medicine Cardiovascular Disease
DX: Z86.711 Personal history of pulmonary embolism (principal)

== ENCOUNTER → 2023-01-28 | Outpatient (REF) | payer BC, MEDICARE ==
[2023-01-28 16:14] LABS: INR 1.88; PROTHROMBIN TIME 20.9 SECONDS (12.5-14.5)
== END ==
LOC: M SHH 15:29
PROVIDERS: ATTEND Internal Medicine Cardiovascular Disease
DX: Z86.711 Personal history of pulmonary embolism (principal)

== ENCOUNTER → 2023-02-04 | Outpatient (REF) | payer BC, MEDICARE ==
[2023-02-04 12:50] LABS: INR 3.6; PROTHROMBIN TIME 34.6 SECONDS (12.5-14.5)
== END ==
LOC: M SHH 11:37
PROVIDERS: ATTEND Internal Medicine Cardiovascular Disease
DX: Z86.711 Personal history of pulmonary embolism (principal)

== ENCOUNTER → 2023-02-25 | Outpatient (REF) | payer BC, MEDICARE | LOC: M LAB REF 17:04 | PROVIDERS: ATTEND Nurse Practitioner Family | DX: N39.0 Urinary tract infection, site not specified (principal) ==

== ENCOUNTER → 2023-03-16 | Outpatient (REF) | payer BC ==
[2023-03-17 12:53] LABS: AMORPHOUS SEDIMENT SMALL (NEGATIVE); APPEARANCE, URINE HAZY (CLEAR); BACTERIA, URINE AUTO NEGATIVE (NEGATIVE); BILIRUBIN, URINE AUTO NEGATIVE (NEGATIVE); BLOOD, URINE BLOOD NEGATIVE (NEGATIVE); CALCIUM OXALATE CRYSTALS SMALL; COLOR, URINE YELLOW (YELLOW); GLUCOSE, URINE (UA) AUTO 1+ mg/dL (NEGATIVE); KETONE, URINE AUTO TRACE mg/dL (NEGATIVE); LEUKOCYTE ESTERASE, URINE AUTO 1+ (NEGATIVE); NITRITE, URINE AUTO NEGATIVE (NEGATIVE); PROTEIN, URINE AUTO 1+ mg/dL (NEGATIVE); RBC, URINE AUTO 3 /HPF (0-3); SPECIFIC GRAVITY URINE AUTO 1.016 (1.002-1.035); SQUAMOUS EPITHELIAL CELL UR AU 0 /HPF (0-6); UROBILINOGEN, URINE AUTO 0.2 mg/dL (0.0-2.0); WBC, URINE AUTO 21 /HPF (0-3)
== END ==
LOC: M SFHCPLAZ 10:28
PROVIDERS: ATTEND Family Medicine
DX: R82.90 Unspecified abnormal findings in urine (principal)

== ENCOUNTER 2023-04-16 08:32 | Emergency (ER) | payer BC, OTHER ==
[~2023-04-16] VITALS: Ht 165.1 cm; Wt 101.7 kg
[2023-04-16] MEDS ORDERED: WARF-60 PO (08:46)
[2023-04-16] MEDS ORDERED: WARF-58 PO (08:46)
[2023-04-16 11:59] VITALS: BP 130/69; TEMP 98.1; O2SAT 96
== END 2023-04-16 11:59 | disposition home or self-care (01) ==
LOC: M ED 08:32
DX: T83.021A Displacement of indwelling urethral catheter, initial encounter (principal)

== ENCOUNTER → 2023-05-27 | Outpatient (CLI) | payer BC, OTHER ==
[~2023-05-27] MED LIST changes: +WARF-60 PO
[2023-05-27 12:33] LABS: ALBUMIN 3.5 G/DL (3.2-5.2); ALKALINE PHOSPHATASE 50 U/L (46-116); ALT/SGPT 19 U/L (7.0-40); AST/SGOT 14 U/L (<34); BILIRUBIN,TOTAL 0.3 MG/DL (0.3-1.2); BLOOD UREA NITROGEN 25 MG/DL (9-23); CALCIUM LEVEL 9.2 MG/DL (8.3-10.6); CARBON DIOXIDE LEVEL 31 MMOL/L (20-31); CHLORIDE LEVEL 104 MMOL/L (98-107); CHOLESTEROL LEVEL 116 MG/DL (<200); CHOLESTEROL RISK RATIO 3.37 (<5); CREATININE FOR GFR 0.84 MG/DL (0.70-1.30); GLOMERULAR FILTRATION RATE > 60.0 (>42); GLUCOSE, FASTING 119 MG/DL (74-106); HDL CHOLESTEROL 34.4 MG/DL (>40); LDL CHOLESTEROL 31.4 MG/DL (<100); NON-HDL-C 81.6 MG/DL; POTASSIUM SERUM 4.4 MMOL/L (3.5-5.1); SODIUM LEVEL 140 MMOL/L (136-145); TOTAL PROTEIN 6.6 G/DL (5.7-8.2); TRIGLYCERIDES LEVEL 251 MG/DL (<150)
[2023-05-27 12:35] LABS: TOTAL 25(OH) VITAMIN D 94.9 NG/ML (20.0-100.0)
[2023-05-27 12:45] LABS: HEMOGLOBIN A1c 8.5 % (4.0-6.0)
== END ==
LOC: M PLALAB 08:47
PROVIDERS: ATTEND Family Medicine
DX: E55.9 Vitamin D deficiency, unspecified (principal); E11.8 Type 2 diabetes mellitus with unspecified complications; I50.32 Chronic diastolic (congestive) heart failure

== ENCOUNTER → 2023-06-06 | Outpatient (CLI) | payer BC, OTHER ==
[~2023-06-06] MED LIST changes: +CALC200T15 PO; +LUBI24CA PO; +OXYC1TAB23 PO; +ROPI1TAB73 PO; +SEMA1PEN2 SC; +THERTAB65 PO; +TOUJ300I2 SC
[2023-06-06 15:44] LABS: HEMATOCRIT 40.8 % (42.0-52.0); HEMOGLOBIN 13.2 g/dl (13.5-17.5); MEAN CORPUSCULAR HEMOGLOBIN 28.1 pg (27.0-33.0); MEAN CORPUSCULAR HGB CONC 32.4 g/dl (32.0-36.5); PLATELET COUNT, AUTOMATED 260 10^3/uL (150-450); RED BLOOD COUNT 4.69 10^6/uL (4.30-6.10); WHITE BLOOD COUNT 8.5 10^3/uL (4.0-10.0)
[2023-06-06 16:15] LABS: INR 2.77; PARTIAL THROMBOPLASTIN TIME 40.7 SECONDS (24.8-34.2); PROTHROMBIN TIME 28.3 SECONDS (12.5-14.5)
[2023-06-06 16:19] LABS: BLOOD UREA NITROGEN 16 MG/DL (9-23); CALCIUM LEVEL 8.6 MG/DL (8.3-10.6); CARBON DIOXIDE LEVEL 32 MMOL/L (20-31); CHLORIDE LEVEL 100 MMOL/L (98-107); CREATININE FOR GFR 0.88 MG/DL (0.70-1.30); GLOMERULAR FILTRATION RATE > 60.0 (>42); GLUCOSE, FASTING 128 MG/DL (74-106); POTASSIUM SERUM 3.7 MMOL/L (3.5-5.1); SODIUM LEVEL 138 MMOL/L (136-145)
== END ==
LOC: M RAD 14:23
PROVIDERS: ATTEND Urology
DX: Z01.818 Encounter for other preprocedural examination (principal); R33.9 Retention of urine, unspecified; Z79.01 Long term (current) use of anticoagulants

== ENCOUNTER → 2023-06-08 | Outpatient (REF) | payer BC, OTHER ==
[~2023-06-08] MED LIST changes: -CALC200T15 PO; -LUBI24CA PO; -OXYC1TAB23 PO; -ROPI1TAB73 PO; -SEMA1PEN2 SC; -THERTAB65 PO; -TOUJ300I2 SC
[2023-06-08 18:28] LABS: APPEARANCE, URINE MANUAL TURBID (CLEAR); BILIRUBIN, URINE MANUAL NEGATIVE (NEGATIVE); BLOOD URINE MANUAL POSITIVE (NEGATIVE); COLOR, URINE MANUAL RED (YELLOW); GLUCOSE, URINE (UA) MANUAL NEGATIVE (NEGATIVE); KETONE, URINE MANUAL NEGATIVE (NEGATIVE); LEUKOCYTE ESTERASE, URINE MAN TRACE (NEGATIVE); NITRITE, URINE MANUAL NEGATIVE (NEGATIVE); PROTEIN, URINE MANUAL 3+ mg/dL (NEGATIVE); UROBILINOGEN, URINE MANUAL NORMAL (NORMAL)
[2023-06-08 18:34] LABS: HYALINE CAST, URINE NONE SEEN /lpf (0-1); RBC, URINE TNTC /hpf (0-3); SQUAMOUS EPITHELIAL CELL URINE NONE SEEN /hpf (SMALL AMT)
[2023-06-08 18:36] LABS: BACTERIA, URINE SMALL AMOUNT; CALCIUM OXALATE CRYSTALS,URINE SMALL AMOUNT /hpf
== END ==
LOC: M SMT 17:24
PROVIDERS: ATTEND Urology
DX: N39.0 Urinary tract infection, site not specified (principal); B96.89 Other specified bacterial agents as the cause of diseases classified elsewhere; B95.7 Other staphylococcus as the cause of diseases classified elsewhere

== ENCOUNTER 2023-06-20 08:07 | Day surgery (SDC) | payer BC, OTHER ==
[~2023-06-20] VITALS: Ht 165.1 cm; Wt 102.1 kg
[2023-06-20 09:00] LABS: INR 1.39; PROTHROMBIN TIME 16.6 SECONDS (12.5-14.5)
[2023-06-20] MEDS: LR 1,000 ML IV SCH (09:00)
[2023-06-20] MEDS ORDERED: TOUJ300I2 SC (09:47)
[2023-06-20] MEDS ORDERED: SEMA1PEN2 SC (09:47)
[2023-06-20] MEDS ORDERED: CALC200T15 PO (09:47)
[2023-06-20] MEDS ORDERED: LUBI24CA PO (09:47)
[2023-06-20] MEDS ORDERED: THERTAB65 PO (09:47)
[2023-06-20] MEDS ORDERED: ROPI1TAB73 PO (09:47)
[2023-06-20] MEDS ORDERED: HOME MED LIST COMPLETE! XX SCH (09:50)
[2023-06-20] MEDS ORDERED: MIDAZOLAM INJ 2MG/2ML VIAL As Ordered ONE (10:14)
[2023-06-20] MEDS ORDERED: fentaNYL 100 MCG/2 ML INJECTION As Ordered ONE (10:15)
[2023-06-20] MEDS ORDERED: LIDOCAINE 2% 100MG/5ML SDV (FOR ANES.) As Ordered ONE (10:17)
[2023-06-20] MEDS ORDERED: propofoL 200 MG/20 ML VIAL As Ordered ONE (10:17)
[2023-06-20] MEDS ORDERED: SUGAMMADEX SODIUM 500 MG/5 ML VIAL (BRIDION) As Ordered ONE (10:18)
[2023-06-20] MEDS ORDERED: ROCURONIUM BROMIDE 50MG/5ML VIAL As Ordered ONE (10:18)
[2023-06-20] MEDS: INSULIN LISPRO (NovoLOG) PER UNIT SC PRN (10:33)
[2023-06-20] MEDS: cefTRIAXone SOD 1 GM in D5W MINI-BAG PLUS 50 ML IV ONE (10:40)
[2023-06-20] MEDS ORDERED: HYDROmorphone HCL 2MG/ML 1ML VIAL As Ordered ONE (11:14)
[2023-06-20] MEDS: ceFAZolin SOD 2 GM in IV 1 EA IV ONE (11:22)
[2023-06-20] MEDS ORDERED: hydrALAZINE 20MG/ML 1ML VIAL As Ordered ONE (11:25)
[2023-06-20] MEDS: LIDOCAINE 1% SDV 30ML VIAL As Ordered ONE (12:17)
[2023-06-20] MEDS ORDERED: oxyCODONE 5MG TAB PO PRN (12:20)
[2023-06-20] MEDS ORDERED: LR 1,000 ML IV SCH (12:20)
[2023-06-20] MEDS ORDERED: ONDANSETRON 4MG 2ML VIAL IV PRN (12:20)
[2023-06-20] MEDS ORDERED: HYDROMORPHONE HCL 0.5 MG/ 0.5 ML SYRINGE IV PRN (12:20)
[2023-06-20] MEDS ORDERED: fentaNYL 100 MCG/2 ML INJECTION IV PRN (12:20)
[2023-06-20] MEDS: LABETALOL 100MG/20ML VIAL IV PRN (12:39)
[2023-06-20] MEDS ORDERED: OXYC1TAB23 PO (12:58)
[2023-06-20] MEDS: ENOXAPARIN 40MG/0.4ML SYRINGE (J1650 PER 10MG) SC ONE (13:07)
[2023-06-20 13:53] VITALS: BP 139/64; TEMP 98.7; O2SAT 97
== END 2023-06-20 14:39 | disposition home or self-care (01) ==
LOC: M SDC 08:07
PROVIDERS: ATTEND Urology
DX: R33.9 Retention of urine, unspecified (principal); E11.9 Type 2 diabetes mellitus without complications; G47.30 Sleep apnea, unspecified; Z87.891 Personal history of nicotine dependence; Z79.899 Other long term (current) drug therapy; Z79.01 Long term (current) use of anticoagulants
CPT/HCPCS: 36415; 51040; 85610; 86850; 86900; 86901; 87635; J0360; J0665; J0696; J1170; J1650; J1815; J1920; J2250; J3010

== ENCOUNTER 2023-08-19 12:46 | Day surgery (SDC) | payer BC ==
[~2023-08-19] VITALS: Ht 165.1 cm; Wt 100.2 kg
[~2023-08-19 12:46] MED LIST changes: +CALC200T15 PO; +LUBI24CA PO; +NS 1,000 ML IV ONE; +OXYC1TAB23 PO; +ROPI1TAB73 PO; +SEMA1PEN2 SC; +THERTAB65 PO; +TOUJ300I2 SC
[2023-08-19] MEDS ORDERED: propofoL 200 MG/20 ML VIAL As Ordered ONE (12:56)
[2023-08-19] MEDS ORDERED: propofoL 500 MG/50 ML VIAL As Ordered ONE (12:56)
[2023-08-19 14:52] VITALS: BP 130/67; TEMP 98.2; O2SAT 96
== END 2023-08-19 15:04 | disposition home or self-care (01) ==
LOC: M OPP 12:46
PROVIDERS: ATTEND Internal Medicine Gastroenterology
DX: Z12.11 Encounter for screening for malignant neoplasm of colon (principal); Z86.010 Personal history of colon polyps; I10 Essential (primary) hypertension; E11.9 Type 2 diabetes mellitus without complications; E78.00 Pure hypercholesterolemia, unspecified; J44.9 Chronic obstructive pulmonary disease, unspecified; Z87.19 Personal history of other diseases of the digestive system; Z86.711 Personal history of pulmonary embolism; Z86.718 Personal history of other venous thrombosis and embolism; Z79.899 Other long term (current) drug therapy; Z79.51 Long term (current) use of inhaled steroids; G47.30 Sleep apnea, unspecified; Z79.01 Long term (current) use of anticoagulants; Z79.84 Long term (current) use of oral hypoglycemic drugs; Z79.4 Long term (current) use of insulin; M10.9 Gout, unspecified; Z87.891 Personal history of nicotine dependence

== ENCOUNTER → 2023-09-22 | Outpatient (REF) | payer BC ==
[~2023-09-22] MED LIST changes: -ALBU90AE IH; +ALBU90AE2 IH; -NS 1,000 ML IV ONE
[2023-09-22 13:42] LABS: APPEARANCE, URINE CLOUDY (CLEAR); BACTERIA, URINE AUTO NEGATIVE (NEGATIVE); BILIRUBIN, URINE AUTO NEGATIVE (NEGATIVE); BLOOD, URINE BLOOD 3+ (NEGATIVE); CALCIUM OXALATE CRYSTALS SMALL; COLOR, URINE YELLOW (YELLOW); GLUCOSE, URINE (UA) AUTO 2+ mg/dL (NEGATIVE); KETONE, URINE AUTO NEGATIVE (NEGATIVE); LEUKOCYTE ESTERASE, URINE AUTO 2+ (NEGATIVE); NITRITE, URINE AUTO NEGATIVE (NEGATIVE); PROTEIN, URINE AUTO 2+ mg/dL (NEGATIVE); RBC, URINE AUTO TNTC /HPF (0-3); SPECIFIC GRAVITY URINE AUTO 1.017 (1.002-1.035); SQUAMOUS EPITHELIAL CELL UR AU 0 /HPF (0-6); UROBILINOGEN, URINE AUTO 0.2 mg/dL (0.0-2.0); WBC, URINE AUTO 71 /HPF (0-3)
== END ==
LOC: M SMT 12:21
PROVIDERS: ATTEND Urology
DX: R30.0 Dysuria (principal)

== ENCOUNTER → 2023-10-18 | Outpatient (CLI) | payer BC ==
[2023-10-18 11:41] LABS: BASO # 0.1 10^3/uL (0.0-0.2); BASO % 0.9 % (0.0-1.0); EOS # 0.4 10^3/uL (0.0-0.5); EOS % 5.3 % (0.0-3.0); HEMATOCRIT 42.3 % (42.0-52.0); HEMOGLOBIN 13.3 g/dl (13.5-17.5); LYMPH # 2.2 10^3/uL (1.5-5.0); LYMPH % 26.5 % (24.0-44.0); MEAN CORPUSCULAR HEMOGLOBIN 26.8 pg (27.0-33.0); MEAN CORPUSCULAR HGB CONC 31.4 g/dl (32.0-36.5); MEAN CORPUSCULAR VOLUME 85.1 fl (80.0-96.0); MONO # 0.9 10^3/uL (0.0-0.8); MONO % 11.6 % (2.0-8.0); NEUTROPHILS # 4.5 10^3/uL (1.5-8.5); NEUTROPHILS % 55.5 % (36.0-66.0); PLATELET COUNT, AUTOMATED 295 10^3/uL (150-450); RED BLOOD COUNT 4.97 10^6/uL (4.30-6.10); WHITE BLOOD COUNT 8.1 10^3/uL (4.0-10.0)
[2023-10-18 11:59] LABS: HEMOGLOBIN A1c 8.9 % (4.0-6.0)
[2023-10-18 12:05] LABS: ALBUMIN 3.5 G/DL (3.2-5.2); ALKALINE PHOSPHATASE 62 U/L (46-116); ALT/SGPT 25 U/L (7.0-40); AST/SGOT 21 U/L (<34); BILIRUBIN,TOTAL 0.3 MG/DL (0.3-1.2); BLOOD UREA NITROGEN 16 MG/DL (9-23); CALCIUM LEVEL 9.1 MG/DL (8.3-10.6); CARBON DIOXIDE LEVEL 31 MMOL/L (20-31); CHLORIDE LEVEL 103 MMOL/L (98-107); CHOLESTEROL LEVEL 108 MG/DL (<200); CHOLESTEROL RISK RATIO 3.15 (<5); FERRITIN 62.8 NG/ML (10.5-307.3); GLOMERULAR FILTRATION RATE > 60.0 (>42); GLUCOSE, FASTING 115 MG/DL (74-106); HDL CHOLESTEROL 34.2 MG/DL (>40); LDL CHOLESTEROL 27.4 MG/DL (<100); NON-HDL-C 73.8 MG/DL; POTASSIUM SERUM 3.7 MMOL/L (3.5-5.1); PSA SCREENING 0.91 NG/ML (< 4.00); SODIUM LEVEL 143 MMOL/L (136-145); THYROID STIMULATING HORMONE 2.352 uIU/ML (0.55-4.78); TOTAL PROTEIN 6.7 G/DL (5.7-8.2); TRIGLYCERIDES LEVEL 232 MG/DL (<150)
[2023-10-18 12:07] LABS: FREE T4 1.01 NG/DL (0.89-1.76)
== END ==
LOC: M PLALAB 07:24
PROVIDERS: ATTEND Family Medicine
DX: Z12.5 Encounter for screening for malignant neoplasm of prostate (principal); E78.5 Hyperlipidemia, unspecified; E11.8 Type 2 diabetes mellitus with unspecified complications; Z86.711 Personal history of pulmonary embolism; K76.0 Fatty (change of) liver, not elsewhere classified
CPT/HCPCS: 36415; 80053; 80061; 82728; 83036; 83880; 84439; 84443; 85025; G0103

== ENCOUNTER → 2023-10-20 | Outpatient (REF) | payer BC | LOC: M SFHCPLAZ 16:23 | PROVIDERS: ATTEND Family Medicine | DX: Z53.9 Procedure and treatment not carried out, unspecified reason (principal) ==

== ENCOUNTER 2023-11-10 12:34 | Outpatient (CLI) | payer BC, MEDICARE ==
[~2023-11-10] VITALS: Ht 165.1 cm; Wt 100.0 kg
[~2023-11-10 12:34] MED LIST changes: +ALBUTEROL SULFATE 2.5MG/0.5ML INH NEB SOLN INH PRN; +EPINEPHrine INJ 1 MG/ML 1ML AMP IM PRN; +NS 1,000 ML IV SCH; +diphenhydrAMINE 50MG/ML VIAL IV PRN; +methylPREDNISolone 125MG 2ML VIAL IV PRN
[2023-11-10 12:45] VITALS: BP 115/63; O2SAT 96
[2023-11-10] MEDS: FERRIC CARBOXYMALTOSE INJ 750 MG in NS 250 ML (>50kg) IV ONE (12:53)
[2023-11-10 14:05] VITALS: BP 118/61; O2SAT 97
== END 2023-11-10 14:20 ==
LOC: M INFU 12:34
PROVIDERS: ATTEND Family Medicine
DX: D50.9 Iron deficiency anemia, unspecified (principal)
CPT/HCPCS: 96365; J1439

== ENCOUNTER → 2024-02-20 | Outpatient (CLI) | payer BC, OTHER ==
[~2024-02-20] MED LIST changes: -ALBUTEROL SULFATE 2.5MG/0.5ML INH NEB SOLN INH PRN; -EPINEPHrine INJ 1 MG/ML 1ML AMP IM PRN; -GOOD8.6T2 PO; -NS 1,000 ML IV SCH; +SENN-117 PO; -diphenhydrAMINE 50MG/ML VIAL IV PRN; -methylPREDNISolone 125MG 2ML VIAL IV PRN
[2024-02-20 12:30] LABS: ALBUMIN 3.8 G/DL (3.2-5.2); ALKALINE PHOSPHATASE 54 U/L (40-129); ALT/SGPT 22 U/L (7.0-40); AST/SGOT 11 U/L (<34); BASO # 0.1 10^3/uL (0.0-0.2); BASO % 0.6 % (0.0-1.0); BILIRUBIN,TOTAL 0.4 MG/DL (0.3-1.2); BLOOD UREA NITROGEN 17 MG/DL (9-23); CALCIUM LEVEL 9.3 MG/DL (8.3-10.6); CARBON DIOXIDE LEVEL 31 MMOL/L (20-31); CHLORIDE LEVEL 104 MMOL/L (98-107); CREATININE FOR GFR 0.85 MG/DL (0.70-1.30); EOS # 0.4 10^3/uL (0.0-0.5); EOS % 3.5 % (0.0-3.0); GLOMERULAR FILTRATION RATE > 60.0 (>42); GLUCOSE, FASTING 75 MG/DL (74-106); HEMOGLOBIN 14.1 g/dl (13.5-17.5); LYMPH % 16.9 % (24.0-44.0); MAGNESIUM LEVEL 1.9 MG/DL (1.8-2.4); MEAN CORPUSCULAR HEMOGLOBIN 29.2 pg (27.0-33.0); MEAN CORPUSCULAR VOLUME 91.1 fl (80.0-96.0); MONO % 8.3 % (2.0-8.0); NEUTROPHILS # 8.1 10^3/uL (1.5-8.5); NEUTROPHILS % 70.3 % (36.0-66.0); PLATELET COUNT, AUTOMATED 253 10^3/uL (150-450); POTASSIUM SERUM 3.8 MMOL/L (3.5-5.1); RED BLOOD COUNT 4.83 10^6/uL (4.30-6.10); SODIUM LEVEL 141 MMOL/L (136-145); TOTAL PROTEIN 7.2 G/DL (5.7-8.2); WHITE BLOOD COUNT 11.6 10^3/uL (4.0-10.0)
[2024-02-20 12:34] LABS: FERRITIN 180.6 NG/ML (10.5-307.3); VITAMIN B12 LEVEL 522 PG/ML (211-911)
== END ==
LOC: M PLALAB 07:02
PROVIDERS: ATTEND Family Medicine
DX: E11.8 Type 2 diabetes mellitus with unspecified complications (principal); D50.9 Iron deficiency anemia, unspecified; K74.00 Hepatic fibrosis, unspecified; I50.32 Chronic diastolic (congestive) heart failure

== ENCOUNTER → 2024-03-29 | Outpatient (REF) | payer BC, OTHER ==
[2024-03-29 13:01] LABS: APPEARANCE, URINE CLOUDY (CLEAR); BACTERIA, URINE AUTO NEGATIVE (NEGATIVE); BILIRUBIN, URINE AUTO NEGATIVE (NEGATIVE); BLOOD, URINE BLOOD 3+ (NEGATIVE); CALCIUM OXALATE CRYSTALS SMALL; COLOR, URINE YELLOW (YELLOW); GLUCOSE, URINE (UA) AUTO NEGATIVE (NEGATIVE); KETONE, URINE AUTO NEGATIVE (NEGATIVE); LEUKOCYTE ESTERASE, URINE AUTO 3+ (NEGATIVE); NITRITE, URINE AUTO NEGATIVE (NEGATIVE); PROTEIN, URINE AUTO 2+ mg/dL (NEGATIVE); RBC, URINE AUTO TNTC /HPF (0-3); SPECIFIC GRAVITY URINE AUTO 1.012 (1.002-1.035); SQUAMOUS EPITHELIAL CELL UR AU 0 /HPF (0-6); UROBILINOGEN, URINE AUTO 0.2 mg/dL (0.0-2.0); WBC, URINE AUTO 124 /HPF (0-3)
== END ==
LOC: M SMT 12:17
PROVIDERS: ATTEND Urology
DX: N39.0 Urinary tract infection, site not specified (principal)

== ENCOUNTER 2024-04-06 05:43 | Emergency (ER) | payer BC, OTHER ==
[2024-04-06 05:56] VITALS: TEMP 99
[2024-04-06 06:00] VITALS: BP 159/82
[2024-04-06] MEDS: DERMABOND TOPICAL SKIN ADHESIVE TOP ONE (06:10)
[2024-04-06 06:13] VITALS: O2SAT 96
[2024-04-06] MEDS: BOOSTRIX VACCINE (TETANUS/DIPHTH/ACEL. PERTUSSIS) 0.5ML SYR IM ONE (06:25)
[2024-04-06 06:26] LABS: BASO # 0.1 10^3/uL (0.0-0.2); BASO % 1.1 % (0.0-1.0); EOS # 0.5 10^3/uL (0.0-0.5); EOS % 5.4 % (0.0-3.0); HEMATOCRIT 43.7 % (42.0-52.0); HEMOGLOBIN 14.5 g/dl (13.5-17.5); LYMPH # 1.8 10^3/uL (1.5-5.0); LYMPH % 19.5 % (24.0-44.0); MEAN CORPUSCULAR HGB CONC 33.2 g/dl (32.0-36.5); MEAN CORPUSCULAR VOLUME 90.3 fl (80.0-96.0); MONO # 0.8 10^3/uL (0.0-0.8); MONO % 8.4 % (2.0-8.0); NEUTROPHILS % 65.4 % (36.0-66.0); PLATELET COUNT, AUTOMATED 262 10^3/uL (150-450); RED BLOOD COUNT 4.84 10^6/uL (4.30-6.10); WHITE BLOOD COUNT 9.2 10^3/uL (4.0-10.0)
[2024-04-06 06:38] LABS: INR 2.31; PARTIAL THROMBOPLASTIN TIME 37.5 SECONDS (24.8-34.2); PROTHROMBIN TIME 25.4 SECONDS (12.5-14.5)
[2024-04-06 07:57] LABS: BLOOD UREA NITROGEN 20 MG/DL (9-23); CALCIUM LEVEL 9.5 MG/DL (8.3-10.6); CARBON DIOXIDE LEVEL 30 MMOL/L (20-31); CHLORIDE LEVEL 104 MMOL/L (98-107); GLOMERULAR FILTRATION RATE > 60.0 (>42); GLUCOSE, FASTING 106 MG/DL (74-106); POTASSIUM SERUM 3.9 MMOL/L (3.5-5.1); SODIUM LEVEL 142 MMOL/L (136-145)
[2024-04-06] MEDS ORDERED: NYST1POW3 TOP (08:00)
== END 2024-04-06 09:21 | disposition home or self-care (01) ==
LOC: EDBD 05:43 → M ED 05:43
DX: S51.011A Laceration without foreign body of right elbow, initial encounter (principal); Y92.019 Unspecified place in single-family (private) house as the place of occurrence of the external cause; Y93.9 Activity, unspecified; Y99.9 Unspecified external cause status; W06.XXXA Fall from bed, initial encounter; Z79.1 Long term (current) use of non-steroidal anti-inflammatories (NSAID); Z79.01 Long term (current) use of anticoagulants; Z79.51 Long term (current) use of inhaled steroids; Z79.4 Long term (current) use of insulin; Z79.84 Long term (current) use of oral hypoglycemic drugs; Z79.899 Other long term (current) drug therapy

== ENCOUNTER → 2024-05-21 | Outpatient (CLI) | payer BC, OTHER ==
[~2024-05-21] MED LIST changes: +NYST1POW3 TOP
[2024-05-21 11:16] LABS: BASO # 0.1 10^3/uL (0.0-0.2); BASO % 0.8 % (0.0-1.0); EOS # 0.3 10^3/uL (0.0-0.5); HEMATOCRIT 43.4 % (42.0-52.0); HEMOGLOBIN 14.2 g/dl (13.5-17.5); LYMPH % 24.5 % (24.0-44.0); MEAN CORPUSCULAR HEMOGLOBIN 29.2 pg (27.0-33.0); MEAN CORPUSCULAR HGB CONC 32.7 g/dl (32.0-36.5); MEAN CORPUSCULAR VOLUME 89.3 fl (80.0-96.0); MONO # 0.9 10^3/uL (0.0-0.8); MONO % 10.2 % (2.0-8.0); NEUTROPHILS % 60.3 % (36.0-66.0); PLATELET COUNT, AUTOMATED 242 10^3/uL (150-450); RED BLOOD COUNT 4.86 10^6/uL (4.30-6.10); WHITE BLOOD COUNT 8.3 10^3/uL (4.0-10.0)
[2024-05-21 11:44] LABS: FERRITIN 117.5 NG/ML (10.5-307.3)
[2024-05-21 11:45] LABS: VITAMIN B12 LEVEL 418 PG/ML (211-911)
[2024-05-21 11:49] LABS: HEMOGLOBIN A1c 7.4 % (4.0-6.0)
[2024-05-21 11:53] LABS: ALBUMIN 3.6 G/DL (3.2-5.2); ALKALINE PHOSPHATASE 53 U/L (40-129); ALT/SGPT 35 U/L (7.0-40); AST/SGOT 22 U/L (<34); BILIRUBIN,TOTAL 0.2 MG/DL (0.3-1.2); BLOOD UREA NITROGEN 14 MG/DL (9-23); CALCIUM LEVEL 8.8 MG/DL (8.3-10.6); CARBON DIOXIDE LEVEL 26 MMOL/L (20-31); CHLORIDE LEVEL 107 MMOL/L (98-107); CHOLESTEROL LEVEL 158 MG/DL (<200); CHOLESTEROL RISK RATIO 4.16 (<5); CREATININE FOR GFR 0.72 MG/DL (0.70-1.30); GLOMERULAR FILTRATION RATE > 60.0 (>42); GLUCOSE, FASTING 95 MG/DL (74-106); HDL CHOLESTEROL 37.9 MG/DL (>40); LDL CHOLESTEROL 53.3 MG/DL (<100); NON-HDL-C 120.1 MG/DL; POTASSIUM SERUM 4.2 MMOL/L (3.5-5.1); SODIUM LEVEL 143 MMOL/L (136-145); TOTAL PROTEIN 6.7 G/DL (5.7-8.2); TRIGLYCERIDES LEVEL 334 MG/DL (<150)
[2024-05-21 12:45] LABS: PTH INTACT 84.6 PG/ML (18.5-88.0)
== END ==
LOC: M PLALAB 07:32
PROVIDERS: ATTEND Family Medicine
DX: E11.8 Type 2 diabetes mellitus with unspecified complications (principal)

== ENCOUNTER 2024-05-24 11:03 | Observation (INO) | payer OTHER, BC ==
[~2024-05-24] VITALS: Ht 165.1 cm; Wt 98.4 kg
[2024-05-24 12:17] LABS: BASO % 0.4 % (0.0-1.0); EOS # 0.1 10^3/uL (0.0-0.5); EOS % 0.9 % (0.0-3.0); HEMATOCRIT 43.4 % (42.0-52.0); HEMOGLOBIN 14.5 g/dl (13.5-17.5); LYMPH # 1.2 10^3/uL (1.5-5.0); LYMPH % 13.8 % (24.0-44.0); MEAN CORPUSCULAR HEMOGLOBIN 29.7 pg (27.0-33.0); MEAN CORPUSCULAR HGB CONC 33.4 g/dl (32.0-36.5); MEAN CORPUSCULAR VOLUME 88.9 fl (80.0-96.0); MONO # 0.6 10^3/uL (0.0-0.8); MONO % 7.3 % (2.0-8.0); NEUTROPHILS # 6.5 10^3/uL (1.5-8.5); NEUTROPHILS % 77.4 % (36.0-66.0); PLATELET COUNT, AUTOMATED 217 10^3/uL (150-450); RED BLOOD COUNT 4.88 10^6/uL (4.30-6.10); WHITE BLOOD COUNT 8.5 10^3/uL (4.0-10.0)
[2024-05-24 12:34] LABS: KETONE, URINE AUTO RFX TRACE mg/dL (NEGATIVE); MUCUS, URINE RFX SMALL (NEGATIVE); NITRITE, URINE AUTO RFX NEGATIVE (NEGATIVE); RBC, URINE AUTO RFX 34 /HPF (0-3); SQUAM EPITHELIAL CELL UR AURFX 0 /HPF (0-6)
[2024-05-24 12:41] LABS: LEUKOCYTE ESTERASE UR AUTO RFX 2+ (NEGATIVE); WBC, URINE AUTO RFX 26 /HPF (0-3)
[2024-05-24 12:48] LABS: THYROID STIMULATING HORMONE 0.783 uIU/ML (0.55-4.78)
[2024-05-24 13:14] LABS: INR 0.84; PROTHROMBIN TIME 11.8 SECONDS (12.5-14.5)
[2024-05-24 14:20] LABS: ALBUMIN 3.6 G/DL (3.2-5.2); ALKALINE PHOSPHATASE 52 U/L (40-129); ALT/SGPT 15 U/L (7.0-40); AST/SGOT 19 U/L (<34); BILIRUBIN,DIRECT 0.1 MG/DL (<0.4); BILIRUBIN,TOTAL 0.4 MG/DL (0.3-1.2); BLOOD UREA NITROGEN 15 MG/DL (9-23); CALCIUM LEVEL 9.2 MG/DL (8.3-10.6); CARBON DIOXIDE LEVEL 28 MMOL/L (20-31); CHLORIDE LEVEL 105 MMOL/L (98-107); CREATININE FOR GFR 0.65 MG/DL (0.70-1.30); GLOMERULAR FILTRATION RATE > 60.0 (>42); GLUCOSE, FASTING 92 MG/DL (74-106); POTASSIUM SERUM 4.3 MMOL/L (3.5-5.1); SODIUM LEVEL 141 MMOL/L (136-145); TOTAL PROTEIN 6.6 G/DL (5.7-8.2)
[2024-05-24] MEDS: ACETAMINOPHEN 325 MG TAB PO ONE (15:27)
[2024-05-24 15:55] LABS: C REACTIVE PROTEIN QUANTITATIV < 0.50 MG/DL (<1.0)
[2024-05-24 16:02] LABS: PROCALCITONIN 0.12 ng/ml
[2024-05-24] MEDS ORDERED: GLUCAGON INJ 1MG VIAL SC PRN (16:40)
[2024-05-24] MEDS ORDERED: DEXTROSE 50% 50ML SYRINGE IV PRN (16:40)
[2024-05-24] MEDS ORDERED: GLUCOSE 4 GM CHEW PO PRN (16:40)
[2024-05-24] MEDS: LR 1,000 ML IV ONE (16:53)
[2024-05-24] MEDS ORDERED: NYST1POW3 TOP (17:31)
[2024-05-24] MEDS ORDERED: MED REC COMMENT (17:39)
[2024-05-24] MEDS: LevoFLOXacin IV 750 MG in IV 1 EA IV ONE (18:09)
[2024-05-24] MEDS: INSULIN LISPRO (NovoLOG) PER UNIT SC SCH ×2 (18:09→21:43)
[2024-05-24 18:26] LABS: INR 2.06; PROTHROMBIN TIME 23.3 SECONDS (12.5-14.5)
[2024-05-24] MEDS ORDERED: FLUT1BLS2 INH (20:26)
[2024-05-24] MEDS ORDERED: HOME MED LIST COMPLETE! XX SCH (20:30)
[2024-05-24] MEDS ORDERED: ALBUTEROL 90 MCG/ACT 8GM HFA INHALER INH PRN (22:05)
[2024-05-24] MEDS ORDERED: MIRALAX *UNIT DOSE* 17GM PACKET PO PRN (22:05)
[2024-05-25] MEDS: SINEMET 25-100 MG TAB PO SCH ×2 (00:39→20:23)
[2024-05-25] MEDS: rOPINIRole 1MG TAB PO SCH (00:39)
[2024-05-25] MEDS: BENZTROPINE 0.5 MG TAB PO SCH (00:40)
[2024-05-25] MEDS: POTASSIUM CHLORIDE 10MEQ SR TABLET PO SCH (00:40)
[2024-05-25] MEDS: DOCUSATE SODIUM 100MG CAPSULE PO SCH (00:40)
[2024-05-25] MEDS: GABAPENTIN 100 MG CAP PO SCH ×2 (00:40→17:05)
[2024-05-25] MEDS: ACETAMINOPHEN 500 MG TAB PO PRN (01:45)
[2024-05-25 08:31] LABS: HEMATOCRIT 41.5 % (42.0-52.0); HEMOGLOBIN 13.5 g/dl (13.5-17.5); MEAN CORPUSCULAR HEMOGLOBIN 29.5 pg (27.0-33.0); MEAN CORPUSCULAR HGB CONC 32.5 g/dl (32.0-36.5); MEAN CORPUSCULAR VOLUME 90.6 fl (80.0-96.0); PLATELET COUNT, AUTOMATED 204 10^3/uL (150-450); RED BLOOD COUNT 4.58 10^6/uL (4.30-6.10); WHITE BLOOD COUNT 7.9 10^3/uL (4.0-10.0)
[2024-05-25] MEDS: metFORMIN (GLUCOPHAGE) 500MG TAB PO SCH (08:32)
[2024-05-25] MEDS: SENNA 8.6 MG TAB (SENOKOT) PO SCH (08:33)
[2024-05-25] MEDS: MULTIVITAMINS/MINERALS THERAP 1 TAB PO SCH (08:33)
[2024-05-25] MEDS: DULoxetine 30MG CAPSULE (CYMBALTA) PO SCH (08:33)
[2024-05-25] MEDS ORDERED: PILL CUTTER 1 EACH XX ONE (08:36)
[2024-05-25] MEDS: NYSTATIN 100,000 UNITS/GM TOPICAL PWD 15GM TOP SCH (08:42)
[2024-05-25 09:00] LABS: ALBUMIN 3.2 G/DL (3.2-5.2); ALKALINE PHOSPHATASE 47 U/L (40-129); ALT/SGPT < 9 U/L (7.0-40); AST/SGOT 12 U/L (<34); BILIRUBIN,TOTAL 0.5 MG/DL (0.3-1.2); BLOOD UREA NITROGEN 13 MG/DL (9-23); CARBON DIOXIDE LEVEL 31 MMOL/L (20-31); CHLORIDE LEVEL 107 MMOL/L (98-107); CREATININE FOR GFR 0.75 MG/DL (0.70-1.30); GLOMERULAR FILTRATION RATE > 60.0 (>42); GLUCOSE, FASTING 77 MG/DL (74-106); POTASSIUM SERUM 4.3 MMOL/L (3.5-5.1); SODIUM LEVEL 144 MMOL/L (136-145); TOTAL PROTEIN 6.1 G/DL (5.7-8.2)
[2024-05-25] MEDS ORDERED: ENOXAPARIN 40MG/0.4ML SYRINGE (J1650 PER 10MG) SC SCH (09:00)
[2024-05-25] MEDS ORDERED: SYSTANE EYE OU SCH (09:00)
[2024-05-25] MEDS: K-PHOS ORIGINAL (POT.ACID PHOSPHATE) 500MG TAB PO SCH (09:18)
[2024-05-25] MEDS: PANTOPRAZOLE 20 MG TAB PO SCH (09:18)
[2024-05-25] MEDS: aMILoride 5 MG TAB PO SCH (09:19)
[2024-05-25] MEDS: ROSUVASTATIN 10 MG TAB (CRESTOR) PO SCH (09:19)
[2024-05-25 13:51] VITALS: BP 132/75; TEMP 97; O2SAT 96
[2024-05-25 16:00] VITALS: BP 140/78; TEMP 97.2; O2SAT 98
[2024-05-25] MEDS: WARFARIN SOD 3MG TAB PO ONE (17:05)
[2024-05-25] MEDS: LevoFLOXacin IV 750 MG in IV 1 EA IV SCH (17:05)
[2024-05-25] MEDS ORDERED: ENTA1TAB PO (18:40)
[2024-05-25] MEDS: ADVAIR HFA 115/21MCG INHALER INH SCH (19:37)
[2024-05-25 20:00] VITALS: BP 129/62; TEMP 97.3; O2SAT 96
[2024-05-25] MEDS: ENTACAPONE 200MG TABLET (COMTAN) PO SCH (20:24)
[2024-05-25 20:51] VITALS: BP 128/60; TEMP 97.3; O2SAT 94
[2024-05-26] VITALS (7 sets, daily range): BP systolic 126–138; BP diastolic 66–75; TEMP 97.2–97.9; O2SAT 93–100
[2024-05-26 07:30] LABS: INR 1.35; PROTHROMBIN TIME 16.9 SECONDS (12.5-14.5)
[2024-05-26] MEDS: LUBIPROSTONE 24 MCG PO SCH (08:32)
[2024-05-26] MEDS: allopurinoL 100 MG TAB PO SCH (08:35)
[2024-05-26] MEDS: ACETAMINOPHEN 500 MG TAB PO PRN (08:37)
[2024-05-26 11:02] LABS: BLOOD UREA NITROGEN 11 MG/DL (9-23); CALCIUM LEVEL 8.7 MG/DL (8.3-10.6); CARBON DIOXIDE LEVEL 28 MMOL/L (20-31); CHLORIDE LEVEL 104 MMOL/L (98-107); CREATININE FOR GFR 0.66 MG/DL (0.70-1.30); GLOMERULAR FILTRATION RATE > 60.0 (>42); GLUCOSE, FASTING 148 MG/DL (74-106); POTASSIUM SERUM 4.2 MMOL/L (3.5-5.1); SODIUM LEVEL 141 MMOL/L (136-145)
[2024-05-26] MEDS: FUROSEMIDE 40 MG TAB PO SCH (11:46)
[2024-05-26] MEDS: WARFARIN SOD 3MG TAB PO SCH (18:11)
[2024-05-26] MEDS: WARFARIN SOD 3MG TAB PO ONE (18:11)
[2024-05-27 00:01] VITALS: BP 133/74; TEMP 97.5; O2SAT 96
[2024-05-27] MEDS: diphenhydrAMINE 50MG/ML VIAL IV PRN (00:20)
[2024-05-27 04:29] VITALS: BP 148/75; TEMP 97.3; O2SAT 96
[2024-05-27 05:57] LABS: HEMATOCRIT 40.9 % (42.0-52.0); HEMOGLOBIN 13.5 g/dl (13.5-17.5); MEAN CORPUSCULAR HEMOGLOBIN 29.7 pg (27.0-33.0); MEAN CORPUSCULAR VOLUME 89.9 fl (80.0-96.0); PLATELET COUNT, AUTOMATED 229 10^3/uL (150-450); RED BLOOD COUNT 4.55 10^6/uL (4.30-6.10); WHITE BLOOD COUNT 7.8 10^3/uL (4.0-10.0)
[2024-05-27 06:08] LABS: INR 1.16; PROTHROMBIN TIME 15.1 SECONDS (12.5-14.5)
[2024-05-27 09:36] VITALS: BP 141/78; TEMP 97.2; O2SAT 96
[2024-05-27 12:00] VITALS: BP 139/77; TEMP 97.3; O2SAT 94
[2024-05-27] MEDS: WARFARIN SOD 3MG TAB PO SCH (16:12)
[2024-05-27 21:10] VITALS: BP 137/76; TEMP 97.3; O2SAT 95
[2024-05-28 04:30] VITALS: BP 150/78; TEMP 97.2; O2SAT 95
[2024-05-28 06:32] LABS: INR 1.2; PROTHROMBIN TIME 15.5 SECONDS (12.5-14.5)
[2024-05-28] MEDS ORDERED: FURO40TA2 PO (12:21)
[2024-05-28] MEDS ORDERED: GABA-1171 PO (12:21)
[2024-05-28 12:30] VITALS: BP 131/71; TEMP 97; O2SAT 94
[2024-05-29 14:32] LABS: CARDIOLIPIN IGA ANTIBODY < 2.0 APL-U/mL (<20.0); CARDIOLIPIN IGG ANTIBODY < 2.0 GPL-U/mL (<20.0); CARDIOLIPIN IGM ANTIBODY 5.4 MPL-U/mL (<20.0)
== END 2024-05-28 15:15 ==
LOC: EDBD 11:03 → M ED 11:03 → M ED INP 11:04 → M MSPAV 05-25 13:51
PROVIDERS: ADMIT Internal Medicine; ATTEND Student in an Organized Health Care Education/Training Program
DX: R55 Syncope and collapse (principal); N39.0 Urinary tract infection, site not specified; S06.5X0A Traumatic subdural hemorrhage without loss of consciousness, initial encounter; W01.198A Fall on same level from slipping, tripping and stumbling with subsequent striking against other object, initial encounter; Y92.531 Health care provider office as the place of occurrence of the external cause; Y93.9 Activity, unspecified; Y99.9 Unspecified external cause status; G20.C Parkinsonism, unspecified; G44.86 Cervicogenic headache; Z86.711 Personal history of pulmonary embolism; J44.9 Chronic obstructive pulmonary disease, unspecified; K59.04 Chronic idiopathic constipation; N31.9 Neuromuscular dysfunction of bladder, unspecified; Z46.6 Encounter for fitting and adjustment of urinary device; E11.9 Type 2 diabetes mellitus without complications; I50.9 Heart failure, unspecified; M10.9 Gout, unspecified; R41.82 Altered mental status, unspecified; I11.0 Hypertensive heart disease with heart failure; G89.4 Chronic pain syndrome; G31.1 Senile degeneration of brain, not elsewhere classified; Z79.84 Long term (current) use of oral hypoglycemic drugs; Z79.85 Long-term (current) use of injectable non-insulin antidiabetic drugs; Z79.01 Long term (current) use of anticoagulants
CPT/HCPCS: 36415; 70450; 70551; 71045; 72125; 80048; 80053; 80076; 81001; 82140; 83605; 83930; 84145; 84443; 85025; 85027; 85610; 85730; 86140; 86147; 87040; 87086; 87486; 87581; 87633; 87798; 93005; 93041; 94640; 94664; 94760; 96365; 96366; 96375; 96376; 97116; 97161; 97165; 99285; G0378; J1200; J1815; J1956

== ENCOUNTER 2024-05-28 13:41 | Inpatient (IN) | payer OTHER, BC ==
[~2024-05-28] VITALS: Ht 165.1 cm; Wt 95.3 kg
[~2024-05-28 13:41] MED LIST changes: +ENTA1TAB PO; +FLUT1BLS2 INH; +MED REC COMMENT
[2024-05-28 15:20] VITALS: BP 140/65; TEMP 97.3; O2SAT 95
[2024-05-28] MEDS ORDERED: MIRALAX *UNIT DOSE* 17GM PACKET PO PRN ×2 (15:40→15:50)
[2024-05-28] MEDS ORDERED: ACETAMINOPHEN 325 MG TAB PO PRN (15:40)
[2024-05-28] MEDS ORDERED: DEXTROSE 50% 50ML SYRINGE IV PRN (15:50)
[2024-05-28] MEDS ORDERED: ALBUTEROL 90 MCG/ACT 8GM HFA INHALER INH PRN (15:50)
[2024-05-28] MEDS ORDERED: GLUCAGON INJ 1MG VIAL SC PRN (15:50)
[2024-05-28] MEDS ORDERED: GLUCOSE 4 GM CHEW PO PRN (15:50)
[2024-05-28] MEDS: INSULIN LISPRO (NovoLOG) PER UNIT SC SCH ×2 (16:34→20:34)
[2024-05-28] MEDS: rOPINIRole 1MG TAB PO SCH (16:34)
[2024-05-28] MEDS: GABAPENTIN 100 MG CAP PO SCH (16:34)
[2024-05-28] MEDS: SINEMET 25-100 MG TAB PO SCH (18:28)
[2024-05-28] MEDS: ENTACAPONE 200MG TABLET (COMTAN) PO SCH (18:28)
[2024-05-28 19:50] VITALS: BP 128/60; TEMP 98.1; O2SAT 92
[2024-05-28] MEDS: POTASSIUM CHLORIDE 10MEQ SR TABLET PO SCH (20:34)
[2024-05-28] MEDS: DOCUSATE SODIUM 100MG CAPSULE PO SCH (20:34)
[2024-05-28] MEDS: NYSTATIN 100,000 UNITS/GM TOPICAL PWD 15GM TOP SCH (20:35)
[2024-05-28] MEDS: ACETAMINOPHEN 325 MG TAB PO SCH (20:35)
[2024-05-29 05:12] VITALS: BP 156/73; TEMP 96.6; O2SAT 93
[2024-05-29 07:09] LABS: BASO # 0.1 10^3/uL (0.0-0.2); BASO % 0.8 % (0.0-1.0); EOS # 0.3 10^3/uL (0.0-0.5); EOS % 4.2 % (0.0-3.0); HEMATOCRIT 42.8 % (42.0-52.0); HEMOGLOBIN 13.6 g/dl (13.5-17.5); LYMPH # 1.7 10^3/uL (1.5-5.0); LYMPH % 22.5 % (24.0-44.0); MEAN CORPUSCULAR HEMOGLOBIN 28.7 pg (27.0-33.0); MEAN CORPUSCULAR HGB CONC 31.8 g/dl (32.0-36.5); MEAN CORPUSCULAR VOLUME 90.3 fl (80.0-96.0); MONO # 0.7 10^3/uL (0.0-0.8); MONO % 9.1 % (2.0-8.0); NEUTROPHILS # 4.7 10^3/uL (1.5-8.5); NEUTROPHILS % 63.1 % (36.0-66.0); PLATELET COUNT, AUTOMATED 227 10^3/uL (150-450); RED BLOOD COUNT 4.74 10^6/uL (4.30-6.10); WHITE BLOOD COUNT 7.4 10^3/uL (4.0-10.0)
[2024-05-29 07:45] LABS: BLOOD UREA NITROGEN 17 MG/DL (9-23); CARBON DIOXIDE LEVEL 32 MMOL/L (20-31); CHLORIDE LEVEL 102 MMOL/L (98-107); GLOMERULAR FILTRATION RATE > 60.0 (>42); GLUCOSE, FASTING 169 MG/DL (74-106); POTASSIUM SERUM 4.5 MMOL/L (3.5-5.1); SODIUM LEVEL 140 MMOL/L (136-145)
[2024-05-29] MEDS: MULTIVITAMINS/MINERALS THERAP 1 TAB PO SCH (08:05)
[2024-05-29] MEDS: metFORMIN (GLUCOPHAGE) 500MG TAB PO SCH (08:06)
[2024-05-29] MEDS: ROSUVASTATIN 10 MG TAB (CRESTOR) PO SCH (08:06)
[2024-05-29] MEDS: K-PHOS ORIGINAL (POT.ACID PHOSPHATE) 500MG TAB PO SCH (08:06)
[2024-05-29] MEDS: SENNA 8.6 MG TAB (SENOKOT) PO SCH (08:06)
[2024-05-29] MEDS: FUROSEMIDE 40 MG TAB PO SCH (08:06)
[2024-05-29] MEDS: DULoxetine 30MG CAPSULE (CYMBALTA) PO SCH (08:07)
[2024-05-29] MEDS: PANTOPRAZOLE 20 MG TAB PO SCH (08:07)
[2024-05-29] MEDS: LUBIPROSTONE 24 MCG PO SCH (09:00)
[2024-05-29] MEDS: ACETAMINOPHEN 325 MG TAB PO SCH (10:52)
[2024-05-29] MEDS: GABAPENTIN 100 MG CAP PO SCH (10:52)
[2024-05-29 12:09] VITALS: BP 138/90; TEMP 97.1; O2SAT 96
[2024-05-29 20:04] VITALS: BP 124/65; TEMP 98.5; O2SAT 97
[2024-05-30 04:33] VITALS: BP 146/70; TEMP 97.6; O2SAT 99
[2024-05-30] MEDS: allopurinoL 100 MG TAB PO SCH (07:45)
[2024-05-30 12:00] VITALS: BP 152/72; TEMP 97.3; O2SAT 95
[2024-05-30] MEDS: EXCEDRIN MIGRAINE TABLET PO PRN (13:31)
[2024-05-30 20:00] VITALS: BP 131/73; TEMP 97.3; O2SAT 95
[2024-05-31 04:00] VITALS: BP 128/64; TEMP 97.3; O2SAT 95
[2024-05-31 11:30] VITALS: BP 128/64; TEMP 97.3; O2SAT 95
[2024-05-31 12:00] VITALS: BP 133/68; TEMP 97.5; O2SAT 95
[2024-05-31] MEDS: SUMAtriptan SUCCINATE 25MG TABLET PO ONE (15:28)
[2024-05-31 20:00] VITALS: BP 149/71; TEMP 98.1; O2SAT 93
[2024-06-01 04:00] VITALS: BP 142/96; TEMP 97.8; O2SAT 96
[2024-06-01 11:45] VITALS: BP 132/70; TEMP 97.3; O2SAT 94
[2024-06-01] MEDS: metFORMIN (GLUCOPHAGE) 500MG TAB PO SCH (16:50)
[2024-06-01] MEDS: TOPIRAMATE (TopAMAX) 25 MG TAB PO SCH (16:52)
[2024-06-01 19:29] VITALS: BP 130/60; TEMP 98; O2SAT 94
[2024-06-02 05:10] VITALS: BP 134/63; TEMP 97; O2SAT 94
[2024-06-02] MEDS: [UNRECOGNIZED DRUG - OTHER] OU SCH (11:27)
[2024-06-02 12:00] VITALS: BP 130/71; TEMP 97.9; O2SAT 96
[2024-06-02 19:47] VITALS: BP 146/71; TEMP 98.5; O2SAT 96
[2024-06-03 03:33] VITALS: BP 130/66; TEMP 97.9; O2SAT 94
[2024-06-03 12:00] VITALS: BP 142/63; TEMP 98.2; O2SAT 100
[2024-06-03 20:00] VITALS: BP 119/67; TEMP 98.4; O2SAT 94
[2024-06-04 04:40] VITALS: BP 137/64; TEMP 98.1; O2SAT 96
[2024-06-04 12:00] VITALS: BP 138/76; TEMP 98; O2SAT 96
[2024-06-04] MEDS ORDERED: TOPA1TAB PO (12:23)
[2024-06-04] MEDS ORDERED: ENTA1TAB PO (12:23)
[2024-06-04] MEDS ORDERED: METF500T13 PO (12:23)
[2024-06-04] MEDS ORDERED: ASPI-596 PO (12:23)
[2024-06-04] MEDS ORDERED: POTA50TAB PO (15:35)
[2024-06-04] MEDS ORDERED: LanTUS (INSULIN GLARGINE INJ) 1 UNITS/0.01 ML SC SCH (21:00)
== END 2024-06-04 15:00 | disposition home or self-care (01) | DRG 949 ==
LOC: M PM&R 15:20
PROVIDERS: ADMIT Student in an Organized Health Care Education/Training Program; ATTEND Physical Medicine & Rehabilitation
DX: S06.5X0D Traumatic subdural hemorrhage without loss of consciousness, subsequent encounter (principal); I50.32 Chronic diastolic (congestive) heart failure; G20.C Parkinsonism, unspecified; Z74.09 Other reduced mobility; Z74.1 Need for assistance with personal care; R55 Syncope and collapse; R51.9 Headache, unspecified; K59.09 Other constipation; Z86.718 Personal history of other venous thrombosis and embolism; I11.0 Hypertensive heart disease with heart failure; E11.9 Type 2 diabetes mellitus without complications; J44.9 Chronic obstructive pulmonary disease, unspecified; K21.9 Gastro-esophageal reflux disease without esophagitis; E66.812 Obesity, class 2; Z68.35 Body mass index [BMI] 35.0-35.9, adult; Z79.4 Long term (current) use of insulin; G25.81 Restless legs syndrome; E78.5 Hyperlipidemia, unspecified; N31.9 Neuromuscular dysfunction of bladder, unspecified; Z86.711 Personal history of pulmonary embolism; R41.89 Other symptoms and signs involving cognitive functions and awareness; G44.309 Post-traumatic headache, unspecified, not intractable; G89.29 Other chronic pain

== ENCOUNTER → 2024-06-25 | Outpatient (RCR) | payer OTHER, BC ==
[~2024-06-25] MED LIST changes: +ASPI-596 PO; +TOPA1TAB PO
== END ==
LOC: M PT 06-18 12:53
PROVIDERS: ATTEND Student in an Organized Health Care Education/Training Program
DX: S06.5XAD Traumatic subdural hemorrhage with loss of consciousness status unknown, subsequent encounter (principal)

== ENCOUNTER 2024-07-02 13:45 | Outpatient (RCR) | payer OTHER, BC ==
[~2024-07-02 13:45] MED LIST changes: -FLOM0.4C39 PO; +TAMS-18 PO
[2024-07-20] MEDS ORDERED: ELIQ2.5T PO (14:33)
== END 2024-07-25 ==
LOC: M PT 13:45
PROVIDERS: ATTEND Student in an Organized Health Care Education/Training Program
DX: S06.5X0D Traumatic subdural hemorrhage without loss of consciousness, subsequent encounter (principal)

== ENCOUNTER 2024-07-27 16:41 | Emergency (ER) | payer OTHER, BC ==
[~2024-07-27] VITALS: Ht 165.1 cm; Wt 97.4 kg
[~2024-07-27 16:41] MED LIST changes: +ELIQ2.5T PO
[2024-07-27 19:02] LABS: BASO # 0.1 10^3/uL (0.0-0.2); BASO % 0.5 % (0.0-1.0); EOS # 0.3 10^3/uL (0.0-0.5); EOS % 2.9 % (0.0-3.0); HEMOGLOBIN 14.7 g/dl (13.5-17.5); LYMPH # 1.5 10^3/uL (1.5-5.0); LYMPH % 14.1 % (24.0-44.0); MEAN CORPUSCULAR HEMOGLOBIN 29.8 pg (27.0-33.0); MEAN CORPUSCULAR HGB CONC 34.2 g/dl (32.0-36.5); MEAN CORPUSCULAR VOLUME 87.2 fl (80.0-96.0); MONO # 0.7 10^3/uL (0.0-0.8); MONO % 7.1 % (2.0-8.0); NEUTROPHILS # 7.8 10^3/uL (1.5-8.5); NEUTROPHILS % 75.2 % (36.0-66.0); PLATELET COUNT, AUTOMATED 257 10^3/uL (150-450); RED BLOOD COUNT 4.93 10^6/uL (4.30-6.10); WHITE BLOOD COUNT 10.4 10^3/uL (4.0-10.0)
[2024-07-27 19:19] LABS: INR 0.9; PARTIAL THROMBOPLASTIN TIME 25.8 SECONDS (24.8-34.2); PROTHROMBIN TIME 12.5 SECONDS (12.5-14.5)
[2024-07-27 19:28] LABS: LIPASE 84 U/L (12-53)
[2024-07-27 19:31] LABS: ALBUMIN 3.5 G/DL (3.2-5.2); ALKALINE PHOSPHATASE 64 U/L (40-129); ALT/SGPT 14 U/L (7.0-40); AST/SGOT 16 U/L (<34); BILIRUBIN,DIRECT 0.1 MG/DL (<0.4); BILIRUBIN,TOTAL 0.4 MG/DL (0.3-1.2); BLOOD UREA NITROGEN 9 MG/DL (9-23); CALCIUM LEVEL 9.3 MG/DL (8.3-10.6); CARBON DIOXIDE LEVEL 34 MMOL/L (20-31); CHLORIDE LEVEL 101 MMOL/L (98-107); CREATININE FOR GFR 0.77 MG/DL (0.70-1.30); GLOMERULAR FILTRATION RATE > 90.0 (>42); GLUCOSE, FASTING 188 MG/DL (74-106); SODIUM LEVEL 142 MMOL/L (136-145); TOTAL PROTEIN 6.5 G/DL (5.7-8.2)
[2024-07-27] MEDS: ACETAMINOPHEN *IV* 1,000 MG in IV 1 EA IV ONE (19:59)
[2024-07-27] MEDS: ONDANSETRON 4MG 2ML VIAL IV ONE (19:59)
[2024-07-27] MEDS ORDERED: ISOVUE-370 76% 100ML VIAL As Ordered ONE (20:11)
[2024-07-27 20:57] LABS: KETONE, URINE AUTO RFX TRACE mg/dL (NEGATIVE); NITRITE, URINE AUTO RFX NEGATIVE (NEGATIVE); RBC, URINE AUTO RFX 9 /HPF (0-3); SQUAM EPITHELIAL CELL UR AURFX 0 /HPF (0-6)
[2024-07-27 21:08] LABS: LEUKOCYTE ESTERASE UR AUTO RFX 3+ (NEGATIVE); WBC, URINE AUTO RFX TNTC /HPF (0-3)
[2024-07-27] MEDS ORDERED: CEFD300C PO (22:58)
[2024-07-27] MEDS ORDERED: ONDA-282 PO (22:58)
[2024-07-27] MEDS: cefTRIAXone SOD 2 GM in DEXTROSE 5% (D5W) ADV/MINI-BAG 50 ML IV ONE (23:05)
[2024-07-27 23:55] VITALS: BP 138/68; TEMP 97.7; O2SAT 95
== END 2024-07-28 | disposition home or self-care (01) ==
LOC: EDBD 16:41 → M ED 16:41
DX: N39.0 Urinary tract infection, site not specified (principal); R51.9 Headache, unspecified; I11.0 Hypertensive heart disease with heart failure; E11.9 Type 2 diabetes mellitus without complications; K21.9 Gastro-esophageal reflux disease without esophagitis; J44.9 Chronic obstructive pulmonary disease, unspecified; K59.00 Constipation, unspecified; Z79.4 Long term (current) use of insulin; Z79.899 Other long term (current) drug therapy
CPT/HCPCS: 70450; 74177; 80047; 80048; 80076; 81001; 83605; 83690; 85025; 85610; 85730; 86850; 86900; 86901; 87088; 87186; 93005; 93041; 96365; 96367; 96375; 99285; J0131; J0696; J2405; Q9967

== ENCOUNTER → 2024-08-15 | Outpatient (REF) | payer OTHER, BC ==
[~2024-08-15] MED LIST changes: +CEFD300C PO; +ONDA-282 PO
[2024-08-15 13:33] LABS: APPEARANCE, URINE CLEAR (CLEAR); BACTERIA, URINE AUTO NEGATIVE (NEGATIVE); BILIRUBIN, URINE AUTO NEGATIVE (NEGATIVE); BLOOD, URINE BLOOD 1+ (NEGATIVE); COLOR, URINE YELLOW (YELLOW); GLUCOSE, URINE (UA) AUTO 1+ mg/dL (NEGATIVE); KETONE, URINE AUTO NEGATIVE (NEGATIVE); LEUKOCYTE ESTERASE, URINE AUTO 2+ (NEGATIVE); NITRITE, URINE AUTO NEGATIVE (NEGATIVE); PROTEIN, URINE AUTO NEGATIVE (NEGATIVE); RBC, URINE AUTO 5 /HPF (0-3); SPECIFIC GRAVITY URINE AUTO 1.009 (1.002-1.035); SQUAMOUS EPITHELIAL CELL UR AU 0 /HPF (0-6); UROBILINOGEN, URINE AUTO 0.2 mg/dL (0.0-2.0); WBC, URINE AUTO 45 /HPF (0-3)
== END ==
LOC: M SMT 12:56
PROVIDERS: ATTEND Physician Assistant
DX: R39.9 Unspecified symptoms and signs involving the genitourinary system (principal)

== ENCOUNTER → 2024-11-21 | Outpatient (CLI) | payer OTHER, BC ==
[~2024-11-21] MED LIST changes: +ERGO125013 PO; -VITA500045 PO
[2024-11-21 11:30] LABS: CALCIUM LEVEL 10.1 MG/DL (8.3-10.6); CARBON DIOXIDE LEVEL 32 MMOL/L (20-31); CHLORIDE LEVEL 101 MMOL/L (98-107); CREATININE FOR GFR 0.74 MG/DL (0.70-1.30); GLOMERULAR FILTRATION RATE > 90.0 (>42); POTASSIUM SERUM 4.0 MMOL/L (3.5-5.1); SODIUM LEVEL 142 MMOL/L (136-145)
== END ==
LOC: M PLALAB 09:16
PROVIDERS: ATTEND Internal Medicine Cardiovascular Disease
DX: I10 Essential (primary) hypertension (principal)

== ENCOUNTER → 2024-12-20 | Outpatient (CLI) | payer BC, OTHER ==
[2024-12-20 10:41] LABS: BASO # 0.1 10^3/uL (0.0-0.2); BASO % 0.8 % (0.0-1.0); EOS # 0.3 10^3/uL (0.0-0.5); EOS % 3.4 % (0.0-3.0); LYMPH # 1.8 10^3/uL (1.5-5.0); LYMPH % 21.0 % (24.0-44.0); MONO # 1.0 10^3/uL (0.0-0.8); MONO % 11.8 % (2.0-8.0); NEUTROPHILS # 5.3 10^3/uL (1.5-8.5); NEUTROPHILS % 62.5 % (36.0-66.0); PLATELET COUNT, AUTOMATED 280 10^3/uL (150-450)
[2024-12-20 10:47] LABS: IRON (FE) 61 UG/DL (65-175); PERCENT SATURATION 19.6 % (19.7-50.0)
[2024-12-20 13:45] LABS: ALT/SGPT 11 U/L (7.0-40); AST/SGOT 22 U/L (<34); CALCIUM LEVEL 8.6 MG/DL (8.3-10.6); CARBON DIOXIDE LEVEL 34 MMOL/L (20-31); CHLORIDE LEVEL 99 MMOL/L (98-107); CREATININE FOR GFR 0.88 MG/DL (0.70-1.30); FREE T4 1.29 NG/DL (0.89-1.76); GLOMERULAR FILTRATION RATE > 90.0 (>42); MAGNESIUM LEVEL 2.1 MG/DL (1.8-2.4); POTASSIUM SERUM 2.8 MMOL/L (3.5-5.1); PSA SCREENING 0.29 NG/ML (< 4.00); SODIUM LEVEL 138 MMOL/L (136-145)
== END ==
LOC: M PLALAB 07:38
PROVIDERS: ATTEND Family Medicine
DX: K74.00 Hepatic fibrosis, unspecified (principal); M47.816 Spondylosis without myelopathy or radiculopathy, lumbar region; I50.32 Chronic diastolic (congestive) heart failure; D50.9 Iron deficiency anemia, unspecified; M10.9 Gout, unspecified; E78.5 Hyperlipidemia, unspecified; Z12.5 Encounter for screening for malignant neoplasm of prostate
CPT/HCPCS: 36415; 72110; 80053; 81517; 82728; 83550; 83735; 83880; 84439; 84443; 84550; 85025; G0103

== ENCOUNTER → 2024-12-26 | Outpatient (CLI) | payer OTHER, BC ==
[2024-12-26 11:22] LABS: CHOLESTEROL LEVEL 125 MG/DL (<200); CHOLESTEROL RISK RATIO 3.59 (<5); MAGNESIUM LEVEL 1.8 MG/DL (1.8-2.4); NON-HDL-C 90.2 MG/DL; TRIGLYCERIDES LEVEL 461 MG/DL (<150)
[2024-12-27 14:57] LABS: CALCIUM LEVEL 8.4 MG/DL (8.3-10.6); CARBON DIOXIDE LEVEL 32 MMOL/L (20-31); CHLORIDE LEVEL 103 MMOL/L (98-107); CREATININE FOR GFR 0.91 MG/DL (0.70-1.30); GLOMERULAR FILTRATION RATE 89.6 (>42); PHOSPHORUS LEVEL 2.3 MG/DL (2.4-5.1); POTASSIUM SERUM 3.5 MMOL/L (3.5-5.1); SODIUM LEVEL 138 MMOL/L (136-145)
== END ==
LOC: M PLALAB 07:19
PROVIDERS: ATTEND Family Medicine
DX: I50.32 Chronic diastolic (congestive) heart failure (principal); K59.09 Other constipation

== ENCOUNTER → 2025-03-07 | Outpatient (REF) | payer OTHER, BC ==
[~2025-03-07] MED LIST changes: +ACET650T3 PO; +CARB1TAB97 PO; +DULO20CA27 PO; -FISH10005 PO; +FISH1CAP38 PO; +MAGNSOL3 PO; +MEMA10TA PO; +SPIR50TA4 PO; +TIRZ5PEN SQ
[2025-03-07 13:47] LABS: APPEARANCE, URINE HAZY (CLEAR); BACTERIA, URINE AUTO 1+ (NEGATIVE); BILIRUBIN, URINE AUTO NEGATIVE (NEGATIVE); BLOOD, URINE BLOOD 3+ (NEGATIVE); GLUCOSE, URINE (UA) AUTO NEGATIVE (NEGATIVE); KETONE, URINE AUTO NEGATIVE (NEGATIVE); LEUKOCYTE ESTERASE, URINE AUTO 3+ (NEGATIVE); MUCUS, URINE SMALL (NEGATIVE); NITRITE, URINE AUTO NEGATIVE (NEGATIVE); PROTEIN, URINE AUTO 1+ mg/dL (NEGATIVE); RBC, URINE AUTO 115 /HPF (0-3); SPECIFIC GRAVITY URINE AUTO 1.009 (1.002-1.035); SQUAMOUS EPITHELIAL CELL UR AU 1 /HPF (0-6); UROBILINOGEN, URINE AUTO 0.2 mg/dL (0.0-2.0); WBC, URINE AUTO 118 /HPF (0-3)
== END ==
LOC: M SMT 12:43
PROVIDERS: ATTEND Physician Assistant
DX: R39.9 Unspecified symptoms and signs involving the genitourinary system (principal)

== ENCOUNTER 2025-03-09 06:42 | Inpatient (IN) | payer OTHER, BC ==
[2025-03-09] VITALS (10 sets, daily range): BP systolic 106–136; BP diastolic 51–63; TEMP 97.5–101.4; O2SAT 90–97
[~2025-03-09] VITALS: Ht 170.2 cm; Wt 95.3 kg
[~2025-03-09 06:42] MED LIST changes: -ACET650T3 PO; -CARB1TAB97 PO; -DULO20CA27 PO; -MAGNSOL3 PO; -MEMA10TA PO; -SPIR50TA4 PO; -TIRZ5PEN SQ
[2025-03-09] MEDS: ACETAMINOPHEN *IV* 1,000 MG in IV 1 EA IV ONE (07:09)
[2025-03-09 07:16] LABS: BASO # 0.0 10^3/uL (0.0-0.2); BASO % 0.2 % (0.0-1.0); EOS # 0.0 10^3/uL (0.0-0.5); EOS % 0.0 % (0.0-3.0); LYMPH # 0.7 10^3/uL (1.5-5.0); LYMPH % 3.9 % (24.0-44.0); MONO # 1.7 10^3/uL (0.0-0.8); MONO % 9.2 % (2.0-8.0); NEUTROPHILS # 15.9 10^3/uL (1.5-8.5); NEUTROPHILS % 86.0 % (36.0-66.0); PLATELET COUNT, AUTOMATED 244 10^3/uL (150-450)
[2025-03-09 07:36] LABS: ALT/SGPT 17.0 U/L (7.0-40); AST/SGOT 12.0 U/L (<34); CALCIUM LEVEL 8.9 MG/DL (8.3-10.6); CARBON DIOXIDE LEVEL 28.0 MMOL/L (20-31); CHLORIDE LEVEL 107.0 MMOL/L (98-107); CREATININE FOR GFR 1.12 MG/DL (0.70-1.30); GLOMERULAR FILTRATION RATE 69.8 (>42); POTASSIUM SERUM 4.2 MMOL/L (3.5-5.1); SODIUM LEVEL 138.0 MMOL/L (136-145)
[2025-03-09 07:57] LABS: KETONE, URINE AUTO RFX NEGATIVE (NEGATIVE); MUCUS, URINE RFX SMALL (NEGATIVE); RBC, URINE AUTO RFX TNTC /HPF (0-3); SQUAM EPITHELIAL CELL UR AURFX 0 /HPF (0-6); TRIPLE PHOSPHATE CRYSTALS RFX SMALL
[2025-03-09 07:58] LABS: LEUKOCYTE ESTERASE UR AUTO RFX 2+ (NEGATIVE); NITRITE, URINE AUTO RFX POSITIVE (NEGATIVE); WBC, URINE AUTO RFX TNTC /HPF (0-3)
[2025-03-09] MEDS: cefTRIAXone SOD 2 GM in DEXTROSE 5% (D5W) ADV/MINI-BAG 50 ML IV ONE (08:09)
[2025-03-09] MEDS: NS (Normal Saline) 0.9% 1,000 ML IV ONE (08:09)
[2025-03-09] MEDS ORDERED: ISOVUE-370 76% 100 ML VIAL As Ordered ONE (08:10)
[2025-03-09 10:43] LABS: INR 1.12
[2025-03-09] MEDS: NS (Normal Saline) 0.9% 1,000 ML IV SCH (11:07)
[2025-03-09] MEDS ORDERED: ACET650T3 PO (11:22)
[2025-03-09] MEDS ORDERED: CARB1TAB97 PO (11:22)
[2025-03-09] MEDS ORDERED: MEMA10TA PO (11:22)
[2025-03-09] MEDS ORDERED: MAGNSOL3 PO (11:22)
[2025-03-09] MEDS ORDERED: TIRZ5PEN SQ (11:22)
[2025-03-09] MEDS ORDERED: SPIR50TA4 PO (11:22)
[2025-03-09] MEDS ORDERED: DULO20CA27 PO (11:22)
[2025-03-09] MEDS ORDERED: GABA-1171 PO (11:22)
[2025-03-09] MEDS ORDERED: HOME MED LIST COMPLETE! XX SCH (11:25)
[2025-03-09] MEDS ORDERED: MOM 30 ML SUSPENSION UDC PO PRN (11:25)
[2025-03-09] MEDS: DOCUSATE SODIUM 100 MG CAPSULE PO SCH (11:31)
[2025-03-09] MEDS: KETOROLAC 30 MG/ML 1 ML VIAL IV ONE (11:32)
[2025-03-09] MEDS ORDERED: ALBUTEROL 90 MCG/ACT 8 GM HFA INHALER INH PRN (11:40)
[2025-03-09] MEDS ORDERED: MIRALAX *UNIT DOSE* 17 GM PACKET PO PRN (11:40)
[2025-03-09] MEDS ORDERED: MORPHINE 2 MG/ML 1 ML VIAL IV PRN (11:50)
[2025-03-09] MEDS ORDERED: GLUCOSE 4 GM CHEW PO PRN (11:50)
[2025-03-09] MEDS ORDERED: MORPHINE 4 MG/ML 1 ML VIAL IV PRN (11:50)
[2025-03-09] MEDS ORDERED: DEXTROSE 50% 50 ML SYRINGE IV PRN (11:50)
[2025-03-09] MEDS ORDERED: GLUCAGON INJ 1 MG VIAL SC PRN (11:50)
[2025-03-09] MEDS: ISOVUE-300 61% 100 ML VIAL As Ordered ONE (12:00)
[2025-03-09] MEDS ORDERED: ACETAMINOPHEN 1000MG/100ML IV BAG As Ordered ONE (12:35)
[2025-03-09] MEDS ORDERED: HYDROMORPHONE HCL 0.5 MG/0.5 ML SYRINGE IV PRN (12:45)
[2025-03-09] MEDS ORDERED: dexAMETHasone 4 MG/ML 1 ML VIAL As Ordered ONE (13:09)
[2025-03-09] MEDS ORDERED: ONDANSETRON 4MG/2ML VIAL As Ordered ONE (13:09)
[2025-03-09] MEDS ORDERED: ROCURONIUM BROMIDE 50MG/5ML VIAL As Ordered ONE (13:26)
[2025-03-09] MEDS ORDERED: SUGAMMADEX SODIUM 500 MG/5 ML VIAL As Ordered ONE (13:26)
[2025-03-09] MEDS: PANTOPRAZOLE 20 MG TAB PO SCH (14:57)
[2025-03-09] MEDS: ROSUVASTATIN 10 MG TAB PO SCH (14:58)
[2025-03-09] MEDS: SENNA 8.6 MG TAB PO SCH (14:58)
[2025-03-09] MEDS: GABAPENTIN 100 MG CAP PO SCH (14:58)
[2025-03-09] MEDS: ENTACAPONE 200 MG TABLET PO SCH (17:00)
[2025-03-09] MEDS: CARBIDOPA/LEVODOPA 25 MG/100 MG PO SCH (17:00)
[2025-03-09] MEDS ORDERED: MAGNESIUM CITRATE 300 ML BTL PO SCH (21:00)
[2025-03-09] MEDS ORDERED: SENNA 8.6 MG TAB PO SCH (21:00)
[2025-03-09] MEDS: LanTUS (INSULIN GLARGINE INJ) 1 UNITS/0.01 ML SC SCH (22:08)
[2025-03-09] MEDS: ACETAMINOPHEN 325 MG TAB PO PRN (22:08)
[2025-03-09] MEDS: MEMANTINE 5 MG TABLET PO SCH (22:09)
[2025-03-09] MEDS: POTASSIUM CHLORIDE 10MEQ SR TABLET PO SCH (22:09)
[2025-03-09] MEDS: HALOPERIDOL LACTATE 5 MG/ML VIAL IV STA (23:04)
[2025-03-09] MEDS ORDERED: HALOPERIDOL LACTATE 5 MG/ML VIAL IV PRN (23:30)
[2025-03-09] MEDS: CARBIDOPA/LEVODOPA **ER** 25 MG/100 MG PO SCH (23:45)
[2025-03-10] VITALS (10 sets, daily range): BP systolic 104–144; BP diastolic 51–72; TEMP 97.7–102.8; O2SAT 90–98
[2025-03-10] MEDS: NS (Normal Saline) 0.9% 1,000 ML IV ONE (00:37)
[2025-03-10 02:39] LABS: PLATELET COUNT, AUTOMATED 217 10^3/uL (150-450)
[2025-03-10] MEDS: ACETAMINOPHEN *IV* 1,000 MG in IV 1 EA IV PRN (02:40)
[2025-03-10 03:13] LABS: ALT/SGPT < 9 U/L (7.0-40); AST/SGOT 24 U/L (<34); CALCIUM LEVEL 7.9 MG/DL (8.3-10.6); CARBON DIOXIDE LEVEL 28 MMOL/L (20-31); CHLORIDE LEVEL 113 MMOL/L (98-107); CREATININE FOR GFR 1.14 MG/DL (0.70-1.30); GLOMERULAR FILTRATION RATE 68.3 (>42); POTASSIUM SERUM 4.4 MMOL/L (3.5-5.1); SODIUM LEVEL 144 MMOL/L (136-145)
[2025-03-10 05:53] LABS: PLATELET COUNT, AUTOMATED 183 10^3/uL (150-450)
[2025-03-10 06:21] LABS: ALT/SGPT < 9 U/L (7.0-40); AST/SGOT 22 U/L (<34); CALCIUM LEVEL 7.5 MG/DL (8.3-10.6); CARBON DIOXIDE LEVEL 28 MMOL/L (20-31); CHLORIDE LEVEL 117 MMOL/L (98-107); CREATININE FOR GFR 1.16 MG/DL (0.70-1.30); GLOMERULAR FILTRATION RATE 66.9 (>42); POTASSIUM SERUM 4.1 MMOL/L (3.5-5.1); SODIUM LEVEL 145 MMOL/L (136-145)
[2025-03-10] MEDS ORDERED: cefTRIAXone SOD 1 GM in DEXTROSE 5% (D5W) ADV/MINI-BAG 50 ML IV SCH (08:00)
[2025-03-10] MEDS: PIPERACILLIN/TAZOBACTAM SOD 3.375 GM in DEXTROSE 5% (D5W) ADV/MINI-BAG 50 ML IV SCH (08:18)
[2025-03-10] MEDS: INSULIN LISPRO (NovoLOG) PER UNIT SC SCH ×3 (08:18→21:33)
[2025-03-10] MEDS: DOXYCYCLINE HYCLATE 100 MG TABLET PO SCH (08:19)
[2025-03-10] MEDS ORDERED: ENOXAPARIN 40 MG/0.4 ML SYRINGE (J1650 PER 10MG) SC SCH (09:00)
[2025-03-10] MEDS ORDERED: SPIRONOLACTONE 50 MG TAB PO SCH (09:00)
[2025-03-10] MEDS ORDERED: LEVALBUTEROL 1.25 MG 0.5ML CONCENTRATE NEB NEB PRN (10:50)
[2025-03-10] MEDS: NS (Normal Saline) 0.9% 1,000 ML IV SCH (11:55)
[2025-03-10] MEDS: MEROPENEM 1 GM in IV 1 EA IV SCH (12:22)
[2025-03-10] MEDS: LEVALBUTEROL 1.25 MG 0.5ML CONCENTRATE NEB NEB SCH (12:46)
[2025-03-11 00:41] VITALS: BP 126/60; TEMP 97.5; O2SAT 96
[2025-03-11 04:00] VITALS: BP 133/63; TEMP 97.2; O2SAT 95
[2025-03-11 06:22] LABS: PLATELET COUNT, AUTOMATED 192 10^3/uL (150-450)
[2025-03-11 06:38] LABS: ALT/SGPT 11.0 U/L (7.0-40); AST/SGOT 57.0 U/L (<34); CALCIUM LEVEL 8.0 MG/DL (8.3-10.6); CARBON DIOXIDE LEVEL 25.0 MMOL/L (20-31); CHLORIDE LEVEL 117.0 MMOL/L (98-107); CREATININE FOR GFR 1.03 MG/DL (0.70-1.30); GLOMERULAR FILTRATION RATE 77.2 (>42); POTASSIUM SERUM 4.1 MMOL/L (3.5-5.1); SODIUM LEVEL 145.0 MMOL/L (136-145)
[2025-03-11 07:53] VITALS: BP 145/66; TEMP 98.9; O2SAT 96
[2025-03-11] MEDS: LanTUS (INSULIN GLARGINE INJ) 1 UNITS/0.01 ML SC SCH (08:58)
[2025-03-11] MEDS ORDERED: LanTUS (INSULIN GLARGINE INJ) 1 UNITS/0.01 ML SC SCH (09:00)
[2025-03-11] MEDS: ADVAIR HFA 230/21 MCG INHALER INH SCH (12:55)
[2025-03-11] MEDS: APIXABAN 2.5 MG TAB PO SCH (13:33)
[2025-03-11 15:41] VITALS: BP 131/61; TEMP 97.3; O2SAT 94
[2025-03-11 20:10] VITALS: BP 149/68; TEMP 98.2; TEMP 99.8; O2SAT 95
[2025-03-11] MEDS: traMADol 50 MG TAB PO PRN (20:17)
[2025-03-12] VITALS (7 sets, daily range): BP systolic 115–159; BP diastolic 63–83; TEMP 97–99; O2SAT 94–99
[2025-03-12 06:07] LABS: PLATELET COUNT, AUTOMATED 231 10^3/uL (150-450)
[2025-03-12 06:48] LABS: ALT/SGPT 23.0 U/L (7.0-40); AST/SGOT 115.0 U/L (<34); CALCIUM LEVEL 8.3 MG/DL (8.3-10.6); CARBON DIOXIDE LEVEL 27.0 MMOL/L (20-31); CHLORIDE LEVEL 116.0 MMOL/L (98-107); CREATININE FOR GFR 1.04 MG/DL (0.70-1.30); GLOMERULAR FILTRATION RATE 76.3 (>42); POTASSIUM SERUM 3.4 MMOL/L (3.5-5.1); SODIUM LEVEL 147.0 MMOL/L (136-145)
[2025-03-12] MEDS: LanTUS (INSULIN GLARGINE INJ) 1 UNITS/0.01 ML SC SCH (08:36)
[2025-03-12] MEDS: FUROSEMIDE 40 MG TAB PO SCH (08:38)
[2025-03-12] MEDS: POTASSIUM CHLORIDE 10MEQ SR TABLET PO ONE (08:39)
[2025-03-12] MEDS: predniSONE 20 MG TAB PO SCH (09:41)
[2025-03-12] MEDS: POTASSIUM CHLORIDE 10MEQ SR TABLET PO SCH (21:59)
[2025-03-13 04:03] VITALS: BP 138/59; TEMP 98.5; O2SAT 97
[2025-03-13 05:59] LABS: BASO # 0.0 10^3/uL (0.0-0.2); BASO % 0.1 % (0.0-1.0); EOS # 0.0 10^3/uL (0.0-0.5); EOS % 0.1 % (0.0-3.0); LYMPH # 1.0 10^3/uL (1.5-5.0); LYMPH % 9.4 % (24.0-44.0); MONO # 1.0 10^3/uL (0.0-0.8); MONO % 9.6 % (2.0-8.0); NEUTROPHILS # 8.2 10^3/uL (1.5-8.5); NEUTROPHILS % 80.3 % (36.0-66.0); PLATELET COUNT, AUTOMATED 238 10^3/uL (150-450)
[2025-03-13 06:32] LABS: CALCIUM LEVEL 8.2 MG/DL (8.3-10.6); CARBON DIOXIDE LEVEL 30.0 MMOL/L (20-31); CHLORIDE LEVEL 107.0 MMOL/L (98-107); CREATININE FOR GFR 1.01 MG/DL (0.70-1.30); GLOMERULAR FILTRATION RATE 79.0 (>42); POTASSIUM SERUM 3.1 MMOL/L (3.5-5.1); SODIUM LEVEL 145.0 MMOL/L (136-145)
[2025-03-13 07:12] VITALS: BP 131/60; TEMP 98.6; O2SAT 96
[2025-03-13] MEDS: POTASSIUM CHLORIDE 10MEQ SR TABLET PO ONE ×2 (08:35→12:56)
[2025-03-13] MEDS: SPIRONOLACTONE 50 MG TAB PO SCH (09:34)
[2025-03-13 12:01] VITALS: BP 130/87; TEMP 98.3; O2SAT 97
[2025-03-13 18:15] VITALS: BP 118/75; TEMP 98.3; O2SAT 95
[2025-03-13 20:00] VITALS: BP 133/57; TEMP 98.4; O2SAT 97
[2025-03-13] MEDS: KCL 10MEQ/100ML SWI (KRUN) 10 MEQ in IV 1 EA IV SCH (21:29)
[2025-03-14] MEDS: LanTUS (INSULIN GLARGINE INJ) 1 UNITS/0.01 ML SC ONE ×2 (00:25→21:53)
[2025-03-14 03:13] VITALS: BP 131/68; TEMP 97.6; O2SAT 99
[2025-03-14 07:06] LABS: CALCIUM LEVEL 8.1 MG/DL (8.3-10.6); CARBON DIOXIDE LEVEL 32.0 MMOL/L (20-31); CHLORIDE LEVEL 106.0 MMOL/L (98-107); CREATININE FOR GFR 1.19 MG/DL (0.70-1.30); GLOMERULAR FILTRATION RATE 64.9 (>42); POTASSIUM SERUM 3.6 MMOL/L (3.5-5.1); SODIUM LEVEL 145.0 MMOL/L (136-145)
[2025-03-14 11:45] VITALS: BP 128/61; TEMP 98.6; O2SAT 95
[2025-03-14 20:48] VITALS: BP 130/63; TEMP 98; O2SAT 100
[2025-03-15 04:25] VITALS: BP 129/59; TEMP 98.3; O2SAT 90
[2025-03-15 08:49] VITALS: BP 121/68
[2025-03-15] MEDS ORDERED: LEVO75TAB PO (09:24)
== END 2025-03-15 13:03 | disposition home health service (06) | DRG 853 ==
LOC: M ED 06:42 → EDBD 06:42 → M ED INP 09:18 → M MSPAV 13:50 → M PCU 03-10 02:13 → M MSPAV 03-13 18:06
PROVIDERS: ADMIT Internal Medicine; ATTEND Student in an Organized Health Care Education/Training Program
PROC: 0T768DZ Dilation of Right Ureter with Intraluminal Device, Via Natural or Artificial Opening Endoscopic (ICD-10-PCS; principal; 2025-03-09 09:41)
DX: A41.59 Other Gram-negative sepsis (principal); J96.01 Acute respiratory failure with hypoxia; J18.9 Pneumonia, unspecified organism; I50.32 Chronic diastolic (congestive) heart failure; N13.6 Pyonephrosis; J44.1 Chronic obstructive pulmonary disease with (acute) exacerbation; J44.0 Chronic obstructive pulmonary disease with (acute) lower respiratory infection; K59.09 Other constipation; N31.9 Neuromuscular dysfunction of bladder, unspecified; Z86.711 Personal history of pulmonary embolism; E87.6 Hypokalemia; I11.0 Hypertensive heart disease with heart failure; B96.4 Proteus (mirabilis) (morganii) as the cause of diseases classified elsewhere; K21.9 Gastro-esophageal reflux disease without esophagitis; G20.A1 Parkinson's disease without dyskinesia, without mention of fluctuations; G89.29 Other chronic pain; M10.9 Gout, unspecified; E11.9 Type 2 diabetes mellitus without complications; Z79.01 Long term (current) use of anticoagulants; Z79.4 Long term (current) use of insulin; Z79.84 Long term (current) use of oral hypoglycemic drugs; Z79.899 Other long term (current) drug therapy